=== PATIENT | male | born 1970 | race Caucasian/White ===

== ENCOUNTER 2018-10-03 12:10 | Emergency (ER) | payer OTHER, SELFPAY ==
[2018-10-03 12:11] VITALS: BP 145/73; PULSE 97; RESP 16; TEMP 36.8; O2SAT 96; BMI 22.0
--- NOTE | 2018-10-03 12:33 | ED.DCSUM_ITS ---
- ER Visit Summary Date of Service: 10/03/18 Chief Complaint: Right foot wound History of Present Illness: The patient is a 48 M presents with wound to his right foot that has been getting progressively worse over the past 3 weeks. Patient states he had a callus on his right foot that he picked at and became an open wound. Patient describes the pain is dull. Patient states his pain is worse with weightbearing and ambulation. Patient does admit to some mild tingling in the right foot. Patient admits to some drainage from the wound. Patient denies any fevers or chills. Patient denies any specific trauma or injury. Patient states he has not been taking his insulin because he cannot afford it. Physical Examination: Vital signs are stable. Patient is afebrile. Patient is in no acute distress. Oral mucosa is pink and moist. Neck is supple. Heart was regular rate and rhythm. Lungs are clear and equal bilaterally. Abdomen is soft and nontender. Skin is warm and dry. There is a grade 3 ulceration on the lateral aspect of the right foot near the base of the fifth metatarsal. There is some localized tenderness. There is no discharge or drainage noted from the wound. There is some surrounding erythema. There is some edema noted. Sensation was intact to light touch in all digits. Capillary refill is less than 2 seconds in all digits. Pedal pulses are equal bilateral. There is no calf tenderness noted. Test Results: CBC showed a mild leukocytosis of 14.5. Creatinine was slightly elevated at 2.01. Glucose was 309. X-rays of the right foot were obtained. There is no evidence of osteomyelitis. Emergency Department Course and Treatment: Wound culture was obtained and is pending. Patient was given IV fluids. Patient was given his first dose of Bactrim here. Patient was instructed to keep the wound clean. Patient was instructed to use Neosporin ointment to the area. Patient was instructed to follow-up with his primary care physician or the [facility] in 3-5 days. Patient understood and was agreeable with the plan. All questions were answered. Disposition: Discharge home Impression: Infected wound right foot This note was generated with [employer] software. It may contain incorrect words, spelling, and punctuation that were not noted in review of the chart prior to signing ED Disposition - Plan for ED Patient: Disposition: Home or Assisted Living Diagnosis: Unspecified open wound, right foot, initial encounter, Cellulitis of right foot Instructions: Wound Care, Cellulitis Prescriptions: Smz/Tmp Ds [Bactrim Ds] 1 tab PO BID #20 tab Prescription Printed Referrals: NOT,DEFINED [NON-STAFF] -
[2018-10-03 13:11] LABS: Basophil# 0.09 X10^3/uL; Basophil% 0.6 % (0-1); Eosinophil# 0.06 X10^3/uL; Eosinophils% 0.4 % (0-5); Hematocrit 37.6 % (40-54); Hemoglobin 12.6 g/dl (13.0-16.5); Lymphocyte % 13.8 % (19-41); Mean Corp Hgb Conc 33.5 g/gl (32-36); Mean Corpuscular Hgb 28.8 pg (27.0-32.0); Mean Corpuscular Volume 85.8 fL (80-94); Mean Platelet Vol. 9.7 fl (6.2-12.0); Neutrophil # 11.02 X10^3/uL (2.7-7.7); Neutrophil % 75.9 % (47-70); Platelet Count 406 K/mm3 (150-450); RBC Distribution Width CV 12.4 % (11.6-14.6); RBC Distribution Width SD 39.1 fl (35.1-43.9); Red Blood Count 4.38 M/mm3 (4.6-6.2); White Blood Count 14.5 K/mm3 (4.4-11.0)
--- NOTE | 2018-10-03 13:15 | CM.ED ---
SOCIAL WORK INFORMANT: NURSEAMAN AND DR. CHRISTIAN REASON FOR REFERRAL: RX ASSISTANCE/NO PCP MET WITH PATIENT IN ROOM. INTRODUCED ROLE AND REASON FOR REFERRAL. 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 PATIENT STATES HAS BEEN ASSISTING SON WITH PAYING FOR COLLEGE AND HAS NOT BEEN ABLE TO AFFORD HIS MEDICATIONS. PATIENT GIVEN RX DISCOUNT CARDS AND INFORMATION ON DIFFERENT PRESCRIPTION ASSISTANCE PROGRAMS. PATIENT INFORMED ON LOCAL PRIMARY CARE PROVIDERS. PATIENT [facility] CONTACT NUMBERS GIVEN AND PATIENT TO FOLLOW UP. PATIENT VOICES NO OTHER QUESTIONS OR CONCERNS AT THIS TIME. DR. CHRISTIAN AND NURSE UPDATED ON THE ABOVE. PLAN: HOME JUSTIN MEJIA, AUDITING MANAGER, DIRECTOR OF RESIDENTIAL SERVICES
[2018-10-03 13:18] LABS: POSITIVE COUNT NO; POSITIVE DIFFERENTIAL NO; POSITIVE MORPHOLOGY NO
[2018-10-03 13:20] LABS: Anion Gap 5 (5-15); BUN 30 mg/dL (7-18); BUN/Creat Ratio 14.9 RATIO (10-20); Calcium,Total 9.3 mg/dL (8.5-10.1); Chloride 100 mmol/L (98-107); Creatinine, Serum 2.01 mg/dL (0.70-1.30); EST Glomerular Filtration Rate 38 mL/min (>60); Est Glom Filt Rate - Afr Amer 46 mL/min (>60); Estimated Creatinine Clearance 47.87 ml/min; Glucose 309 mg/dL (74-106); Potassium 4.4 mmol/L (3.5-5.1); Sodium Level 133 mmol/L (136-145)
--- NOTE | 2018-10-03 13:25 | RAD_ITS ---
STUDY: X-RAY - RIGHT FOOT CLINICAL: Male, 48 years old. TECHNIQUE: view(s) of the foot. COMPARISON: None. FINDINGS: Normal talus, calcaneus, and tarsal bones. Normal visualized subtalar, talonavicular, calcaneocuboid, tarsal and tarsometatarsal articulations. Normal metatarsi. Normal metatarsophalangeal joint of the great toe. Normal tibial and fibular sesamoid bones. Normal interphalangeal joint of the great toe. Normal phalanges of the great toe. Normal second through fifth metatarsophalangeal joints. Normal interphalangeal joints and phalanges of the lesser toes. The soft tissue structures are unremarkable. RAD/Foot min 3 Views IMPRESSION: Normal x-ray examination of the foot. Electronically Signed: Maria Elenamichael Elaina, at 14:01 EDT Tel , Service support ,
[2018-10-03] MEDS: 0.9% Normal Saline 1,000 ML 1000 ML IV ×2 (14:36)
[2018-10-03] MEDS: Smz/Tmp Ds Tablet 1 TABLET PO (16:21)
[2018-10-03 16:22] VITALS: BP 173/94; PULSE 88; RESP 16; TEMP 36.3; O2SAT 96
== END 2018-10-03 16:26 | disposition home or self-care (01) ==
PROVIDERS: Emergency Provider Emergency Medicine
DX: S91.301A Unspecified open wound, right foot, initial encounter (principal); L03.115 Cellulitis of right lower limb; X58.XXXA Exposure to other specified factors, initial encounter; Y93.9 Activity, unspecified; Y92.9 Unspecified place or not applicable; Y99.9 Unspecified external cause status; E11.9 Type 2 diabetes mellitus without complications; R20.2 Paresthesia of skin; F17.220 Nicotine dependence, chewing tobacco, uncomplicated; Z79.82 Long term (current) use of aspirin; Z79.4 Long term (current) use of insulin; Z79.899 Other long term (current) drug therapy
CPT/HCPCS: 73630; 80048; 85025; 87070; 87077; 87186; 87205; 96360; 96361; 99284; J7030; A4216

== ENCOUNTER 2018-10-07 19:00 | Inpatient (IN) | payer OTHER, SELFPAY ==
[2018-10-07 19:01] VITALS: BP 153/86; PULSE 86; RESP 15; TEMP 36.8; O2SAT 98; BMI 23.7
[2018-10-07 20:49] LABS: Absolute Lymphocyte Count 2.38 X10^3/ul (0.83-4.51); Absolute Neutrophil Count 13.1 X10^3/uL (2.0-7.7); Basophil% 0.6 % (0-1); Eosinophil# 0.28 X10^3/uL; Eosinophils% 1.6 % (0-5); Hematocrit 37.1 % (40-54); Hemoglobin 12.7 g/dl (13.0-16.5); Lymphocyte # 2.38 X10^3/ul (4.0); Lymphocyte % 13.8 % (19-41); Mean Corp Hgb Conc 34.2 g/gl (32-36); Mean Corpuscular Hgb 29.2 pg (27.0-32.0); Mean Corpuscular Volume 85.3 fL (80-94); Mean Platelet Vol. 9.3 fl (6.2-12.0); Monocyte# 1.41 X10^3/uL; Monocyte% 8.2 % (0-10); Neutrophil # 13.08 X10^3/uL (2.7-7.7); Neutrophil % 75.6 % (47-70); Platelet Count 473 K/mm3 (150-450); RBC Distribution Width CV 12.6 % (11.6-14.6); Red Blood Count 4.35 M/mm3 (4.6-6.2); White Blood Count 17.3 K/mm3 (4.4-11.0)
[2018-10-07 20:52] LABS: POSITIVE COUNT NO; POSITIVE DIFFERENTIAL NO; POSITIVE MORPHOLOGY NO
[2018-10-07 21:01] LABS: Anion Gap 7 (5-15); BUN 42 mg/dL (7-18); BUN/Creat Ratio 15.2 RATIO (10-20); Calcium,Total 9.6 mg/dL (8.5-10.1); Chloride 104 mmol/L (98-107); Creatinine, Serum 2.77 mg/dL (0.70-1.30); EST Glomerular Filtration Rate 26 mL/min (>60); Est Glom Filt Rate - Afr Amer 32 mL/min (>60); Estimated Creatinine Clearance 36.57 ml/min; Glucose 195 mg/dL (74-106); Potassium 4.3 mmol/L (3.5-5.1); Sodium Level 136 mmol/L (136-145)
--- NOTE | 2018-10-07 21:19 | ED.VISSUMM ---
- ER Visit Summary Date of Service: 10/07/18 Chief Complaint: [Foot infection] History of Present Illness: The patient is a 48 M [the emergency department with foot infection that he said for about a month and a half. Patient was seen in the emergency department for 5 days ago and was started on Bactrim. Patient also had labs and an x-ray of his foot at that time there is no evidence of osteomyelitis. Patient states that despite the antibiotic he continues to have discomfort and drainage as well as foul odor from the foot. He denies any fevers. Patient is a diabetic. Patient states that initially he developed a wound by picking at a callus on his foot.] Physical Examination: [HEENT-PERRLA, EOMI. Cranial nerves II through XII grossly intact. TMs clear. Mucous membranes moist. No adenopathy. Cardiovascular-regular rate and rhythm without murmur or ectopy Lungs-clear to auscultation, chest wall stable without crepitus or subcu emphysema Abdomen-normoactive bowel sounds, soft, nontender, no rebound or rigidity, no peritoneal signs. Extremities-intact ?4, normal range of motion, normal pulses, atraumatic. Right foot-patient has a open wound to the plantar aspect of the right foot over the area of the first metatarsal. There is surrounding edema and soft tissue swelling. Upon compression of the wound there is a yellowish to serous drainage noted that has some foul odor to it. Patient has swelling and discoloration into the midfoot.] Test Results: [CBC with differential obtained showed an elevated white blood cell count of 17,000, hemoglobin 12.7, hematocrit 37, plates 473. Chemistries were unremarkable. BUN was 42 and creatinine 2.77.] Emergency Department Course and Treatment: [Patient is pen allergic therefore he was started on clindamycin and vancomycin. Patient case was discussed with hospitalist will evaluate for admission.] Treatment Plan: [Admit for IV antibiotics and specialty consultation.] Disposition: [Admit] Impression: [Diabetic foot infection-failed outpatient therapy Acute kidney injury] This note was generated with [employer] dictation software. It may contain incorrect words, spelling, and punctuation that were not noted in review of the chart prior to signing ED Disposition - Plan for ED Patient: Referrals: Care Physician,No Primary [Primary Care Provider] -
[2018-10-07 21:41] VITALS: BP 134/117; PULSE 89; RESP 17; TEMP 36.6; O2SAT 96
[2018-10-07 21:43] VITALS: BP 134/117; PULSE 89; RESP 17; TEMP 36.6; O2SAT 96
--- NOTE | 2018-10-07 21:57 | PCM.HP.STD ---
Problem List (1) Diabetic foot infection Status: Acute History of Present Illness Date of Admission: 10/07/18 Chief Complaint: right foot wound The patient is a 48 year old M 2 for significant history of hypertension and diabetes who presented to the emergency department with painful right foot. Patient has a wound in his right foot for which she was started on Bactrim 5 days ago. He reports malodorous drainage from the wound of his right foot. Because he has not been improving he will returned back to emergency departments. His symptoms started after he picked at a callus on his right foot about 6 weeks ago Past Medical History Medical History: Medical History (Last Reviewed 10/08/18 @ 02:00 by Mehrdad Alexis MD) Diabetes E11.9 Hypertension I10 Allergies Penicillins Allergy (Verified 10/03/18 12:13) Unknown Home Medications: Ambulatory Orders Medication Instructions Recorded Aspirin [Aspirin, Baby] 81 mg PO DAILY@0800 03/08/15 Smz/Tmp Ds [Bactrim Ds] 1 tab PO BID #20 tab 10/03/18 Surgical History: - - hip surgery for an infection Psychiatric History: No pertinent psych hx Lives: Spouse/ Significant Other Smoking Status: Unknown if ever smoked Alcohol: Occasional - *Family History Maternal History Items: COPD, Diabetes, - Paternal History Items: Heart Disease, Renal Disease, - Sibling History Items: - - He has a sister who has rheumatoid arthritis. Review of Systems Constitutional: Denies: Chills, Fever, Weight Change HEENT: Denies: Head Aches, Sinus Congestion, Sinus Drainage Cardiovascular: Denies: Chest Pain, Palpitations Respiratory: Denies: Cough, Shortness of breath at rest, Sputum production Gastrointestinal: Denies: Abdominal Pain, Nausea, Vomiting Genitourinary: Denies: Dysuria Musculoskeletal: Reports: Foot Pain. Denies: Joint Pain, Joint Tenderness Skin: Reports: Wounds - Right foot. Denies: Rash Neurological: Denies: Numbness, Tingling, Focal weakness Psychiatric: Denies: Anxiety, Depression, Homicidal Ideations, Suicidal Ideations Hematologic/ Lymphatic: Denies: Easy Bruising, Easy Bleeding VTE Information - Inpt Only VTE Present on Admission: No VTE Mechan Device Prophylaxis: None VTE Pharm Prophylaxis ordered?: Yes Patient Problems: Active and Suspected Problems (Last Updated 10/07/18 @ 22:41 by Mehrdad Alexis MD) Diabetic foot infection (Acute) - Physical Exam General: Alert, Oriented x3, Cooperative HEENT: Atraumatic, PERRLA, EOMI, Normocephalic Neck: Supple, No JVD, Negative Carotid Bruits Lungs: Clear to auscultation, Normal air movement Cardiovascular: Regular rate, No murmurs Abdomen: Bowel Sounds Present, Soft, Non Tender Extremities: Capillary Refill Less than 3 Seconds, Tenderness - Right foot. Skin: No rashes, Ulcer/ Wound - Ulcer at lateral side of right foot., - Musculoskeletal: No Tenderness to Palpation of Joints or Extremities Neurological: Cranial nerves II-XII grossly intact Psych/Mental Status: Normal Affect, Appropriate Vital Signs Temp Pulse Resp BP Pulse Ox 97.8 F 89 17 134/117 H 96 10/07/18 21:43 10/07/18 21:43 10/07/18 21:43 10/07/18 21:43 10/07/18 21:43 Oxygen Delivery Method Room Air Weight: 79.379 kg Body Mass Index (BMI) 23.7 Finger Stick Blood Glucose 179 Laboratory Tests Past 24 Hrs 10/07/18 10/07/18 20:34 20:34 WBC 17.3 H RBC 4.35 L Hgb 12.7 L Hct 37.1 L MCV 85.3 MCH 29.2 MCHC 34.2 RDW 12.6 RDW Differential 39.0 Plt Count 473 H MPV 9.3 Immature Gran % (Auto) 0.200 Neut % (Auto) 75.6 H Lymph % (Auto) 13.8 L [place] % (Auto) 8.2 Eos % (Auto) 1.6 Baso % (Auto) 0.6 Absolute Neuts (auto) 13.1 H Absolute Lymphs (auto) 2.38 Total Counted Not Reportable Sodium 136 Potassium 4.3 Chloride 104 Carbon Dioxide 25.0 Anion Gap 7 BUN 42 H Creatinine 2.77 H Estim Creat Clear Calc 36.57 Est GFR (MDRD) Af Amer 32 L Est GFR (MDRD) Non-Af 26 L BUN/Creatinine Ratio 15.2 Glucose 195 H Calcium 9.6 Assessment/Plan All Active Problems (Last Updated 10/07/18 @ 22:41 by Mehrdad Alexis MD) Anemia (Acute) Hyponatremia (Acute) Tachycardia (Acute) Thrombocytosis (Acute) Weight loss (Acute) Sepsis (Acute) Septic arthritis of hip (Acute) Dehydration (Acute) Bursitis (Acute) Diabetic foot infection (Acute) The patient is a 48 year old M 2 for significant history of hypertension and diabetes who presented to the emergency department with right foot wound with associated pain consistent with a diabetic foot infection. Diabetic Foot Infection X-ray of his right foot's on 10/03/2017 was unremarkable. Differential diagnosis include osteomyelitis We will order ESR and CRP. Of note patient has KAVEH with a GFR of 32. Consider nephrology consult if consideration is to order an MRI with contrast. Patient is at risk of NSF with IV contrast. Of notes patient had swelling with penicillin when he was a child. Vancomycin and Clindamycin was ordered emergency department. Vancomycin and Clindamycin continued. Consult ID and podiatry. Wet-to-dry dressing to wound. Wound care consult. Of note he has strong PT pulse bilateral feet. No arterial studies at this time Hold Home ASA Tylenol schedule and prn oxycodone for pain. KAVEH Her creatinine was 2.77. Five days ago CR was 2.1 Previous CR was around 1.0 BUN/CR 15.2. Can not rule out intrinsic renal Trend BMP Treat as pre-renal with gentle hydration with normal saline IV Trend BMP. Avoid nephrotoxics Diabetes mellitus On presentation his blood glucose was not within goal. Patient reported that previously he was taking long acting insulin 30 units in the morning but because he could not afford he stopped taking it. Also, he reports that previously he was on Metformin. Check A1C. Diabetic education. We will put the patient on low-dose basal insulin and correction scale insulin. Accu-Chek q. before meals at bedtime Hypertension On presentation his blood pressure was not within goal. Reportedly he has not followed up outpatient. For now will put on hydralazine as needed. Trend BMP DVT prophylaxis Subcutaneous heparin. Code Visit Inpatient E&M: 16296 Init Hosp L3
[2018-10-07 22:27] VITALS: BMI 21.7
[2018-10-07 22:30] VITALS: BP 142/81; PULSE 92; RESP 16; TEMP 36.4; O2SAT 98
[2018-10-07 22:37] VITALS: BMI 21.7
[2018-10-07] MEDS: Insulin Lispro 100 UNIT/ML INSULN.PEN SC (23:04)
[2018-10-07] MEDS: 0.9% Normal Saline 1,000 ML 100 ML IV (23:04)
[2018-10-07] MEDS: Heparin Injection (Vial) 5,000 UNIT/ML VIAL 5000 UNIT SC (23:04)
--- NOTE | 2018-10-07 23:07 | PCM.RX.CS ---
Consult Pharmacy has been consulted to manage selected antiobiotic: Vancomycin Type of Consult: New start Suspected Infection: Skin/Soft tissue Prior Doses of Antibiotics Received/Current Regimen: Medications Vancomycin HCl (Vancomycin) 1,000 mg in 200 mls @ 200 mls/hr IV Q24H ANGELINA Discontinued Medications Vancomycin HCl 1,250 mg/ (Dextrose) 275 mls @ 250 mls/hr IV X1 ONE Stop: 10/07/18 21:27 Last Admin: 10/07/18 22:25 Dose: 250 mls/hr Labs: Sodium 136 mmol/L (136-145) 10/07/18 20:34 Potassium 4.3 mmol/L (3.5-5.1) 10/07/18 20:34 Chloride 104 mmol/L (98-107) 10/07/18 20:34 Carbon Dioxide 25.0 mmol/L (21.0-32.0) 10/07/18 20:34 7 (5-15) 10/07/18 20:34 BUN 42 mg/dL (7-18) H 10/07/18 20:34 2.77 mg/dL (0.70-1.30) H 10/07/18 20:34 Est GFR (MDRD) Af Amer 32 mL/min (>60) L 10/07/18 20:34 Est GFR (MDRD) Non-Af 26 mL/min (>60) L 10/07/18 20:34 15.2 RATIO (10-20) 10/07/18 20:34 Glucose 195 mg/dL (74-106) H 10/07/18 20:34 Weight used for dosin.5 kg Estimated Creatinine Clearance: 36.6 Goal Trough: 15-20 mcg/mL Pharmacy Plan for Drug Dosing: Pharmacy Service will continue to monitor and adjust dosing as required. Follow-Up Labs: Trough Vancomycin Labs to be done on [date and time ordered]: 10/09/18 @2200
[2018-10-07 23:12] LABS: Erythrocyte Sedimentation Rate 96 mm/hr (0-15)
[2018-10-08] VITALS (9 sets, daily range): BP systolic 127–154; BP diastolic 73–83; PULSE 74–102; RESP 14–20; TEMP 36.5–37.1; O2SAT 96–99; BMI 21.6
--- NOTE | 2018-10-08 | BON_PTH ---
PATIENT: SHAREE JUNIOR Jr. LOC: MS3 U#:[id number] AGE/SX: 48/M ROOM: HI313 RE10/07/[address]: Dr. Yobani Kearns MD : 1970 BED: 1 DIS: 10/11/2018 SPEC #: [id number] RECD: 10/09/18 08:21 STATUS: TOBI REQ #: [id number] RIKA: 10/08/18 00:[address]: Tha Perrin DEPT: SURGICAL PATHOLOGY RECD BY: Herman Braxton ENTERED: 10/09/18 14:02 SP TYPE: Bone OTHR DR: MD Dr. Mehrdad Hanks MD Dr. Jeffrey Wunning, DPM Dr. Jabier Hunter MD No Primary Care Phys Tissues: A - Bone of foot, NOS B - Foot, NOS Procedures: Decalcification bone/plaque Surgery Specimen Level IV Comments: @ Ordering doctor for DEC edited from to @ shelbi FUNES at 10/09/18 1521 @ Ordering doctor for SUIII edited from to @ by SHANTEL at 10/09/18 1521 @ Submitting doctor edited from to @ by SHANTEL at 10/09/18 1521 HEADER OPERATION: Incision and drainage with debridement of nonviable PRE-OP DIAGNOSIS: Abscess and osteomyelitis of right foot TISSUE SUBMITTED: A - Fifth metatarsal right foot, B - Cuboid right foot MICROSCOPIC DIAGNOSIS A. Fifth metatarsal, right foot, biopsy: Fragments of benign bone tissue. No evidence of osteomyelitis. B. Cuboid bone, right foot, biopsy: Fragments of benign bone tissue. No evidence of osteomyelitis. AM:elyssa 10/16/18 MICROSCOPIC DESCRIPTION Slides are reviewed. GROSS DESCRIPTION A - Received in fixative is one container labeled with the patient's name and designated fifth metatarsal right foot. The specimen consists of a core biopsy of bone measuring 0.5 cm in length and 0.3 cm in diameter. The entire specimen is submitted in one cassette after decalcification. B - Received in fixative is one container labeled with the patient's name and designated cuboid right foot. The specimen consists of a core biopsy of bone measuring 0.4 cm in length and 0.3 cm in diameter. The entire specimen is submitted in one cassette after decalcification. / SJ:elyssa 10/09/18 TC:5 CPT: 07695 x2, 26252 x2
[2018-10-08 06:27] LABS: Absolute Neutrophil Count 9.4 X10^3/uL (2.0-7.7); Basophil# 0.07 X10^3/uL; Basophil% 0.5 % (0-1); Eosinophil# 0.32 X10^3/uL; Eosinophils% 2.4 % (0-5); Hematocrit 36.2 % (40-54); Hemoglobin 12.1 g/dl (13.0-16.5); Lymphocyte % 18.6 % (19-41); Mean Corp Hgb Conc 33.4 g/gl (32-36); Mean Corpuscular Hgb 28.4 pg (27.0-32.0); Mean Platelet Vol. 9.6 fl (6.2-12.0); Monocyte# 1.14 X10^3/uL; Monocyte% 8.5 % (0-10); Neutrophil # 9.36 X10^3/uL (2.7-7.7); Neutrophil % 69.6 % (47-70); Platelet Count 451 K/mm3 (150-450); RBC Distribution Width CV 12.4 % (11.6-14.6); RBC Distribution Width SD 37.9 fl (35.1-43.9); Red Blood Count 4.26 M/mm3 (4.6-6.2); White Blood Count 13.4 K/mm3 (4.4-11.0)
[2018-10-08 06:30] LABS: POSITIVE COUNT NO; POSITIVE DIFFERENTIAL NO; POSITIVE MORPHOLOGY NO
[2018-10-08] MEDS: Insulin Lispro 100 UNIT/ML INSULN.PEN SC ×3 (06:37→23:35)
[2018-10-08] MEDS: Heparin Injection (Vial) 5,000 UNIT/ML VIAL 5000 UNIT SC ×2 (06:38→23:35)
[2018-10-08 06:49] LABS: Anion Gap 8 (5-15); BUN 32 mg/dL (7-18); BUN/Creat Ratio 14.6 RATIO (10-20); Chloride 105 mmol/L (98-107); Creatinine, Serum 2.19 mg/dL (0.70-1.30); EST Glomerular Filtration Rate 35 mL/min (>60); Est Glom Filt Rate - Afr Amer 42 mL/min (>60); Estimated Creatinine Clearance 43.22 ml/min; Glucose 268 mg/dL (74-106); Potassium 4.3 mmol/L (3.5-5.1); Sodium Level 139 mmol/L (136-145)
--- NOTE | 2018-10-08 07:29 | PCM.PN.HOSP ---
Patient Problems: Active and Suspected Problems (Last Reviewed 10/08/18 @ 02:00 by Mehrdad Alexis MD) Diabetic foot infection (Acute) Subjective: Patient is a 48-year-old gentleman with past medical history significant hypertension, diabetes mellitus type 2 who presented with a diabetic foot infection Objective: GENERAL: cooperative HEENT: Atraumatic; moist oral mucosa EYES; Anicteric, Normal Conjunctiva NECK; supple, normal thyroid, no distended JVD. RESPIRATORY: Diminished to auscultation bilaterally, CARDIOVASCULAR: Regular S1 S2, no audible murmurs GI: soft, non-tender, normoactive bowel sounds, : No Renal angle tenderness; EXTREMITIES: Diabetic foot ulceration involving the plantar surface of the right foot MUSCULOSKELETAL: No Joint Tenderness; no muscle waisting NEURO: Awake; no lateralizing signs. SKIN: No Rash PSYCH; Normal affect Vitals/I&O's: Vital Signs Temp Pulse Resp BP Pulse Ox 98.7 F 84 14 129/83 H 99 10/08/18 04:30 10/08/18 04:30 10/08/18 04:30 10/08/18 04:30 10/08/18 04:30 Oxygen Delivery Method Room Air Weight: 72.5 kg Body Mass Index (BMI) 21.7 Finger Stick Blood Glucose 179 Intake and Output for Last 24 Hours 10/06/18 10/07/18 10/08/18 23:59 23:59 23:59 Intake Total 1836 / 1836 Balance 1836 / 1836 Laboratory Results 10/07/18 20:34: WBC 17.3 H, RBC 4.35 L, Hgb 12.7 L, Hct 37.1 L, MCV 85.3, MCH 29.2, MCHC 34.2, RDW 12.6, RDW Differential 39.0, Plt Count 473 H, MPV 9.3, Immature Gran % (Auto) 0.200, Neut % (Auto) 75.6 H, Lymph % (Auto) 13.8 L, [place] % (Auto) 8.2, Eos % (Auto) 1.6, Baso % (Auto) 0.6, Absolute Neuts (auto) 13.1 H, Absolute Lymphs (auto) 2.38, Total Counted Not Reportable 10/07/18 20:34: Sodium 136, Potassium 4.3, Chloride 104, Carbon Dioxide 25.0, Anion Gap 7, BUN 42 H, Creatinine 2.77 H, Estim Creat Clear Calc 36.57, Est GFR (MDRD) Af Amer 32 L, Est GFR (MDRD) Non-Af 26 L, BUN/Creatinine Ratio 15.2, Glucose 195 H, Calcium 9.6 10/07/18 20:34: ESR 96 H 10/07/18 20:34: C-React Prot Ext Range 43.00 H 10/07/18 20:34: Hemoglobin A1c Pending 10/08/18 06:00: WBC 13.4 H, RBC 4.26 L, Hgb 12.1 L, Hct 36.2 L, MCV 85.0, MCH 28.4, MCHC 33.4, RDW 12.4, RDW Differential 37.9, Plt Count 451 H, MPV 9.6, Immature Gran % (Auto) 0.400, Neut % (Auto) 69.6, Lymph % (Auto) 18.6 L, [place] % (Auto) 8.5, Eos % (Auto) 2.4, Baso % (Auto) 0.5, Absolute Neuts (auto) 9.4 H, Absolute Lymphs (auto) 2.50, Total Counted Not Reportable 10/08/18 06:00: Sodium 139, Potassium 4.3, Chloride 105, Carbon Dioxide 26.0, Anion Gap 8, BUN 32 H, Creatinine 2.19 H, Estim Creat Clear Calc 43.22, Est GFR (MDRD) Af Amer 42 L, Est GFR (MDRD) Non-Af 35 L, BUN/Creatinine Ratio 14.6, Glucose 268 H, Calcium 9.0 Current Medications Acetaminophen (Tylenol) 650 mg PO Q6H PRN PRN PRN Reason: Mild Pain (1-3)/Temp > 100.7 F Dextrose (D50w Syringe) 0 gm IV X1 PRN; Protocol PRN Reason: Hypoglycemia Glucagon () 1 mg IM .X1 PRN PRN Reason: Hypoglycemia Heparin Sodium (Porcine) (Heparin Na) 5,000 unit SC Q8 ANGELINA Last Admin: 10/08/18 06:38 Dose: 5,000 unit Documented by: Hydralazine HCl (Apresoline Iv) 5 mg IV Q4H PRN PRN PRN Reason: SBP > 160 Sodium Chloride () 1,000 mls @ 100 mls/hr IV .Q10H [facility] Stop: 10/08/18 08:18 Last Admin: 10/07/18 23:04 Dose: 100 mls/hr Documented by: Clindamycin Phosphate 600 mg/ (Dextrose) 54 mls @ 100 mls/hr IV Q8 [facility] Last Admin: 10/08/18 06:36 Dose: 100 mls/hr Documented by: Vancomycin IV Pharmacy to Dose (1,250 ea/ Sodium Chloride) 500 mls @ 250 mls/hr IV PRN PRN; Protocol Vancomycin HCl (Vancomycin) 1,000 mg in 200 mls @ 200 mls/hr IV Q24H [facility] Sodium Chloride () 250 mls @ 15 mls/hr IV .[id number] PRN PRN Reason: SALINE FLUSH Insulin Glargine (Lantus (Bkc)) 10 units SC QHS [facility] Last Admin: 10/07/18 23:03 Dose: 10 u Documented by: Insulin Human Lispro (Humalog Kwikpen (Bkc)) 0 unit SC ACHS [facility]; Protocol Last Admin: 10/08/18 06:37 Dose: 2 u Documented by: Nutritional Formula (Lactose Free) (Glucerna Shake) 120 ml PO 4X/DAY [facility] Oxycodone HCl (Oxyir) 5 mg PO Q4H PRN PRN PRN Reason: Moderate Pain (4-6/10) Senna/Docusate Sodium (Senokot-S, Wendy-Colace) 2 tablet PO BID PRN PRN PRN Reason: Constipation Sodium Chloride () 10 - 40 ml IV UD PRN PRN Reason: SALINE FLUSH Medical Necessity - Tobacco Use Smoking Status: Former smoker Tobacco Use: Cigarettes, Chew Assessment/Plan All Active Problems (Last Reviewed 10/08/18 @ 02:00 by Mehrdad Alexis MD) Anemia (Acute) Hyponatremia (Acute) Tachycardia (Acute) Thrombocytosis (Acute) Weight loss (Acute) Sepsis (Acute) Septic arthritis of hip (Acute) Dehydration (Acute) Bursitis (Acute) Diabetic foot infection (Acute) Patient is a 48-year-old gentleman with past medical history significant hypertension, diabetes mellitus type 2 who presented with a diabetic foot infection 1. Diabetic foot infection, the right foot the patient was started on broad-spectrum antibiotic therapy with vancomycin as well as clindamycin subsequent evaluation with an MRI ordered consult was also placed infectious disease as well as podiatry 2. Acute kidney injury; on IV fluids with subsequent monitoring of electrolytes 3. Chronic kidney disease stage III secondary to diabetic nephropathy Baseline creatinine 2.1 4. Diabetes mellitus type 2 with complications including diabetic foot ulcers as well as diabetic nephropathy patient is on insulin discontinued home dose in addition to Accu-Cheks before meals and at bedtime with sliding scale coverage 5. Essential hypertension-blood pressure controlled, home medications continued with dose adjustment as needed 6. DVT prophylaxis; Subcutaneous heparin. Active Medications Acetaminophen (Tylenol) 650 mg PO Q6H PRN PRN PRN Reason: Mild Pain (1-3)/Temp > 100.7 F Dextrose (D50w Syringe) 0 gm IV X1 PRN; Protocol PRN Reason: Hypoglycemia Glucagon () 1 mg IM .X1 PRN PRN Reason: Hypoglycemia Heparin Sodium (Porcine) (Heparin Na) 5,000 unit SC Q8 [facility] Last Admin: 10/08/18 06:38 Dose: 5,000 unit Documented by: Hydralazine HCl (Apresoline Iv) 5 mg IV Q4H PRN PRN PRN Reason: SBP > 160 Sodium Chloride () 1,000 mls @ 100 mls/hr IV .Q10H [facility] Stop: 10/08/18 08:18 Last Admin: 10/07/18 23:04 Dose: 100 mls/hr Documented by: Clindamycin Phosphate 600 mg/ (Dextrose) 54 mls @ 100 mls/hr IV Q8 [facility] Last Admin: 10/08/18 06:36 Dose: 100 mls/hr Documented by: Vancomycin IV Pharmacy to Dose (1,250 ea/ Sodium Chloride) 500 mls @ 250 mls/hr IV PRN PRN; Protocol Vancomycin HCl (Vancomycin) 1,000 mg in 200 mls @ 200 mls/hr IV Q24H [facility] Sodium Chloride () 250 mls @ 15 mls/hr IV .[id number] PRN PRN Reason: SALINE FLUSH Insulin Glargine (Lantus (Bkc)) 10 units SC QHS [facility] Last Admin: 10/07/18 23:03 Dose: 10 u Documented by: Insulin Human Lispro (Humalog Kwikpen (Bkc)) 0 unit SC ACHS [facility]; Protocol Last Admin: 10/08/18 06:37 Dose: 2 u Documented by: Nutritional Formula (Lactose Free) (Glucerna Shake) 120 ml PO 4X/DAY [facility] Oxycodone HCl (Oxyir) 5 mg PO Q4H PRN PRN PRN Reason: Moderate Pain (4-610) Senna/Docusate Sodium (Senokot-S, Wendy-Colace) 2 tablet PO BID PRN PRN PRN Reason: Constipation Sodium Chloride () 10 - 40 ml IV UD PRN PRN Reason: SALINE FLUSH Code Visit Inpatient E&M: 87615 Subs Hosp L3
[2018-10-08 08:21] LABS: Hemoglobin A1c 10.9 % (4.2-6.3)
--- NOTE | 2018-10-08 09:05 | MRI_ITS ---
STUDY: MRI RIGHT MIDFOOT REASON FOR EXAM: Male, 48 years old. Abscesses. Wound. TECHNIQUE: Standardized fat and water weighted pulse sequences were obtained in all 3 orthogonal planes. COMPARISON: X-ray October 03, 2018 FINDINGS: There is soft tissue skin and soft tissue defect on the lateral side at the base of the fifth metatarsal. There is marrow edema and T2 signal hyperintensity of the base of the fifth metatarsal and the cuboid, series 9 images 09/02 through 01/03. Normal talonavicular articulation. Normal calcaneocuboid articulation. Normal navicular-cuneiform articulations. Normal intercuneiform articulations. Normal first tarsometatarsal articulation. Normal Lisfranc ligament. Normal second and third tarsometatarsal articulations. Normal cuboid fourth and cuboid fifth tarsometatarsal articulation. Normal first through fourth metatarsi. Normal tibialis anterior tendon. Normal extensor hallucis longus tendon. Normal extensor digitorum longus tendons. Normal peroneus longus tendon and distal insertion. Normal peroneus brevis tendon and distal insertion. Normal intrinsic muscles of the mid and forefoot region. Normal extensor digitorum brevis muscle. MRI/Lower Ext/No Jt/w/o IMPRESSION: Osteomyelitis of the cuboid and fifth metatarsal. Electronically Signed: Tres Waterman MD at 16:38 EDT , Service support ,
--- NOTE | 2018-10-08 09:07 | CON.PCM_ITS ---
Reason for Consult Date of Consultation: 10/08/18 Reason for Consultation: Right foot infection History of Present Illness: The patient is a 48 year old gentleman with uncontrolled diabetes and tobacco dependence was admitted for right foot infection and ulceration. Patient is on feet most of day at work, he developed sore on foot, went to ER on and was started on antibiotics. Infection worsened so he came back to hospital and was admitted. Patient has leukocytosis, and found to have draining ulceration to the plantar lateral right foot with cellulitis and pain present. Patient has been started on IV antibiotics, ID has also been consulted. ESR and CRP are elevated as well. Patient did not relate to any fever, chills, nausea or vomiting. Patient was sitting up in bed, resting comfortably with his at bedside. Past Medical History Medical History: Medical History (Last Reviewed 10/08/18 @ 02:00 by Mehrdad Alexis MD) Diabetes E11.9 Hypertension I10 Allergies Penicillins Allergy (Verified 10/03/18 12:13) Unknown Home Medications: Ambulatory Orders Medication Instructions Recorded Aspirin [Aspirin, Baby] 81 mg PO DAILY@0800 03/08/15 Smz/Tmp Ds [Bactrim Ds] 1 tab PO BID #20 tab 10/03/18 Surgical History: - - hip surgery for an infection Psychiatric History: No pertinent psych hx Lives: Spouse/ Significant Other Smoking Status: Former smoker Tobacco Use: Cigarettes, Chew Alcohol: Occasional - *Family History Maternal History Items: COPD, Diabetes, - Paternal History Items: Heart Disease, Renal Disease, - Sibling History Items: - - He has a sister who has rheumatoid arthritis. Review of Systems Constitutional: Denies: Chills, Fever Gastrointestinal: Denies: Nausea, Vomiting Skin: Reports: Wounds Patient Problems: Active and Suspected Problems (Last Reviewed 10/08/18 @ 02:00 by Mehrdad Alexis MD) Diabetic foot infection (Acute) - Physical Exam General: Alert, Oriented x3, Cooperative, No apparent distress Extremities: No cyanosis, Capillary Refill Less than 3 Seconds, No Calf Tenderness, Peripheral Pulses Normal, - - Right foot with open draining u lceration to the lateral foot at level of the 5th met base, there is purulence present, there is surrounding cellulitis extending to the plantar arch, there is nonviable tissue present to the wound bed, probes to deep fascia close to 5th met bone, there is POP to the ulcer site and plantar arch c/w tracking infection and abscess. Suspect deep forming abscess to the plantar arch of the right foot. There is no acute gangrene present or evidence of acute ischemia to the foot bilateral. CFT < 2 seconds to all toes bilateral. No open lesions or evidence of infection to the left foot. Sensation intact to light touch bilateral foot, motor function intact and muscle strength intact to foot and ankle bilateral. Psych/Mental Status: Normal Affect, Appropriate, Alert and oriented to time, place, person, mood and affect Vital Signs Temp Pulse Resp BP Pulse Ox 98.7 F 84 14 129/83 H 99 10/08/18 04:30 10/08/18 04:30 10/08/18 04:30 10/08/18 04:30 10/08/18 04:30 Oxygen Delivery Method Room Air Weight: 72.5 kg Body Mass Index (BMI) 21.7 Finger Stick Blood Glucose 179 Intake and Output for Last 24 Hours 10/06/18 10/07/18 10/08/18 23:59 23:59 23:59 Intake Total 1836 / 1836 Balance 1836 / 1836 Laboratory Tests Past 24 Hrs 10/07/18 10/07/18 10/07/18 20:34 20:34 20:34 WBC 17.3 H RBC 4.35 L Hgb 12.7 L Hct 37.1 L MCV 85.3 MCH 29.2 MCHC 34.2 RDW 12.6 RDW Differential 39.0 Plt Count 473 H MPV 9.3 Immature Gran % (Auto) 0.200 Neut % (Auto) 75.6 H Lymph % (Auto) 13.8 L [place] % (Auto) 8.2 Eos % (Auto) 1.6 Baso % (Auto) 0.6 Absolute Neuts (auto) 13.1 H Absolute Lymphs (auto) 2.38 Total Counted Not Reportable ESR 96 H Sodium 136 Potassium 4.3 Chloride 104 Carbon Dioxide 25.0 Anion Gap 7 BUN 42 H Creatinine 2.77 H Estim Creat Clear Calc 36.57 Est GFR (MDRD) Af Amer 32 L Est GFR (MDRD) Non-Af 26 L BUN/Creatinine Ratio 15.2 Glucose 195 H Hemoglobin A1c Calcium 9.6 C-React Prot Ext Range 10/07/18 10/07/18 10/08/18 20:34 20:34 06:00 WBC 13.4 H RBC 4.26 L Hgb 12.1 L Hct 36.2 L MCV 85.0 MCH 28.4 MCHC 33.4 RDW 12.4 RDW Differential 37.9 Plt Count 451 H MPV 9.6 Immature Gran % (Auto) 0.400 Neut % (Auto) 69.6 Lymph % (Auto) 18.6 L [place] % (Auto) 8.5 Eos % (Auto) 2.4 Baso % (Auto) 0.5 Absolute Neuts (auto) 9.4 H Absolute Lymphs (auto) 2.50 Total Counted Not Reportable ESR Sodium Potassium Chloride Carbon Dioxide Anion Gap BUN Creatinine Estim Creat Clear Calc Est GFR (MDRD) Af Amer Est GFR (MDRD) Non-Af BUN/Creatinine Ratio Glucose Hemoglobin A1c 10.9 H Calcium C-React Prot Ext Range 43.00 H 10/08/18 06:00 WBC RBC Hgb Hct MCV MCH MCHC RDW RDW Differential Plt Count MPV Immature Gran % (Auto) Neut % (Auto) Lymph % (Auto) [place] % (Auto) Eos % (Auto) Baso % (Auto) Absolute Neuts (auto) Absolute Lymphs (auto) Total Counted ESR Sodium 139 Potassium 4.3 Chloride 105 Carbon Dioxide 26.0 Anion Gap 8 BUN 32 H Creatinine 2.19 H Estim Creat Clear Calc 43.22 Est GFR (MDRD) Af Amer 42 L Est GFR (MDRD) Non-Af 35 L BUN/Creatinine Ratio 14.6 Glucose 268 H Hemoglobin A1c Calcium 9.0 C-React Prot Ext Range Assessment/Plan All Active Problems (Last Reviewed 10/08/18 @ 02:00 by Mehrdad Alexis MD) Anemia (Acute) Hyponatremia (Acute) Tachycardia (Acute) Thrombocytosis (Acute) Weight loss (Acute) Sepsis (Acute) Septic arthritis of hip (Acute) Dehydration (Acute) Bursitis (Acute) Diabetic foot infection (Acute) Ulceration down to deep fascia right foot Abscess right foot, possible osteomyelitis Uncontrolled Diabetes Tobacco Dependence Reviewed diagnostic data, reviewed right foot xrays, patient with leukocytosis which is trending down. ESR and CRP elevated. Patient afebrile. Today with patient's consent and because patient has overall good sensation 7mL of 1% Lidocaine plain was given as a local block around the right foot ulcer site after the overlying skin was cleansed with 70% isopropyl alcohol. The ulcer site was examined and noted to probe to the plantar arch with drainage c/w infection. It also probed close to bone. There is concern for abscess and osteomyelitis right foot, MRI was ordered for further evaluation, it was reviewed, c/w osteomyelitis to the 5th metatarsal and cuboid, given clinical findings suspect deep forming abscess to the plantar arch of the right foot. Given the findings we discussed more formal debridement of all nonviable and infected soft tissue and bone with incision and drainage and bone biopsies of the 5th metatarsal and cuboid bones, which he agreed with. Follow cultures which have been obtained, continue with antibiotic therapy, ID service has been consulted. LEAS studies have been ordered, as patient is diabetic and uses tobacco. No weightbearing right foot. Medical management per medicine team. Reviewed importance of tobacco cessation and proper diabetes control to optimize healing. Podiatry will continue to follow, thank you for consultation.
--- NOTE | 2018-10-08 09:07 | ART_ITS ---
Reason For Study: right foot ulcer Left Segmental Pressures Left posterior tibial artery = 149mmHg. Left digit = 75 mmHg. DPA is noncompressible. The left dorsalis pedis waveforms are triphasic. The left posterior tibial artery waveforms are triphasic. Right Segmental Pressures Right brachial= 136mmHg. Right posterior tibial artery = 168mmHg. Right dorsalis pedis artery = 181mmHg. Right digit = 81 mmHg. The right dorsalis pedis waveforms are triphasic. The right posterior tibial artery waveforms are triphasic. Indices The right ankle brachial index by the dorsalis pedis is 1.33. The right ankle brachial index by the posterior tibial artery is 1.24. The right digital-brachial index is .6. The left ankle brachial index by the posterior tibial artery is 1.1. The left digital-brachial index is .55.. DPA is noncompressible. Interpretation Summary Triphasic Doppler waveforms are noted at ankle level bilaterally. Pulse-volume recording waveform amplitudes are satisfactory at all levels bilaterally, including low-thigh, calf, ankle, and digital levels. Resting ankle-brachial indices are normal bilaterally. Digital-brachial indices are mildly diminished bilaterally. Arterial flow appears to be relatively normal to ankle level bilaterally. There is evidence of mild, distal, small-vessel arterial occlusive disease in the lower extremities bilaterally. Ordering Physician: Tha Perrin Performed By: BART FARRIS Champ
--- NOTE | 2018-10-08 10:05 | CASEMGMT ---
RN DARLYN Face to Face with patient for initial transition planning/care coordination assessment. RN CM introduced self and role at [facility]. Patient lying in bed, alert and oriented. Patient willing to participate in assessment and is able to answer all questions appropriately. Care providers, pharmacy, and demographics verified. Patient wishes to discharge home, will monitor for need for HHC based on wound care and need for IV ATBs at discharge. Patient states he has no further needs or concerns at this time. CM to follow for discharge planning needs that may arise. PCP: None, list provided to patient Specialists: none [facility]erred [facility]acy: [facility] Insurance: [employer] Prescription Benefit: yes Living Will/HPOA: none LNOK: Living Arrangements: Patient lives with in a 2 story home with bed and bath on first floor. Patient independent and able to navigate stairs. Transportation: DME/HHC: Patient has cane and walker. Will monitor for need for HHC for wound care and possible IV ATBs. Disposition Plan: Home with possible HHC, family support, and follow-up plans in place. Carmen CRAWFORD, RN, CM
--- NOTE | 2018-10-08 10:32 | CON.PCM_ITS ---
Problem List (1) Diabetic foot infection Status: Acute Reason for Consult: foot infection Consulted by: Dr. Kearns History of Present Illness: The patient is a 48 year old M with DM neuropathy, presented with 1.5 months of worsening R foot infection. Started with a callus. Had progressive pain, swelling, redness, and clear drainage. Pain was mild, only when he'd stop on it. Was started on bactrim a few days ago with some improvement in swelling. No fever or chills. Came to ED, started on vanc/clinda. Full ROS performed and neg except as noted above. Reports chronic tingling in toes. - Medical History Allergies/Adverse Reactions: Allergies Penicillins Allergy (Verified 10/08/18 09:27) Swelling Tolerates cephalosporins with no issue Home Medications: Ambulatory Orders Medication Instructions Recorded Aspirin [Aspirin, Baby] 81 mg PO DAILY@0800 03/08/15 Smz/Tmp Ds [Bactrim Ds] 1 tab PO BID #20 tab 10/03/18 - Social History SMOKING STATUS:: Former smoker Vital Signs Temp Pulse Resp BP Pulse Ox 98.1 F 90 18 148/82 H 97 10/08/18 10:09 10/08/18 10:09 10/08/18 10:09 10/08/18 10:09 10/08/18 10:09 Oxygen Delivery Method Room Air Weight: 72.5 kg Body Mass Index (BMI) 21.7 Finger Stick Blood Glucose 179 Laboratory Tests Past 24 Hrs 10/07/18 10/07/18 10/07/18 20:34 20:34 20:34 WBC 17.3 H RBC 4.35 L Hgb 12.7 L Hct 37.1 L MCV 85.3 MCH 29.2 MCHC 34.2 RDW 12.6 RDW Differential 39.0 Plt Count 473 H MPV 9.3 Immature Gran % (Auto) 0.200 Neut % (Auto) 75.6 H Lymph % (Auto) 13.8 L [place] % (Auto) 8.2 Eos % (Auto) 1.6 Baso % (Auto) 0.6 Absolute Neuts (auto) 13.1 H Absolute Lymphs (auto) 2.38 Total Counted Not Reportable ESR 96 H Sodium 136 Potassium 4.3 Chloride 104 Carbon Dioxide 25.0 Anion Gap 7 BUN 42 H Creatinine 2.77 H Estim Creat Clear Calc 36.57 Est GFR (MDRD) Af Amer 32 L Est GFR (MDRD) Non-Af 26 L BUN/Creatinine Ratio 15.2 Glucose 195 H Hemoglobin A1c Calcium 9.6 C-React Prot Ext Range 10/07/18 10/07/18 10/08/18 20:34 20:34 06:00 WBC 13.4 H RBC 4.26 L Hgb 12.1 L Hct 36.2 L MCV 85.0 MCH 28.4 MCHC 33.4 RDW 12.4 RDW Differential 37.9 Plt Count 451 H MPV 9.6 Immature Gran % (Auto) 0.400 Neut % (Auto) 69.6 Lymph % (Auto) 18.6 L [place] % (Auto) 8.5 Eos % (Auto) 2.4 Baso % (Auto) 0.5 Absolute Neuts (auto) 9.4 H Absolute Lymphs (auto) 2.50 Total Counted Not Reportable ESR Sodium Potassium Chloride Carbon Dioxide Anion Gap BUN Creatinine Estim Creat Clear Calc Est GFR (MDRD) Af Amer Est GFR (MDRD) Non-Af BUN/Creatinine Ratio Glucose Hemoglobin A1c 10.9 H Calcium C-React Prot Ext Range 43.00 H 10/08/18 06:00 WBC RBC Hgb Hct MCV MCH MCHC RDW RDW Differential Plt Count MPV Immature Gran % (Auto) Neut % (Auto) Lymph % (Auto) [place] % (Auto) Eos % (Auto) Baso % (Auto) Absolute Neuts (auto) Absolute Lymphs (auto) Total Counted ESR Sodium 139 Potassium 4.3 Chloride 105 Carbon Dioxide 26.0 Anion Gap 8 BUN 32 H Creatinine 2.19 H Estim Creat Clear Calc 43.22 Est GFR (MDRD) Af Amer 42 L Est GFR (MDRD) Non-Af 35 L BUN/Creatinine Ratio 14.6 Glucose 268 H Hemoglobin A1c Calcium 9.0 C-React Prot Ext Range - Other Studies Radiology: [] reviewed Other Studies: [] Route of nutrition/ use of supplements: [] Nutritional Intake: [] IV Site: [] Aldana Catheter: [] - Physical Exam General: Alert, Oriented x3, Cooperative, No apparent distress HEENT: Atraumatic, PERRLA, EOMI Neck: Supple, No Nodes Lungs: Clear to auscultation, Normal air movement Cardiovascular: Regular rate, Regular Rhythm, No murmurs Abdomen: Soft, Non Tender, Non-Distended Extremities: No edema Skin: Ulcer/ Wound - R foot wrapped IV Site: Peripheral, without redness Musculoskeletal: No Tenderness to Palpation of Joints or Extremities Neurological: Cranial nerves II-XII grossly intact - Assessment/Plan Antibiotics: [] Assessment/Plan: [] Active and Suspected Problems (Last Reviewed 10/08/18 @ 02:00 by Mehrdad Alexis MD) Diabetic foot infection (Acute) R foot DM infection - cx pending, I&D done by Dr. Perrin, MRI pending. Had reaction to PCN as a child, unknown what happened. Tolerated duricef here in 2013 with no issue, so will change abx to vanc/cefepime/flagyl for now. KAVEH on CKD improving, wbc improving. Will follow, thank you.
[2018-10-08] MEDS: Morphine 4 MG/ML Syringe IV (15:06)
[2018-10-08] MEDS: 0.9% NaCl Peripheral Flush Adult/Peds IV (15:07)
--- NOTE | 2018-10-08 19:29 | NURSING ---
report called to [facility] and spoke with brittany
--- NOTE | 2018-10-08 21:23 | RAD_ITS ---
STUDY: X-RAY - RIGHT FOOT CLINICAL: Male, 48 years old. ITD fifth metatarsal and cuboid biopsy. TECHNIQUE: 3 view(s) of the foot. COMPARISON: None. FINDINGS: 3 spot views were obtained intraoperatively for hardware localization. RAD/Foot 2 Views IMPRESSION: Images obtained for hardware localization area Electronically Signed: Dot Velázquez MD at 22:57 EDT Tel , Service support ,
--- NOTE | 2018-10-08 22:28 | PCM.OPRPT ---
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 Bone biopsy of right 5th metatarsal sent to pathology and microbiology. 2. Bone biopsy of the right cuboid bone sent to pathology and microbiology. 3. Deep culture of abscess right foot sent to microbiology Description of Procedure: Indications: This is a 48 year old gentleman with uncontrolled diabetes and tobacco use who developed a right foot infection. There is concern for abscess and osteomyelitis right foot, MRI was ordered for further evaluation, it was reviewed, c/w osteomyelitis to the 5th metatarsal and cuboid, given clinical findings suspect deep forming abscess to the plantar arch of the right foot. Given the findings we discussed more formal debridement of all nonviable and infected soft tissue and bone with incision and drainage and bone biopsies of the 5th metatarsal and cuboid bones, which he agreed with. The rationale of this was discussed with him in great detail. Reviewed the possible benefits vs risks, goals, expectations, alternative options and estimated healing time. Ultimately patient understands he is at risk for further infection, amputation, loss of limb, and loss of life, also persistent or even worsening infection and ultimate limb loss. Also advised patient risks also include but are not limited to need for further surgery, blood clots, weakness, transfer lesions, ischemia, bleeding, pain, chronic pain, deformity, numbness, swelling, inability to walk or wear shoes, charcot foot, complex regional pain syndrome, and again loss of limb, and loss of life. Patient expressed understanding and agreement. All of her questions were answered. The consent form was reviewed with patient, and the patient freely signed it. No guarantees were given nor implied. Patient understands he is at very high risk of limb loss due tobacco use and to his uncontrolled diabetes. I have reviewed and discussed with medicine team. Patient's also at bedside during discussion. Operative Procedure: The patient was brought back to the operating room and was placed on the operating room table in the supine position. The patient was carefully secured to the operating room table with a safety belt around her waist. The patient was already on IV antibiotics per Infectious Disease service. A time out was performed and the patient was properly identified and the surgical plan was confirmed. The patient received general anesthesia per the anesthesia team. A well padded pneumatic tourniquet was applied to the right ankle. The right foot was scrubbed, prepped and draped in the usual aseptic fashion. Further attention was directed to the right foot, where there was an ulceration at the level of the base of the 5th metatarsal at the plantar lateral aspect, , there was fibrotic tissue, there was significant undermining and tracking underneath the ulceration margins to the plantar arch of the foot with purulent drainage and cellulitis extending to the arch of the foot. The ulceration probed to deep fascia layer very close to the 5th metatarsal and cuboid bones. The right foot was elevated for 3 minutes and the right ankle pneumatic tourniquet was inflated to 250mmHg. Using a #15 scalpel blade a small skin incision was made overlying the dorsal 5th metatarsal, careful dissection was completed down to the 5th metatarsal bone, and a bone biopsy was taken using the [employer] bone biopsy kit - this was sent to pathology and microbiology for further evaluation. This was was hard and white with questionable yellow discoloration. The site was flushed out with copious amounts of normal saline solution and skin reapproximated using 4-0 Nylon. Using a #15 scalpel blade an incision was made overlying the dorsal cuboid bone, careful dissection was completed down to the bone. A bone biopsy was taken using the [employer] bone biopsy kit - this was sent to pathology and microbiology for further evaluation. This was was hard and white with questionable yellow discoloration. The site was flushed out with copious amounts of normal saline solution and skin reapproximated using 4-0 Nylon. At this time the ulceration was debrided in excisional fashion of all nonviable, infected tissue, including the base and the margins this was debrided down to subcutaneous tissue and bone, down to healthy viable base and margins, post debridement it measured 0.7cm x 0.7cm and 2cm in depth. This was done with a 15 blade. An abscess was noted to the site extending to the plantar arch. An incision was made to the plantar arch over the abscess site and the abscess was drained. All loculations of the abscess were broken up, and the abscess was excised using a hemostat and 15 blade. There was collection of purulent drainage which was drainage and flushed out with normal saline solution. A deep abscess culture was obtained and sent to microbiology. The tissue planes were no explored and were noted to be intact at this time. All remaining tissue appeared to be healthy and viable. The pneumatic tourniquet was deflated (total time was 16 minutes). There was immediate return of warmth and perfusion to the foot and all of the toes. The tissues were bleeding and were healthy and viable at this time. CFT was less than 2 seconds to all toes on the right foot. A dressing of adaptic, 4x4 gauze, abd pads, and leigh wrap were applied to the right foot. Fluoroscopic (was used to help identify the 5th metatarsal and cuboid bones for biopsy) images were obtained and saved. The patient tolerated the above procedure and anesthesia well with no complications. Patient was transported to the recovery room with vital signs stable and in good condition. Post operative orders were placed. No weightbearing right foot, keep right foot elevated. Postoperative xrays of the right foot were obtained and reviewed, no complications seen. Post-op instructions were reviewed. Patient to be followed as inpatient. Grafts/Implants Used: None - Complications None
--- NOTE | 2018-10-08 22:40 | RAD_ITS ---
STUDY: X-RAY - RIGHT FOOT CLINICAL: Male, 48 years old. Status post biopsy. TECHNIQUE: 3 view(s) of the foot. COMPARISON: October 03, 2018. FINDINGS: There is spurring of the anterior talus. Normal visualized subtalar, talonavicular, calcaneocuboid, tarsal and tarsometatarsal articulations. There is lucency at the base of the fifth metatarsal consistent with a recent biopsy. There is soft tissue defect. Normal metatarsophalangeal joint of the great toe. Normal tibial and fibular sesamoid bones. Normal interphalangeal joint of the great toe. Normal phalanges of the great toe. Normal second through fifth metatarsophalangeal joints. Normal interphalangeal joints and phalanges of the lesser toes. RAD/Foot min 3 Views IMPRESSION: Soft tissue and osseous defect consistent with recent biopsy. Electronically Signed: Tres Waterman MD at 23:31 EDT , Service support ,
[2018-10-08] MEDS: Vancomycin IV 1,000 MG/200 ML BAG 200 MG IV (22:44)
[2018-10-08] MEDS: Glucerna Shake 120 ML LIQUID PO (23:34)
[2018-10-08] MEDS: metroNIDAZOLE 500 MG Tablet PO (23:34)
[2018-10-09] VITALS (8 sets, daily range): BP systolic 119–131; BP diastolic 62–83; PULSE 80–97; RESP 16–18; TEMP 36.6–37.3; O2SAT 96–97
[2018-10-09] MEDS: Heparin Injection (Vial) 5,000 UNIT/ML VIAL 5000 UNIT SC ×3 (06:40→21:56)
[2018-10-09] MEDS: metroNIDAZOLE 500 MG Tablet PO ×3 (06:40→21:57)
[2018-10-09] MEDS: Insulin Lispro 100 UNIT/ML INSULN.PEN SC ×4 (06:41→21:57)
[2018-10-09] MEDS: oxyCODONE 5 MG Tablet PO ×3 (06:45→22:00)
[2018-10-09 06:54] LABS: Absolute Lymphocyte Count 2.52 X10^3/ul (0.83-4.51); Absolute Neutrophil Count 8.6 X10^3/uL (2.0-7.7); Basophil# 0.06 X10^3/uL; Basophil% 0.5 % (0-1); Eosinophil# 0.33 X10^3/uL; Eosinophils% 2.6 % (0-5); Hematocrit 36.7 % (40-54); Lymphocyte # 2.52 X10^3/ul (4.0); Lymphocyte % 20.1 % (19-41); Mean Corp Hgb Conc 32.7 g/gl (32-36); Mean Corpuscular Hgb 28.4 pg (27.0-32.0); Mean Platelet Vol. 9.7 fl (6.2-12.0); Neutrophil # 8.58 X10^3/uL (2.7-7.7); Neutrophil % 68.5 % (47-70); Platelet Count 444 K/mm3 (150-450); RBC Distribution Width CV 12.8 % (11.6-14.6); RBC Distribution Width SD 39.6 fl (35.1-43.9); Red Blood Count 4.22 M/mm3 (4.6-6.2); White Blood Count 12.5 K/mm3 (4.4-11.0)
[2018-10-09 06:55] LABS: POSITIVE COUNT NO; POSITIVE DIFFERENTIAL NO; POSITIVE MORPHOLOGY NO
[2018-10-09 07:15] LABS: Anion Gap 8 (5-15); BUN 24 mg/dL (7-18); BUN/Creat Ratio 13.9 RATIO (10-20); Chloride 107 mmol/L (98-107); Creatinine, Serum 1.73 mg/dL (0.70-1.30); EST Glomerular Filtration Rate 45 mL/min (>60); Est Glom Filt Rate - Afr Amer 55 mL/min (>60); Estimated Creatinine Clearance 54.71 ml/min; Glucose 194 mg/dL (74-106); Magnesium 2.1 mg/dL (1.6-2.6); Potassium 4.7 mmol/L (3.5-5.1); Sodium Level 142 mmol/L (136-145)
--- NOTE | 2018-10-09 07:48 | NURSING ---
Per MD order, straight cathed d/t inability to void. 1000 ml of dark urine drained, strong odor, procedure well tolerated.
[2018-10-09] MEDS: Glucerna Shake 120 ML LIQUID PO ×4 (08:45→21:58)
--- NOTE | 2018-10-09 09:25 | PN_ITS ---
Patient Problems: Active and Suspected Problems (Last Reviewed 10/08/18 @ 02:00 by Mehrdad Alexis MD) Diabetic foot infection (Acute) Subjective: MRI obtained on 10/08/2018 was consistent with Osteomyelitis of the cuboid and fifth metatarsal; patient underwent Incision and drainage with debridement of right foot, bone biopsies of right foot on 10/08/18 Patient seen with complaint of central lower abdominal pain bladder scan did reveal significant urinary retention and order was given for patient to be straight cath. Also started the patient on Flomax Objective: GENERAL: cooperative HEENT: Atraumatic; moist oral mucosa EYES; Anicteric, Normal Conjunctiva NECK; supple, normal thyroid, no distended JVD. RESPIRATORY: Diminished to auscultation bilaterally, CARDIOVASCULAR: Regular S1 S2, no audible murmurs GI: soft, non-tender, normoactive bowel sounds, : No Renal angle tenderness; EXTREMITIES: Right foot in surgical dressing MUSCULOSKELETAL: No Joint Tenderness; no muscle waisting NEURO: Awake; no lateralizing signs. SKIN: No Rash PSYCH; Normal affect Vitals/I&O's: Vital Signs Temp Pulse Resp BP Pulse Ox 99.0 F 80 18 131/65 H 97 10/09/18 07:57 10/09/18 08:39 10/09/18 07:57 10/09/18 07:57 10/09/18 07:57 Oxygen Delivery Method Room Air Weight: 72.5 kg Body Mass Index (BMI) 21.6 Finger Stick Blood Glucose 129 Intake and Output for Last 24 Hours 10/07/18 10/08/18 10/09/18 23:59 23:59 23:59 Intake Total 3890 / 4586 1056 / 1056 Output Total 600 / 600 1000 / 1000 Balance 3290 / 3986 56 / 56 Microbiology Past 72 Hours 10/07/18 20:25 Wound - Right Foot Gram Stain - Final Laboratory Results 10/09/18 06:06: WBC 12.5 H, RBC 4.22 L, Hgb 12.0 L, Hct 36.7 L, MCV 87.0, MCH 28.4, MCHC 32.7, RDW 12.8, RDW Differential 39.6, Plt Count 444, MPV 9.7, Immature Gran % (Auto) 0.300, Neut % (Auto) 68.5, Lymph % (Auto) 20.1, [place] % (Auto) 8.0, Eos % (Auto) 2.6, Baso % (Auto) 0.5, Absolute Neuts (auto) 8.6 H, Absolute Lymphs (auto) 2.52, Total Counted Not Reportable 10/09/18 06:06: Sodium 142, Potassium 4.7, Chloride 107, Carbon Dioxide 27.0, Anion Gap 8, BUN 24 H, Creatinine 1.73 H, Estim Creat Clear Calc 54.71, Est GFR (MDRD) Af Amer 55 L, Est GFR (MDRD) Non-Af 45 L, BUN/Creatinine Ratio 13.9, Glucose 194 H, Calcium 9.0, Magnesium 2.1 Current Medications Acetaminophen (Tylenol) 650 mg PO Q6H PRN PRN PRN Reason: Mild Pain (1-3)/Temp > 100.7 F Dextrose (D50w Syringe) 0 gm IV X1 PRN; Protocol PRN Reason: Hypoglycemia Glucagon () 1 mg IM .X1 PRN PRN Reason: Hypoglycemia Heparin Sodium (Porcine) (Heparin Na) 5,000 unit SC Q8 [facility] Last Admin: 10/09/18 06:40 Dose: 5,000 unit Documented by: Hydralazine HCl (Apresoline Iv) 5 mg IV Q4H PRN PRN PRN Reason: SBP > 160 Vancomycin IV Pharmacy to Dose (1,250 ea/ Sodium Chloride) 500 mls @ 250 mls/hr IV PRN PRN; Protocol Vancomycin HCl (Vancomycin) 1,000 mg in 200 mls @ 200 mls/hr IV Q24H [facility] Last Admin: 10/08/18 22:44 Dose: 200 mls/hr Documented by: Sodium Chloride () 250 mls @ 15 mls/hr IV .[id number] PRN PRN Reason: SALINE FLUSH Cefepime HCl 2 gm/ Sodium (Chloride) 100 mls @ 200 mls/hr IV Q12 [facility] Last Admin: 10/08/18 21:33 Dose: 200 mls/hr Documented by: Insulin Glargine (Lantus (Bk)) 10 units SC QHS [facility] Last Admin: 10/08/18 23:36 Dose: 10 u Documented by: Insulin Human Lispro (Humalog Kwikpen (Bk)) 0 unit SC ACHS [facility]; Protocol Last Admin: 10/09/18 06:41 Dose: 1 u Documented by: Metronidazole (Flagyl) 500 mg PO TID [facility] Last Admin: 10/09/18 06:40 Dose: 500 mg Documented by: Morphine Sulfate () 4 mg IV Q4H PRN PRN PRN Reason: SEVERE PAIN (6-10/10) Last Admin: 10/08/18 15:06 Dose: 4 mg Documented by: Nutritional Formula (Lactose Free) (Glucerna Shake) 120 ml PO 4X/DAY [facility] Last Admin: 10/09/18 08:45 Dose: 120 ml Documented by: Oxycodone HCl (Oxyir) 5 mg PO Q4H PRN PRN PRN Reason: Moderate Pain (4-6/10) Last Admin: 10/09/18 06:45 Dose: 5 mg Documented by: Senna/Docusate Sodium (Senokot-S, Wendy-Colace) 2 tablet PO BID PRN PRN PRN Reason: Constipation Sodium Chloride () 10 - 40 ml IV UD PRN PRN Reason: SALINE FLUSH Last Admin: 10/08/18 15:07 Dose: 10 ml Documented by: Medical Necessity - Tobacco Use Smoking Status: Former smoker Tobacco Use: Cigarettes, Chew Assessment/Plan All Active Problems (Last Reviewed 10/08/18 @ 02:00 by Mehrdad Alexis MD) Anemia (Acute) Hyponatremia (Acute) Tachycardia (Acute) Thrombocytosis (Acute) Weight loss (Acute) Sepsis (Acute) Septic arthritis of hip (Acute) Dehydration (Acute) Bursitis (Acute) Diabetic foot infection (Acute) Patient is a 48-year-old gentleman with past medical history significant hypertension, diabetes mellitus type 2 who presented with a diabetic foot infection 1. Diabetic foot infection, the right foot the patient was started on broad- spectrum antibiotic therapy with vancomycin as well as clindamycin subsequent evaluation with an MRI ordered consult was also placed infectious disease as well as podiatry ~04/28/2018; MRI obtained on 10/08/2018 was consistent with Osteomyelitis of the cuboid and fifth metatarsal; patient underwent Incision and drainage with debridement of right foot, bone biopsies of right foot on 10/08/18 2. Acute urinary retention. An order was given for patient to be straight cath and subsequently started on Flomax 3. Acute kidney injury; on IV fluids with subsequent monitoring of electrolyte s; slight improvement in kidney function with hydration 4. Chronic kidney disease stage III secondary to diabetic nephropathy Baseline creatinine 2.1 5. Diabetes mellitus type 2 with complications including diabetic foot ulcers as well as diabetic nephropathy patient is on insulin discontinued home dose in addition to Accu-Cheks before meals and at bedtime with sliding scale coverage 6. Essential hypertension-blood pressure controlled, home medications continued with dose adjustment as needed 7. DVT prophylaxis; Subcutaneous heparin. Code Visit Inpatient E&M: 63065 Subs Hosp L3
[2018-10-09] MEDS: Tamsulosin HCl 0.4 MG Capsule PO (10:01)
[2018-10-09 13:12] LABS: Bedside Glucose 295 mg/dL (70-110)
[2018-10-09 13:14] LABS: Bedside Glucose 244 mg/dL (70-110)
[2018-10-09 14:31] LABS: Bedside Glucose 259 mg/dL (70-110)
--- NOTE | 2018-10-09 14:33 | PN.ID_ITS ---
Patient Problems: Active and Suspected Problems (Last Reviewed 10/08/18 @ 02:00 by Mehrdad Alexis MD) Diabetic foot infection (Acute) Subjective: Feeling ok, pain controlled, no fever, no n/v/d. - Physical Exam General: Alert, Cooperative, No apparent distress Lungs: Clear to auscultation, Normal air movement Cardiovascular: Regular rate, Regular Rhythm Abdomen: Soft, Non Tender, Non-Distended Skin: Ulcer/ Wound - foot wrapped Vital Signs Temp Pulse Resp BP Pulse Ox 99.0 F 80 18 131/65 H 97 10/09/18 07:57 10/09/18 08:39 10/09/18 07:57 10/09/18 07:57 10/09/18 07:57 Oxygen Delivery Method Room Air Weight: 72.5 kg Body Mass Index (BMI) 21.6 Finger Stick Blood Glucose 129 Intake and Output for Last 24 Hours 10/07/18 10/08/18 10/09/18 23:59 23:59 23:59 Intake Total 3890 / 4586 2140 / 2140 Output Total 600 / 600 1000 / 1000 Balance 3290 / 3986 1140 / 1140 Microbiology Past 72 Hours 10/07/18 20:25 Gram Stain - Final Wound - Right Foot Wound Culture - Preliminary Alpha hemolytic organism Gram positive organism Laboratory Tests Past 24 Hrs 10/09/18 10/09/18 06:06 06:06 WBC 12.5 H RBC 4.22 L Hgb 12.0 L Hct 36.7 L MCV 87.0 MCH 28.4 MCHC 32.7 RDW 12.8 RDW Differential 39.6 Plt Count 444 MPV 9.7 Immature Gran % (Auto) 0.300 Neut % (Auto) 68.5 Lymph % (Auto) 20.1 [place] % (Auto) 8.0 Eos % (Auto) 2.6 Baso % (Auto) 0.5 Absolute Neuts (auto) 8.6 H Absolute Lymphs (auto) 2.52 Total Counted Not Reportable Sodium 142 Potassium 4.7 Chloride 107 Carbon Dioxide 27.0 Anion Gap 8 BUN 24 H Creatinine 1.73 H Estim Creat Clear Calc 54.71 Est GFR (MDRD) Af Amer 55 L Est GFR (MDRD) Non-Af 45 L BUN/Creatinine Ratio 13.9 Glucose 194 H Calcium 9.0 Magnesium 2.1 POC Glucose 10/08/18 10/08/18 10/07/18 12:12 06:36 22:49 POC Glucose 259 H 244 H 295 H Medical Necessity - Tobacco Use Smoking Status: Former smoker Tobacco Use: Cigarettes, Chew Route of nutrition/ use of supplements: [] Nutritional Intake: [] IV Site: [] Aldana Catheter: [] - Assessment/Plan Antibiotics: [] Assessment/Plan: [] Active and Suspected Problems (Last Reviewed 10/08/18 @ 02:00 by Mehrdad Alexis MD) Diabetic foot infection (Acute) R foot DM osteomyelitis - cx with Gram positives seen, I&D done by Dr. Perrin, MRI with osteo. Had reaction to PCN as a child, unknown what happened. Tolerated duricef here in 2013 with no issue, so will continue vanc/cefepime/flagyl for now. KAVEH on CKD improving, wbc improving. Will order picc, plan on 6 weeks of abx. Will follow, d/w watch case polisher
[2018-10-09 15:25] LABS: Bedside Glucose 106 mg/dL (70-110)
[2018-10-09 15:31] LABS: Bedside Glucose 104 mg/dL (70-110)
[2018-10-09 15:35] LABS: Bedside Glucose 129 mg/dL (70-110)
[2018-10-09 15:39] LABS: Bedside Glucose 159 mg/dL (70-110)
--- NOTE | 2018-10-09 18:04 | PCM.PROGNOTE ---
Patient Problems: Active and Suspected Problems (Last Reviewed 10/08/18 @ 02:00 by Mehrdad Alexis MD) Diabetic foot infection (Acute) Subjective: Patient was seen today for follow up on right foot, he relates foot is sore, otherwise doing well, resting comfortably in bed, getting PICC placed for 6 weeks of IV antibiotics. Patient does not relate to fever, chills, nausea or vomiting. - Physical Exam General: Alert, Oriented x3, Cooperative, No apparent distress Extremities: Capillary Refill Less than 3 Seconds, No Calf Tenderness, Peripheral Pulses Normal, - - Right foot: s/p I+D to ulceration/abscess site lateral plantar foot, less cellulitis, no purulence, no maloder, no necrosis, no fluctuance, no visible abscess, tissues healthy and viable at this time, no new ulcerations or areas of break down, no streaking, no evidence of acute ischemia. There is POP to the site c/w wound and I+D/resolving infection. Psych/Mental Status: Appropriate, Alert and oriented to time, place, person, mood and affect Vital Signs Temp Pulse Resp BP Pulse Ox 99.2 F H 80 16 129/83 H 96 10/09/18 15:24 10/09/18 15:25 10/09/18 15:24 10/09/18 15:24 10/09/18 15:24 Oxygen Delivery Method Room Air Weight: 72.5 kg Body Mass Index (BMI) 21.6 Finger Stick Blood Glucose 129 Intake and Output for Last 24 Hours 10/07/18 10/08/18 10/09/18 23:59 23:59 23:59 Intake Total 3890 / 4586 2140 / 2140 Output Total 600 / 600 1275 / 1275 Balance 3290 / 3986 865 / 865 Microbiology Past 72 Hours 10/08/18 22:05 Gram Stain - Final Wound Abcess - Right Foot Wound Culture - Preliminary Alpha hemolytic organism 10/08/18 22:05 Gram Stain - Final Bone - Other 10/08/18 22:05 Gram Stain - Final Bone - Other 10/07/18 20:25 Gram Stain - Final Wound - Right Foot Wound Culture - Preliminary Alpha hemolytic organism Gram positive organism Laboratory Tests Past 24 Hrs 10/09/18 10/09/18 06:06 06:06 WBC 12.5 H RBC 4.22 L Hgb 12.0 L Hct 36.7 L MCV 87.0 MCH 28.4 MCHC 32.7 RDW 12.8 RDW Differential 39.6 Plt Count 444 MPV 9.7 Immature Gran % (Auto) 0.300 Neut % (Auto) 68.5 Lymph % (Auto) 20.1 [place] % (Auto) 8.0 Eos % (Auto) 2.6 Baso % (Auto) 0.5 Absolute Neuts (auto) 8.6 H Absolute Lymphs (auto) 2.52 Total Counted Not Reportable Sodium 142 Potassium 4.7 Chloride 107 Carbon Dioxide 27.0 Anion Gap 8 BUN 24 H Creatinine 1.73 H Estim Creat Clear Calc 54.71 Est GFR (MDRD) Af Amer 55 L Est GFR (MDRD) Non-Af 45 L BUN/Creatinine Ratio 13.9 Glucose 194 H Calcium 9.0 Magnesium 2.1 POC Glucose 10/08/18 10/08/18 10/08/18 23:33 22:46 21:20 POC Glucose 159 H 129 H 104 10/08/18 10/08/18 10/08/18 16:24 12:12 06:36 POC Glucose 106 259 H 244 H 10/07/18 22:49 POC Glucose 295 H Medical Necessity - Tobacco Use Smoking Status: Former smoker Tobacco Use: Cigarettes, Chew Assessment/Plan All Active Problems (Last Reviewed 10/08/18 @ 02:00 by Mehrdad Alexis MD) Anemia (Acute) Hyponatremia (Acute) Tachycardia (Acute) Thrombocytosis (Acute) Weight loss (Acute) Sepsis (Acute) Septic arthritis of hip (Acute) Dehydration (Acute) Bursitis (Acute) Diabetic foot infection (Acute) Ulceration down to deep fascia right foot Abscess right foot, osteomyelitis 5th metatarsal and cuboid right foot s/p I+D, debridement and bone biopsies on 10/08/18 Uncontrolled Diabetes Tobacco Dependence Reviewed diagnostic data, clinically foot improved compared to yesterday, leukocytosis continues to trend down. No purulence and no visible remaining abscess at this time. Follow cultures which have been obtained, continue with antibiotic therapy, ID service following and PICC has been ordered. No weightbearing right foot. Keep foot elevated. LEAS studies have been ordered and obtained - mild small vessel disease, will help coordinate patient follow up with vascular specialist. Reviewed importance of tobacco cessation and proper diabetes control to optimize healing. Medical management per medicine team. Podiatry will continue to follow.
[2018-10-09] MEDS: 0.9% NaCl Peripheral Flush Adult/Peds IV (21:57)
[2018-10-09] MEDS: 0.9% NaCl IVPB Med Flush (250 mL) 15 ML IV (22:00)
[2018-10-09 22:28] LABS: Vancomycin, Trough Level 7.3 ug/mL (5.0-15.0)
[2018-10-09] MEDS: Vancomycin IV 1,000 MG/200 ML BAG 200 MG IV (22:44)
--- NOTE | 2018-10-10 01:08 | PCM.RX.CS ---
Consult Pharmacy has been consulted to manage selected antiobiotic: Vancomycin Type of Consult: Follow-up Suspected Infection: Skin/Soft tissue Prior Doses of Antibiotics Received/Current Regimen: Medications Dose to be increased due to improvement in renal function Vancomycin HCl 1000 mg in 200mls @200mls/hr IV Q12H [facility] to begin 10/10/2018 1100 Discontinued Medications Vancomycin HCl (Vancomycin) 1,000 mg in 200 mls @ 200 mls/hr IV Q24H [facility] Last Admin: 10/09/18 22:44 Dose: 200 mls/hr Documented by: Labs: Sodium 142 mmol/L (136-145) 10/09/18 06:06 Potassium 4.7 mmol/L (3.5-5.1) 10/09/18 06:06 Chloride 107 mmol/L (98-107) 10/09/18 06:06 Carbon Dioxide 27.0 mmol/L (21.0-32.0) 10/09/18 06:06 8 (5-15) 10/09/18 06:06 BUN 24 mg/dL (7-18) H 10/09/18 06:06 1.73 mg/dL (0.70-1.30) H 10/09/18 06:06 Est GFR (MDRD) Af Amer 55 mL/min (>60) L 10/09/18 06:06 Est GFR (MDRD) Non-Af 45 mL/min (>60) L 10/09/18 06:06 13.9 RATIO (10-20) 10/09/18 06:06 Glucose 194 mg/dL (74-106) H 10/09/18 06:06 Vancomycin Trough 7.3 ug/mL (5.0-15.0) 10/09/18 21:47 Microbiology: Microbiology 10/08/18 22:05 Wound Abcess - Right Foot Gram Stain - Final 10/08/18 22:05 Wound Abcess - Right Foot Wound Culture - Preliminary Alpha hemolytic organism 10/08/18 22:05 Bone - Other Gram Stain - Final 10/08/18 22:05 Bone - Other Gram Stain - Final 10/07/18 20:25 Wound - Right Foot Gram Stain - Final 10/07/18 20:25 Wound - Right Foot Wound Culture - Preliminary Alpha hemolytic organism Gram positive organism Weight used for dosin.5 kg Estimated Creatinine Clearance: 54.7 Goal Trough: 15-20 mcg/mL Pharmacy Plan for Drug Dosing: Vancomycin trough level returned at 7.3 (less than target of 15-20) Renal function has improved and the vancomycin dose will be increased to 1000mg IV q12h to begin 10/10/18 1100. Pharmacy Service will continue to monitor and adjust dosing as required. Follow-Up Labs: Trough Vancomycin - draw before 4th dose of new regimen Labs to be done on [date and time ordered]: vancomycin trough 10/11/18 8790
[2018-10-10] MEDS: 0.9% NaCl Peripheral Flush Adult/Peds IV ×3 (05:22→21:52)
[2018-10-10] MEDS: metroNIDAZOLE 500 MG Tablet PO ×3 (05:22→21:53)
[2018-10-10] MEDS: Heparin Injection (Vial) 5,000 UNIT/ML VIAL 5000 UNIT SC ×3 (05:22→21:58)
[2018-10-10 05:25] VITALS: BP 125/69; PULSE 77; RESP 16; TEMP 36.7; O2SAT 96
[2018-10-10 06:06] LABS: Absolute Lymphocyte Count 2.78 X10^3/ul (0.83-4.51); Absolute Neutrophil Count 7.6 X10^3/uL (2.0-7.7); Basophil# 0.08 X10^3/uL; Basophil% 0.7 % (0-1); Eosinophil# 0.49 X10^3/uL; Hematocrit 34.1 % (40-54); Hemoglobin 11.2 g/dl (13.0-16.5); Lymphocyte # 2.78 X10^3/ul (4.0); Lymphocyte % 22.6 % (19-41); Mean Corp Hgb Conc 32.8 g/gl (32-36); Mean Corpuscular Hgb 28.7 pg (27.0-32.0); Mean Corpuscular Volume 87.4 fL (80-94); Mean Platelet Vol. 9.1 fl (6.2-12.0); Monocyte# 1.27 X10^3/uL; Monocyte% 10.3 % (0-10); Neutrophil # 7.63 X10^3/uL (2.7-7.7); Neutrophil % 62.2 % (47-70); Platelet Count 419 K/mm3 (150-450); RBC Distribution Width CV 12.5 % (11.6-14.6); RBC Distribution Width SD 40.4 fl (35.1-43.9); White Blood Count 12.3 K/mm3 (4.4-11.0)
[2018-10-10 06:26] LABS: Anion Gap 6 (5-15); BUN 22 mg/dL (7-18); BUN/Creat Ratio 15.8 RATIO (10-20); Calcium,Total 9.1 mg/dL (8.5-10.1); Chloride 106 mmol/L (98-107); Creatinine, Serum 1.39 mg/dL (0.70-1.30); EST Glomerular Filtration Rate 58 mL/min (>60); Est Glom Filt Rate - Afr Amer 71 mL/min (>60); Glucose 184 mg/dL (74-106); Potassium 4.7 mmol/L (3.5-5.1); Sodium Level 138 mmol/L (136-145)
[2018-10-10 06:29] LABS: POSITIVE COUNT NO; POSITIVE DIFFERENTIAL NO; POSITIVE MORPHOLOGY NO
[2018-10-10] MEDS: Insulin Lispro 100 UNIT/ML INSULN.PEN SC ×4 (06:37→21:58)
[2018-10-10 07:02] LABS: Bedside Glucose 246 mg/dL (70-110)
[2018-10-10 07:07] LABS: Bedside Glucose 197 mg/dL (70-110)
--- NOTE | 2018-10-10 08:30 | PCM.PN.HOSP ---
Patient Problems: Active and Suspected Problems (Last Reviewed 10/08/18 @ 02:00 by Mehrdad Alexis MD) Diabetic foot infection (Acute) Subjective: Patient seen pain is well controlled. Wound cultures so far positive for alphahemolytic organism and gram-positive organisms Objective: GENERAL: cooperative HEENT: Atraumatic; moist oral mucosa EYES; Anicteric, Normal Conjunctiva NECK; supple, normal thyroid, no distended JVD. RESPIRATORY: Diminished to auscultation bilaterally, CARDIOVASCULAR: Regular S1 S2, no audible murmurs GI: soft, non-tender, normoactive bowel sounds, : No Renal angle tenderness; EXTREMITIES: Right foot in surgical dressing MUSCULOSKELETAL: No Joint Tenderness; no muscle waisting NEURO: Awake; no lateralizing signs. SKIN: No Rash PSYCH; Normal affect Vitals/I&O's: Vital Signs Temp Pulse Resp BP Pulse Ox 98.0 F 77 16 125/69 H 96 10/10/18 05:25 10/10/18 05:25 10/10/18 05:25 10/10/18 05:25 10/10/18 05:25 Oxygen Delivery Method Room Air Weight: 72.5 kg Body Mass Index (BMI) 21.6 Finger Stick Blood Glucose 129 Intake and Output for Last 24 Hours 10/08/18 10/09/18 10/10/18 23:59 23:59 23:59 Intake Total 3890 / 4586 2890 / 2890 885 / 885 Output Total 600 / 600 2450 / 2450 900 / 900 Balance 3290 / 3986 440 / 440 -15 / -15 Microbiology Past 72 Hours 10/08/18 22:05 Wound Abcess - Right Foot Gram Stain - Final 10/08/18 22:05 Wound Abcess - Right Foot Wound Culture - Preliminary Alpha hemolytic organism 10/08/18 22:05 Bone - Other Gram Stain - Final 10/08/18 22:05 Bone - Other Gram Stain - Final 10/07/18 20:25 Wound - Right Foot Gram Stain - Final 10/07/18 20:25 Wound - Right Foot Wound Culture - Preliminary Alpha hemolytic organism Gram positive organism Laboratory Results 10/07/18 22:49: POC Glucose 295 H 10/08/18 06:36: POC Glucose 244 H 10/08/18 12:12: POC Glucose 259 H 10/08/18 16:24: POC Glucose 106 10/08/18 21:20: POC Glucose 104 10/08/18 22:46: POC Glucose 129 H 10/08/18 23:33: POC Glucose 159 H 10/09/18 21:47: Vancomycin Trough 7.3 10/09/18 21:55: POC Glucose 246 H 10/10/18 05:27: WBC 12.3 H, RBC 3.90 L, Hgb 11.2 L, Hct 34.1 L, MCV 87.4, MCH 28.7, MCHC 32.8, RDW 12.5, RDW Differential 40.4, Plt Count 419, MPV 9.1, Immature Gran % (Auto) 0.200, Neut % (Auto) 62.2, Lymph % (Auto) 22.6, [place] % (Auto) 10.3 H, Eos % (Auto) 4.0, Baso % (Auto) 0.7, Absolute Neuts (auto) 7.6, Absolute Lymphs (auto) 2.78, Total Counted Not Reportable 10/10/18 05:27: Sodium 138, Potassium 4.7, Chloride 106, Carbon Dioxide 26.0, Anion Gap 6, BUN 22 H, Creatinine 1.39 H, Estim Creat Clear Calc 68.10, Est GFR (MDRD) Af Amer 71, Est GFR (MDRD) Non-Af 58 L, BUN/Creatinine Ratio 15.8, Glucose 184 H, Calcium 9.1 10/10/18 06:36: POC Glucose 197 H Current Medications Acetaminophen (Tylenol) 650 mg PO Q6H PRN PRN PRN Reason: Mild Pain (1-3)/Temp > 100.7 F Dextrose (D50w Syringe) 0 gm IV X1 PRN; Protocol PRN Reason: Hypoglycemia Glucagon () 1 mg IM .X1 PRN PRN Reason: Hypoglycemia Heparin Sodium (Porcine) (Heparin Na) 5,000 unit SC Q8 [facility] Last Admin: 10/10/18 05:22 Dose: 5,000 unit Documented by: Hydralazine HCl (Apresoline Iv) 5 mg IV Q4H PRN PRN PRN Reason: SBP > 160 Vancomycin IV Pharmacy to Dose (1,250 ea/ Sodium Chloride) 500 mls @ 250 mls/hr IV PRN PRN; Protocol Sodium Chloride () 250 mls @ 15 mls/hr IV .[id number] PRN PRN Reason: SALINE FLUSH Last Admin: 10/09/18 22:00 Dose: 15 mls/hr Documented by: Cefepime HCl 2 gm/ Sodium (Chloride) 100 mls @ 200 mls/hr IV Q12 [facility] Last Admin: 10/09/18 21:57 Dose: 200 mls/hr Documented by: Vancomycin HCl (Vancomycin) 1,000 mg in 200 mls @ 200 mls/hr IV Q12H [facility] Insulin Glargine (Lantus (Bkc)) 10 units SC QHS [facility] Last Admin: 10/09/18 21:58 Dose: 10 u Documented by: Insulin Human Lispro (Humalog Kwikpen (Bkc)) 0 unit SC ACHS [facility]; Protocol Last Admin: 10/10/18 06:37 Dose: 1 u Documented by: Metronidazole (Flagyl) 500 mg PO TID [facility] Last Admin: 10/10/18 05:22 Dose: 500 mg Documented by: Morphine Sulfate () 4 mg IV Q4H PRN PRN PRN Reason: SEVERE PAIN (6-10/10) Last Admin: 10/08/18 15:06 Dose: 4 mg Documented by: Nutritional Formula (Lactose Free) (Glucerna Shake) 120 ml PO 4X/DAY [facility] Last Admin: 10/09/18 21:58 Dose: 120 ml Documented by: Oxycodone HCl (Oxyir) 5 mg PO Q4H PRN PRN PRN Reason: Moderate Pain (4-6/10) Last Admin: 10/09/18 22:00 Dose: 5 mg Documented by: Senna/Docusate Sodium (Senokot-S, Wendy-Colace) 2 tablet PO BID PRN PRN PRN Reason: Constipation Sodium Chloride () 10 - 40 ml IV UD PRN PRN Reason: SALINE FLUSH Last Admin: 10/10/18 05:22 Dose: 30 ml Documented by: Tamsulosin HCl (Flomax) 0.4 mg PO DAILY [facility] Last Admin: 10/09/18 10:01 Dose: 0.4 mg Documented by: Medical Necessity - Tobacco Use Smoking Status: Former smoker Tobacco Use: Cigarettes, Chew Assessment/Plan All Active Problems (Last Reviewed 10/08/18 @ 02:00 by Mehrdad Alexis MD) Anemia (Acute) Hyponatremia (Acute) Tachycardia (Acute) Thrombocytosis (Acute) Weight loss (Acute) Sepsis (Acute) Septic arthritis of hip (Acute) Dehydration (Acute) Bursitis (Acute) Diabetic foot infection (Acute) Patient is a 48-year-old gentleman with past medical history significant hypertension, diabetes mellitus type 2 who presented with a diabetic foot infection 1. Diabetic foot infection, the right foot the patient was started on broad-spectrum antibiotic therapy with vancomycin as well as clindamycin subsequent evaluation with an MRI ordered consult was also placed infectious disease as well as podiatry ~10/09/2018; MRI obtained on 10/08/2018 was consistent with Osteomyelitis of the cuboid and fifth metatarsal; patient underwent Incision and drainage with debridement of right foot, bone biopsies of right foot on 10/08/18 ~10/10/2018Patient seen pain is well controlled. Wound cultures so far positive for alphahemolytic organism and gram-positive organisms 2. Acute urinary retention. An order was given for patient to be straight cath and subsequently started on Flomax 3. Acute kidney injury; on IV fluids with subsequent monitoring of electrolytes; slight improvement in kidney function with hydration ~ 10/10/2018; patient kidney function continues to improve 4. Chronic kidney disease stage III secondary to diabetic nephropathy Baseline creatinine 2.1 5. 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 Essential hypertension-blood pressure controlled, home medications continued with dose adjustment as needed 7. DVT prophylaxis; Subcutaneous heparin. Code Visit Inpatient E&M: 85008 Subs Hosp L2
--- NOTE | 2018-10-10 09:20 | PCM.PROGNOTE ---
Patient Problems: Active and Suspected Problems (Last Reviewed 10/08/18 @ 02:00 by Mehrdad Alexis MD) Diabetic foot infection (Acute) Subjective: This 48-year-old male was seen bedside postoperative day #2 right foot incision and drainage with bone biopsies performed by Dr. Perrin. He denies fever, chill, nausea, vomiting, loss of appetite, shortness of breath, chest pain, calf pain. His foot pain is rated as a 3 out of 10 at worst and his odor has resolved. - Physical Exam General: Alert, Oriented x3, Cooperative Extremities: No cyanosis, Capillary Refill Less than 3 Seconds, No Calf Tenderness - Negative Shanita creatinine right, Edema - Mild edema plantar Skin: Ulcer/ Wound - Upon removal of wick gauze letter there is no purulence, erythema, streaking, odor,. His local signs of infection have resolved incision sites are well aligned and coapted without necrosis or gapping to the dorsal lateral bone biopsy entry site. The incision to the plantar aspect of the foot is also without necrosis or odor. The peripheral skin is hairless and atrophic in the foot. There is no maceration. Musculoskeletal: No Tenderness to Palpation of Joints or Extremities, Muscle Wasting, - - Tenderness noted to procedure site right foot. Compartments remain soft right lower extremity Neurological: - - Lack of epicritic sensation to normal light touch Psych/Mental Status: Normal Affect, Appropriate Vital Signs Temp Pulse Resp BP Pulse Ox 98.0 F 77 16 125/69 H 96 10/10/18 05:25 10/10/18 05:25 10/10/18 05:25 10/10/18 05:25 10/10/18 05:25 Oxygen Delivery Method Room Air Weight: 72.5 kg Body Mass Index (BMI) 21.6 Finger Stick Blood Glucose 129 Intake and Output for Last 24 Hours 10/08/18 10/09/18 10/10/18 23:59 23:59 23:59 Intake Total 3890 / 4586 2890 / 2890 885 / 885 Output Total 600 / 600 2450 / 2450 900 / 900 Balance 3290 / 3986 440 / 440 -15 / -15 Microbiology Past 72 Hours 10/08/18 22:05 Gram Stain - Final Wound Abcess - Right Foot Wound Culture - Preliminary No growth-Final to follow 10/08/18 22:05 Gram Stain - Final Bone - Other Wound Culture - Preliminary No growth-Final to follow 10/08/18 22:05 Gram Stain - Final Bone - Other Wound Culture - Preliminary No growth-Final to follow 10/07/18 20:25 Gram Stain - Final Wound - Right Foot Wound Culture - Preliminary Alpha hemolytic organism Gram positive organism Laboratory Tests Past 24 Hrs 10/09/18 10/10/18 10/10/18 21:47 05:27 05:27 WBC 12.3 H RBC 3.90 L Hgb 11.2 L Hct 34.1 L MCV 87.4 MCH 28.7 MCHC 32.8 RDW 12.5 RDW Differential 40.4 Plt Count 419 MPV 9.1 Immature Gran % (Auto) 0.200 Neut % (Auto) 62.2 Lymph % (Auto) 22.6 Story % (Auto) 10.3 H Eos % (Auto) 4.0 Baso % (Auto) 0.7 Absolute Neuts (auto) 7.6 Absolute Lymphs (auto) 2.78 Total Counted Not Reportable Sodium 138 Potassium 4.7 Chloride 106 Carbon Dioxide 26.0 Anion Gap 6 BUN 22 H Creatinine 1.39 H Estim Creat Clear Calc 68.10 Est GFR (MDRD) Af Amer 71 Est GFR (MDRD) Non-Af 58 L BUN/Creatinine Ratio 15.8 Glucose 184 H Calcium 9.1 Vancomycin Trough 7.3 POC Glucose 10/10/18 10/09/18 10/08/18 06:36 21:55 23:33 POC Glucose 197 H 246 H 159 H 10/08/18 10/08/18 10/08/18 22:46 21:20 16:24 POC Glucose 129 H 104 106 10/08/18 10/08/18 10/07/18 12:12 06:36 22:49 POC Glucose 259 H 244 H 295 H Medical Necessity - Tobacco Use Smoking Status: Former smoker Tobacco Use: Cigarettes, Chew Assessment/Plan All Active Problems (Last Reviewed 10/08/18 @ 02:00 by Mehrdad Alexis MD) Anemia (Acute) Hyponatremia (Acute) Tachycardia (Acute) Thrombocytosis (Acute) Weight loss (Acute) Sepsis (Acute) Septic arthritis of hip (Acute) Dehydration (Acute) Bursitis (Acute) Diabetic foot infection (Acute) Ulceration down to deep fascia right foot Abscess right foot, 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 His vital signs are stable and he remains afebrile. His white blood cell count remains in the 12 range. No purulence and no visible remaining abscess at this time. Follow cultures which have been obtained, continue with antibiotic therapy, ID service following and PICC has been ordered. The plan is for 6 weeks of vancomycin, cefepime, Flagyl. The bone biopsies did not demonstrate any bacterial growth so far and these final results are still pending. Soft tissue cultures did demonstrate growth. No weightbearing right foot. Keep foot elevated. Surgical shoe was ordered. I recommend crutches and knee roller use when he returns home. LEAS studies have been ordered and reviewed - mild small vessel disease, will help coordinate patient follow up with vascular specialist. Reviewed importance of tobacco cessation and proper diabetes control to optimize healing. Medical management per medicine team is appreciated. Podiatry will continue to follow while in house. Ok to d/c from a surgical standpoint. Please do not hesitate to call if questions. Angeline Ornelas DPM, [facility] [phone]
--- NOTE | 2018-10-10 09:26 | DCINST_ITS ---
Discharge Activity: Use Crutches - or use a knee roller to remain non weight bearing right foot Weight Bearing Status: No weight bearing Keep extremity elevated above heart level: Right Leg Call your doctor if your incision/area has: Continuous Slow Oozing, Sudden Increased Bleeding, Increased Pain/ Swelling, Increased Redness, Foul Smelling Discharge, Swelling at the incision site Call your doctor if you observe: Fever of 101 or Higher, Calf discomfort, Unc ontrolled pain Cleanse incision/area with: - - change dressing with wicked gauze to lateral foot site and cover other incision sites with dry gauze, kerlix. It is ok to gently wash the area with soap and water prior to dressing application; no soaking. Allergies/Adverse Reactions: Allergies Penicillins Allergy (Verified 10/08/18 09:27) Swelling Tolerates cephalosporins with no issue Medications to take at Discharge Aspirin [Aspirin, Baby] 81 mg PO DAILY@0800 03/08/15 Smz/Tmp Ds [Bactrim Ds] 1 tab PO BID #20 tab 10/03/18 Primary Care Physician: Care Physician,No Primary [Primary Care Provider] - Test Results: Test results from this visit will be discussed in further detail at your follow- up appointment, if applicable. Please Follow Up With: Tha Perrin DPM When: 1 week [facility]; [phone] Proposed Discharge Date: 10/11/18
[2018-10-10] MEDS: Tamsulosin HCl 0.4 MG Capsule PO (09:27)
[2018-10-10] MEDS: Glucerna Shake 120 ML LIQUID PO ×4 (09:27→21:53)
[2018-10-10 10:37] VITALS: O2SAT 96
[2018-10-10 11:00] VITALS: BP 122/63; PULSE 85; RESP 16; TEMP 36.8; O2SAT 95
[2018-10-10] MEDS: Vancomycin IV 1,000 MG/200 ML BAG 200 MG IV ×2 (11:00→22:40)
[2018-10-10 14:33] VITALS: BP 130/68; PULSE 85; RESP 16; TEMP 36.8; O2SAT 94
[2018-10-10 20:18] VITALS: BP 140/78; PULSE 88; RESP 16; TEMP 37.2; O2SAT 95
[2018-10-10] MEDS: oxyCODONE 5 MG Tablet PO (21:52)
[2018-10-11 03:22] VITALS: BP 124/69; PULSE 76; RESP 16; TEMP 36.6; O2SAT 96
[2018-10-11] MEDS: metroNIDAZOLE 500 MG Tablet PO (06:34)
[2018-10-11] MEDS: Insulin Lispro 100 UNIT/ML INSULN.PEN SC ×3 (06:34→16:52)
[2018-10-11] MEDS: Heparin Injection (Vial) 5,000 UNIT/ML VIAL 5000 UNIT SC ×2 (06:35→13:37)
[2018-10-11] MEDS: 0.9% NaCl Peripheral Flush Adult/Peds IV ×2 (06:35→16:55)
[2018-10-11 06:46] LABS: Absolute Neutrophil Count 6.6 X10^3/uL (2.0-7.7); Basophil# 0.07 X10^3/uL; Basophil% 0.6 % (0-1); Eosinophil# 0.58 X10^3/uL; Eosinophils% 5.4 % (0-5); Hematocrit 35.7 % (40-54); Hemoglobin 11.7 g/dl (13.0-16.5); Lymphocyte % 22.2 % (19-41); Mean Corp Hgb Conc 32.8 g/gl (32-36); Mean Corpuscular Hgb 28.4 pg (27.0-32.0); Mean Corpuscular Volume 86.7 fL (80-94); Monocyte# 1.17 X10^3/uL; Monocyte% 10.8 % (0-10); Neutrophil # 6.55 X10^3/uL (2.7-7.7); Neutrophil % 60.6 % (47-70); Platelet Count 441 K/mm3 (150-450); RBC Distribution Width CV 12.5 % (11.6-14.6); RBC Distribution Width SD 40.1 fl (35.1-43.9); Red Blood Count 4.12 M/mm3 (4.6-6.2); White Blood Count 10.8 K/mm3 (4.4-11.0)
[2018-10-11 06:48] LABS: POSITIVE COUNT NO; POSITIVE DIFFERENTIAL NO; POSITIVE MORPHOLOGY NO
[2018-10-11 07:03] LABS: Anion Gap 6 (5-15); BUN 26 mg/dL (7-18); BUN/Creat Ratio 19.5 RATIO (10-20); Calcium,Total 9.4 mg/dL (8.5-10.1); Chloride 106 mmol/L (98-107); Creatinine, Serum 1.33 mg/dL (0.70-1.30); EST Glomerular Filtration Rate 61 mL/min (>60); Est Glom Filt Rate - Afr Amer 74 mL/min (>60); Estimated Creatinine Clearance 71.17 ml/min; Glucose 192 mg/dL (74-106); Potassium 4.5 mmol/L (3.5-5.1); Sodium Level 139 mmol/L (136-145)
--- NOTE | 2018-10-11 07:11 | PN_ITS ---
Patient Problems: Active and Suspected Problems (Last Reviewed 10/08/18 @ 02:00 by Mehrdad Alexis MD) Diabetic foot infection (Acute) Subjective: Has not experienced any significant change in condition cultures still pending Microbiology 10/08/18 10:00 Blood Culture (Wb) - Right Wrist Blood Culture - Preliminary No growth in 48 hours. 10/08/18 09:55 Blood Culture (Wb) - Anticubital Right Blood Culture - Preliminary No growth in 48 hours. 10/07/18 20:25 Wound - Right Foot Gram Stain - Final 10/07/18 20:25 Wound - Right Foot Wound Culture - Preliminary Alpha Hemolytic Streptococcus 10/08/18 22:05 Wound Abcess - Right Foot Gram Stain - Final 10/08/18 22:05 Wound Abcess - Right Foot Wound Culture - Preliminary Alpha hemolytic organism 10/08/18 22:05 Bone - Other Gram Stain - Final 10/08/18 22:05 Bone - Other Wound Culture - Preliminary No growth-Final to follow 10/08/18 22:05 Bone - Other Gram Stain - Final 10/08/18 22:05 Bone - Other Wound Culture - Preliminary No growth-Final to follow Objective: GENERAL: cooperative HEENT: Atraumatic; moist oral mucosa EYES; Anicteric, Normal Conjunctiva NECK; supple, normal thyroid, no distended JVD. RESPIRATORY: Diminished to auscultation bilaterally, CARDIOVASCULAR: Regular S1 S2, no audible murmurs GI: soft, non-tender, normoactive bowel sounds, : No Renal angle tenderness; EXTREMITIES: Right foot in surgical dressing MUSCULOSKELETAL: No Joint Tenderness; no muscle waisting NEURO: Awake; no lateralizing signs. SKIN: No Rash PSYCH; Normal affect Vitals/I&O's: Vital Signs Temp Pulse Resp BP Pulse Ox 97.8 F 76 16 124/69 H 96 10/11/18 03:22 10/11/18 03:22 10/11/18 03:22 10/11/18 03:22 10/11/18 03:22 Oxygen Delivery Method Room Air Weight: 72.5 kg Body Mass Index (BMI) 21.6 Finger Stick Blood Glucose 129 Intake and Output for Last 24 Hours 10/09/18 10/10/18 10/11/18 23:59 23:59 23:59 Intake Total 2890 / 2890 4418 / 4418 600 / 600 Output Total 2450 / 2450 3320 / 3320 850 / 850 Balance 440 / 440 1098 / 1098 -250 / -250 Microbiology Past 72 Hours 10/08/18 10:00 Blood Culture (Wb) - Right Wrist Blood Culture - Preliminary No growth in 48 hours. 10/08/18 09:55 Blood Culture (Wb) - Anticubital Right Blood Culture - Preliminary No growth in 48 hours. 10/07/18 20:25 Wound - Right Foot Gram Stain - Final 10/07/18 20:25 Wound - Right Foot Wound Culture - Preliminary Alpha Hemolytic Streptococcus 10/08/18 22:05 Wound Abcess - Right Foot Gram Stain - Final 10/08/18 22:05 Wound Abcess - Right Foot Wound Culture - Preliminary Alpha hemolytic organism 10/08/18 22:05 Bone - Other Gram Stain - Final 10/08/18 22:05 Bone - Other Wound Culture - Preliminary No growth-Final to follow 10/08/18 22:05 Bone - Other Gram Stain - Final 10/08/18 22:05 Bone - Other Wound Culture - Preliminary No growth-Final to follow Laboratory Results 10/11/18 06:30: WBC 10.8, RBC 4.12 L, Hgb 11.7 L, Hct 35.7 L, MCV 86.7, MCH 28.4, MCHC 32.8, RDW 12.5, RDW Differential 40.1, Plt Count 441, MPV 9.0, Immature Gran % (Auto) 0.400, Neut % (Auto) 60.6, Lymph % (Auto) 22.2, [place] % (A uto) 10.8 H, Eos % (Auto) 5.4 H, Baso % (Auto) 0.6, Absolute Neuts (auto) 6.6, Absolute Lymphs (auto) 2.40, Total Counted Not Reportable 10/11/18 06:30: Sodium 139, Potassium 4.5, Chloride 106, Carbon Dioxide 27.0, Anion Gap 6, BUN 26 H, Creatinine 1.33 H, Estim Creat Clear Calc 71.17, Est GFR (MDRD) Af Amer 74, Est GFR (MDRD) Non-Af 61, BUN/Creatinine Ratio 19.5, Glucose 192 H, Calcium 9.4 Current Medications Acetaminophen (Tylenol) 650 mg PO Q6H PRN PRN PRN Reason: Mild Pain (1-3)/Temp > 100.7 F Dextrose (D50w Syringe) 0 gm IV X1 PRN; Protocol PRN Reason: Hypoglycemia Glucagon () 1 mg IM .X1 PRN PRN Reason: Hypoglycemia Heparin Sodium (Porcine) (Heparin Na) 5,000 unit SC Q8 [facility] Last Admin: 10/11/18 06:35 Dose: 5,000 unit Documented by: Hydralazine HCl (Apresoline Iv) 5 mg IV Q4H PRN PRN PRN Reason: SBP > 160 Vancomycin IV Pharmacy to Dose (1,250 ea/ Sodium Chloride) 500 mls @ 250 mls/hr IV PRN PRN; Protocol Sodium Chloride () 250 mls @ 15 mls/hr IV .[id number] PRN PRN Reason: SALINE FLUSH Last Admin: 10/09/18 22:00 Dose: 15 mls/hr Documented by: Cefepime HCl 2 gm/ Sodium (Chloride) 100 mls @ 200 mls/hr IV Q12 [facility] Last Admin: 10/10/18 21:53 Dose: 200 mls/hr Documented by: Vancomycin HCl (Vancomycin) 1,000 mg in 200 mls @ 200 mls/hr IV Q12H [facility] Last Admin: 10/10/18 22:40 Dose: 200 mls/hr Documented by: Insulin Glargine (Lantus (Bk)) 10 units SC QHS [facility] Last Admin: 10/10/18 21:58 Dose: 10 u Documented by: Insulin Human Lispro (Humalog Kwikpen (Bk)) 0 unit SC ACHS [facility]; Protocol Last Admin: 10/11/18 06:34 Dose: 1 u Documented by: Metronidazole (Flagyl) 500 mg PO TID [facility] Last Admin: 10/11/18 06:34 Dose: 500 mg Documented by: Morphine Sulfate () 4 mg IV Q4H PRN PRN PRN Reason: SEVERE PAIN (6-10/10) Last Admin: 10/08/18 15:06 Dose: 4 mg Documented by: Nutritional Formula (Lactose Free) (Glucerna Shake) 120 ml PO 4X/DAY [facility] Last Admin: 10/10/18 21:53 Dose: 120 ml Documented by: Oxycodone HCl (Oxyir) 5 mg PO Q4H PRN PRN PRN Reason: Moderate Pain (4-6/10) Last Admin: 10/10/18 21:52 Dose: 5 mg Documented by: Senna/Docusate Sodium (Senokot-S, Wendy-Colace) 2 tablet PO BID PRN PRN PRN Reason: Constipation Sodium Chloride () 10 - 40 ml IV UD PRN PRN Reason: SALINE FLUSH Last Admin: 10/11/18 06:35 Dose: 30 ml Documented by: Tamsulosin HCl (Flomax) 0.4 mg PO DAILY [facility] Last Admin: 10/10/18 09:27 Dose: 0.4 mg Documented by: Medical Necessity - Tobacco Use Smoking Status: Former smoker Tobacco Use: Cigarettes, Chew Assessment/Plan All Active Problems (Last Reviewed 10/08/18 @ 02:00 by Mehrdad Alexis MD) Anemia (Acute) Hyponatremia (Acute) Tachycardia (Acute) Thrombocytosis (Acute) Weight loss (Acute) Sepsis (Acute) Septic arthritis of hip (Acute) Dehydration (Acute) Bursitis (Acute) Diabetic foot infection (Acute) Patient is a 48-year-old gentleman with past medical history significant hyper tension, diabetes mellitus type 2 who presented with a diabetic foot infection 1. Diabetic foot infection, the right foot the patient was started on broad- spectrum antibiotic therapy with vancomycin as well as clindamycin subsequent evaluation with an MRI ordered consult was also placed infectious disease as well as podiatry ~10/09/2018; MRI obtained on 10/08/2018 was consistent with Osteomyelitis of the cuboid and fifth metatarsal; patient underwent Incision and drainage with debridement of right foot, bone biopsies of right foot on 10/08/18 ~10/10/2018Patient seen pain is well controlled. Wound cultures so far positive for alphahemolytic organism and gram-positive organisms ~10/11/2018: Case was discussed with podiatry today prior patient is okay to be discharged from their standpoint. Patient called final culture and sensitivity results still pending. 2. Acute urinary retention. An order was given for patient to be straight cath and subsequently started on Flomax 3. Acute kidney injury; on IV fluids with subsequent monitoring of electrolytes; slight improvement in kidney function with hydration ~ 10/10/2018; patient kidney function continues to improve 4. Chronic kidney disease stage III secondary to diabetic nephropathy Baseline creatinine 2.1 5. 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 Essential hypertension-blood pressure controlled, home medications continued with dose adjustment as needed 7. DVT prophylaxis; Subcutaneous heparin. Code Visit Inpatient E&M: 69211 Subs Hosp L2
--- NOTE | 2018-10-11 08:30 | NURSING ---
wound photo: right foot
--- NOTE | 2018-10-11 08:30 | NURSING ---
wound photo: right foot
[2018-10-11 08:34] VITALS: BP 135/83; PULSE 73; RESP 16; TEMP 36.6; O2SAT 97
--- NOTE | 2018-10-11 09:45 | CASEMGMT ---
AGUSTIN SANTIZO updated that patient will need IV ATBs at discharge. AGUSTIN SANTIZO sent referral to [facility] and [facility] regarding IV ATB and [facility] for teaching. AGUSTIN SANTIZO updated patient regarding discharge needs. Patient voiced understand and no concerns at this time.
[2018-10-11] MEDS: Tamsulosin HCl 0.4 MG Capsule PO (10:12)
[2018-10-11] MEDS: Glucerna Shake 120 ML LIQUID PO ×2 (10:16→13:42)
[2018-10-11] MEDS: Vancomycin IV 1,000 MG/200 ML BAG 200 MG IV (11:41)
[2018-10-11 11:55] LABS: Bedside Glucose 229 mg/dL (70-110)
[2018-10-11 11:55] LABS: Bedside Glucose 223 mg/dL (70-110)
[2018-10-11 11:55] LABS: Bedside Glucose 229 mg/dL (70-110)
[2018-10-11 12:00] LABS: Bedside Glucose 178 mg/dL (70-110)
--- NOTE | 2018-10-11 13:30 | CASEMGMT ---
AGUSTIN SANTIZO received script for IV Rocephin and sent to [facility]. AGUSTIN SANTIZO confirmed delivery for ATBs for 1300 on 10/12/18. [facility] confirmed start of care for 10/12/18 1300. AGUSTIN SANTIZO updated the patient.
[2018-10-11 13:41] LABS: Bedside Glucose 245 mg/dL (70-110)
[2018-10-11 13:45] VITALS: BP 130/71; PULSE 75; RESP 16; TEMP 36.5; O2SAT 97
--- NOTE | 2018-10-11 13:45 | PCM.DC ---
- Discharge Diagnoses Current Active Problems: Current Active and Chronic Problems (Last Reviewed 10/08/18 @ 02:00 by Mehrdad Alexis MD) Diabetic foot infection (Acute) You will use the following diet at home:: Calorie/Carbohydrate Controlled (specify 1200, 1400, etc) - 1800 Your food should be the consistency of: Regular Discharge Activity: Return to Normal Activity, Use Crutches - or use a knee roller to remain non weight bearing right foot Weight Bearing Status: No weight bearing Keep extremity elevated above heart level: Right Leg Call your doctor if your incision/area has: Continuous Slow Oozing, Sudden Increased Bleeding, Increased Pain/ Swelling, Increased Redness, Foul Smelling Discharge, Swelling at the incision site Call your doctor if you observe: Fever of 101 or Higher, Calf discomfort, Uncontrolled pain Cleanse incision/area with: - - change dressing with wicked gauze to lateral foot site and cover other incision sites with dry gauze, kerlix. It is ok to gently wash the area with soap and water prior to dressing application; no soaking. Allergies/Adverse Reactions: Allergies Penicillins Allergy (Verified 10/08/18 09:27) Swelling Tolerates cephalosporins with no issue Medications to take at Discharge Aspirin [Aspirin, Baby] 81 mg PO DAILY@0800 03/08/15 Acetaminophen [Tylenol Tablet] 650 mg PO Q6H PRN PRN tablet 10/11/18 Ceftriaxone 2 gm IV Q24 40 Days #40 vial 10/11/18 Insulin Glargine [Lantus SoloStar Pen] 10 units SUBCUT QHS #10 pen 10/11/18 Tamsulosin HCl [Flomax] 0.4 mg PO DAILY #30 cap 10/11/18 The following prescriptions were given: Ceftriaxone 2 gm IV Q24 40 Days #40 vial Prescription Printed Tamsulosin HCl [Flomax] 0.4 mg PO DAILY #30 cap Transmission Status: Pending to [id number] Insulin Glargine [Lantus SoloStar Pen] 10 units SUBCUT QHS #10 pen Transmission [facility]: [id number] Primary Care Physician: Care Physician,No Primary [Primary Care Provider] - Please follow up with your Primary Care Physician in: in 5-7 days Test Results: Test results from this visit will be discussed in further detail at your follow-up appointment, if applicable. Please Follow Up With: Tha Perrin DPM When: 1 week [facility]; [phone] Please Follow Up With: Jabier Hunter MD Proposed Discharge Date: 10/11/18
--- NOTE | 2018-10-11 13:51 | PCM.DC.SUM ---
Discharge Date and Diagnosis - Problem List Patient Problems: Active and Suspected Problems (Last Reviewed 10/08/18 @ 02:00 by Mehrdad Alexis MD) Diabetes mellitus type 2 with complications (Acute) Osteomyelitis (Acute) Diabetic foot infection (Acute) Date of Admission: 10/07/18 Date of Discharge: 10/11/18 - Primary Discharge Diagnosis Active and Suspected Problems (Last Reviewed 10/08/18 @ 02:00 by Mehrdad Alexis MD) Diabetes mellitus type 2 with complications (Acute) Osteomyelitis (Acute) Diabetic foot infection (Acute) Hospital Course and Treatment Imaging Results: Clinical Impression(s) from Imaging Studies Lower Extremity MRI 10/08/18 09:05 IMPRESSION: Osteomyelitis of the cuboid and fifth metatarsal. Electronically Signed: Tres Waterman MD at 16:38 EDT , Service support , Foot X-Ray 10/08/18 21:23 IMPRESSION: Images obtained for hardware localization area Electronically Signed: Dot Velázquez MD at 22:57 EDT Tel , Service support , Foot X-Ray 10/08/18 22:40 IMPRESSION: Soft tissue and osseous defect consistent with recent biopsy. Electronically Signed: Tres Waterman MD at 23:31 EDT , Service support , Microbiology 10/08/18 22:05 Wound Abcess - Right Foot Gram Stain - Final 10/08/18 22:05 Wound Abcess - Right Foot Wound Culture - Final Strep anginosus 10/08/18 22:05 Wound Abcess - Right Foot Anaerobic Culture - Preliminary Checking for anaerobes, further studies to follow. 10/08/18 22:05 Bone - Other Gram Stain - Final 10/08/18 22:05 Bone - Other Wound Culture - Preliminary No growth-Final to follow 10/08/18 22:05 Bone - Other Anaerobic Culture - Preliminary No growth in 48 hours. 10/08/18 22:05 Bone - Other Gram Stain - Final 10/08/18 22:05 Bone - Other Wound Culture - Preliminary No growth-Final to follow 10/08/18 22:05 Bone - Other Anaerobic Culture - Preliminary No growth in 48 hours. 10/07/18 20:25 Wound - Right Foot Gram Stain - Final 10/07/18 20:25 Wound - Right Foot Wound Culture - Final Strep anginosus 10/08/18 10:00 Blood Culture (Wb) - Right Wrist Blood Culture - Preliminary No growth in 48 hours. 10/08/18 09:55 Blood Culture (Wb) - Anticubital Right Blood Culture - Preliminary No growth in 48 hours. Consultations 10/07/18 22:24 Consult: Onc/Wound/director medical Routine Comment: Operations: - - Debridement L hip soft tissue x2 Summary of Care Provided: Patient is a 48-year-old gentleman with past medical history significant hypertension, diabetes mellitus type 2 who presented with a diabetic foot infection 1. Diabetic foot infection osteomyelitis involving the right foot with Strep anginosus the patient was started on broad-spectrum antibiotic therapy with vancomycin as well as clindamycin subsequent evaluation with an MRI ordered consult was also placed infectious disease as well as podiatry. MRI obtained on 10/08/2018 was consistent with Osteomyelitis of the cuboid and fifth metatarsal; patient underwent Incision and drainage with debridement of right foot, bone biopsies of right foot on 10/08/18. Cultures came back positive for Strep anginosus patient was discharged home on Rocephin 2 g daily for 40 additional doses 2. Acute urinary retention. An order was given for patient to be straight cath and subsequently started on Flomax prescription written on discharge 3. Acute kidney injury; on IV fluids with subsequent monitoring of electrolytes; resolved at the time of discharge 4. Chronic kidney disease stage III patient's creatinine at the time of discharge 1.33 5. 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 Essential hypertension-blood pressure controlled, home medications continued with dose adjustment as needed 7. DVT prophylaxis; Subcutaneous heparin. Patient Problems: Active and Suspected Problems (Last Reviewed 10/08/18 @ 02:00 by Mehrdad Alexis MD) Diabetes mellitus type 2 with complications (Acute) Osteomyelitis (Acute) Diabetic foot infection (Acute) Objective: GENERAL: cooperative HEENT: Atraumatic; moist oral mucosa EYES; Anicteric, Normal Conjunctiva NECK; supple, normal thyroid, no distended JVD. RESPIRATORY: Diminished to auscultation bilaterally, CARDIOVASCULAR: Regular S1 S2, no audible murmurs GI: soft, non-tender, normoactive bowel sounds, : No Renal angle tenderness; EXTREMITIES: Right foot in surgical dressing MUSCULOSKELETAL: No Joint Tenderness; no muscle waisting NEURO: Awake; no lateralizing signs. SKIN: No Rash PSYCH; Normal affect - Physical Exam Vital Signs Temp Pulse Resp BP Pulse Ox 97.7 F L 75 16 130/71 H 97 10/11/18 13:45 10/11/18 13:45 10/11/18 13:45 10/11/18 13:45 10/11/18 13:45 Oxygen Delivery Method Room Air Weight: 72.5 kg Body Mass Index (BMI) 21.6 Finger Stick Blood Glucose 129 Intake and Output for Last 24 Hours 10/09/18 10/10/18 10/11/18 23:59 23:59 23:59 Intake Total 2890 / 2890 4418 / 4418 1918 / 1918 Output Total 2450 / 2450 3320 / 3320 1450 / 1450 Balance 440 / 440 1098 / 1098 468 / 468 Microbiology Past 72 Hours 10/08/18 22:05 Gram Stain - Final Wound Abcess - Right Foot Wound Culture - Final Strep anginosus Anaerobic Culture - Preliminary Checking for anaerobes, further studies to follow. 10/08/18 22:05 Gram Stain - Final Bone - Other Wound Culture - Preliminary No growth-Final to follow Anaerobic Culture - Preliminary No growth in 48 hours. 10/08/18 22:05 Gram Stain - Final Bone - Other Wound Culture - Preliminary No growth-Final to follow Anaerobic Culture - Preliminary No growth in 48 hours. 10/07/18 20:25 Gram Stain - Final Wound - Right Foot Wound Culture - Final Strep anginosus 10/08/18 10:00 Blood Culture - Preliminary Blood Culture (Wb) - Right Wrist No growth in 48 hours. 10/08/18 09:55 Blood Culture - Preliminary Blood Culture (Wb) - Anticubital Right No growth in 48 hours. Laboratory Tests Past 24 Hrs 10/11/18 10/11/18 06:30 06:30 WBC 10.8 RBC 4.12 L Hgb 11.7 L Hct 35.7 L MCV 86.7 MCH 28.4 MCHC 32.8 RDW 12.5 RDW Differential 40.1 Plt Count 441 MPV 9.0 Immature Gran % (Auto) 0.400 Neut % (Auto) 60.6 Lymph % (Auto) 22.2 [place] % (Auto) 10.8 H Eos % (Auto) 5.4 H Baso % (Auto) 0.6 Absolute Neuts (auto) 6.6 Absolute Lymphs (auto) 2.40 Total Counted Not Reportable Sodium 139 Potassium 4.5 Chloride 106 Carbon Dioxide 27.0 Anion Gap 6 BUN 26 H Creatinine 1.33 H Estim Creat Clear Calc 71.17 Est GFR (MDRD) Af Amer 74 Est GFR (MDRD) Non-Af 61 BUN/Creatinine Ratio 19.5 Glucose 192 H Calcium 9.4 POC Glucose 10/11/18 10/11/18 10/10/18 13:31 06:33 21:44 POC Glucose 245 H 178 H 229 H 10/10/18 10/10/18 16:03 11:04 POC Glucose 229 H 223 H Discharge Diet: 1800 Calorie Control Diet Discharge Activity: Return to Normal Activity, Use Crutches - or use a knee roller to remain non weight bearing right foot Weight Bearing Status: No weight bearing Keep extremity elevated above heart level: Right Leg Call your doctor if your incision/area has: Continuous Slow Oozing, Sudden Increased Bleeding, Increased Pain/ Swelling, Increased Redness, Foul Smelling Discharge, Swelling at the incision site Call your doctor if you observe: Fever of 101 or Higher, Calf discomfort, Uncontrolled pain Cleanse incision/area with: - - change dressing with wicked gauze to lateral foot site and cover other incision sites with dry gauze, kerlix. It is ok to gently wash the area with soap and water prior to dressing application; no soaking. Home Medications: Medications to take at Discharge Aspirin [Aspirin, Baby] 81 mg PO DAILY@0800 03/08/15 Acetaminophen [Tylenol Tablet] 650 mg PO Q6H PRN PRN tablet 10/11/18 Ceftriaxone 2 gm IV Q24 40 Days #40 vial 10/11/18 Insulin Glargine [Lantus SoloStar Pen] 10 units SUBCUT QHS #10 pen 10/11/18 Tamsulosin HCl [Flomax] 0.4 mg PO DAILY #30 cap 10/11/18 Following Prescrptions Were Given to Patient: Ceftriaxone 2 gm IV Q24 40 Days #40 vial Prescription Printed Tamsulosin HCl [Flomax] 0.4 mg PO DAILY #30 cap Transmission Status: Pending to [id number] Insulin Glargine [Lantus SoloStar Pen] 10 units SUBCUT QHS #10 pen Transmission Status: Pending to [id number] Primary Care Physician: Care Physician,No Primary [Primary Care Provider] - Please follow up with your Primary Care Physician in: in 5-7 days Please Follow Up With: Tha Perrin DPM When: 1 week [facility]; [phone] Please Follow Up With: Jabier Hunter MD Disposition: Home Minutes spent on discharge:: 45 Patient Condition:: Stable Medical Necessity - Tobacco Use Smoking Status: Former smoker Tobacco Use: Cigarettes, Chew Meaningful Use Info Meaningful Use Diagnoses (Choose all that apply): None applicable Code Visit Inpatient E&M: 23308 Disch Hosp
--- NOTE | 2018-10-11 13:55 | PN.ID_ITS ---
Patient Problems: Active and Suspected Problems (Last Reviewed 10/08/18 @ 02:00 by Mehrdad Alexis MD) Diabetes mellitus type 2 with complications (Acute) Osteomyelitis (Acute) Diabetic foot infection (Acute) Subjective: Feeling well, no issues with picc, no fever, no n/v/d - Physical Exam General: Alert, Cooperative, No apparent distress Lungs: Clear to auscultation, Normal air movement Cardiovascular: Regular rate, Regular Rhythm Abdomen: Soft, Non Tender, Non-Distended Skin: Ulcer/ Wound - reviewed photo Vital Signs Temp Pulse Resp BP Pulse Ox 97.7 F L 75 16 130/71 H 97 10/11/18 13:45 10/11/18 13:45 10/11/18 13:45 10/11/18 13:45 10/11/18 13:45 Oxygen Delivery Method Room Air Weight: 72.5 kg Body Mass Index (BMI) 21.6 Finger Stick Blood Glucose 129 Intake and Output for Last 24 Hours 10/09/18 10/10/18 10/11/18 23:59 23:59 23:59 Intake Total 2890 / 2890 4418 / 4418 1918 / 1918 Output Total 2450 / 2450 3320 / 3320 1450 / 1450 Balance 440 / 440 1098 / 1098 468 / 468 Microbiology Past 72 Hours 10/08/18 22:05 Gram Stain - Final Wound Abcess - Right Foot Wound Culture - Final Strep anginosus Anaerobic Culture - Preliminary Checking for anaerobes, further studies to follow. 10/08/18 22:05 Gram Stain - Final Bone - Other Wound Culture - Preliminary No growth-Final to follow Anaerobic Culture - Preliminary No growth in 48 hours. 10/08/18 22:05 Gram Stain - Final Bone - Other Wound Culture - Preliminary No growth-Final to follow Anaerobic Culture - Preliminary No growth in 48 hours. 10/07/18 20:25 Gram Stain - Final Wound - Right Foot Wound Culture - Final Strep anginosus 10/08/18 10:00 Blood Culture - Preliminary Blood Culture (Wb) - Right Wrist No growth in 48 hours. 10/08/18 09:55 Blood Culture - Preliminary Blood Culture (Wb) - Anticubital Right No growth in 48 hours. Laboratory Tests Past 24 Hrs 10/11/18 10/11/18 06:30 06:30 WBC 10.8 RBC 4.12 L Hgb 11.7 L Hct 35.7 L MCV 86.7 MCH 28.4 MCHC 32.8 RDW 12.5 RDW Differential 40.1 Plt Count 441 MPV 9.0 Immature Gran % (Auto) 0.400 Neut % (Auto) 60.6 Lymph % (Auto) 22.2 [place] % (Auto) 10.8 H Eos % (Auto) 5.4 H Baso % (Auto) 0.6 Absolute Neuts (auto) 6.6 Absolute Lymphs (auto) 2.40 Total Counted Not Reportable Sodium 139 Potassium 4.5 Chloride 106 Carbon Dioxide 27.0 Anion Gap 6 BUN 26 H Creatinine 1.33 H Estim Creat Clear Calc 71.17 Est GFR (MDRD) Af Amer 74 Est GFR (MDRD) Non-Af 61 BUN/Creatinine Ratio 19.5 Glucose 192 H Calcium 9.4 POC Glucose 10/11/18 10/11/18 10/10/18 13:31 06:33 21:44 POC Glucose 245 H 178 H 229 H 10/10/18 10/10/18 16:03 11:04 POC Glucose 229 H 223 H Medical Necessity - Tobacco Use Smoking Status: Former smoker Tobacco Use: Cigarettes, Chew Route of nutrition/ use of supplements: [] Nutritional Intake: [] IV Site: [] Aldana Catheter: [] - Assessment/Plan Antibiotics: [] Assessment/Plan: [] Active and Suspected Problems (Last Reviewed 10/08/18 @ 02:00 by Mehrdad Alexis MD) Diabetic foot infection (Acute) R foot DM osteomyelitis - cx with strep, I&D done by Dr. Perrin, MRI with osteo. Had reaction to PCN as a child, unknown what happened. Ok for d/c home on ceftriaxone, stop date 11/19/18 for 6 week course, weekly bmp/cbc/esr. ID followup with me at wound center in 2 weeks. Will follow, d/w sample case porter and Dr. Kearns
[2018-10-11 18:30] VITALS: BP 128/68; PULSE 78; RESP 16; TEMP 36.7; O2SAT 97
[2018-10-11 18:35] LABS: Bedside Glucose 215 mg/dL (70-110)
--- NOTE | 2018-10-15 15:23 | CASEMGMT ---
Case Management DC Follow Up Call: DC Date: 10/11/18 DC Dx: Diabetes mellitus type 2 with complications (Acute), Osteomyelitis (Acute), Diabetic foot infection (Acute) DC Disposition: TOM/VITALY: 20/07 Called patient cell phone on listed demographics, Patient states he is doing good and [facility] came Sunday10/12/18 and taught him about self IV Abx infusion. States coming every Sunday now. Has an appointment with Dr Hunter on 10/17/18, states [facility]. Denies any questions, concerns, or issues with [facility], Meds, or F/u. S. ADORE Story
== END 2018-10-11 18:35 | disposition home or self-care (01) | DRG 623 ==
LOC: ED 20:55 → MS3 22:00
PROVIDERS: Podiatrist; Admitting Provider Hospitalist; Emergency Provider Emergency Medicine; Referring Provider Hospitalist; Visit Provider Internal Medicine
PROC: 0QBN0ZX Excision of Right Metatarsal, Open Approach, Diagnostic (ICD-10-PCS; principal; 2018-10-08 17:00)
DX: E11.69 Type 2 diabetes mellitus with other specified complication (principal); L03.115 Cellulitis of right lower limb; L02.611 Cutaneous abscess of right foot; M86.8X7 Other osteomyelitis, ankle and foot; E11.621 Type 2 diabetes mellitus with foot ulcer; N17.9 Acute kidney failure, unspecified; E11.65 Type 2 diabetes mellitus with hyperglycemia; E11.628 Type 2 diabetes mellitus with other skin complications; E11.22 Type 2 diabetes mellitus with diabetic chronic kidney disease; N18.3 Chronic kidney disease, stage 3 (moderate); I12.9 Hypertensive chronic kidney disease with stage 1 through stage 4 chronic kidney disease, or unspecified chronic kidney disease; R33.9 Retention of urine, unspecified; L97.519 Non-pressure chronic ulcer of other part of right foot with unspecified severity; B95.1 Streptococcus, group B, as the cause of diseases classified elsewhere; Z79.4 Long term (current) use of insulin
CPT/HCPCS: 36415; 36569; 73620; 73630; 73718; 76000; 80048; 80202; 82962; 83036; 83735; 85025; 85652; 86140; 87015; 87040; 87070; 87075; 87077; 87102; 87116; 87176; 87186; 87205; 87206; 88304; 88305; 88311; 93923; 97802; 99284; 99406; J7030; J7050; A4216; J0696

== ENCOUNTER 2018-11-04 11:54 | Outpatient (RCR) | payer OTHER, SELFPAY ==
[2018-10-08 16:30] VITALS: BMI 21.6
[2018-10-14 15:01] LABS: Erythrocyte Sedimentation Rate 95 mm/hr (0-15)
[2018-10-14 15:03] LABS: Hematocrit 38.1 % (40-54); Hemoglobin 12.7 g/dl (13.0-16.5); Mean Corp Hgb Conc 33.3 g/gl (32-36); Mean Corpuscular Hgb 28.7 pg (27.0-32.0); Mean Corpuscular Volume 86.2 fL (80-94); Mean Platelet Vol. 9.6 fl (6.2-12.0); Platelet Count 517 K/mm3 (150-450); RBC Distribution Width CV 12.5 % (11.6-14.6); RBC Distribution Width SD 39.7 fl (35.1-43.9); Red Blood Count 4.42 M/mm3 (4.6-6.2); White Blood Count 13.9 K/mm3 (4.4-11.0)
[2018-10-14 15:04] LABS: Scan Indicated on CBC? Y/N NO
[2018-10-14 15:06] LABS: Anion Gap 5 (5-15); BUN 46 mg/dL (7-18); BUN/Creat Ratio 18.8 RATIO (10-20); Chloride 105 mmol/L (98-107); Creatinine, Serum 2.45 mg/dL (0.70-1.30); EST Glomerular Filtration Rate 30 mL/min (>60); Est Glom Filt Rate - Afr Amer 37 mL/min (>60); Glucose 243 mg/dL (74-106); Potassium 4.7 mmol/L (3.5-5.1); Sodium Level 137 mmol/L (136-145)
[2018-10-21 16:54] LABS: Anion Gap 5 (5-15); BUN 37 mg/dL (7-18); BUN/Creat Ratio 18.5 RATIO (10-20); Calcium,Total 9.5 mg/dL (8.5-10.1); Chloride 105 mmol/L (98-107); EST Glomerular Filtration Rate 38 mL/min (>60); Est Glom Filt Rate - Afr Amer 46 mL/min (>60); Glucose 235 mg/dL (74-106); Hematocrit 39.4 % (40-54); Hemoglobin 13.1 g/dl (13.0-16.5); Mean Corp Hgb Conc 33.2 g/gl (32-36); Mean Corpuscular Hgb 28.9 pg (27.0-32.0); Mean Corpuscular Volume 86.8 fL (80-94); Mean Platelet Vol. 9.7 fl (6.2-12.0); Platelet Count 501 K/mm3 (150-450); Potassium 4.6 mmol/L (3.5-5.1); RBC Distribution Width CV 12.9 % (11.6-14.6); RBC Distribution Width SD 41.3 fl (35.1-43.9); Red Blood Count 4.54 M/mm3 (4.6-6.2); Scan Indicated on CBC? Y/N NO; Sodium Level 138 mmol/L (136-145); White Blood Count 11.9 K/mm3 (4.4-11.0)
[2018-10-21 17:14] LABS: Erythrocyte Sedimentation Rate 94 mm/hr (0-15)
[2018-10-28 15:59] LABS: Hematocrit 40.3 % (40-54); Hemoglobin 13.4 g/dL (13.0-16.5); Mean Corp Hgb Conc 33.3 g/dL (32-36); Mean Corpuscular Hgb 28.6 pg (27.0-32.0); Mean Corpuscular Volume 85.9 fL (80-94); Mean Platelet Vol. 10.3 fl (6.2-12.0); Platelet Count 391 K/mm3 (150-450); RBC Distribution Width CV 12.8 % (11.6-14.6); RBC Distribution Width SD 39.8 fl (35.1-43.9); Red Blood Count 4.69 M/mm3 (4.6-6.2); White Blood Count 12.8 K/mm3 (4.4-11.0)
[2018-10-28 16:04] LABS: Anion Gap 2 (5-15); BUN 34 mg/dL (7-18); BUN/Creat Ratio 19.8 RATIO (10-20); Calcium,Total 9.1 mg/dL (8.5-10.1); Chloride 105 mmol/L (98-107); Creatinine, Serum 1.72 mg/dL (0.70-1.30); EST Glomerular Filtration Rate 46 mL/min (>60); Est Glom Filt Rate - Afr Amer 55 mL/min (>60); Glucose 349 mg/dL (74-106); Potassium 4.4 mmol/L (3.5-5.1); Sodium Level 136 mmol/L (136-145)
[2018-10-28 16:08] LABS: Erythrocyte Sedimentation Rate 62 mm/hr (0-15); Scan Indicated on CBC? Y/N NO
[2018-11-04 13:25] LABS: Anion Gap 7 (5-15); BUN 32 mg/dL (7-18); BUN/Creat Ratio 18.6 RATIO (10-20); Calcium,Total 9.3 mg/dL (8.5-10.1); Chloride 105 mmol/L (98-107); Creatinine, Serum 1.72 mg/dL (0.70-1.30); EST Glomerular Filtration Rate 46 mL/min (>60); Est Glom Filt Rate - Afr Amer 55 mL/min (>60); Glucose 231 mg/dL (74-106); Potassium 4.4 mmol/L (3.5-5.1); Sodium Level 141 mmol/L (136-145)
[2018-11-04 13:53] LABS: Erythrocyte Sedimentation Rate 44 mm/hr (0-15)
[2018-11-04 13:54] LABS: Hematocrit 41.6 % (40-54); Hemoglobin 13.8 g/dL (13.0-16.5); Mean Corp Hgb Conc 33.2 g/dL (32-36); Mean Corpuscular Hgb 29.1 pg (27.0-32.0); Mean Corpuscular Volume 87.6 fL (80-94); Mean Platelet Vol. 10.2 fl (6.2-12.0); Platelet Count 346 K/mm3 (150-450); RBC Distribution Width CV 12.7 % (11.6-14.6); RBC Distribution Width SD 41.1 fl (35.1-43.9); Red Blood Count 4.75 M/mm3 (4.6-6.2); White Blood Count 10.1 K/mm3 (4.4-11.0)
== END 2018-11-06 23:59 ==
LOC: HHLAB 11:54
PROVIDERS: Referring Provider Internal Medicine Infectious Disease; Visit Provider Internal Medicine Infectious Disease
DX: M86.8X7 Other osteomyelitis, ankle and foot (principal); E11.621 Type 2 diabetes mellitus with foot ulcer; L97.519 Non-pressure chronic ulcer of other part of right foot with unspecified severity
CPT/HCPCS: 80048; 85027; 85652

== ENCOUNTER 2018-11-12 09:41 | Emergency (ER) | payer OTHER, SELFPAY ==
[2018-10-08 16:30] VITALS: BMI 21.6
[2018-11-12 09:42] VITALS: BP 142/89; PULSE 99; RESP 16; TEMP 36.4; O2SAT 99; BMI 22.5
--- NOTE | 2018-11-12 09:55 | VDUE_ITS ---
Reason For Study: swelling Right Proximal Right jugular vein is spontaneous, widely patent, phasic, with no intraluminal echogenicity noted. Subclavian V and Axillary V are dilated and noncompressible with no flow. Right Lower Arm Right radial vein is compressible. Right ulnar vein is compressible. Right Arm Right brachial vein is compressible. Right cephalic vein is compressible. Right basilic vein is compressible. Interpretation Summary Acute deep vein thrombosis is noted in the right subclavian vein. Acute deep vein thrombosis is noted in the right axillary vein. The remainder of the right upper extremity deep venous system is patent. The superficial veins of the right upper extremity, the basilic and cephalic veins, are patent and compressible. There is no evidence of right upper extremity superficial thrombophlebitis involving the veins imaged. A PICC catheter is noted in the right brachial vein, axillary vein, and subclavian vein. Ordering Physician: Jan Hughes Performed By: Spencer Lawson RVT ?
[2018-11-12 11:08] LABS: International Normalized Ratio 0.9; Prothrombin Time (Protime)PT. 11.6 SECONDS (11.7-14.9)
--- NOTE | 2018-11-12 11:15 | ED.VISSUMM ---
- ER Visit Summary Date of Service: 11/12/18 Chief Complaint: Right arm swelling History of Present Illness: The patient is a 48 M with right arm swelling that he noticed today. He has a PICC line in his right upper extremity. This was placed on October 09. He is receiving antibiotics for a right foot osteomyelitis infection. He follows with Dr. Perrin. PCP is through the [place]. No history of clots. No chest pain or shortness of breath. No fevers. Physical Examination: Right arm is diffusely swelling. PICC line in place and otherwise unremarkable. No significant tenderness. Compartments soft. Neurovascular intact distally. Good range of motion. Heart and lungs unremarkable. Test Results: Coags unremarkable. I reviewed his CBC and metabolic panel from yesterday. Ultrasound showed a DVT in his right subclavian vein and axillary vein. Emergency Department Course and Treatment: I believe the patient is appropriate for oral anticoagulation. We will leave the PICC line in place. He is completing therapy on November 19. 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 He had surgery, debridement, for osteomyelitis. I believe he is appropriate for anticoagulation. Risks were discussed. Has bled score was 1, as he is on aspirin. Patient should return right away for any new or worsening issues. Treatment Plan: As above Disposition: Discharged Impression: 1. Right arm DVT This note was generated with Or[employer] dictation software. It may contain incorrect words, spelling, and punctuation that were not noted in review of the chart prior to signing ED Disposition - Plan for ED Patient: [facility] [Primary Care Provider] -
--- NOTE | 2018-11-12 11:20 | ED.DEP ---
ED Disposition - Plan for ED Patient: Instructions: Deep Vein Thrombosis Prescriptions: Apixaban [Eliquis] 5 mg PO BID 30 Days #74 tab Prescription Printed [facility]errals: [facility] [Primary Care Provider] -
== END 2018-11-12 11:42 | disposition home or self-care (01) ==
LOC: ED 10:02
PROVIDERS: Emergency Provider Emergency Medicine
DX: I82.621 Acute embolism and thrombosis of deep veins of right upper extremity (principal); M86.8X7 Other osteomyelitis, ankle and foot; E11.9 Type 2 diabetes mellitus without complications; I10 Essential (primary) hypertension; Z79.01 Long term (current) use of anticoagulants; Z79.82 Long term (current) use of aspirin; Z79.4 Long term (current) use of insulin; Z79.899 Other long term (current) drug therapy
CPT/HCPCS: 36415; 85610; 85730; 93971; 99282

== ENCOUNTER 2018-11-18 14:44 | Outpatient (RCR) | payer OTHER, SELFPAY ==
[2018-10-08 16:30] VITALS: BMI 21.6
[2018-11-11 14:34] LABS: Erythrocyte Sedimentation Rate 48 mm/hr (0-15)
[2018-11-11 14:36] LABS: Anion Gap 6 (5-15); BUN 26 mg/dL (7-18); BUN/Creat Ratio 19.8 RATIO (10-20); Calcium,Total 9.1 mg/dL (8.5-10.1); Chloride 106 mmol/L (98-107); Creatinine, Serum 1.31 mg/dL (0.70-1.30); EST Glomerular Filtration Rate 63 mL/min (>60); Est Glom Filt Rate - Afr Amer 76 mL/min (>60); Glucose 244 mg/dL (74-106); Potassium 4.2 mmol/L (3.5-5.1); Sodium Level 139 mmol/L (136-145)
[2018-11-11 14:37] LABS: Hematocrit 39.8 % (40-54); Hemoglobin 13.5 g/dL (13.0-16.5); Mean Corp Hgb Conc 33.9 g/dL (32-36); Mean Corpuscular Volume 85.4 fL (80-94); Platelet Count 302 K/mm3 (150-450); RBC Distribution Width CV 13.1 % (11.6-14.6); RBC Distribution Width SD 40.9 fl (35.1-43.9); Red Blood Count 4.66 M/mm3 (4.6-6.2)
[2018-11-18 15:00] LABS: Erythrocyte Sedimentation Rate 55 mm/hr (0-15); Hematocrit 38.4 % (40-54); Hemoglobin 12.6 g/dL (13.0-16.5); Mean Corp Hgb Conc 32.8 g/dL (32-36); Mean Corpuscular Hgb 28.6 pg (27.0-32.0); Mean Corpuscular Volume 87.3 fL (80-94); Mean Platelet Vol. 9.9 fl (6.2-12.0); Platelet Count 365 K/mm3 (150-450); RBC Distribution Width CV 13.2 % (11.6-14.6); RBC Distribution Width SD 41.8 fl (35.1-43.9); White Blood Count 11.8 K/mm3 (4.4-11.0)
[2018-11-18 15:05] LABS: Anion Gap 5 (5-15); BUN 40 mg/dL (7-18); BUN/Creat Ratio 24.4 RATIO (10-20); Calcium,Total 9.3 mg/dL (8.5-10.1); Chloride 108 mmol/L (98-107); Creatinine, Serum 1.64 mg/dL (0.70-1.30); EST Glomerular Filtration Rate 48 mL/min (>60); Est Glom Filt Rate - Afr Amer 58 mL/min (>60); Glucose 196 mg/dL (74-106); Potassium 4.7 mmol/L (3.5-5.1); Sodium Level 139 mmol/L (136-145)
== END 2018-12-07 23:59 ==
LOC: HHLAB 14:44
PROVIDERS: Referring Provider Internal Medicine Infectious Disease; Visit Provider Internal Medicine Infectious Disease
DX: M86.8X7 Other osteomyelitis, ankle and foot (principal); E11.621 Type 2 diabetes mellitus with foot ulcer; L97.519 Non-pressure chronic ulcer of other part of right foot with unspecified severity
CPT/HCPCS: 80048; 85027; 85652

== ENCOUNTER → 2018-12-26 17:36 | Outpatient (CLI) | payer OTHER, SELFPAY | PROVIDERS: Referring Provider Podiatrist; Visit Provider Podiatrist | DX: L97.519 Non-pressure chronic ulcer of other part of right foot with unspecified severity (principal) | CPT/HCPCS: 87070; 87075; 87077; 87186; 87205 ==

== ENCOUNTER 2019-02-05 13:33 | Outpatient (RCR) | payer OTHER, SELFPAY ==
[2019-02-05 14:06] VITALS: BP 138/69; PULSE 70; RESP 16; TEMP 36.7; BMI 23.8
[2019-02-05 16:59] LABS: M R Staph aureus DNA By PCR Negative (Negative); Probe Check PASS; Staph aureus DNA By PCR POSITIVE (Negative)
--- NOTE | 2019-02-05 17:03 | PCM.WC.HP ---
(1) Ulcer of right foot with fat layer exposed Status: Chronic Code(s): L97.512 - Non-pressure chronic ulcer of other part of right foot with fat layer exposed (2) Ulcer of right foot with necrosis of muscle Status: Chronic Code(s): L97.513 - Non-pressure chronic ulcer of other part of right foot with necrosis of muscle (3) Delayed wound healing Status: Chronic Code(s): T14.8XXD - Other injury of unspecified body region, subsequent encounter (4) Malnutrition Status: Chronic Code(s): E46 - Unspecified protein-calorie malnutrition (5) Other specified peripheral vascular diseases Status: Suspected Code(s): I73.89 - Other specified peripheral vascular diseases (6) Type 2 diabetes mellitus with diabetic polyneuropathy Status: Chronic Code(s): E11.42 - Type 2 diabetes mellitus with diabetic polyneuropathy (7) Osteomyelitis Status: Suspected Qualifiers: Osteomyelitis type: other chronic Osteomyelitis location: foot Laterality: right Qualified Code(s): M86.671 - Other chronic osteomyelitis, right ankle and foot Code(s): M86.9 - Osteomyelitis, unspecified History of Present Illness Date of Service: 02/05/19 Chief Complaint: Right foot ulcer History of Wound: This 48-year-old male with uncontrolled diabetes with neuropathy was referred to the wound healing center for a deep right foot ulcer. He is referred by Dr. Perrin at the foot and ankle center. This most recent ulcer onset was made November 2018 after he returned to work after previous other ulcer was freshly healed. His ulcers demonstrated delayed healing and he now has an odor and deep tissue exposed. It is noted he did have previous surgical intervention including debridement and bone biopsy during the hospital admission in October 08, 2018. This initial ulcer healed which was in near approximation to the current ulcer. His bone biopsy was negative for confirmed osteomyelitis however he was still treated with 6 weeks of antibiotics under the management of infectious disease due to continued concern for this condition also adjacent infected soft tissue. He did also have noninvasive vascular studies performed. He denies current fever, chill, nausea, vomiting. He does not wear offloading device as previously advised. He change the dressing daily with Dakin wet-to-dry gauze. Past Medical History Past Medical History: Chronic Problems (Last Reviewed 10/08/18 @ 02:00 by Mehrdad Alexis MD) Ulcer of right foot with fat layer exposed (Chronic) Ulcer of right foot with necrosis of muscle (Chronic) Delayed wound healing (Chronic) Malnutrition (Chronic) Type 2 diabetes mellitus with diabetic polyneuropathy (Chronic) Surgical History: - - hip surgery for an infection, right foot ulcer surgical debridement with bone biopsy history Allergies/Adverse Reactions: Allergies Penicillins Allergy (Verified 02/05/19 14:38) Swelling Tolerates cephalosporins with no issue Home Medications: Ambulatory Orders Medication Instructions Recorded Aspirin [Aspirin, Baby] 81 mg PO DAILY@0800 03/08/15 Acetaminophen [Tylenol Tablet] 650 mg PO Q6H PRN PRN tab 10/11/18 Insulin Glargine [Lantus (BKC)] 15 units SUBCUT QHS 02/05/19 metFORMIN HCl [Glucophage] 500 mg PO BIDCM 02/05/19 - Family History Maternal COPD, Diabetes, - Paternal Heart Disease, Renal Disease, - Sibling - - He has a sister who has rheumatoid arthritis. Lives: With Family Smoking Status: Never smoker Tobacco Use: Non-smoker Drugs: None Review of Systems Constitutional: Denies: Chills, Fever, Fatigue Cardiovascular: Denies: Claudication Respiratory: Denies: Shortness of Breath Gastrointestinal: Denies: Nausea, Vomiting Musculoskeletal: Denies: Foot Pain, Joint Tenderness, Leg Pain Skin: Reports: Skin Changes, Wounds Neurological: Reports: Incoordination, Numbness Hematologic/ Lymphatic: Reports: Easy Bleeding, Hx of blood clot - Upper extremity - Physical Exam Vital Signs Temp Pulse Resp BP 98.0 F 70 16 138/69 H 02/05/19 14:06 02/05/19 14:06 02/05/19 14:06 02/05/19 14:06 General: Alert, Oriented x3, Cooperative, No apparent distress HEENT: Atraumatic Extremities: No cyanosis, Capillary Refill Less than 3 Seconds - All digits bilateral, No Calf Tenderness - Negative Shanita and Leavitt sign bilateral, Diminished Peripheral Pulses - Palpable DP pulses bilaterally, Edema - Mild edema right Skin: Ulcer/ Wound - There is no purulence on expression, no erythema, streaking. The ulcer bed does have exposed bone and tendon that is devitalized and necrotic. The remainder of the ulcer bed is granular with fibrous tissue. There is an odor., - - His peripheral skin is hairless and atrophic Wound Measurements and Assessment - Nurse 1 - General Ulcer Measurement Start: 02/05/19 13:52 Freq: Status: Active Protocol: Activity Type Activity Date Activity User E-Sign Co-Sign Detail Recorded Client Recorded Date Recorded By Document 02/05/19 14:06 DV [id number] 02/05/19 14:30 DV 02/05/19 14:06 Wound Center Nurse 1 [Ulcer Assessment] #1 Right Lateral Foot -Combined with other wound No -Current Size (cm) - Length 7.2 -Current Size (cm) - Width 2.3 -Current Size (cm) - Depth 0.4 -Total Square Cm 16.56 -Date of Last Picture (Recall this 02/05/19 field) -Photo Taken Yes -Epithelialization None Present -Tunneling No -Undermining/Tunneling No -Circular Undermining No -Classification - Thickness Full Thickness with Exposed Support Structure -Classification - Farrell Grading ( Grade 3 Diabetic Ulcer) -Exudate Amt Medium -Exudate Type Yellow/Green -Wound Margin Indistinct, Non -Visible -Granulation Amt None Present (0 %) -Granulation Quality N/A -Slough/Fibrin Yes -Necrosis Amt Large (67-100%) -Necrotic Tissue Type Adherent Slough -Structure Exposed Tendon -Texture (Wendy-wound Skin Appearance) Assessed, Localized Edema ,Scarring -Moisture (Wendy-wound Skin Appearance Assessed, ) Weeping -Color (Wendy-wound Skin Appearance) Assessed, Erythema -Tenderness on Palpation (Wendy-wound No Skin Appearance) -Foul Odor after Cleansing Yes -Anesthetic Used 4% Lidocaine Solution WC - Nurse 2 - General Ulcer CM Notes Start: 02/05/19 13:52 Freq: Status: Active Protocol: Activity Type Activity Date Activity User E-Sign Co-Sign Detail Recorded Client Recorded Date Recorded By Document 02/05/19 15:02 AN [id number] 02/05/19 15:16 AN 02/05/19 15:02 Wound Center Nurse 2 [Procedure/Treatment] #2 RIGHT DORSAL FOOT -Time 15:03 -Correct Patient Yes -Correct Side, Site, Position Yes -Correct Procedure Yes -Procedure Performed Yes -Type of Procedure Debridement -Clinical Debridement Subcutaneous -Post Debridement Size (cm) - Length 1.8 -Post Debridement Size (cm) - Width 1.2 -Post Debridement Size (cm) - Depth 0.1 -Total Square Cm 2.16 #1 Right Lateral Foot -Time 15:02 -Correct Patient Yes -Correct Side, Site, Position Yes -Correct Procedure Yes -Procedure Performed Yes -Type of Procedure Debridement -Clinical Debridement Subcutaneous -Post Debridement Size (cm) - Length 7.4 -Post Debridement Size (cm) - Width 2.4 -Post Debridement Size (cm) - Depth 0.4 -Total Square Cm 17.76 -Wound/Ulcer Outcome Not Healed -Ulcer Cleansing Rinsed/ Irrigated with Saline -Foul Odor after Cleansing No -Bioengineered Tissue No -Bleeding Controlled with Pressure -Offloading Yes -Type of Offloading Knee Walker -Treatment Response Procedure Tolerated Well [See Physician Procedure note for Specifics] Musculoskeletal: No Tenderness to Palpation of Joints or Extremities, Muscle Wasting, - Neurological: - - Lack of normal epicritic sensation light touch consistent with neuropathy Psych/Mental Status: Normal Affect, Appropriate Debridement Note Post-Debridement Measurements/Treatment WC - Nurse 2 - General Ulcer CM Notes Start: 02/05/19 13:52 Freq: Status: Active Protocol: Activity Type Activity Date Activity User E-Sign Co-Sign Detail Recorded Client Recorded Date Recorded By Document 02/05/19 15:02 AN [id number] 02/05/19 15:16 AN 02/05/19 15:02 Wound Center Nurse 2 #2 RIGHT DORSAL FOOT -Time 15:03 -Correct Patient Yes -Correct Side, Site, Position Yes -Correct Procedure Yes -Procedure Performed Yes -Type of Procedure Debridement -Clinical Debridement Subcutaneous -Post Debridement Size (cm) - Length 1.8 -Post Debridement Size (cm) - Width 1.2 -Post Debridement Size (cm) - Depth 0.1 -Total Square Cm 2.16 #1 Right Lateral Foot -Time 15:02 -Correct Patient Yes -Correct Side, Site, Position Yes -Correct Procedure Yes -Procedure Performed Yes -Type of Procedure Debridement -Clinical Debridement Subcutaneous -Post Debridement Size (cm) - Length 7.4 -Post Debridement Size (cm) - Width 2.4 -Post Debridement Size (cm) - Depth 0.4 -Total Square Cm 17.76 -Wound/Ulcer Outcome Not Healed -Ulcer Cleansing Rinsed/ Irrigated with Saline -Foul Odor after Cleansing No -Bioengineered Tissue No -Bleeding Controlled with Pressure -Offloading Yes -Type of Offloading Knee Walker -Treatment Response Procedure Tolerated Well Wound debrided: dorsal foot Laterality: Right Wound Grade/Stage: grade 1 Type of Debridement: Excisional debridement Anesthesia Used: 5% Lidocaine Gel Depth: in the subcutaneous layer, to muscle Percentage of wound debrided: 100 Instrument Used: #15 blade, Forceps Tissue Removed: fibrous, devitalized subcutaneous and tendon/muscle, biofilm, slough Severity: Necrosis of Muscle - bone is also exposed (firm and without noted discoloration at proximal wound bed) Amount of bleeding with debridement: Mild Bleeding Controlled with: Pressure Patient tolerated procedure well - Additional Wound Wound debrided: lateral foot Laterality: Right Wound Grade/Stage: grade 3 Type of Debridement: Excisional debridement Anesthesia Used: 5% Lidocaine Gel Depth: in the subcutaneous layer, to muscle Percentage of wound debrided: 100 Instrument Used: #15 blade Tissue Removed: fibrous, devitalized subcutaneous, biofilm, slough Severity: Necrosis of Muscle Amount of bleeding with debridement: Mild Bleeding Controlled with: Pressure Patient tolerated procedure: Patient tolerated procedure well Assessment/Plan Assessment: Right foot ulcer with necrotic tendon/muscle exposed -infection work-up in process. Osteomyelitis is suspected and work-up is in process. Uncontrolled diabetes with neuropathy. Delayed healing. Malnutrition suspected. Other comorbidities including anemia, thrombocytopenia, history of septic hip, history of recurrent multiple infections, weight loss. Currently on anticoagulation medication, Eliquis, for DVT treatment Plan: I reviewed and discussed his case including etiology, comprehensive wound healing plan, and anticipated healing time and management. His right foot ulcer was debrided in the subcutaneous and muscle excisional manner as noted in the clinical panel. I recommend he continues to change his dressing daily with Dakin's soaked wet-to-dry gauze. He is already doing this. To avoid soaking. A culture was obtained and sent for aerobic, anaerobic, acid-fast, fungal, and MRSA PCR. I recommend updated foot x-ray and lab work including CBC, CMP, ESR, C-reactive protein, and hemoglobin A1c. He continues to take his previously prescribed Bactrim. It is noted his last foot x-ray on file was from 12/26 at the foot and ankle center as the following:There are no fractures and no dislocations. There is no osteolysis and no periosteal reaction. Small spur at base of 5th metatarsal. Os peroneum present. Anterior ankle impingement. Retrocalcaneal spur noted. There is calcification of the anterior tibial/DP artery and posterior tibial artery. Additional antibiotics will be considered pending his response to topical Dakin's and the a forementioned work-up. I also recommend performing an operating room surgical debridement with updated bone biopsy and application of advanced wound healing products such as amnio fill in epic cord. Prior authorization will be initiated. The preoperative indication, planned procedure, possible benefits, risks, complications, anticipated healing time management were discussed in detail the patient. He understands and is amenable to proceed forward. No guarantees were made. He understands risks and complications may occur. I answered his questions. He will be contacted by surgical nurse coordinator, Omari. This is a plan same-day surgery under MAC and local anesthesia. His status of Farrell grade 3 would also make him a candidate for hyperbaric oxygen therapy. The benefits and risks with this advanced modality were discussed and I recommend initiating this process. He confirms he is able to travel to the wound healing center 5 days a week for the potential treatment. Clearance and safety screening process will be initiated. He was referred for hyperbaric clearance visit with a wound care center provider. He understands update EKG will also be required. To offload the ulcer site with a cam walker boot. He was advised to bring his previous offloading devices to clinic next week so I can add additional offloading pockets and assess if these are still appropriate. To optimize glycemic control and proper nutritional intake to promote timely healing. Nutrition supplement prescription was offered for Pool. He did have prior noninvasive vascular studies performed in October 2018 with right RAFITA of 1.33 and 1.24 and left RAFITA of 1.1 and the DP on the side with noncompressible. His toe brachial indices were 0.6 on the right and 0.55 on the left. Due to his lack of healing and noted noncompressible vessels, I do recommend a vascular surgery referral at this time. Smoking cessation was also reviewed and he understands this will delay healing and vascular perfusion. To return to the wound healing center 1 week or call sooner if he has any questions or concerns. To monitor for local development of infection or systemic illness.
--- NOTE | 2019-02-24 16:05 | PCM.HBO.PN ---
History of Present Illness Date of Service: 02/24/19 Presenting Chief Complaint: Farrell Grade 3 diabetic right foot ulceration with osteomyelitis SHAREE JUNIOR Jr. is a 48 year old currently undergoing hyperbaric oxygen therapy for treatment of a Farrell Grade III diabetic foot ulcer of his right lateral foot with osteomyelitis. Progress: This patient presents today for hyperbaric oxygen. He has 40 planned sessions and today is the 6th such treatment. Tolerance of hyperbaric oxygen therapy: Hyperbaric oxygen therapy was administered today as per our facility's protocol. HBO therapy was administered for 90 minutes at 2 ATMs. The patient tolerated HBO therapy well, without complaints or complications. Upon emergence from the hyperbaric oxygen chamber, the patient's vital signs remained stable. The patient was discharged in good condition. His blood glucose pre-treatment was 184. His blood glucose post-treatment was 143. Past Medical History Past Medical History Pertinent to Hyperbaric Oxygen Therapy: Diabetes Chronic Problems (Last Reviewed 10/08/18 @ 02:00 by Mehrdad Alexis MD) Ulcer of right foot with fat layer exposed (Chronic) Ulcer of right foot with necrosis of muscle (Chronic) Delayed wound healing (Chronic) Malnutrition (Chronic) Other specified peripheral vascular diseases (Chronic) Type 2 diabetes mellitus with diabetic polyneuropathy (Chronic) Osteomyelitis (Chronic) Diabetes mellitus type 2 with complications (Chronic) Allergies/Adverse Reactions: Allergies Penicillins Allergy (Verified 02/28/19 08:05) Swelling Tolerates cephalosporins with no issue Home Medications: Ambulatory Orders Medication Instructions Recorded Aspirin [Aspirin, Baby] 81 mg PO DAILY@0800 03/08/15 Acetaminophen [Tylenol Tablet] 650 mg PO Q6H PRN PRN tab 10/11/18 Insulin Glargine [Lantus (BKC)] 15 units SUBCUT BREAKFAST 02/05/19 metFORMIN HCl [Glucophage] 500 mg PO BIDCM 02/05/19 Ciprofloxacin [Cipro] 500 mg PO BID 02/21/19 Clindamycin HCl 300 mg PO TID 02/21/19 Amlodipine [Norvasc] 5 mg PO DAILY 02/26/19 Lisinopril [Zestril] 10 mg PO DAILY 02/26/19 Maternal Family History: COPD, Diabetes, - Paternal Family History: Heart Disease, Renal Disease, - Sibling Family History: - - He has a sister who has rheumatoid arthritis. Lives: With Family Smoking Status: Former smoker Tobacco Use: Non-smoker Drugs: None Physical Exam Vital Signs Temp Pulse Resp BP 98.0 F 70 16 138/69 H 02/05/19 14:06 02/05/19 14:06 02/05/19 14:06 02/05/19 14:06
== END 2019-02-06 23:59 ==
LOC: WC 13:33
PROVIDERS: Visit Provider Podiatrist
DX: E11.621 Type 2 diabetes mellitus with foot ulcer (principal); L97.513 Non-pressure chronic ulcer of other part of right foot with necrosis of muscle; E11.42 Type 2 diabetes mellitus with diabetic polyneuropathy; E11.51 Type 2 diabetes mellitus with diabetic peripheral angiopathy without gangrene; M86.671 Other chronic osteomyelitis, right ankle and foot; E11.69 Type 2 diabetes mellitus with other specified complication; E11.65 Type 2 diabetes mellitus with hyperglycemia
CPT/HCPCS: 11042; 11043; 87070; 87075; 87077; 87186; 87205; 87640; 99212; G0463

== ENCOUNTER 2019-02-21 12:53 | Emergency (ER) | payer SELFPAY ==
[2019-02-19 13:05] VITALS: BMI 23.8
[2019-02-21 12:56] VITALS: BP 143/106; PULSE 96; RESP 16; TEMP 36; O2SAT 100; BMI 23.7
[2019-02-21 13:07] VITALS: BP 168/102; PULSE 90; RESP 15; O2SAT 99
--- NOTE | 2019-02-21 14:19 | ED.DCSUM_ITS ---
History of Present Illness Chief Complaint: Hypertension Informant: Patient Onset: Days Context: Gradual Onset Narrative: Patient is a 48-year-old male with history of hypertension, diabetes and a chronic foot wound presenting from wound care for her hypertension. Patient has had elevated blood pressures with systolics around 170 but is otherwise asymptomatic. Patient's lisinopril was increased from 5 mg to 10 mg daily yesterday. [facility]. Patient denies any vision changes, headache, chest pain, shortness of breath, GI symptoms or symptoms. He states he is on and back for his legs and his leg seems to be healing well. He denies any worsening pain. He denies any other complaints at this time. Patient states he only came in because the nurse at the wound care center told him he needed to. Past Medical History - Allergies and Home Meds Allergies/Adverse Reactions: Allergies Penicillins Allergy (Verified 02/21/19 12:56) Swelling Tolerates cephalosporins with no issue Primary Care Physician: [facility] [Primary Care Provider] - Past Medical History: - - Hypertension, diabetes mellitus, right foot wound Surgical History: - - hip surgery for an infection, right foot ulcer surgical debridement with bone biopsy history Smoking Status: Former smoker - Family History Maternal Family History: Reports: COPD, Diabetes, - Paternal Family History: Reports: Heart Disease, Renal Disease, - Sibling Family History: Reports: - - He has a sister who has rheumatoid arthritis. Review of Systems General: Denies: Chills, Fever, Sweats Eyes: Denies: Visual changes - bilaterally, Diplopia ENT: Denies: Rhinorrhea, Sore throat Cardiovascular: Denies: Chest pain, Palpitations Respiratory: Denies: Dyspnea, Cough, Dyspnea on exertion Gastrointestinal: Denies: Abdominal pain, Nausea, Vomiting, Diarrhea, Melena, Hematochezia Genitourinary: Denies: Dysuria, Hematuria, Frequency Musculoskeletal: Denies: Back pain, Extremity Pain Skin: Reports: Wounds - Chronic wound of right foot. Denies: Rash Neurological: Denies: Headache, Weakness, Numbness Physical Exam Vital Signs/Narrative: Vital Signs Temp Pulse Resp BP Pulse Ox 02/21/19 13:07 90 15 168/102 H 99 02/21/19 12:56 96.8 F L 96 16 143/106 H 100 Inital Vital Signs reviewed: Yes General: Well nourished, Well developed, No Acute Distress Head: Normocephalic, Atraumatic Eyes: Perrl, EOMI ENT: Moist mucous membranes, No rhinorrhea Neck: Supple, Nontender Cardiovascular: Regular rate, Regular rhythm, No murmurs Respiratory: No distress, CTA bilaterally, Chest nontender Abdomen: Soft, Nontender, Nondistended, Normal bowel sounds Back: Nontender, Normal Inspection Extremities: Nontender, No edema Skin: Normal color, No rash Neurological: Alert, Oriented x3, Cranial nerves II-XII grossly intact, Normal Strength, Normal Sensation Psychological: Normal affect, Normal Mood Diagnostic/Tx/Re-eval - Medical Decision Making Patient is evaluated for asymptomatic hypertension. He is only on lisinopril 10 mg and this was just increased yesterday. All patient's blood pressure is elevated it is not malignant. He does not have symptoms concerning for hypertensive emergency. Patient is instructed to continue his increased lisinopril dosage for the next 2 days. If his blood pressure still elevated he will be started on Norvasc 5 mg. Chart review shows the patient does have a mildly elevated creatinine so he is not given hydrochlorothiazide or any other renally metabolized blood pressure medications. Patient is encouraged to call the [facility] today to set up a follow-up appointment with his primary care doctor for further management of his hypertension. He is counseled on signs of hypertensive emergency as well as hypotension. Patient is counseled on signs and symptoms requiring return to the emergency room. Patient verbalizes agreement and understand this plan. Patient discharged home in stable and improved condition. ED Disposition - Plan for ED Patient: Disposition: Home or Assisted Living Diagnosis: Hypertension Instructions: HYPERTENSION, Established, Out of Control Prescriptions: Amlodipine [Norvasc] 5 mg PO DAILY #14 tab Prescription Printed [facility]errals: [facility] [Primary Care Provider] - Additional Instructions: Continue taking the increased dose of lisinopril and continue checking her blood pressure daily. If it still elevated above 140 systolic start tking the new me dication prescribed today (Norvasc/amlodipine). Return to emergency room if you develop any chest pain, difficulty breathing, vision changes, stroke symptoms or difficulty urinating.
[2019-02-21 14:33] VITALS: BP 169/97; PULSE 71; RESP 16; O2SAT 98
== END 2019-02-21 14:34 | disposition home or self-care (01) ==
PROVIDERS: Emergency Provider Emergency Medicine
DX: I10 Essential (primary) hypertension (principal); E11.9 Type 2 diabetes mellitus without complications; S91.309A Unspecified open wound, unspecified foot, initial encounter; X58.XXXA Exposure to other specified factors, initial encounter; Y93.9 Activity, unspecified; Y92.9 Unspecified place or not applicable; Y99.9 Unspecified external cause status; Z79.82 Long term (current) use of aspirin; Z79.4 Long term (current) use of insulin; Z79.899 Other long term (current) drug therapy; Z88.0 Allergy status to penicillin; Z87.891 Personal history of nicotine dependence
CPT/HCPCS: 99283

== ENCOUNTER → 2019-02-25 15:25 | Outpatient (CLI) | payer SELFPAY ==
[2019-02-21 12:56] VITALS: BMI 23.7
[2019-02-25 17:35] LABS: Absolute Lymphocyte Count 2.62 X10^3/uL (0.83-4.51); Absolute Neutrophil Count 8.9 X10^3/uL (2.0-7.7); Basophil# 0.13 X10^3/uL; Eosinophil# 0.85 X10^3/uL; Eosinophils% 6.3 % (0-5); Hematocrit 36.7 % (40-54); Hemoglobin 11.7 g/dL (13.0-16.5); Lymphocyte # 2.62 X10^3/ul (4.0); Lymphocyte % 19.4 % (19-41); Mean Corp Hgb Conc 31.9 g/dL (32-36); Mean Corpuscular Hgb 28.3 pg (27.0-32.0); Mean Corpuscular Volume 88.6 fL (80-94); Mean Platelet Vol. 9.7 fl (6.2-12.0); Monocyte# 1.01 X10^3/uL; Monocyte% 7.5 % (0-10); NRBC Flagged by Analyzer 0 % (0-5); Neutrophil # 8.85 X10^3/uL (2.7-7.7); Neutrophil % 65.5 % (47-70); Platelet Count 428 K/mm3 (150-450); RBC Distribution Width CV 12.6 % (11.6-14.6); Red Blood Count 4.14 M/mm3 (4.6-6.2); White Blood Count 13.5 K/mm3 (4.4-11.0)
[2019-02-25 17:51] LABS: Erythrocyte Sedimentation Rate 68 mm/hr (0-15)
[2019-02-25 18:10] LABS: ALB/GLOB Ratio 0.5 RATIO (0.9-2.4); AST(SGOT) 15 U/L (15-37); Alanine Aminotransfer ALT/SGPT 28 U/L (16-61); Albumin, Serum 2.6 g/dL (3.2-5.0); Alkaline Phosphatase 91 U/L (45-117); Anion Gap 5 (5-15); BUN 35 mg/dL (7-18); BUN/Creat Ratio 15.8 RATIO (10-20); CRP, High Sensitivity Cardiac 5.17 mg/L; Chloride 107 mmol/L (98-107); Creatinine, Serum 2.22 mg/dL (0.70-1.30); EST Glomerular Filtration Rate 34 mL/min (>60); Est Glom Filt Rate - Afr Amer 41 mL/min (>60); Globulin 4.8 g/dL (2.2-4.2); Glucose 169 mg/dL (74-106); Potassium 4.3 mmol/L (3.5-5.1); Protein, Total 7.4 g/dL (6.4-8.2); Sodium Level 139 mmol/L (136-145)
== END ==
PROVIDERS: Visit Provider Family Medicine
DX: Z01.818 Encounter for other preprocedural examination (principal); E11.8 Type 2 diabetes mellitus with unspecified complications; I10 Essential (primary) hypertension
CPT/HCPCS: 36415; 80053; 85025; 85652; 86141

== ENCOUNTER 2019-02-28 07:37 | Day surgery (SDC) | payer SELFPAY ==
[2019-02-26 13:05] VITALS: BMI 23.7
--- NOTE | 2019-02-26 17:11 | PN.PCM_ITS ---
(1) Ulcer of right foot with necrosis of muscle Status: Chronic Code(s): L97.513 - Non-pressure chronic ulcer of other part of right foot with necrosis of muscle (2) Delayed wound healing Status: Chronic Code(s): T14.8XXD - Other injury of unspecified body region, subsequent encounter (3) Malnutrition Status: Chronic Qualifiers: Code(s): E46 - Unspecified protein-calorie malnutrition (4) Osteomyelitis Status: Suspected Qualifiers: Code(s): M86.9 - Osteomyelitis, unspecified (5) Type 2 diabetes mellitus with diabetic polyneuropathy Status: Chronic Qualifiers: Code(s): E11.42 - Type 2 diabetes mellitus with diabetic polyneuropathy Type of Wound Date of Service: 02/26/19 Chief Complaint: Farrell Grade 3 diabetic right foot ulceration with osteomyelitis History of Wound: This 48-year-old male with uncontrolled diabetes with neuropathy was referred to the wound healing center for a deep right foot ulcer. He is referred by Dr. Perrin at the foot and ankle center. This most recent ulcer onset was made November 2018 after he returned to work after previous other ulcer was freshly healed. His ulcers demonstrated delayed healing and he now has an odor and deep tissue exposed. It is noted he did have previous surgical intervention including debridement and bone biopsy during the hospital admission in October 08, 2018. This initial ulcer healed which was in near approximation to the current ulcer. His bone biopsy was negative for confirmed osteomyelitis however he was still treated with 6 weeks of antibiotics under the management of infectious disease due to continued concern for this condition also adjacent infected soft tissue. He did also have noninvasive vascular studies performed. He denies current fever, chill, nausea, vomiting. He does not wear offloading device as previously advised. He change the dressing daily with Dakin wet-to-dry gauze. He has been taking antibiotics as advised and relates that the odor have resolved. He does intermittently return however. He saw infectious disease physician last week. He is amenable to proceed with hyperbaric oxygen therapy and has 4 times already. He is tolerating this well for the most part and is scheduled to see an eyewear manufacturing supervisor. He wears offloading boot as advised. Assessment/Plan Active Problems (Last Reviewed 10/08/18 @ 02:00 by Mehrdad Alexis MD) Ulcer of right foot with fat layer exposed (Chronic) Ulcer of right foot with necrosis of muscle (Chronic) Delayed wound healing (Chronic) Malnutrition (Chronic) Other specified peripheral vascular diseases (Chronic) Type 2 diabetes mellitus with diabetic polyneuropathy (Chronic) Osteomyelitis (Chronic) Diabetes mellitus type 2 with complications (Chronic) Assessment: Right foot ulcer with necrotic tendon/muscle exposed -infection work up is ongoing (farrell grade 3). Osteomyelitis is suspected and work-up is in process. Uncontrolled diabetes with neuropathy. Delayed healing. Malnutrition suspected. Other comorbidities including anemia, thrombocytopenia, history of septic hip, history of recurrent multiple infections, weight loss. Currently on anticoagulation medication, Eliquis, for DVT treatment Plan: I reviewed and discussed his case including etiology, comprehensive wound healing plan, and anticipated healing time and management. His right foot ulcer was debrided in the subcutaneous and muscle excisional manner as noted in the clinical panel. I recommend he continues to change his dressing daily with Dakin's soaked wet-to-dry gauze to the lateral right foot and Aquacel Ag to the dorsal right foot. To avoid soaking. A culture was obtained and sent for aerobic, anaerobic, acid-fast, fungal, and MRSA PCR. I recommend updated foot x-ray and lab work including CBC, CMP, ESR, C-reactive protein, and hemoglobin A1c. He continues to take his previously prescribed Bactrim. It is noted his last foot x-ray on file was from 12/26 at the foot and ankle center as the following:There are no fractures and no dislocations. There is no osteolysis and no periosteal reaction. Small spur at base of 5th metatarsal. Os peroneum present. Anterior ankle impingement. Retrocalcaneal spur noted. There is calcification of the anterior tibial/DP artery and posterior tibial artery. A dditional antibiotics will be considered pending his response to topical Dakin's and the a forementioned work-up. I also recommend performing an operating room surgical debridement with updated bone biopsy and application of advanced wound healing products such as amnio fill and epicord. Prior authorization will be initiated. The preoperative indication, planned procedure, possible benefits, risks, complications, anticipated healing time management were discussed in detail the patient. He understands and is amenable to proceed forward. No guarantees were made. He understands risks and complications may occur. I answered his questions. This is a plan same-day surgery under MAC and local anesthesia. His surgical consents were obtained last week and his surgery is tentatively scheduled moved to the following Sunday. His preoperative screening H & P will need to be reviewed upon completion. I answered all of his questions. His status of Farrell grade 3 would also make him a candidate for hyperbaric oxygen therapy. He was advised to continue this as prescribed and is doing well so far. To offload the ulcer site with a cam walker boot. He was advised to bring his previous offloading devices to clinic next week so I can add additional offloading pockets and assess if these are still appropriate. To optimize glycemic control and proper nutritional intake to promote timely healing. Nutrition supplement prescription was offered for Pool. He did have prior noninvasive vascular studies performed in October 2018 with right RAFITA of 1.33 and 1.24 and left RAFITA of 1.1 and the DP on the side with noncompressible. His toe brachial indices were 0.6 on the right and 0.55 on the left. Due to his lack of healing and noted noncompressible vessels, I do recommend a vascular surgery referral at this time with Dr. Edmonds. Smoking cessation was also reviewed and he understands this will delay healing and vascular perfusion. To return to the wound healing center 1 week or call sooner if he has any questions or concerns. To monitor for local development of infection or systemic illness.
[2019-02-28 08:06] VITALS: BP 120/82; PULSE 84; RESP 16; TEMP 28.8; O2SAT 98; BMI 24.0
[2019-02-28 08:15] LABS: Bedside Glucose 147 mg/dL (70-110)
[2019-02-28] MEDS: Lactated Ringers 1,000 ML 100 ML IV ×2 (08:26→11:12)
--- NOTE | 2019-02-28 09:30 | BON_PTH ---
PATIENT: SHAREE JUNIOR Jr. LOC: [facility] – [place] U#:[id number] AGE/SX: 48/M ROOM: RE02/28/[address]: Dr. Angeline Ornelas DPM : 1970 BED: DIS: 02/28/2019 SPEC #: [id number] RECD: 02/28/19 11:52 STATUS: TOBI ARIAS #: [id number] RIKA: 02/28/19 09:[address]: Angeline Ornelas DEPT: SURGICAL PATHOLOGY RECD BY: Ramon Alegria ENTERED: 02/28/19 13:22 SP TYPE: Bone OTHR DR: [facility] Tissues: Bone of foot, NOS Procedures: Decalcification bone/plaque Surgery Specimen Level III HEADER OPERATION: Right foot debridement PRE-OP DIAGNOSIS: Debridement right foot ulcer TISSUE SUBMITTED: Right foot bone MICROSCOPIC DIAGNOSIS Right foot bone, debridement: Pieces of bone with attached dense fibroconnective tissue with reactive changes, negative for acute osteomyelitis. SJ:elyssa 03/05/19 MICROSCOPIC DESCRIPTION Slides are reviewed. GROSS DESCRIPTION Received in fixative is one container labeled with the patient's name and designated right foot bone. The specimen consists of multiple pieces of bone that in aggregate measure 0.7 x 0.5 x 0.2 cm. The entire specimen is submitted in one cassette after decalcification. / RICCI:elyssa 02/28/19 TC:5 CPT: 04830, 25279
--- NOTE | 2019-02-28 09:30 | RAD_ITS ---
STUDY: X-RAY - RIGHT FOOT CLINICAL: Male, 48 years old. Debridement of foot ulceration. TECHNIQUE: 2 intraoperative view(s) of the foot. COMPARISON: Comparison is made with prior examination dated February 13, 2019. FINDINGS: 2 intraoperative views were obtained for debridement of the foot ulcer. RAD/Foot min 3 Views IMPRESSION: Intraoperative fluoroscopic services were provided. Electronically Signed: Joel Garduno, at 13:33 EST , Service support ,
[2019-02-28] MEDS: Bupivacaine Mpf 0.5% 30 ML VIAL (10:02)
--- NOTE | 2019-02-28 10:46 | PCM.OPRPT ---
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 osteomyelitis fifth metatarsal suspected Post-Operative Diagnosis: nonhealing ulcer right foot with devitalized tend. osteomyelitis fifth metatarsal suspected Surgery/Procedure Performed:: Debridement of right foot ulcer including devitalized tendon, lateral. Debridement of right foot ulcer including subcutaneous tissue, dorsal. Bone biopsy of the right fifth metatarsal Description of Surgical Findings:: Hemostasis: Controlled with anatomic dissection and direct pressure without tourniquet used to right lower extremity Materials: 4-0 Prolene, 500 mg of amnio fill, one 3 x 5 cm epi cord, Adaptic Complications: None Specimen sent The patient tolerated the procedure anesthesia well. He was transferred to the PACU with vital signs stable and vascular status intact to the right foot. He is going to be discharged home upon continued stability. Microbiology and pathology specimens were sent from the fifth metatarsal bone of the right foot. These results are pending. Intraoperative fluoroscopy was used to confirm proper bone biopsy placement. Discharge orders were placed electronically. electric power superintendent: none - surgeon: Angeline Ornelas DPM. Chinese Medicine Practitioner: Shayan Rand PGY1 Type of Anesthesia:: Local MAC - Preoperative injection: One-to-one mixture of 1% lidocaine plain and 0.5% Marcaine plain administered typical fifth ray block fashion with additional local infiltration to the proximal aspect of the wound as well as the dorsal ulcer site on the right foot Specimen's removed: 1. Fifth metatarsal bone sent to pathology. 2. Fifth metatarsal bone sent to microbiology for aerobic, anaerobic, acid-fast, fungal Estimated Blood Loss (mL): 150 mL Description of Procedure: Indications: This 48-year-old male with significant past medical history of diabetes with neuropathy, h/o anemia, h/o thrombocytopenia (not present), h/o sepsis has been treated recently for nonhealing chronic ulcer to the lateral aspect of the right foot with recurrent infections and prior surgeries. He has been recently treated with a comprehensive wound healing plan at the wound healing center with offloading, subcutaneous and tendon debridement, hyperbaric oxygen therapy, offloading, and nutrition supplementation. He is also well-known to infectious disease. His overall perfusion appears to be intact based off of his noninvasive vascular studies. He does have evidence of calcification he will follow-up with vascular surgery. The preoperative indication, planned procedure, possible benefits, risks, complications, and anticipated healing time and management were discussed in detail with patient. He understands and elects to proceed with surgery at this time. No guarantees were made. Risks and complications include but not limited to the following: Pain, swelling, scarring, recurrent infection, continued delayed or nonhealing of the right foot, blood clot, allergic reaction, transfer lesion or ulcer, chronic pain, need for further surgery, loss of limb, function, life. The informed consent and surgical limb were signed. His preoperative clearance and history and physical exam was reviewed from Dr. Hui. His preoperative diagnostic data including lab work and EKG were also reviewed. This is a curative procedure and the goal is to prevent proximal amputation, decreased pain, increased functionality. Procedure in detail: The patient was transported to the operating room via cart and placed on the operating table in supine position. Final verification of patient, surgery, limb designation was performed via the timeout procedure. A bump was applied to allow good exposure to the main ulcer which is on the lateral aspect of the right foot. Preoperative local anesthetic was administered by the podiatry team. MAC anesthesia was initiated by the anesthesia team. A well-padded pneumatic right ankle tourniquet was placed however this was not deemed necessary utilized in the surgery. He is already on antibiotics and he continued with this throughout the perioperative timeframe. The right lower extremity was prepped and draped in the usual aseptic manner. Attention was first directed to the lateral aspect of the right foot in which the pre-debridement measurement was 6.8 cm x 2.5 cm x 0.8 cm. There is exposed devitalized subcutaneous and tendon tissue with the bone of the fifth metatarsal and close approximation. There was a mild odor however no purulence on expression after the debridement was noted. There was no oder was longer present. There is no adjacent fluctuance or bogginess. The dorsal right foot ulcer measured 1.8 x 0.7 x 0.1 cm and post debridement was 2.3 x 1.0 x 0.1 cm with a granular healthy base after the debridement to remove fibrous tissue. The sites were debrided with a versa jet on setting 8 and this was copiously irrigated with normal saline. Next attention was directed to the dorsal aspect of the fifth metatarsal bone in which a half of a centimeter linear incision was made in the skin around the diaphysis area as well as the proximal base. Blunt dissection was performed down to the bone level and a Pritesh needle biopsy trocar was entered to obtain a sample. Intraoperative fluoroscopy was used to obtain the proper positioning and confirm bone biopsy was taken. After this was carefully obtained, it was sent to microbiology as well as to pathology for his osteomyelitis work-up. This was irrigated with normal saline, and the incision sites were reapproximated with 4-0 Prolene utilizing simple suture technique. Next, attention was directed to applying the advance skin product application. Amnio fill was applied to the base of both sites and epi cord was further applied superficially to the lateral wound and secured in place with Prolene suture. Overlying Adaptic was next applied and secured with 4-0 Prolene to the lateral and dorsal sites. Hemostasis was considered controlled at this time and no pulsatile bleeding was noted. There is no purulence or necrosis noted. Saline wet-to-dry gauze was applied over the dressings and this was further covered with dry gauze, abdominal pads, Kerlix, and Hebert wrap. After procedure: He tolerated the procedure and anesthesia well. He was transported to the PACU with vital signs stable and vascular status intact the right lower extremity. He is advised to ice and elevate for pain inflammation management. He was advised to keep his dressing clean, dry, and intact until he follows up at the wound healing center next Sunday. He was advised to remain nonweightbearing to the right foot and to avoid excessive motion or walking. No antibiotics are recommended at this time. His pathology microbiology specimen results are pending. He was provided with postoperative pain medicine prescription only if it is needed and he was advised on safe and proper use. Postoperative orders were entered electronically. He will be discharged home later today. Angeline Ornelas, VINH, [facility] Grafts/Implants Used: mimedx amniofill and epicord - Complications none - Admit VTE Documentation VTE Present on Admission: No VTE Mechan Device Prophylaxis: SCD's VTE Pharm Prophylaxis ordered?: Yes
[2019-02-28 10:50] VITALS: BP 120/82; BP 97/63; PULSE 72; RESP 16; TEMP 36.9; O2SAT 94
[2019-02-28 11:00] VITALS: BP 120/82; BP 95/65; PULSE 78; RESP 16; O2SAT 95
--- NOTE | 2019-02-28 11:00 | DCINST_ITS ---
Discharge Diet: Carb Control Diet Discharge Activity: May not drive while taking narcotic pain medications. Ice area for (Minutes): 15 - apply behind knee Weight Bearing Status: No weight bearing Keep extremity elevated above heart level: Right Leg Call your doctor if your incision/area has: Continuous Slow Oozing, Sudden Increased Bleeding, Increased Pain/ Swelling, Increased Redness, Foul Smelling Discharge, Swelling at the incision site Call your doctor if you observe: Fever of 101 or Higher, Calf discomfort, Uncontrolled pain Cleanse incision/area with: Keep Dressing Clean & Dry Allergies/Adverse Reactions: Allergies Penicillins Allergy (Verified 02/28/19 08:05) Swelling Tolerates cephalosporins with no issue Medications to take at Discharge Aspirin [Aspirin, Baby] 81 mg PO DAILY@0800 03/08/15 Acetaminophen [Tylenol Tablet] 650 mg PO Q6H PRN PRN tab 10/11/18 Insulin Glargine [Lantus (BKC)] 15 units SUBCUT BREAKFAST 02/05/19 metFORMIN HCl [Glucophage] 500 mg PO BIDCM 02/05/19 Ciprofloxacin [Cipro] 500 mg PO BID 02/21/19 Clindamycin HCl 300 mg PO TID 02/21/19 Amlodipine [Norvasc] 5 mg PO DAILY 02/26/19 Lisinopril [Zestril] 10 mg PO DAILY 02/26/19 Hydrocodone/Acetaminophen [Hydrocodon-Acetaminophen 5-325] 1 - 2 tab PO Q6H PRN PRN 3 Days #10 tab 02/28/19 The following prescriptions were given: Hydrocodone/Acetaminophen [Hydrocodon-Acetaminophen 5-325] 1 - 2 tab PO Q6H PRN PRN 3 Days #10 tab PRN Reason: Pain Prescription Printed [facility] Care Physician: [facility] [Primary Care Provider] - Test Results: Test results from this visit will be discussed in further detail at your follow- up appointment, if applicable. Please Follow Up With: Clinic,Wound When: Dr Ornelas next Sun. Call sooner if concern at [phone] Proposed Discharge Date: 02/28/19
[2019-02-28 11:05] VITALS: BP 120/82; BP 90/69; PULSE 78; RESP 16; O2SAT 95
[2019-02-28 11:09] VITALS: BP 120/82; BP 95/71; PULSE 77; RESP 16; TEMP 36.4; O2SAT 94
[2019-02-28 11:35] VITALS: BP 120/82
== END 2019-02-28 11:52 | disposition home or self-care (01) ==
LOC: SDC 07:37 → AC 07:38
PROVIDERS: Referring Provider Podiatrist; Visit Provider Podiatrist
PROC: (CPT 11043; principal; 2019-02-28 09:15)
DX: E11.621 Type 2 diabetes mellitus with foot ulcer (principal); L97.513 Non-pressure chronic ulcer of other part of right foot with necrosis of muscle; E11.42 Type 2 diabetes mellitus with diabetic polyneuropathy; E46 Unspecified protein-calorie malnutrition; Z68.24 Body mass index [BMI] 24.0-24.9, adult; Z88.0 Allergy status to penicillin; F17.220 Nicotine dependence, chewing tobacco, uncomplicated; Z79.82 Long term (current) use of aspirin; Z79.4 Long term (current) use of insulin; Z79.899 Other long term (current) drug therapy; Z86.718 Personal history of other venous thrombosis and embolism
CPT/HCPCS: 11043; 15275; 20240; 97597; 73630; 76000; 82962; 87015; 87070; 87075; 87102; 87116; 87176; 87205; 87206; 88304; 88311; J7120; J2405

== ENCOUNTER 2019-03-03 10:00 | Outpatient (RCR) | payer SELFPAY ==
[2019-02-07 01:36] VITALS: BP 138/69; PULSE 70; RESP 16; TEMP 36.7
[2019-02-12 12:08] VITALS: BP 165/99; PULSE 105; RESP 20; TEMP 36.4; BMI 23.8
--- NOTE | 2019-02-12 15:01 | PN.PCM_ITS ---
(1) Ulcer of right foot with fat layer exposed Status: Chronic Current Visit: Yes Code(s): L97.512 - Non-pressure chronic ulcer of other part of right foot with fat layer exposed (2) Ulcer of right foot with necrosis of muscle Status: Chronic Current Visit: Yes Code(s): L97.513 - Non-pressure chronic ulcer of other part of right foot with necrosis of muscle (3) Delayed wound healing Status: Chronic Current Visit: Yes Code(s): T14.8XXD - Other injury of unspecified body region, subsequent encounter (4) Malnutrition Status: Chronic Current Visit: Yes Code(s): E46 - Unspecified protein- calorie malnutrition (5) Osteomyelitis Status: Suspected Current Visit: Yes Qualifiers: Code(s): M86.9 - Osteomyelitis, unspecified (6) Other specified peripheral vascular diseases Status: Suspected Current Visit: Yes Code(s): I73.89 - Other specified peripheral vascular diseases (7) Type 2 diabetes mellitus with diabetic polyneuropathy Status: Chronic Current Visit: Yes Code(s): E11.42 - Type 2 diabetes mellitus with diabetic polyneuropathy Type of Wound Date of Service: 02/12/19 Chief Complaint: Right foot ulcer History of Wound: This 48-year-old male with uncontrolled diabetes with neuropathy was referred to the wound healing center for a deep right foot ulcer. He is referred by Dr. Perrin at the foot and ankle center. This most recent ulcer onset was made November 2018 after he returned to work after previous other ulcer was freshly healed. His ulcers demonstrated delayed healing and he now has an odor and deep tissue exposed. It is noted he did have previous surgical intervention including debridement and bone biopsy during the hospital admission in October 08, 2018. This initial ulcer healed which was in near approximation to the current ulcer. His bone biopsy was negative for confirmed osteomyelitis however he was still treated with 6 weeks of antibiotics under the management of infectious disease due to continued concern for this condition also adjacent infected soft tissue. He did also have noninvasive vascular studies performed. He denies current fever, chill, nausea, vomiting. He does not wear offloading device as previously advised. He change the dressing daily with Dakin wet-to-dry gauze. He has been taking antibiotics as advised and relates that the odor have resolved. He saw infectious disease physician this afternoon. He is amenable to proceed with hyperbaric oxygen therapy. He denies current cardiac issue, history of recent collapsed lung or ear problems or claustrophobia. Progress of Wound: Stable - Physical Exam Vital Signs Temp Pulse Resp BP 97.6 F L 105 H 20 H 165/99 H 02/12/19 12:08 02/12/19 12:08 02/12/19 12:08 02/12/19 12:08 General: Alert, Oriented x3, Cooperative Extremities: Capillary Refill Less than 3 Seconds, No Calf Tenderness - Negative Shanita and Leavitt sign. Compartments are soft right leg. There is mild tenderness with palpation of the exposed tendon and bone on this ulcer site. There is no fluctuance or bogginess., Diminished Peripheral Pulses, Edema - Mild right Skin: Ulcer/ Wound - Devitalized tendon and muscle tissue consistent with a grade 3 ulcer. There is exposed fifth metatarsal base and lateral bone noted without visible fragmentation. Osteomyelitis is of the concern. Significant reduction odor noted, - - The adjacent skin is hairless and atrophic Wound Measurements and Assessment WC - Nurse 1 - General Ulcer Measurement Start: 02/12/19 12:07 Freq: Status: Active Protocol: Activity Type Activity Date Activity User E-Sign Co-Sign Detail Recorded Client Recorded Date Recorded By Document 02/12/19 12:08 DL [id number] 02/12/19 12:16 DL 02/12/19 12:08 Wound Center Nurse 1 [Ulcer Assessment] #2 RIGHT DORSAL FOOT -Current Size (cm) - Length 1.8 -Current Size (cm) - Width 0.8 -Current Size (cm) - Depth 0.1 -Total Square Cm 1.44 -Photo Taken No -Exudate Amt None Present -Wound Margin Distinct, Outline Attached -Granulation Amt None Present (0 %) -Necrosis Amt Large (67-100%) -Necrotic Tissue Type Adherent Slough -Structure Exposed N/A -Texture (Wendy-wound Skin Appearance) Scarring -Moisture (Wendy-wound Skin Appearance No Abnormality ) -Color (Wendy-wound Skin Appearance) Erythema,Rubor -Temperature (Wendy-wound Skin No Abnormality Appearance) (Pt Warm) -Ulcer Cleansing Wound Cleanser -Foul Odor after Cleansing No -Anesthetic Used 5% Lidocaine Gel #1 Right Lateral Foot -Current Size (cm) - Length 7.8 -Current Size (cm) - Width 1.8 -Current Size (cm) - Depth 0.5 -Total Square Cm 14.04 -Photo Taken No -Exudate Amt Small -Exudate Type Serosanguineous -Wound Margin Thickened & Rolled Under -Granulation Amt Small (1-33%) -Granulation Quality Snover -Necrosis Amt Large (67-100%) -Necrotic Tissue Type Adherent Slough -Structure Exposed N/A -Texture (Wendy-wound Skin Appearance) Scarring -Color (Wendy-wound Skin Appearance) Erythema,Rubor -Temperature (Wendy-wound Skin No Abnormality Appearance) (Pt Warm) -Tenderness on Palpation (Wendy-wound Yes Skin Appearance) -Ulcer Cleansing Wound Cleanser -Foul Odor after Cleansing Yes -Anesthetic Used 5% Lidocaine Gel WC - Nurse 2 - General Ulcer CM Notes Start: 02/12/19 12:07 Freq: Status: Active Protocol: Activity Type Activity Date Activity User E-Sign Co-Sign Detail Recorded Client Recorded Date Recorded By Document 02/12/19 13:12 GARCIA [id number] 02/12/19 13:14 GARCIA 02/12/19 13:12 Wound Center Nurse 2 [Procedure/Treatment] #2 RIGHT DORSAL FOOT -Time 13:12 -Correct Patient Yes -Correct Side, Site, Position Yes -Correct Procedure Yes -Procedure Performed Yes -Type of Procedure Debridement -Clinical Debridement Subcutaneous -Post Debridement Size (cm) - Length 1.8 -Post Debridement Size (cm) - Width 0.9 -Post Debridement Size (cm) - Depth 0.1 -Total Square Cm 1.62 -Wound/Ulcer Outcome Not Healed -Ulcer Cleansing Rinsed/ Irrigated with Saline -Foul Odor after Cleansing No -Bioengineered Tissue No -Bleeding Controlled with Pressure -Offloading Yes -Type of Offloading Surgical Shoe -Treatment Response Procedure Tolerated Well #1 Right Lateral Foot -Time 13:12 -Correct Patient Yes -Correct Side, Site, Position Yes -Correct Procedure Yes -Procedure Performed Yes -Type of Procedure Debridement -Clinical Debridement Muscle -Post Debridement Size (cm) - Length 7.8 -Post Debridement Size (cm) - Width 1.9 -Post Debridement Size (cm) - Depth 0.5 -Total Square Cm 14.82 -Wound/Ulcer Outcome Not Healed -Ulcer Cleansing Rinsed/ Irrigated with Saline -Foul Odor after Cleansing No -Bioengineered Tissue No -Bleeding Controlled with Pressure -Offloading Yes -Type of Offloading Surgical Shoe -Treatment Response Procedure Tolerated Well [See Physician Procedure note for Specifics] Pain Scale: 0-10 Numeric [Pain] -Is Patient Pain Free? Yes Musculoskeletal: No Tenderness to Palpation of Joints or Extremities, Muscle Wasting Neurological: - - Lack of normal sensation light touch consistent with neuropathy Psych/Mental Status: Normal Affect, Appropriate Debridement Note Post-Debridement Measurements/Treatment WC - Nurse 2 - General Ulcer CM Notes Start: 02/12/19 12:07 Freq: Status: Active Protocol: Activity Type Activity Date Activity User E-Sign Co-Sign Detail Recorded Client Recorded Date Recorded By Document 02/12/19 13:12 GARCIA [id number] 02/12/19 13:14 GARCIA 02/12/19 13:12 Wound Center Nurse 2 #2 RIGHT DORSAL FOOT -Time 13:12 -Correct Patient Yes -Correct Side, Site, Position Yes -Correct Procedure Yes -Procedure Performed Yes -Type of Procedure Debridement -Clinical Debridement Subcutaneous -Post Debridement Size (cm) - Length 1.8 -Post Debridement Size (cm) - Width 0.9 -Post Debridement Size (cm) - Depth 0.1 -Total Square Cm 1.62 -Wound/Ulcer Outcome Not Healed -Ulcer Cleansing Rinsed/ Irrigated with Saline -Foul Odor after Cleansing No -Bioengineered Tissue No -Bleeding Controlled with Pressure -Offloading Yes -Type of Offloading Surgical Shoe -Treatment Response Procedure Tolerated Well #1 Right Lateral Foot -Time 13:12 -Correct Patient Yes -Correct Side, Site, Position Yes -Correct Procedure Yes -Procedure Performed Yes -Type of Procedure Debridement -Clinical Debridement Muscle -Post Debridement Size (cm) - Length 7.8 -Post Debridement Size (cm) - Width 1.9 -Post Debridement Size (cm) - Depth 0.5 -Total Square Cm 14.82 -Wound/Ulcer Outcome Not Healed -Ulcer Cleansing Rinsed/ Irrigated with Saline -Foul Odor after Cleansing No -Bioengineered Tissue No -Bleeding Controlled with Pressure -Offloading Yes -Type of Offloading Surgical Shoe -Treatment Response Procedure Tolerated Well Pain Scale: 0-10 Numeric Is Patient Pain Free? Yes Wound debrided: dorsal foot Laterality: Right Wound Grade/Stage: grade 1 Type of Debridement: Excisional debridement Anesthesia Used: 5% Lidocaine Gel Depth: in the subcutaneous layer Percentage of wound debrided: 100 Instrument Used: #15 blade Tissue Removed: fibrous, devitalized subcutaneous, biofilm, slough Severity: Fat Layer Exposed Amount of bleeding with debridement: Mild Bleeding Controlled with: Pressure Patient tolerated procedure well - Additional Wound Wound debrided: lateral foot Laterality: Right - g Wound Grade/Stage: grade 3 Type of Debridement: Excisional debridement Anesthesia Used: 5% Lidocaine Gel Depth: in the subcutaneous layer, to muscle Percentage of wound debrided: 100 Instrument Used: #15 blade Tissue Removed: fibrous, devitalized subcutaneous and tendon, biofilm, slough Severity: Necrosis of Muscle Amount of bleeding with debridement: Mild Bleeding Controlled with: Pressure Patient tolerated procedure: Patient tolerated procedure well Assessment/Plan Active Problems (Last Reviewed 10/08/18 @ 02:00 by Mehrdad Alexis MD) Ulcer of right foot with fat layer exposed (Chronic) Ulcer of right foot with necrosis of muscle (Chronic) Delayed wound healing (Chronic) Malnutrition (Chronic) Type 2 diabetes mellitus with diabetic polyneuropathy (Chronic) Assessment: Right foot ulcer with necrotic tendon/muscle exposed -infection work-up in process. Osteomyelitis is suspected and work-up is in process. Uncontrolled diabetes with neuropathy. Delayed healing. Malnutrition suspected. Other comorbidities including anemia, thrombocytopenia, history of septic hip, history of recurrent multiple infections, weight loss. Currently on anticoagulation medication, Eliquis, for DVT treatment Plan: I reviewed and discussed his case including etiology, comprehensive wound healing plan, and anticipated healing time and management. His right foot ulcer was debrided in the subcutaneous and muscle excisional manner as noted in the clinical panel. I recommend he continues to change his dressing daily with Dakin's soaked wet-to-dry gauze to the lateral right foot and Aquacel Ag to the dorsal right foot. To avoid soaking. A culture was obtained and sent for aerobic, anaerobic, acid-fast, fungal, and MRSA PCR. I recommend updated foot x-ray and lab work including CBC, CMP, ESR, C-reactive protein, and hemoglobin A1c. He continues to take his previously prescribed Bactrim. It is noted his last foot x-ray on file was from 12/26 at the foot and ankle center as the following:There are no fractures and no dislocations. There is no osteolysis and no periosteal reaction. Small spur at base of 5th metatarsal. Os peroneum present. Anterior ankle impingement. Retrocalcaneal spur noted. There is calcification of the anterior tibial/DP artery and posterior tibial artery. Additional antibiotics will be considered pending his response to topical Dakin's and the a forementioned work-up. I also recommend performing an operating room surgical debridement with updated bone biopsy and application of advanced wound healing products such as amnio fill in epic cord. Prior authorization will be initiated. The preoperative indication, planned procedure, possible benefits, risks, complications, anticipated healing time man agement were discussed in detail the patient. He understands and is amenable to proceed forward. No guarantees were made. He understands risks and complications may occur. I answered his questions. This is a plan same-day surgery under MAC and local anesthesia. His surgical consents were obtained today and his surgery is tentatively scheduled for February 21. I answered all his questions. His status of Farrell grade 3 would also make him a candidate for hyperbaric oxygen therapy. The benefits and risks with this advanced modality were discussed and I recommend initiating this process. He confirms he is able to travel to the wound healing center 5 days a week for the potential treatment. Clearance and safety screening process will be initiated. He was referred for hyperbaric clearance visit with a wound care center provider. He understands update EKG will also be required. In order for an EKG, updated labs, chest x- ray and update of right foot x-ray were provided today. Prior authorization with his insurance will be confirmed and this was obtained later this afternoon. To offload the ulcer site with a cam walker boot. He was advised to bring his previous offloading devices to clinic next week so I can add additional offloading pockets and assess if these are still appropriate. To optimize glycemic control and proper nutritional intake to promote timely healing. Nutrition supplement prescription was offered for Pool. He did have prior noninvasive vascular studies performed in October 2018 with right RAFITA of 1.33 and 1.24 and left RAFITA of 1.1 and the DP on the side with noncompressible. His toe brachial indices were 0.6 on the right and 0.55 on the left. Due to his lack of healing and noted noncompressible vessels, I do recommend a vascular surgery referral at this time with Dr. Edmonds. Smoking cessation was also reviewed and he understands this will delay healing and vascular perfusion. To return to the wound healing center 1 week or call sooner if he has any questions or concerns. To monitor for local development of infection or systemic illness.
--- NOTE | 2019-02-12 15:37 | PCM.PN.ID ---
Patient Problems: Active and Suspected Problems (Last Reviewed 10/08/18 @ 02:00 by Mehrdad Alexis MD) Osteomyelitis (Suspected) Other specified peripheral vascular diseases (Suspected) Subjective: Feeling ok. Started on clinda and cipro on 02/09. R foot ulcer is dry, odor improved. No fever, no n/v/d on abx. - Physical Exam Vitals/I&O's: Vital Signs Temp Pulse Resp BP 97.6 F L 105 H 20 H 165/99 H 02/12/19 12:08 02/12/19 12:08 02/12/19 12:08 02/12/19 12:08 Weight: 79.832 kg Body Mass Index (BMI) 23.8 Finger Stick Blood Glucose 129 General: Alert, Cooperative, No apparent distress Lungs: Clear to auscultation, Normal air movement Cardiovascular: Regular rate, Regular Rhythm Abdomen: Soft, Non Tender, Non-Distended Skin: Ulcer/ Wound - R lateral foot with large ulcer Medical Necessity - Tobacco Use Smoking Status: Never smoker Route of nutrition/ use of supplements: [] Nutritional Intake: [] IV Site: [] Aldana Catheter: [] - Assessment/Plan Antibiotics: [] Assessment/Plan: [] Active and Suspected Problems (Last Reviewed 10/08/18 @ 02:00 by Mehrdad Alexis MD) Osteomyelitis (Suspected) Other specified peripheral vascular diseases (Suspected) R foot osteo - recent cx with MSSA, PsA, citrobacter, and anaerobes. Bone exposed per Dr. Ornelas. OR debridement planned. Tolerating cipro/clinda well so far. Will continue, but he may have trouble tolerating these [facility] for full 6-8 week course. Depending on results of surgery, could do po levaquin and flagyl vs iv therapy. Will follow up in 1-2 weeks. D/w Dr. Ornelas.
--- NOTE | 2019-02-13 09:37 | RAD_ITS ---
STUDY: X-RAY CHEST REASON FOR EXAM: Male, 48 years old. Foot wound TECHNIQUE: PA and lateral views of the chest. COMPARISON: None. FINDINGS: Cardiac silhouette unremarkable. Pulmonary vascularity unremarkable. Aorta unremarkable. Bibasilar noncalcified nodules . No focal airspace opacities. No pleural effusions. Upper abdomen unremarkable. Osseous structures intact. No pneumothorax. RAD/Chest PA and Lateral IMPRESSION: Bibasilar nodules may represent nipple shadow. Consider repeat chest radiograph with nipple markers. Otherwise unremarkable chest radiograph. Electronically Signed: Dheeraj Ferraro, at 21:43 EST Tel , Service support ,
--- NOTE | 2019-02-13 09:40 | RAD_ITS ---
HISTORY: HYPERBARIC OXYGEN THERAPY TREATMENTS FOR RIGHT FOOT WOUND. PATIENT HAS HAD A WOUND ON LATERAL SIDE OF RIGHT FOOT FOR ABOUT 6 MONTHS WITH A COUPLE OF SURGERYS. PATIENT IS A DIABETIC. ADDITIONAL HISTORY: None provided. COMPARISON: None TECHNIQUE: Right foot 3 views Number of images including paperwork: 3 FINDINGS: BONES: No acute fracture. Periosteal reaction along the 5th metatarsal bone. JOINTS: No subluxation. SOFT TISSUES: Soft tissue defect is noted along the lateral aspect of the foot adjacent to the fifth metatarsal bone. No distinct foreign body. Vascular calcifications. RAD/Foot min 3 Views IMPRESSION: Periosteal reaction has developed along the fifth metatarsal subadjacent to the soft tissue wound which may represent chronic osteomyelitis. MRI should be considered for further evaluation. at 2235 Reported and signed by: Alee Murrell MD Electronically Signed: Alee Murrell MD at 22:35 EST Tel , Service support ,
--- NOTE | 2019-02-13 09:59 | EKG12_ITS ---
Test Reason : PRE OP Blood Pressure : / mmHG Vent. Rate : 094 BPM Atrial Rate : 094 BPM P-R Int : 118 ms QRS Dur : 084 ms QT Int : 334 ms P-R-T Axes : 079 032 061 degrees QTc Int : 417 ms Normal sinus rhythm Normal ECG Confirmed by ANGIE JACOBO, MASON ([id number]), newspaper editor managing RAFFAELE BELTRAN ([id number]) on 02/18/2019 2:49:52 PM Referred By: Angeline Ornelas Confirmed By:MASON ADAMS MD
[2019-02-13 11:38] LABS: Absolute Lymphocyte Count 2.14 X10^3/uL (0.83-4.51); Absolute Neutrophil Count 8.5 X10^3/uL (2.0-7.7); Basophil# 0.13 X10^3/uL; Basophil% 1.1 % (0-1); Eosinophil# 0.44 X10^3/uL; Eosinophils% 3.6 % (0-5); Hematocrit 38.1 % (40-54); Hemoglobin 11.7 g/dL (13.0-16.5); Lymphocyte # 2.14 X10^3/ul (4.0); Lymphocyte % 17.5 % (19-41); Mean Corp Hgb Conc 30.7 g/dL (32-36); Mean Corpuscular Hgb 28.5 pg (27.0-32.0); Mean Corpuscular Volume 92.7 fL (80-94); Mean Platelet Vol. 9.3 fl (6.2-12.0); Monocyte# 0.96 X10^3/uL; Monocyte% 7.8 % (0-10); NRBC Flagged by Analyzer 0 % (0-5); Neutrophil # 8.49 X10^3/uL (2.7-7.7); Neutrophil % 69.3 % (47-70); Platelet Count 615 K/mm3 (150-450); RBC Distribution Width CV 12.6 % (11.6-14.6); RBC Distribution Width SD 42.5 fl (35.1-43.9); Red Blood Count 4.11 M/mm3 (4.6-6.2); White Blood Count 12.3 K/mm3 (4.4-11.0)
[2019-02-13 11:57] LABS: Erythrocyte Sedimentation Rate 66 mm/hr (0-15)
[2019-02-13 11:58] LABS: ALB/GLOB Ratio 0.4 RATIO (0.9-2.4); AST(SGOT) 9 U/L (15-37); Alanine Aminotransfer ALT/SGPT 18 U/L (16-61); Albumin, Serum 2.5 g/dL (3.2-5.0); Alkaline Phosphatase 105 U/L (45-117); Anion Gap 10 (5-15); BUN 43 mg/dL (7-18); BUN/Creat Ratio 20.2 RATIO (10-20); Calcium,Total 9.6 mg/dL (8.5-10.1); Chloride 106 mmol/L (98-107); Creatinine, Serum 2.13 mg/dL (0.70-1.30); EST Glomerular Filtration Rate 36 mL/min (>60); Est Glom Filt Rate - Afr Amer 43 mL/min (>60); Estimated Creatinine Clearance 47.56 ml/min; Globulin 5.6 g/dL (2.2-4.2); Glucose 204 mg/dL (74-106); Potassium 5.1 mmol/L (3.5-5.1); Protein, Total 8.1 g/dL (6.4-8.2); Sodium Level 142 mmol/L (136-145)
--- NOTE | 2019-02-14 17:42 | HBO.CON.PC_ITS ---
(1) Ulcer of right foot with necrosis of muscle Status: Chronic Current Visit: Yes Code(s): L97.513 - Non-pressure chronic ulcer of other part of right foot with necrosis of muscle (2) Delayed wound healing Status: Chronic Current Visit: Yes Code(s): T14.8XXD - Other injury of unspecified body region, subsequent encounter (3) Malnutrition Status: Chronic Current Visit: Yes Qualifiers: Malnutrition type: protein-calorie malnutrition Protein-calorie malnutrition severity: moderate Qualified Code(s): E44.0 - Moderate protein- calorie malnutrition Code(s): E46 - Unspecified protein-calorie malnutrition (4) Osteomyelitis Status: Suspected Current Visit: Yes Qualifiers: Osteomyelitis type: other chronic Osteomyelitis location: foot Laterality: right Qualified Code(s): M86.671 - Other chronic osteomyelitis, right ankle and foot Code(s): M86.9 - Osteomyelitis, unspecified (5) Other specified peripheral vascular diseases Status: Chronic Current Visit: Yes Code(s): I73.89 - Other specified peripheral vascular diseases (6) Type 2 diabetes mellitus with diabetic polyneuropathy Status: Chronic Current Visit: Yes Qualifiers: Diabetes mellitus keno terminal operator insulin use: with keno terminal operator use Qualified Code(s): E11.42 - Type 2 diabetes mellitus with diabetic polyneuropathy; Z79.4 - moth exterminator (current) use of insulin Code(s): E11.42 - Type 2 diabetes mellitus with diabetic polyneuropathy (7) Osteomyelitis Status: Chronic Current Visit: Yes Qualifiers: Osteomyelitis type: other chronic Osteomyelitis location: foot Laterality: right Qualified Code(s): M86.671 - Other chronic osteomyelitis, right ankle and foot Code(s): M86.9 - Osteomyelitis, unspecified (8) Diabetes mellitus type 2 with complications Status: Chronic Current Visit: Yes Code(s): E11.8 - Type 2 diabetes mellitus with unspecified complications History of Present Illness Date of Service: 02/14/19 Presenting Chief Complaint: Right foot ulcer The patient is a 48 year old M who [facility] evaluate the possibility of initiating hyperbaric oxygen therapy for treatment of a Farrell Grade III diabetic foot ulcer of his right lateral foot. Zeke has a 10 year history of insulin dependent type II diabetes mellitus complicated by peripheral neuropathy and peripheral microvascular disease that developed a diabetic foot ulcer of his right foot in October of 2018 with subsequen t surgical debridement and bone biopsy that was negative for confirmed osteomyelitis. He underwent 6 weeks of antibiotic treatment and did go on to heal that ulcer but developed a new ulcer in close approximation to the previous ulcer in November 2018. He has been using Dakin wet-to-dry gauze dressings with changes daily. His current ulcer measures 7.8 cm x 1.8 cm x 0.5 cm with exposed bones of the 5th metatarsal base and lateral bone noted without visible fragmentation but concerning for osteomyelitis and is a Farrell Grade III. There has been no measurable signs of healing in the last 30 days with standard wound care treatment and off-loading through his senior nurse manager Dr. Perrin and he has been referred to the wound healing center for additional treatment and management of this chronic ulcer and is being treated by Dr. Ornelas on a weekly basis for debridements with last visit on 02/12/19 with a plan for surgical debridement and bone biopsy under anesthesia on 02/28/19 and application of advanced tissue product such as Amniofill or Epicord. He has undergone noninvasive vascular testing in October 2018 which showed right RAFITA of 1.33 and 1.24 and left RAFITA of 1.1 and the DP on the left side was noncompressible. His toe brachial indices were 0.6 on the right and 0.55 on the left. He has been referred to Dr. Edmonds, vascular surgery, for consideration of vascular intervention to optimize healing and is scheduled to see him in the next few weeks. He is using oral protein supplementation at least twice daily to optimize his nutritional status, his albumin on 02/13/19 was 2.5. His most recent A1C in January was 6.8% but he reports that previously it was approx. 10% in October 2018. He is offloading with a surgical shoe and a knee walker. He underwent culture of his ulcer on 02/05/19 with positive results for Staph. aureus, Pseudomonas, Citrobacter and anaerobic Prevotella and is currently on oral antibiotic treatment with ciprofloxacin 500 mg orally twice daily and clindamycin 300 mg orally TID with decreased odor of his ulcer and is being followed by Infectious Disease, Dr. Hunter. Xray from 02/13/19 shows periosteal changes of the exposed bone which were not present on a previous xray from 12/26/18. WBC 12.3, ESR 66 and CRP 29.5 from 02/13/19. Past Medical History Past Medical History Pertinent to Hyperbaric Oxygen Therapy: Diabetes Chronic Problems (Last Reviewed 10/08/18 @ 02:00 by Mehrdad Alexis MD) Ulcer of right foot with fat layer exposed (Chronic) Ulcer of right foot with necrosis of muscle (Chronic) Delayed wound healing (Chronic) Malnutrition (Chronic) Other specified peripheral vascular diseases (Chronic) Type 2 diabetes mellitus with diabetic polyneuropathy (Chronic) Osteomyelitis (Chronic) Diabetes mellitus type 2 with complications (Chronic) Allergies/Adverse Reactions: Allergies Penicillins Allergy (Verified 02/05/19 14:38) Swelling Tolerates cephalosporins with no issue Home Medications: Ambulatory Orders Medication Instructions Recorded Aspirin [Aspirin, Baby] 81 mg PO DAILY@0800 03/08/15 Acetaminophen [Tylenol Tablet] 650 mg PO Q6H PRN PRN tab 10/11/18 Insulin Glargine [Lantus (BKC)] 15 units SUBCUT QHS 02/05/19 metFORMIN HCl [Glucophage] 500 mg PO BIDCM 02/05/19 Maternal Family History: COPD, Diabetes, - Paternal Family History: Heart Disease, Renal Disease, - Sibling Family History: - - He has a sister who has rheumatoid arthritis. Lives: Alone Smoking Status: Light Smoker (<10/day) Tobacco Use: Cigarettes, Chew Alcohol: Occasional Drugs: None Review of Systems Constitutional: Denies: Chills, Fever, Weight Change Eyes: Denies: Pain, Vision Change HEENT: Denies: Difficulty Hearing, Difficulty Swallowing, Sinus Congestion Cardiovascular: Denies: Chest Pain, Palpitations Respiratory: Denies: Cough, Shortness of Breath Gastrointestinal: Denies: Diarrhea, Nausea, Vomiting Genitourinary: Denies: Dysuria, Hematuria Musculoskeletal: Denies: Back Pain Skin: Reports: Wounds Neurological: Reports: Numbness, Tingling. Denies: Balance problems, Seizures Psychiatric: Denies: Anxiety, Depression Endocrine: Denies: Heat/ Cold Intolerance, Polydipsia, Polyuria Hematologic/ Lymphatic: Reports: Hx of blood clot. Denies: Easy Bruising, Easy Bleeding - Physical Exam Vital Signs Temp Pulse Resp BP 97.6 F L 105 H 20 H 165/99 H 02/12/19 12:08 02/12/19 12:08 02/12/19 12:08 02/12/19 12:08 General: Alert, Oriented x3, Cooperative, No apparent distress HEENT: Atraumatic, Normocephalic Oral: Moist Mucosa, No Gingival or Mucosal Lesions/ Ulcerations Neck: Supple, No JVD, Negative Carotid Bruits, No Nodes, Trachea Midline, Thyroid Normal Size and Texture Lungs: Clear to auscultation, Normal air movement, No rhonchi, No wheeze, No ral es Cardiovascular: Regular rate, Regular Rhythm, Normal S1, Normal S2, No murmurs Abdomen: Bowel Sounds Present, Soft, Non Tender, Non-Distended, No Hepato- splenomegaly Extremities: Diminished Peripheral Pulses, Edema Skin: Ulcer/ Wound Wound Measurements and Assessment WC - Nurse 1 - General Ulcer Measurement Start: 02/12/19 12:07 Freq: Status: Active Protocol: Activity Type Activity Date Activity User E-Sign Co-Sign Detail Recorded Client Recorded Date Recorded By Document 02/12/19 12:08 DL [id number] 02/12/19 12:16 DL 02/12/19 12:08 Wound Center Nurse 1 [Ulcer Assessment] #2 RIGHT DORSAL FOOT -Current Size (cm) - Length 1.8 -Current Size (cm) - Width 0.8 -Current Size (cm) - Depth 0.1 -Total Square Cm 1.44 -Photo Taken No -Exudate Amt None Present -Wound Margin Distinct, Outline Attached -Granulation Amt None Present (0 %) -Necrosis Amt Large (67-100%) -Necrotic Tissue Type Adherent Slough -Structure Exposed N/A -Texture (Wendy-wound Skin Appearance) Scarring -Moisture (Wendy-wound Skin Appearance No Abnormality ) -Color (Wendy-wound Skin Appearance) Erythema,Rubor -Temperature (Wendy-wound Skin No Abnormality Appearance) (Pt Warm) -Ulcer Cleansing Wound Cleanser -Foul Odor after Cleansing No -Anesthetic Used 5% Lidocaine Gel #1 Right Lateral Foot -Current Size (cm) - Length 7.8 -Current Size (cm) - Width 1.8 -Current Size (cm) - Depth 0.5 -Total Square Cm 14.04 -Photo Taken No -Exudate Amt Small -Exudate Type Serosanguineous -Wound Margin Thickened & Rolled Under -Granulation Amt Small (1-33%) -Granulation Quality [place] -Necrosis Amt Large (67-100%) -Necrotic Tissue Type Adherent Slough -Structure Exposed N/A -Texture (Wendy-wound Skin Appearance) Scarring -Color (Wendy-wound Skin Appearance) Erythema,Rubor -Temperature (Wendy-wound Skin No Abnormality Appearance) (Pt Warm) -Tenderness on Palpation (Wendy-wound Yes Skin Appearance) -Ulcer Cleansing Wound Cleanser -Foul Odor after Cleansing Yes -Anesthetic Used 5% Lidocaine Gel WC - Nurse 2 - General Ulcer CM Notes Start: 02/12/19 12:07 Freq: Status: Active Protocol: Activity Type Activity Date Activity User E-Sign Co-Sign Detail Recorded Client Recorded Date Recorded By Document 02/12/19 13:12 GARCIA [id number] 02/12/19 13:14 GARCIA 02/12/19 13:12 Wound Center Nurse 2 [Procedure/Treatment] #2 RIGHT DORSAL FOOT -Time 13:12 -Correct Patient Yes -Correct Side, Site, Position Yes -Correct Procedure Yes -Procedure Performed Yes -Type of Procedure Debridement -Clinical Debridement Subcutaneous -Post Debridement Size (cm) - Length 1.8 -Post Debridement Size (cm) - Width 0.9 -Post Debridement Size (cm) - Depth 0.1 -Total Square Cm 1.62 -Wound/Ulcer Outcome Not Healed -Ulcer Cleansing Rinsed/ Irrigated with Saline -Foul Odor after Cleansing No -Bioengineered Tissue No -Bleeding Controlled with Pressure -Offloading Yes -Type of Offloading Surgical Shoe -Treatment Response Procedure Tolerated Well #1 Right Lateral Foot -Time 13:12 -Correct Patient Yes -Correct Side, Site, Position Yes -Correct Procedure Yes -Procedure Performed Yes -Type of Procedure Debridement -Clinical Debridement Muscle -Post Debridement Size (cm) - Length 7.8 -Post Debridement Size (cm) - Width 1.9 -Post Debridement Size (cm) - Depth 0.5 -Total Square Cm 14.82 -Wound/Ulcer Outcome Not Healed -Ulcer Cleansing Rinsed/ Irrigated with Saline -Foul Odor after Cleansing No -Bioengineered Tissue No -Bleeding Controlled with Pressure -Offloading Yes -Type of Offloading Surgical Shoe -Treatment Response Procedure Tolerated Well [See Physician Procedure note for Specifics] Pain Scale: 0-10 Numeric [Pain] -Is Patient Pain Free? Yes Musculoskeletal: No Tenderness to Palpation of Joints or Extremities, No Muscle Wasting Lymphatic: No Cervical, Supraclavicular, or Inguinal Adenopathy Neurological: Cranial nerves II-XII grossly intact Psych/Mental Status: Normal Affect, Appropriate, Alert and oriented to time, place, person, mood and affect Assessment/Plan Active Problems (Last Reviewed 10/08/18 @ 02:00 by Mehrdad Alexis MD) Ulcer of right foot with fat layer exposed (Chronic) Ulcer of right foot with necrosis of muscle (Chronic) Delayed wound healing (Chronic) Malnutrition (Chronic) Other specified peripheral vascular diseases (Chronic) Type 2 diabetes mellitus with diabetic polyneuropathy (Chronic) Osteomyelitis (Chronic) Diabetes mellitus type 2 with complications (Chronic) ZEKE JUNIOR Jr. is an appropriate candidate for hyperbaric oxygen therapy. Hyperbaric Oxygen Therapy would be an essential adjunct in the resolution and treatment of this patient's presenting problem. This patient has sufficient physiologic and psychological stamina to undergo the rigors of hyperbaric oxygen therapy. The goal of hyperbaric oxygen therapy for this patient is limb salvage and hopefully healing of his ulcer with combined surgical, advanced skin product treatments, appropriate dressings and adequate offloading, as continued failure of treatment and progression of infection of the bone would necessitate amputation of his foot. As such, I recommend the following: Hyperbaric Oxygen Treatments at 2.0 GILDA in 100% Oxygen for 90 minutes per treatment, for 40 treatments, 1 treatment daily, 5 days each week (Sunday through Sunday), with additional 20 treatments if indicated based on his surgical biopsy results. I have discussed the possible benefits of hyperbaric oxygen therapy with this patient. I have also presented and described the risks, including: air gas embolism, pneumothorax, central nervous system and pulmonary oxygen toxicity, flash pulmonary edema, hypoglycemia, reversible visual refractive changes, ear and sinus olayinka-trauma, and confinement anxiety. The patient has verbalized understanding of these risks, and is still wanting to undergo hyperbaric oxygen therapy. The patient understands the significant time and transportation commitment involved in daily treatments of up to two hours duration and has stated that they are willing to commit to this therapy. - HBOT Diagnosis Farrell III Diabetic Foot/Toe Ulcer (707.15/250.8) Non Healing Wound (707) Clinical Impression(s) from Imaging Studies Chest X-Ray 02/13/19 09:37 IMPRESSION: Bibasilar nodules may represent nipple shadow. Consider repeat chest radiograph with nipple markers. Otherwise unremarkable chest radiograph. Electronically Signed: Dheeraj Ferraro, at 21:43 EST Tel , Service support , Foot X-Ray 02/13/19 09:40 IMPRESSION: Periosteal reaction has developed along the fifth metatarsal subadjacent to the soft tissue wound which may represent chronic osteomyelitis. MRI should be considered for further evaluation. at 2235 Reported and signed by: Alee Murrell MD Electronically Signed: Alee Murrell MD at 22:35 EST Tel , Service support ,
[2019-02-17 09:31] LABS: Bedside Glucose 239 mg/dL (70-110)
[2019-02-17 10:47] VITALS: BP 142/90; BP 152/98; PULSE 100; PULSE 86; RESP 16; RESP 18; TEMP 36; TEMP 36.1
--- NOTE | 2019-02-17 11:00 | PCM.HBO.PN ---
History of Present Illness Date of Service: 02/17/19 Presenting Chief Complaint: Right foot ulcer SHAREE JUNIOR Jr. is a 48 year old currently undergoing hyperbaric oxygen therapy for treatment of a Farrell Grade III diabetic foot ulcer of his right lateral foot. Progress: This patient presents today for hyperbaric oxygen therapy as the first treatment in a session of 40 planned treatments. Tolerance of hyperbaric oxygen therapy: Hyperbaric oxygen therapy was administered today as per our facility's protocol. HBO therapy was administered for 90 minutes at 2 ATMs. The patient tolerated HBO therapy well, without complaints or complications. Upon emergence from the hyperbaric oxygen chamber, the patient's vital signs remained stable. He was then discharged in good condition. See documented blood glucose levels. Past Medical History Past Medical History Pertinent to Hyperbaric Oxygen Therapy: Diabetes Chronic Problems (Last Reviewed 10/08/18 @ 02:00 by Mehrdad Alexis MD) Ulcer of right foot with fat layer exposed (Chronic) Ulcer of right foot with necrosis of muscle (Chronic) Delayed wound healing (Chronic) Malnutrition (Chronic) Other specified peripheral vascular diseases (Chronic) Type 2 diabetes mellitus with diabetic polyneuropathy (Chronic) Osteomyelitis (Chronic) Diabetes mellitus type 2 with complications (Chronic) Allergies/Adverse Reactions: Allergies Penicillins Allergy (Verified 02/05/19 14:38) Swelling Tolerates cephalosporins with no issue Home Medications: Ambulatory Orders Medication Instructions Recorded Aspirin [Aspirin, Baby] 81 mg PO DAILY@0800 03/08/15 Acetaminophen [Tylenol Tablet] 650 mg PO Q6H PRN PRN tab 10/11/18 Insulin Glargine [Lantus (BKC)] 15 units SUBCUT QHS 02/05/19 metFORMIN HCl [Glucophage] 500 mg PO BIDCM 02/05/19 Maternal Family History: COPD, Diabetes, - Paternal Family History: Heart Disease, Renal Disease, - Sibling Family History: - - He has a sister who has rheumatoid arthritis. Lives: Alone Smoking Status: Light Smoker (<10/day) Tobacco Use: Cigarettes, Chew Alcohol: Occasional Drugs: None Physical Exam Vital Signs Temp Pulse Resp BP 96.9 F L 100 18 142/90 H 02/17/19 10:47 02/17/19 10:47 02/17/19 10:47 02/17/19 10:47 General: Alert, Oriented x3, Cooperative, No apparent distress HEENT: Atraumatic, TM's Clear Lungs: Clear to auscultation, Normal air movement Cardiovascular: Regular rate, Regular Rhythm Psych/Mental Status: Normal Affect, Appropriate, Alert and oriented to time, place, person, mood and affect Assessment/Plan Active Problems (Last Reviewed 10/08/18 @ 02:00 by Mehrdad Alexis MD) Ulcer of right foot with fat layer exposed (Chronic) Ulcer of right foot with necrosis of muscle (Chronic) Delayed wound healing (Chronic) Malnutrition (Chronic) Other specified peripheral vascular diseases (Chronic) Type 2 diabetes mellitus with diabetic polyneuropathy (Chronic) Osteomyelitis (Chronic) Diabetes mellitus type 2 with complications (Chronic) This patient appears to be tolerating hyperbaric oxygen therapy well, which will be continued as per the patient's medical plan.
[2019-02-17 12:01] LABS: Bedside Glucose 167 mg/dL (70-110)
[2019-02-18 10:06] LABS: Bedside Glucose 184 mg/dL (70-110)
[2019-02-18 12:30] VITALS: BP 122/85; BP 150/99; PULSE 105; PULSE 88; RESP 16; RESP 18; TEMP 36.4; TEMP 36.7
[2019-02-18 12:50] LABS: Bedside Glucose 135 mg/dL (70-110)
--- NOTE | 2019-02-18 14:21 | PCM.HBO.PN ---
History of Present Illness Date of Service: 02/18/19 Presenting Chief Complaint: Farrell Grade 3 diabetic right foot ulceration with osteomyelitis SHAREE JUNIOR Jr. is a 48 year old currently undergoing hyperbaric oxygen therapy for treatment of a Farrell Grade III diabetic foot ulcer of his right lateral foot with osteomyelitis. Progress: This patient presents today for hyperbaric oxygen therapy as the second treatment in a session of 40 planned treatments. Tolerance of hyperbaric oxygen therapy: Hyperbaric oxygen therapy was administered today as per our facility's protocol. HBO therapy was administered for 90 minutes at 2 ATMs. The patient tolerated HBO therapy well, without complaints or complications. Upon emergence from the hyperbaric oxygen chamber, the patient's vital signs remained stable. He was then discharged in good condition. See documented blood glucose levels. Past Medical History Past Medical History Pertinent to Hyperbaric Oxygen Therapy: Diabetes Chronic Problems (Last Reviewed 10/08/18 @ 02:00 by Mehrdad Alexis MD) Ulcer of right foot with fat layer exposed (Chronic) Ulcer of right foot with necrosis of muscle (Chronic) Delayed wound healing (Chronic) Malnutrition (Chronic) Other specified peripheral vascular diseases (Chronic) Type 2 diabetes mellitus with diabetic polyneuropathy (Chronic) Osteomyelitis (Chronic) Diabetes mellitus type 2 with complications (Chronic) Allergies/Adverse Reactions: Allergies Penicillins Allergy (Verified 02/05/19 14:38) Swelling Tolerates cephalosporins with no issue Home Medications: Ambulatory Orders Medication Instructions Recorded Aspirin [Aspirin, Baby] 81 mg PO DAILY@0800 03/08/15 Acetaminophen [Tylenol Tablet] 650 mg PO Q6H PRN PRN tab 10/11/18 Insulin Glargine [Lantus (BKC)] 15 units SUBCUT QHS 02/05/19 metFORMIN HCl [Glucophage] 500 mg PO BIDCM 02/05/19 Maternal Family History: COPD, Diabetes, - Paternal Family History: Heart Disease, Renal Disease, - Sibling Family History: - - He has a sister who has rheumatoid arthritis. Lives: Alone Smoking Status: Light Smoker (<10/day) Tobacco Use: Cigarettes, Chew Alcohol: Occasional Drugs: None Physical Exam Vital Signs Temp Pulse Resp BP 96.9 F L 100 18 142/90 H 02/17/19 10:47 02/17/19 10:47 02/17/19 10:47 02/17/19 10:47 General: Alert, Oriented x3, Cooperative, No apparent distress, Well developed, Well nourished HEENT: Atraumatic, PERRLA, EOMI, Normocephalic, TM's Clear Lungs: Clear to auscultation, Normal air movement, No rhonchi, No wheeze, No rales Cardiovascular: Regular rate, Regular Rhythm, Normal S1, Normal S2, No murmurs Psych/Mental Status: Normal Affect, Appropriate, Alert and oriented to time, place, person, mood and affect Assessment/Plan Active Problems (Last Reviewed 10/08/18 @ 02:00 by Mehrdad Alexis MD) Ulcer of right foot with fat layer exposed (Chronic) Ulcer of right foot with necrosis of muscle (Chronic) Delayed wound healing (Chronic) Malnutrition (Chronic) Other specified peripheral vascular diseases (Chronic) Type 2 diabetes mellitus with diabetic polyneuropathy (Chronic) Osteomyelitis (Chronic) Diabetes mellitus type 2 with complications (Chronic) The patient appears to be tolerating HBO therapy well, which will be continued as per the patient's medical plan.
[2019-02-19 10:11] LABS: Bedside Glucose 152 mg/dL (70-110)
[2019-02-19 12:15] LABS: Bedside Glucose 115 mg/dL (70-110)
--- NOTE | 2019-02-19 12:53 | PCM.HBO.PN ---
History of Present Illness Date of Service: 02/19/19 Presenting Chief Complaint: Farrell Grade 3 diabetic right foot ulceration with osteomyelitis SHAREE JUNIOR Jr. is a 48 year old currently undergoing hyperbaric oxygen therapy for treatment of a Farrell Grade III diabetic foot ulcer of his right lateral foot with osteomyelitis. Progress: This patient presents today for hyperbaric oxygen therapy as the third treatment in a session of 40 planned treatments. Tolerance of hyperbaric oxygen therapy: Hyperbaric oxygen therapy was administered today as per our facility's protocol. HBO therapy was administered for 90 minutes at 2 ATMs. The patient tolerated HBO therapy well, without complaints or complications. Upon emergence from the hyperbaric oxygen chamber, the patient's vital signs remained stable. He was then discharged in good condition. See documented blood glucose levels. Past Medical History Past Medical History Pertinent to Hyperbaric Oxygen Therapy: Diabetes Chronic Problems (Last Reviewed 10/08/18 @ 02:00 by Mehrdad Alexis MD) Ulcer of right foot with fat layer exposed (Chronic) Ulcer of right foot with necrosis of muscle (Chronic) Delayed wound healing (Chronic) Malnutrition (Chronic) Other specified peripheral vascular diseases (Chronic) Type 2 diabetes mellitus with diabetic polyneuropathy (Chronic) Osteomyelitis (Chronic) Diabetes mellitus type 2 with complications (Chronic) Allergies/Adverse Reactions: Allergies Penicillins Allergy (Verified 02/05/19 14:38) Swelling Tolerates cephalosporins with no issue Home Medications: Ambulatory Orders Medication Instructions Recorded Aspirin [Aspirin, Baby] 81 mg PO DAILY@0800 03/08/15 Acetaminophen [Tylenol Tablet] 650 mg PO Q6H PRN PRN tab 10/11/18 Insulin Glargine [Lantus (BKC)] 15 units SUBCUT QHS 02/05/19 metFORMIN HCl [Glucophage] 500 mg PO BIDCM 02/05/19 Maternal Family History: COPD, Diabetes, - Paternal Family History: Heart Disease, Renal Disease, - Sibling Family History: - - He has a sister who has rheumatoid arthritis. Lives: Alone Smoking Status: Light Smoker (<10/day) Tobacco Use: Cigarettes, Chew Alcohol: Occasional Drugs: None Physical Exam Vital Signs Temp Pulse Resp BP 96.9 F L 100 18 142/90 H 02/17/19 10:47 02/17/19 10:47 02/17/19 10:47 02/17/19 10:47 Assessment/Plan Active Problems (Last Reviewed 10/08/18 @ 02:00 by Mehrdad Alexis MD) Ulcer of right foot with fat layer exposed (Chronic) Ulcer of right foot with necrosis of muscle (Chronic) Delayed wound healing (Chronic) Malnutrition (Chronic) Other specified peripheral vascular diseases (Chronic) Type 2 diabetes mellitus with diabetic polyneuropathy (Chronic) Osteomyelitis (Chronic) Diabetes mellitus type 2 with complications (Chronic) The patient appears to be tolerating HBO therapy well, which will be continued as per the patient's medical plan.
[2019-02-19 13:05] VITALS: BP 150/96; PULSE 89; RESP 16; TEMP 36.2; BMI 23.8
--- NOTE | 2019-02-19 14:09 | PCM.WC.PN ---
(1) Ulcer of right foot with fat layer exposed Status: Chronic Current Visit: Yes Code(s): L97.512 - Non-pressure chronic ulcer of other part of right foot with fat layer exposed (2) Ulcer of right foot with necrosis of muscle Status: Chronic Current Visit: Yes Code(s): L97.513 - Non-pressure chronic ulcer of other part of right foot with necrosis of muscle (3) Delayed wound healing Status: Chronic Current Visit: Yes Code(s): T14.8XXD - Other injury of unspecified body region, subsequent encounter (4) Malnutrition Status: Chronic Current Visit: Yes Qualifiers: Malnutrition type: protein-calorie malnutrition Protein-calorie malnutrition severity: moderate Qualified Code(s): E44.0 - Moderate protein-calorie malnutrition Code(s): E46 - Unspecified protein-calorie malnutrition (5) Osteomyelitis Status: Suspected Current Visit: Yes Qualifiers: Osteomyelitis type: other chronic Osteomyelitis location: foot Laterality: right Qualified Code(s): M86.671 - Other chronic osteomyelitis, right ankle and foot Code(s): M86.9 - Osteomyelitis, unspecified (6) Other specified peripheral vascular diseases Status: Chronic Current Visit: Yes Code(s): I73.89 - Other specified peripheral vascular diseases (7) Type 2 diabetes mellitus with diabetic polyneuropathy Status: Chronic Current Visit: Yes 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 ulcer top of foot History of Wound: This 48-year-old male with uncontrolled diabetes with neuropathy was referred to the wound healing center for a deep right foot ulcer. He is referred by Dr. Perrin at the foot and ankle center. This most recent ulcer onset was made November 2018 after he returned to work after previous other ulcer was freshly healed. His ulcers demonstrated delayed healing and he now has an odor and deep tissue exposed. It is noted he did have previous surgical intervention including debridement and bone biopsy during the hospital admission in October 08, 2018. This initial ulcer healed which was in near approximation to the current ulcer. His bone biopsy was negative for confirmed osteomyelitis however he was still treated with 6 weeks of antibiotics under the management of infectious disease due to continued concern for this condition also adjacent infected soft tissue. He did also have noninvasive vascular studies performed. He denies current fever, chill, nausea, vomiting. He does not wear offloading device as previously advised. He change the dressing daily with Dakin wet-to-dry gauze. He has been taking antibiotics as advised and relates that the odor have resolved. He does intermittently return however. He saw infectious disease physician last week. He is amenable to proceed with hyperbaric oxygen therapy and has 4 times already. He is tolerating this well for the most part and is scheduled to see an research physiologist. He wears offloading boot as advised. Progress of Wound: improving quality - Physical Exam Vital Signs Temp Pulse Resp BP 97.1 F L 89 16 150/96 H 02/19/19 13:05 02/19/19 13:05 02/19/19 13:05 02/19/19 13:05 General: Alert, Oriented x3, Cooperative, No apparent distress Extremities: No cyanosis, Capillary Refill Less than 3 Seconds, No Calf Tenderness, Diminished Peripheral Pulses, Edema, - - No pain with ulcer manipulation Skin: Ulcer/ Wound - No erythema, streaking, purulence on expression. Peripheral skin is hairless and atrophic. There is exposed tendon and bone noted to the lateral right foot with devitalized muscle that was excised today and there is a minor odor to the debrided devitalized tissue., - - Overall his ulcer site quality continues to improve in the infection has significantly stabilized to the lateral foot. The dorsal foot ulcer site is stable and superficial with pale granular base and peripheral epithelialization noted. Wound Measurements and Assessment WC - Nurse 1 - General Ulcer Measurement Start: 02/12/19 12:07 Freq: Status: Active Protocol: Activity Type Activity Date Activity User E-Sign Co-Sign Detail Recorded Client Recorded Date Recorded By Document 02/19/19 13:05 RB [id number] 02/19/19 13:17 RB 02/19/19 13:05 Wound Center Nurse 1 [Ulcer Assessment] #2 RIGHT DORSAL FOOT -Combined with other wound No -Current Size (cm) - Length 2.4 -Current Size (cm) - Width 0.8 -Current Size (cm) - Depth 0.1 -Total Square Cm 1.92 -Tunneling No -Undermining/Tunneling No -Circular Undermining No -Exudate Amt Small -Exudate Type Serosanguineous -Wound Margin Flat & Intact -Granulation Amt Medium (34-66%) -Granulation Quality [place] -Slough/Fibrin Yes -Necrosis Amt Small (1-33%) -Necrotic Tissue Type Adherent Slough -Structure Exposed N/A -Texture (Wendy-wound Skin Appearance) Assessed -Moisture (Wendy-wound Skin Appearance Assessed ) -Color (Wendy-wound Skin Appearance) Erythema -Temperature (Wendy-wound Skin No Abnormality Appearance) (Pt Warm) -Tenderness on Palpation (Wendy-wound No Skin Appearance) -Ulcer Cleansing Wound Cleanser -Foul Odor after Cleansing No -Anesthetic Used 5% Lidocaine Gel #1 Right Lateral Foot -Combined with other wound No -Current Size (cm) - Length 7.5 -Current Size (cm) - Width 2 -Current Size (cm) - Depth 0.2 -Total Square Cm 15.0 -Tunneling No -Undermining/Tunneling Yes -Undermining/Tunneling Starts (O' 9 clock) -Undermining/Tunneling Ends (O'clock) 10 -Maximum Distance (cm) 0.5 -Circular Undermining No -Exudate Amt Medium -Exudate Type Serosanguineous -Wound Margin Thickened & Rolled Under -Granulation Amt Medium (34-66%) -Granulation Quality [place],Red -Slough/Fibrin Yes -Necrosis Amt Small (1-33%) -Necrotic Tissue Type Adherent Slough -Structure Exposed N/A -Texture (Wendy-wound Skin Appearance) Assessed -Moisture (Wendy-wound Skin Appearance Assessed ) -Color (Wendy-wound Skin Appearance) Erythema -Temperature (Wendy-wound Skin No Abnormality Appearance) (Pt Warm) -Tenderness on Palpation (Wendy-wound No Skin Appearance) -Ulcer Cleansing Wound Cleanser -Foul Odor after Cleansing No -Anesthetic Used 5% Lidocaine Gel WC - Nurse 2 - General Ulcer CM Notes Start: 02/12/19 12:07 Freq: Status: Active Protocol: Activity Type Activity Date Activity User E-Sign Co-Sign Detail Recorded Client Recorded Date Recorded By Document 02/19/19 13:28 JF [id number] 02/19/19 13:29 GARCIA 02/19/19 13:28 Wound Center Nurse 2 [Procedure/Treatment] #2 RIGHT DORSAL FOOT -Time 13:28 -Correct Patient Yes -Correct Side, Site, Position Yes -Correct Procedure Yes -Procedure Performed Yes -Type of Procedure Debridement -Clinical Debridement Subcutaneous -Post Debridement Size (cm) - Length 2.5 -Post Debridement Size (cm) - Width 0.8 -Post Debridement Size (cm) - Depth 0.1 -Total Square Cm 2.00 -Wound/Ulcer Outcome Not Healed -Ulcer Cleansing Rinsed/ Irrigated with Saline -Foul Odor after Cleansing No -Bioengineered Tissue No -Bleeding Controlled with Pressure -Offloading Yes -Type of Offloading Knee Walker -Treatment Response Procedure Tolerated Well #1 Right Lateral Foot -Time 13:28 -Correct Patient Yes -Correct Side, Site, Position Yes -Correct Procedure Yes -Procedure Performed Yes -Type of Procedure Debridement -Clinical Debridement Subcutaneous -Post Debridement Size (cm) - Length 7.5 -Post Debridement Size (cm) - Width 2.1 -Post Debridement Size (cm) - Depth 0.2 -Total Square Cm 15.75 -Wound/Ulcer Outcome Not Healed -Ulcer Cleansing Rinsed/ Irrigated with Saline -Foul Odor after Cleansing No -Bioengineered Tissue No -Bleeding Controlled with Pressure -Offloading Yes -Type of Offloading Knee Walker -Treatment Response Procedure Tolerated Well [See Physician Procedure note for Specifics] Pain Scale: 0-10 Numeric [Pain] -Is Patient Pain Free? Yes Musculoskeletal: No Tenderness to Palpation of Joints or Extremities, Muscle Wasting Neurological: - - Lack of normal epicritic sensation light touch is consistent with neuropathy status Psych/Mental Status: Normal Affect, Appropriate Debridement Note Post-Debridement Measurements/Treatment WC - Nurse 2 - General Ulcer CM Notes Start: 02/12/19 12:07 Freq: Status: Active Protocol: Activity Type Activity Date Activity User E-Sign Co-Sign Detail Recorded Client Recorded Date Recorded By Document 02/12/19 13:12 GARCIA [id number] 02/12/19 13:14 Document 02/19/19 13:28 JF [id number] 02/19/19 13:29 02/12/19 02/19/19 13:12 13:28 Wound Center Nurse 2 #2 RIGHT DORSAL FOOT -Time 13:12 13:28 -Correct Patient Yes Yes -Correct Side, Site, Position Yes Yes -Correct Procedure Yes Yes -Procedure Performed Yes Yes -Type of Procedure Debridement Debridement -Clinical Debridement Subcutaneous Subcutaneous -Post Debridement Size (cm) - Length 1.8 2.5 -Post Debridement Size (cm) - Width 0.9 0.8 -Post Debridement Size (cm) - Depth 0.1 0.1 -Total Square Cm 1.62 2.00 -Wound/Ulcer Outcome Not Healed Not Healed -Ulcer Cleansing Rinsed/ Rinsed/ Irrigated with Irrigated with Saline Saline -Foul Odor after Cleansing No No -Bioengineered Tissue No No -Bleeding Controlled with Pressure Pressure -Offloading Yes Yes -Type of Offloading Surgical Shoe Knee Walker -Treatment Response Procedure Procedure Tolerated Well Tolerated Well #1 Right Lateral Foot -Time 13:12 13:28 -Correct Patient Yes Yes -Correct Side, Site, Position Yes Yes -Correct Procedure Yes Yes -Procedure Performed Yes Yes -Type of Procedure Debridement Debridement -Clinical Debridement Muscle Subcutaneous -Post Debridement Size (cm) - Length 7.8 7.5 -Post Debridement Size (cm) - Width 1.9 2.1 -Post Debridement Size (cm) - Depth 0.5 0.2 -Total Square Cm 14.82 15.75 -Wound/Ulcer Outcome Not Healed Not Healed -Ulcer Cleansing Rinsed/ Rinsed/ Irrigated with Irrigated with Saline Saline -Foul Odor after Cleansing No No -Bioengineered Tissue No No -Bleeding Controlled with Pressure Pressure -Offloading Yes Yes -Type of Offloading Surgical Shoe Knee Walker -Treatment Response Procedure Procedure Tolerated Well Tolerated Well Pain Scale: 0-10 Numeric Is Patient Pain Free? Yes Yes Wound debrided: lateral foot Laterality: Right Wound Grade/Stage: grade 3 Type of Debridement: Excisional debridement Anesthesia Used: 5% Lidocaine Gel Depth: to muscle Percentage of wound debrided: 100 Instrument Used: #15 blade, Forceps Tissue Removed: fibrous, devitalized subcutaneous, biofilm, slough Severity: Necrosis of Muscle Amount of bleeding with debridement: Mild Bleeding Controlled with: Pressure Patient tolerated procedure well - Additional Wound Wound debrided: dorsal foot Laterality: Right Wound Grade/Stage: grade 1 Type of Debridement: Excisional debridement Anesthesia Used: 5% Lidocaine Gel Depth: in the subcutaneous layer Percentage of wound debrided: 100 Instrument Used: #15 blade Tissue Removed: fibrous, devitalized subcutaneous, biofilm,slough Severity: Fat Layer Exposed Amount of bleeding with debridement: Mild Bleeding Controlled with: Pressure Patient tolerated procedure: Patient tolerated procedure well Assessment/Plan Clinical Impression(s) from Imaging Studies Chest X-Ray 02/13/19 09:37 IMPRESSION: Bibasilar nodules may represent nipple shadow. Consider repeat chest radiograph with nipple markers. Otherwise unremarkable chest radiograph. Electronically Signed: Dheeraj Ronan, at 21:43 EST Tel , Service support , Foot X-Ray 02/13/19 09:40 IMPRESSION: Periosteal reaction has developed along the fifth metatarsal subadjacent to the soft tissue wound which may represent chronic osteomyelitis. MRI should be considered for further evaluation. at [id number] Reported and signed by: Alee Murrell MD Electronically Signed: Alee Murrell MD at 22:35 EST Tel , Service support , Active Problems (Last Reviewed 10/08/18 @ 02:00 by Mehrdad Alexis MD) Ulcer of right foot with fat layer exposed (Chronic) Ulcer of right foot with necrosis of muscle (Chronic) Delayed wound healing (Chronic) Malnutrition (Chronic) Other specified peripheral vascular diseases (Chronic) Type 2 diabetes mellitus with diabetic polyneuropathy (Chronic) Osteomyelitis (Chronic) Diabetes mellitus type 2 with complications (Chronic) Assessment: Right foot ulcer with necrotic tendon/muscle exposed -infection work up is ongoing (farrell grade 3). Osteomyelitis is suspected and work-up is in process. Uncontrolled diabetes with neuropathy. Delayed healing. Malnutrition suspected. Other comorbidities including anemia, thrombocytopenia, history of septic hip, history of recurrent multiple infections, weight loss. Currently on anticoagulation medication, Eliquis, for DVT treatment Plan: I reviewed and discussed his case including etiology, comprehensive wound healing plan, and anticipated healing time and management. His right foot ulcer was debrided in the subcutaneous and muscle excisional manner as noted in the clinical panel. I recommend he continues to change his dressing daily with Dakin's soaked wet-to-dry gauze to the lateral right foot and Aquacel Ag to the dorsal right foot. To avoid soaking. A culture was obtained and sent for aerobic, anaerobic, acid-fast, fungal, and MRSA PCR. I recommend updated foot x-ray and lab work including CBC, CMP, ESR, C-reactive protein, and hemoglobin A1c. He continues to take his previously prescribed Bactrim. It is noted his last foot x-ray on file was from 12/26 at the foot and ankle center as the following:There are no fractures and no dislocations. There is no osteolysis and no periosteal reaction. Small spur at base of 5th metatarsal. Os peroneum present. Anterior ankle impingement. Retrocalcaneal spur noted. There is calcification of the anterior tibial/DP artery and posterior tibial artery. Additional antibiotics will be considered pending his response to topical Dakin's and the a forementioned work-up. I also recommend performing an operating room surgical debridement with updated bone biopsy and application of advanced wound healing products such as amnio fill and epicord. Prior authorization will be initiated. The preoperative indication, planned procedure, possible benefits, risks, complications, anticipated healing time management were discussed in detail the patient. He understands and is amenable to proceed forward. No guarantees were made. He understands risks and complications may occur. I answered his questions. This is a plan same-day surgery under MAC and local anesthesia. His surgical consents were obtained last week and his surgery is tentatively scheduled moved to the following Sunday. His preoperative screening H & P will need to be reviewed upon completion. I answered all of his questions. His status of Farrell grade 3 would also make him a candidate for hyperbaric oxygen therapy. He was advised to continue this as prescribed and is doing well so far. To offload the ulcer site with a cam walker boot. He was advised to bring his previous offloading devices to clinic next week so I can add additional offloading pockets and assess if these are still appropriate. To optimize glycemic control and proper nutritional intake to promote timely healing. Nutrition supplement prescription was offered for Pool. He did have prior noninvasive vascular studies performed in October 2018 with right RAFITA of 1.33 and 1.24 and left RAFITA of 1.1 and the DP on the side with noncompressible. His toe brachial indices were 0.6 on the right and 0.55 on the left. Due to his lack of healing and noted noncompressible vessels, I do recommend a vascular surgery referral at this time with Dr. Edmonds. Smoking cessation was also reviewed and he understands this will delay healing and vascular perfusion. To return to the wound healing center 1 week or call sooner if he has any questions or concerns. To monitor for local development of infection or systemic illness.
[2019-02-19 14:12] VITALS: BP 118/76; BP 150/96; PULSE 88; PULSE 89; RESP 16; RESP 18; TEMP 36.2; TEMP 36.3
[2019-02-20 10:06] VITALS: BP 142/96; BP 159/100; PULSE 87; PULSE 94; RESP 16; RESP 18; TEMP 36.3; TEMP 36.4
[2019-02-20 10:06] LABS: Bedside Glucose 178 mg/dL (70-110)
--- NOTE | 2019-02-20 11:41 | PCM.HBO.PN ---
History of Present Illness Date of Service: 02/20/19 Presenting Chief Complaint: Farrell Grade 3 diabetic right foot ulceration with osteomyelitis SHAREE JUNIOR Jr. is a 48 year old currently undergoing hyperbaric oxygen therapy for treatment of a Farrell Grade III diabetic foot ulcer of his right lateral foot with osteomyelitis. Progress: This patient presents today for hyperbaric oxygen. He has 40 planned sessions and today is the 4th. Ear tubes placed today by ENT. He denies any concerns. Tolerance of hyperbaric oxygen therapy: Hyperbaric oxygen therapy was administered today as per our facility's protocol. HBO therapy was administered for 90 minutes at 2 ATMs. The patient tolerated HBO therapy well, without complaints or complications. Upon emergence from the hyperbaric oxygen chamber, the patient's vital signs remained stable. He was then discharged in good condition. See documented blood glucose levels. Past Medical History Past Medical History Pertinent to Hyperbaric Oxygen Therapy: Diabetes Chronic Problems (Last Reviewed 10/08/18 @ 02:00 by Mehrdad Alexis MD) Ulcer of right foot with fat layer exposed (Chronic) Ulcer of right foot with necrosis of muscle (Chronic) Delayed wound healing (Chronic) Malnutrition (Chronic) Other specified peripheral vascular diseases (Chronic) Type 2 diabetes mellitus with diabetic polyneuropathy (Chronic) Osteomyelitis (Chronic) Diabetes mellitus type 2 with complications (Chronic) Allergies/Adverse Reactions: Allergies Penicillins Allergy (Verified 02/05/19 14:38) Swelling Tolerates cephalosporins with no issue Home Medications: Ambulatory Orders Medication Instructions Recorded Aspirin [Aspirin, Baby] 81 mg PO DAILY@0800 03/08/15 Acetaminophen [Tylenol Tablet] 650 mg PO Q6H PRN PRN tab 10/11/18 Insulin Glargine [Lantus (BKC)] 15 units SUBCUT QHS 02/05/19 metFORMIN HCl [Glucophage] 500 mg PO BIDCM 02/05/19 Maternal Family History: COPD, Diabetes, - Paternal Family History: Heart Disease, Renal Disease, - Sibling Family History: - - He has a sister who has rheumatoid arthritis. Lives: Alone Smoking Status: Light Smoker (<10/day) Tobacco Use: Cigarettes, Chew Alcohol: Occasional Drugs: None Physical Exam Vital Signs Temp Pulse Resp BP 97.3 F L 94 18 142/96 H 02/20/19 10:06 02/20/19 10:06 02/20/19 10:06 02/20/19 10:06 General: Alert, Oriented x3, Cooperative, No apparent distress HEENT: Atraumatic, Normocephalic, TM's Clear - Eaar tubes in place Lungs: Normal air movement Psych/Mental Status: Normal Affect Assessment/Plan Active Problems (Last Reviewed 10/08/18 @ 02:00 by Mehrdad Alexis MD) Ulcer of right foot with fat layer exposed (Chronic) Ulcer of right foot with necrosis of muscle (Chronic) Delayed wound healing (Chronic) Malnutrition (Chronic) Other specified peripheral vascular diseases (Chronic) Type 2 diabetes mellitus with diabetic polyneuropathy (Chronic) Osteomyelitis (Chronic) Diabetes mellitus type 2 with complications (Chronic) The patient appears to be tolerating HBO therapy well, which will be continued as per the patient's medical plan.
[2019-02-20 11:56] LABS: Bedside Glucose 144 mg/dL (70-110)
[2019-02-21 09:56] LABS: Bedside Glucose 207 mg/dL (70-110)
[2019-02-21 10:35] VITALS: BP 144/93; BP 159/102; PULSE 82; PULSE 94; RESP 18; TEMP 36.3
--- NOTE | 2019-02-21 11:30 | PCM.HBO.PN ---
History of Present Illness Date of Service: 02/21/19 Presenting Chief Complaint: Farrell Grade 3 diabetic right foot ulceration with osteomyelitis SHAREE JUNIOR Jr. is a 48 year old currently undergoing hyperbaric oxygen therapy for treatment of a Farrell Grade III diabetic foot ulcer of his right lateral foot with osteomyelitis. Progress: This patient presents today for hyperbaric oxygen. He has 40 planned sessions and today is the 5th. Tolerance of hyperbaric oxygen therapy: Hyperbaric oxygen therapy was administered today as per our facility's protocol. HBO therapy was administered for 90 minutes at 2 ATMs. The patient tolerated HBO therapy well, without complaints or complications. Upon emergence from the hyperbaric oxygen chamber, the patient's Blood pressure was noted to be elevated at 159/108 mmHg. He has been encouraged to be evaluated in the emergency department. Past Medical History Past Medical History Pertinent to Hyperbaric Oxygen Therapy: Diabetes Chronic Problems (Last Reviewed 10/08/18 @ 02:00 by Mehrdad Alexis MD) Ulcer of right foot with fat layer exposed (Chronic) Ulcer of right foot with necrosis of muscle (Chronic) Delayed wound healing (Chronic) Malnutrition (Chronic) Other specified peripheral vascular diseases (Chronic) Type 2 diabetes mellitus with diabetic polyneuropathy (Chronic) Osteomyelitis (Chronic) Diabetes mellitus type 2 with complications (Chronic) Allergies/Adverse Reactions: Allergies Penicillins Allergy (Verified 02/05/19 14:38) Swelling Tolerates cephalosporins with no issue Home Medications: Ambulatory Orders Medication Instructions Recorded Aspirin [Aspirin, Baby] 81 mg PO DAILY@0800 03/08/15 Acetaminophen [Tylenol Tablet] 650 mg PO Q6H PRN PRN tab 10/11/18 Insulin Glargine [Lantus (BKC)] 15 units SUBCUT QHS 02/05/19 metFORMIN HCl [Glucophage] 500 mg PO BIDCM 02/05/19 Maternal Family History: COPD, Diabetes, - Paternal Family History: Heart Disease, Renal Disease, - Sibling Family History: - - He has a sister who has rheumatoid arthritis. Lives: Alone Smoking Status: Light Smoker (<10/day) Tobacco Use: Cigarettes, Chew Alcohol: Occasional Drugs: None Physical Exam Vital Signs Temp Pulse Resp BP 97.3 F L 94 18 144/93 H 02/21/19 10:35 02/21/19 10:35 02/21/19 10:35 02/21/19 10:35 General: Alert, Oriented x3, Cooperative, No apparent distress HEENT: Atraumatic, TM's Clear - bilateral tubes intact Lungs: Clear to auscultation, Normal air movement Cardiovascular: Regular rate, Regular Rhythm Psych/Mental Status: Normal Affect, Appropriate, Alert and oriented to time, place, person, mood and affect Assessment/Plan Active Problems (Last Reviewed 10/08/18 @ 02:00 by Mehrdad Alexis MD) Ulcer of right foot with fat layer exposed (Chronic) Ulcer of right foot with necrosis of muscle (Chronic) Delayed wound healing (Chronic) Malnutrition (Chronic) Other specified peripheral vascular diseases (Chronic) Type 2 diabetes mellitus with diabetic polyneuropathy (Chronic) Osteomyelitis (Chronic) Diabetes mellitus type 2 with complications (Chronic) The patient has been advised to be evaluated in the emergency department for his hypertension. After evaluation, pending approval, and appropriate, the patient will then continue his hyperbaric oxygen therapy as per his medical plan.
[2019-02-21 15:26] LABS: Bedside Glucose 166 mg/dL (70-110)
[2019-02-24 10:16] LABS: Bedside Glucose 184 mg/dL (70-110)
[2019-02-24 12:36] LABS: Bedside Glucose 143 mg/dL (70-110)
[2019-02-25 10:05] LABS: Bedside Glucose 116 mg/dL (70-110)
[2019-02-25 12:15] LABS: Bedside Glucose 95 mg/dL (70-110)
--- NOTE | 2019-02-25 14:04 | PCM.HBO.PN ---
History of Present Illness Date of Service: 02/25/19 Presenting Chief Complaint: Farrell Grade 3 diabetic right foot ulceration with osteomyelitis SHAREE JUNIOR Jr. is a 48 year old currently undergoing hyperbaric oxygen therapy for treatment of a Farrell Grade III diabetic foot ulcer of his right lateral foot with osteomyelitis. Progress: This patient presents today for hyperbaric oxygen. He has 40 planned sessions and today is the 7th such treatment. Tolerance of hyperbaric oxygen therapy: Hyperbaric oxygen therapy was administered today as per our facility's protocol. HBO therapy was administered for 90 minutes at 2 ATMs. The patient tolerated HBO therapy well, without complaints or complications. Upon emergence from the hyperbaric oxygen chamber, the patient's vital signs remained stable. The patient was discharged in good condition. Past Medical History Past Medical History Pertinent to Hyperbaric Oxygen Therapy: Diabetes Chronic Problems (Last Reviewed 10/08/18 @ 02:00 by Mehrdad Alexis MD) Ulcer of right foot with fat layer exposed (Chronic) Ulcer of right foot with necrosis of muscle (Chronic) Delayed wound healing (Chronic) Malnutrition (Chronic) Other specified peripheral vascular diseases (Chronic) Type 2 diabetes mellitus with diabetic polyneuropathy (Chronic) Osteomyelitis (Chronic) Diabetes mellitus type 2 with complications (Chronic) Allergies/Adverse Reactions: Allergies Penicillins Allergy (Verified 02/21/19 12:56) Swelling Tolerates cephalosporins with no issue Home Medications: Ambulatory Orders Medication Instructions Recorded Aspirin [Aspirin, Baby] 81 mg PO DAILY@0800 03/08/15 Acetaminophen [Tylenol Tablet] 650 mg PO Q6H PRN PRN tab 10/11/18 Insulin Glargine [Lantus (BKC)] 15 units SUBCUT BREAKFAST 02/05/19 metFORMIN HCl [Glucophage] 500 mg PO BIDCM 02/05/19 Amlodipine [Norvasc] 5 mg PO DAILY #14 tab 02/21/19 Ciprofloxacin [Cipro] 500 mg PO BID 02/21/19 Clindamycin HCl 300 mg PO TID 02/21/19 Lisinopril [Zestril] 10 mg PO DAILY #30 tab 02/24/19 Maternal Family History: COPD, Diabetes, - Paternal Family History: Heart Disease, Renal Disease, - Sibling Family History: - - He has a sister who has rheumatoid arthritis. Lives: Alone Smoking Status: Former smoker Tobacco Use: Cigarettes, Chew Alcohol: Occasional Drugs: None Physical Exam Vital Signs Temp Pulse Resp BP 97.3 F L 94 18 144/93 H 02/21/19 10:35 02/21/19 10:35 02/21/19 10:35 02/21/19 10:35 General: Alert, Oriented x3, Cooperative, No apparent distress, Well developed, Well nourished HEENT: Atraumatic, PERRLA, EOMI, Normocephalic Lungs: Clear to auscultation, Normal air movement, No rhonchi, No wheeze, No rales Cardiovascular: Regular rate, Regular Rhythm, Normal S1, Normal S2 Psych/Mental Status: Normal Affect, Appropriate, Alert and oriented to time, place, person, mood and affect Assessment/Plan Active Problems (Last Reviewed 10/08/18 @ 02:00 by Mehrdad Alexis MD) Ulcer of right foot with fat layer exposed (Chronic) Ulcer of right foot with necrosis of muscle (Chronic) Delayed wound healing (Chronic) Malnutrition (Chronic) Other specified peripheral vascular diseases (Chronic) Type 2 diabetes mellitus with diabetic polyneuropathy (Chronic) Osteomyelitis (Chronic) Diabetes mellitus type 2 with complications (Chronic) The patient appears to be tolerating hyperbaric oxygen therapy well, which will be continued as per the patient's medical plan.
[2019-02-25 16:18] VITALS: BP 139/96; BP 152/95; PULSE 89; PULSE 98; RESP 18; TEMP 36.6; TEMP 36.7
[2019-02-26 10:25] LABS: Bedside Glucose 239 mg/dL (70-110)
--- NOTE | 2019-02-26 11:18 | PCM.HBO.PN ---
History of Present Illness Date of Service: 02/26/19 Presenting Chief Complaint: Farrell Grade 3 diabetic right foot ulceration with osteomyelitis SHAREE JUNIOR Jr. is a 48 year old currently undergoing hyperbaric oxygen therapy for treatment of a Farrell Grade III diabetic foot ulcer of his right lateral foot with osteomyelitis. Progress: This patient presents today for hyperbaric oxygen. He has 40 planned sessions and today is the 8th such treatment. Tolerance of hyperbaric oxygen therapy: Hyperbaric oxygen therapy was administered today as per our facility's protocol. HBO therapy was administered for 90 minutes at 2 ATMs. The patient tolerated HBO therapy well, without complaints or complications. Upon emergence from the hyperbaric oxygen chamber, the patient's vital signs remained stable. The patient was discharged in good condition. See documented blood glucose levels. Past Medical History Past Medical History Pertinent to Hyperbaric Oxygen Therapy: Diabetes Chronic Problems (Last Reviewed 10/08/18 @ 02:00 by Mehrdad Alexis MD) Ulcer of right foot with fat layer exposed (Chronic) Ulcer of right foot with necrosis of muscle (Chronic) Delayed wound healing (Chronic) Malnutrition (Chronic) Other specified peripheral vascular diseases (Chronic) Type 2 diabetes mellitus with diabetic polyneuropathy (Chronic) Osteomyelitis (Chronic) Diabetes mellitus type 2 with complications (Chronic) Allergies/Adverse Reactions: Allergies Penicillins Allergy (Verified 02/21/19 12:56) Swelling Tolerates cephalosporins with no issue Home Medications: Ambulatory Orders Medication Instructions Recorded Aspirin [Aspirin, Baby] 81 mg PO DAILY@0800 03/08/15 Acetaminophen [Tylenol Tablet] 650 mg PO Q6H PRN PRN tab 10/11/18 Insulin Glargine [Lantus (BKC)] 15 units SUBCUT BREAKFAST 02/05/19 metFORMIN HCl [Glucophage] 500 mg PO BIDCM 02/05/19 Amlodipine [Norvasc] 5 mg PO DAILY #14 tab 02/21/19 Ciprofloxacin [Cipro] 500 mg PO BID 02/21/19 Clindamycin HCl 300 mg PO TID 02/21/19 Lisinopril [Zestril] 10 mg PO DAILY #30 tab 02/24/19 Maternal Family History: COPD, Diabetes, - Paternal Family History: Heart Disease, Renal Disease, - Sibling Family History: - - He has a sister who has rheumatoid arthritis. Lives: Alone Smoking Status: Former smoker Tobacco Use: Cigarettes, Chew Alcohol: Occasional Drugs: None Physical Exam Vital Signs Temp Pulse Resp BP 98.0 F 98 18 139/96 H 02/25/19 16:18 02/25/19 16:18 02/25/19 16:18 02/25/19 16:18 General: Alert, Oriented x3, Cooperative, No apparent distress HEENT: Atraumatic, TM's Clear Lungs: Clear to auscultation, Normal air movement Cardiovascular: Regular rate, Regular Rhythm Psych/Mental Status: Normal Affect, Appropriate, Alert and oriented to time, place, person, mood and affect Assessment/Plan Active Problems (Last Reviewed 10/08/18 @ 02:00 by Mehrdad Alexis MD) Ulcer of right foot with fat layer exposed (Chronic) Ulcer of right foot with necrosis of muscle (Chronic) Delayed wound healing (Chronic) Malnutrition (Chronic) Other specified peripheral vascular diseases (Chronic) Type 2 diabetes mellitus with diabetic polyneuropathy (Chronic) Osteomyelitis (Chronic) Diabetes mellitus type 2 with complications (Chronic) The patient appears to be tolerating hyperbaric oxygen therapy well, which will be continued as per the patient's medical plan.
[2019-02-26 12:20] LABS: Bedside Glucose 175 mg/dL (70-110)
[2019-02-26 13:00] VITALS: BP 133/91; PULSE 94; RESP 18; TEMP 36.4
[2019-02-26 13:05] VITALS: BP 129/78; PULSE 91; RESP 14; TEMP 36.6; BMI 23.7
--- NOTE | 2019-02-26 14:07 | PN.ID_ITS ---
Patient Problems: Active and Suspected Problems (Last Reviewed 10/08/18 @ 02:00 by Mehrdad Alexis MD) Osteomyelitis (Suspected) Subjective: Feeling ok, no fever, no n/v/d with abx. Surgery planned for 02/28. Foot less sore. - Physical Exam Vitals/I&O's: Vital Signs Temp Pulse Resp BP 97.8 F 91 14 129/78 H 02/26/19 13:05 02/26/19 13:05 02/26/19 13:05 02/26/19 13:05 Weight: 79.832 kg Body Mass Index (BMI) 23.7 Finger Stick Blood Glucose 129 General: Alert, Cooperative, No apparent distress Lungs: Clear to auscultation, Normal air movement Cardiovascular: Regular rate, Regular Rhythm Abdomen: Soft, Non Tender, Non-Distended Skin: Ulcer/ Wound - R foot ulcer Laboratory Results 02/26/19 10:22: POC Glucose 239 H 02/26/19 12:17: POC Glucose 175 H Medical Necessity - Tobacco Use Smoking Status: Former smoker Tobacco Use: Cigarettes, Chew Route of nutrition/ use of supplements: [] Nutritional Intake: [] IV Site: [] Aldana Catheter: [] - Assessment/Plan Antibiotics: [] Assessment/Plan: [] Active and Suspected Problems (Last Reviewed 10/08/18 @ 02:00 by Mehrdad Alexis MD) Osteomyelitis (Suspected) Other specified peripheral vascular diseases (Suspected) R foot osteo - recent cx with MSSA, PsA, citrobacter, and anaerobes. Bone exposed per Dr. Ornelas. OR debridement planned for 02/28. Tolerating cipro/clinda well so far. Will continue, but he may have trouble tolerating these custodial for full 6-8 week course. Depending on results of surgery, could do po levaquin and flagyl vs iv therapy. Will follow up next week. D/w Dr. Ornelas.
[2019-02-27 07:10] LABS: Bedside Glucose 250 mg/dL (70-110)
[2019-02-27 10:05] LABS: Bedside Glucose 136 mg/dL (70-110)
[2019-02-27 10:06] VITALS: BP 144/86; BP 147/86; PULSE 105; PULSE 88; RESP 16; RESP 18; TEMP 36.2; TEMP 36.6
[2019-02-27 12:00] LABS: Bedside Glucose 109 mg/dL (70-110)
--- NOTE | 2019-02-27 12:34 | PCM.HBO.PN ---
History of Present Illness Date of Service: 02/27/19 Presenting Chief Complaint: Farrell Grade 3 diabetic right foot ulceration with osteomyelitis SHAREE JUNIOR Jr. is a 48 year old currently undergoing hyperbaric oxygen therapy for treatment of a Farrell Grade III diabetic foot ulcer of his right lateral foot with osteomyelitis. Progress: This patient presents today for hyperbaric oxygen. He has 40 planned sessions and today is the 9th such treatment. Tolerance of hyperbaric oxygen therapy: Hyperbaric oxygen therapy was administered today as per our facility's protocol. HBO therapy was administered for 90 minutes at 2 ATMs. The patient tolerated HBO therapy well, without complaints or complications. Upon emergence from the hyperbaric oxygen chamber, the patient's vital signs remained stable. The patient was discharged in good condition. See documented blood glucose levels. Past Medical History Past Medical History Pertinent to Hyperbaric Oxygen Therapy: Diabetes Chronic Problems (Last Reviewed 10/08/18 @ 02:00 by Mehrdad Alexis MD) Ulcer of right foot with fat layer exposed (Chronic) Ulcer of right foot with necrosis of muscle (Chronic) Delayed wound healing (Chronic) Malnutrition (Chronic) Other specified peripheral vascular diseases (Chronic) Type 2 diabetes mellitus with diabetic polyneuropathy (Chronic) Osteomyelitis (Chronic) Diabetes mellitus type 2 with complications (Chronic) Allergies/Adverse Reactions: Allergies Penicillins Allergy (Verified 02/26/19 15:59) Swelling Tolerates cephalosporins with no issue Home Medications: Ambulatory Orders Medication Instructions Recorded Aspirin [Aspirin, Baby] 81 mg PO DAILY@0800 03/08/15 Acetaminophen [Tylenol Tablet] 650 mg PO Q6H PRN PRN tab 10/11/18 Insulin Glargine [Lantus (BKC)] 15 units SUBCUT BREAKFAST 02/05/19 metFORMIN HCl [Glucophage] 500 mg PO BIDCM 02/05/19 Ciprofloxacin [Cipro] 500 mg PO BID 02/21/19 Clindamycin HCl 300 mg PO TID 02/21/19 Amlodipine [Norvasc] 5 mg PO DAILY 02/26/19 Lisinopril [Zestril] 10 mg PO DAILY 02/26/19 Maternal Family History: COPD, Diabetes, - Paternal Family History: Heart Disease, Renal Disease, - Sibling Family History: - - He has a sister who has rheumatoid arthritis. Lives: Alone Smoking Status: Former smoker Tobacco Use: Cigarettes, Chew Alcohol: Occasional Drugs: None Physical Exam Vital Signs Temp Pulse Resp BP 97.8 F 105 H 18 144/86 H 02/27/19 10:06 02/27/19 10:06 02/27/19 10:06 02/27/19 10:06 General: Alert, Oriented x3, Cooperative, No apparent distress HEENT: Atraumatic, Normocephalic Lungs: Normal air movement Psych/Mental Status: Normal Affect Assessment/Plan Active Problems (Last Reviewed 10/08/18 @ 02:00 by Mehrdad Alexis MD) Ulcer of right foot with fat layer exposed (Chronic) Ulcer of right foot with necrosis of muscle (Chronic) Delayed wound healing (Chronic) Malnutrition (Chronic) Other specified peripheral vascular diseases (Chronic) Type 2 diabetes mellitus with diabetic polyneuropathy (Chronic) Osteomyelitis (Chronic) Diabetes mellitus type 2 with complications (Chronic) The patient appears to be tolerating hyperbaric oxygen therapy well, which will be continued as per the patient's medical plan. Code Visit HBO Supervision. Sindi Livingston.
--- NOTE | 2019-02-27 16:34 | PN.PCM_ITS ---
(1) Ulcer of right foot with fat layer exposed Status: Chronic Current Visit: Yes Code(s): L97.512 - Non-pressure chronic ulcer of other part of right foot with fat layer exposed (2) Ulcer of right foot with necrosis of muscle Status: Chronic Current Visit: Yes Code(s): L97.513 - Non-pressure chronic ulcer of other part of right foot with necrosis of muscle (3) Delayed wound healing Status: Chronic Current Visit: Yes Code(s): T14.8XXD - Other injury of unspecified body region, subsequent encounter (4) Malnutrition Status: Chronic Current Visit: Yes Qualifiers: Code(s): E46 - Unspecified protein-calorie malnutrition (5) Osteomyelitis Status: Suspected Current Visit: Yes Qualifiers: Osteomyelitis type: subacute Osteomyelitis location: foot Laterality: right Qualified Code(s): M86.271 - Subacute osteomyelitis, right ankle and foot Code(s): M86.9 - Osteomyelitis, unspecified (6) Other specified peripheral vascular diseases Status: Chronic Current Visit: Yes Code(s): I73.89 - Other specified peripheral vascular diseases (7) Type 2 diabetes mellitus with diabetic polyneuropathy Status: Chronic Current Visit: Yes Qualifiers: Code(s): E11.42 - Type 2 diabetes mellitus with diabetic polyneuropathy Type of Wound Date of Service: 02/26/19 Chief Complaint: Farrell Grade 3 diabetic right foot ulceration with osteomyelitis History of Wound: This 48-year-old male with uncontrolled diabetes with neuropathy was referred to the wound healing center for a deep right foot ulcer. He is referred by Dr. Perrin at the foot and ankle center. This most recent ulcer onset was made November 2018 after he returned to work after previous other ulcer was freshly healed. His ulcers demonstrated delayed healing and he now has an odor and deep tissue exposed. It is noted he did have previous surgical intervention including debridement and bone biopsy during the hospital admission in October 08, 2018. This initial ulcer healed which was in near approximation to the current ulcer. His bone biopsy was negative for confirmed osteomyelitis however he was still treated with 6 weeks of antibiotics under the management of infectious disease due to continued concern for this condition also adjacent infected soft tissue. He did also have noninvasive vascular studies performed. He denies current fever, chill, nausea, vomiting. Odor has decreased and is still intermittently present. He wears an offloading surgical shoe. He change the dressing daily with Dakin wet-to-dry gauze. He has been taking antibiotics as advised and relates that the odor have resolved. He is amenable to proceed with hyperbaric oxygen therapy. He is scheduled for surgery this Sunday. He saw infectious disease again today. Progress of Wound: improving quality - Physical Exam Vital Signs Temp Pulse Resp BP 97.8 F 105 H 18 144/86 H 02/27/19 10:06 02/27/19 10:06 02/27/19 10:06 02/27/19 10:06 General: Alert, Oriented x3, Cooperative, No apparent distress Extremities: No cyanosis, Capillary Refill Less than 3 Seconds, No Calf Tenderness, Diminished Peripheral Pulses, Edema Skin: Ulcer/ Wound - No purulence, erythema, streaking. Mild odor noted with debridement. Significant reduction in devitalized exposed tendon. There is bone that is probable. His adjacent skin is hairless and atrophic. The ulcer to the dorsal foot has a fibrous and partially granular base and is dry. Wound Measurements and Assessment WC - Nurse 1 - General Ulcer Measurement Start: 02/12/19 12:07 Freq: Status: Active Protocol: Activity Type Activity Date Activity User E-Sign Co-Sign Detail Recorded Client Recorded Date Recorded By Document 02/26/19 13:05 [id number] 02/26/19 13:13 02/26/19 13:05 Wound Center Nurse 1 [Ulcer Assessment] #2 RIGHT DORSAL FOOT -Combined with other wound No -Current Size (cm) - Length 4.5 -Current Size (cm) - Width 0.9 -Current Size (cm) - Depth 0.1 -Total Square Cm 4.05 -Photo Taken No -Epithelialization None Present -Tunneling No -Undermining/Tunneling No -Circular Undermining No -Granulation Quality Hyper- granulation -Necrosis Amt Small (1-33%) -Necrotic Tissue Type Adherent Slough -Structure Exposed N/A -Texture (Wendy-wound Skin Appearance) Scarring -Color (Wendy-wound Skin Appearance) Erythema -Temperature (Wendy-wound Skin No Abnormality Appearance) (Pt Warm) -Tenderness on Palpation (Wendy-wound No Skin Appearance) -Ulcer Cleansing Rinsed/ Irrigated with Saline -Foul Odor after Cleansing No -Anesthetic Used 4% Lidocaine Solution #1 Right Lateral Foot -Combined with other wound No -Current Size (cm) - Length 7.5 -Current Size (cm) - Width 2.2 -Current Size (cm) - Depth 0.3 -Total Square Cm 16.50 -Photo Taken No -Epithelialization None Present -Tunneling No -Undermining/Tunneling Yes -Undermining/Tunneling Starts (O' 9 clock) -Undermining/Tunneling Ends (O'clock) 12 -Maximum Distance (cm) 0.4 -Undermining/Tunneling Starts #2 (O' 3 clock) -Undermining/Tunneling Ends #2 (O' 6 clock) -Maximum Distance #2 (cm) 0.2 -Circular Undermining No -Exudate Amt Medium -Exudate Type Serosanguineous -Wound Margin Distinct, Outline Attached -Granulation Amt Medium (34-66%) -Granulation Quality Pale,[place] -Slough/Fibrin Yes -Necrosis Amt Small (1-33%) -Necrotic Tissue Type Adherent Slough -Texture (Wendy-wound Skin Appearance) No Abnormality, Assessed -Moisture (Wendy-wound Skin Appearance No Abnormality, ) Assessed -Color (Wendy-wound Skin Appearance) No Abnormality, Assessed -Temperature (Wendy-wound Skin No Abnormality Appearance) (Pt Warm) -Tenderness on Palpation (Wendy-wound No Skin Appearance) -Ulcer Cleansing Rinsed/ Irrigated with Saline -Foul Odor after Cleansing No -Anesthetic Used 4% Lidocaine Solution [Edema Assessment] -Lower Limb Edema Present NA WC - Nurse 2 - General Ulcer CM Notes Start: 02/12/19 12:07 Freq: Status: Active Protocol: Activity Type Activity Date Activity User E-Sign Co-Sign Detail Recorded Client Recorded Date Recorded By Document 02/26/19 13:31 [email or web address] [id number] 02/26/19 13:33 [email or web address] 02/26/19 13:31 Wound Center Nurse 2 [Procedure/Treatment] #2 RIGHT DORSAL FOOT -Time 13:32 -Correct Patient Yes -Correct Side, Site, Position Yes -Correct Procedure Yes -Procedure Performed Yes -Type of Procedure Debridement -Clinical Debridement Subcutaneous -Post Debridement Size (cm) - Length 4.5 -Post Debridement Size (cm) - Width 1 -Post Debridement Size (cm) - Depth 0.2 -Total Square Cm 4.5 -Wound/Ulcer Outcome Not Healed -Ulcer Cleansing Rinsed/ Irrigated with Saline -Foul Odor after Cleansing No -Bioengineered Tissue No -Bleeding Controlled with Pressure -Offloading Yes -Type of Offloading Knee Walker -Treatment Response Procedure Tolerated Well #1 Right Lateral Foot -Time 13:32 -Correct Patient Yes -Correct Side, Site, Position Yes -Correct Procedure Yes -Procedure Performed Yes -Type of Procedure Debridement -Clinical Debridement Subcutaneous -Post Debridement Size (cm) - Length 7.5 -Post Debridement Size (cm) - Width 2.3 -Post Debridement Size (cm) - Depth 0.3 -Total Square Cm 17.25 -Wound/Ulcer Outcome Not Healed -Ulcer Cleansing Rinsed/ Irrigated with Saline -Foul Odor after Cleansing No -Bioengineered Tissue No -Bleeding Controlled with Pressure -Offloading Yes -Type of Offloading Knee Walker -Treatment Response Procedure Tolerated Well [See Physician Procedure note for Specifics] Pain Scale: 0-10 Numeric [Pain] -Is Patient Pain Free? Yes Musculoskeletal: No Tenderness to Palpation of Joints or Extremities, Muscle Wasting Neurological: - - Lack of normal epicritic sensation light touch is consistent with neuropathy. Psych/Mental Status: Normal Affect, Appropriate Debridement Note Post-Debridement Measurements/Treatment WC - Nurse 2 - General Ulcer CM Notes Start: 02/12/19 12:07 Freq: Status: Active Protocol: Activity Type Activity Date Activity User E-Sign Co-Sign Detail Recorded Client Recorded Date Recorded By Document 02/12/19 13:12 [id number] 02/12/19 13:14 Document 02/19/19 13:28 [id number] 02/19/19 13:29 Document 02/26/19 13:31 [id number] 02/26/19 13:33 02/12/19 02/19/19 02/26/19 13:12 13:28 13:31 Wound Center Nurse 2 #2 RIGHT DORSAL FOOT -Time 13:12 13:28 13:32 -Correct Patient Yes Yes Yes -Correct Side, Site, Position Yes Yes Yes -Correct Procedure Yes Yes Yes -Procedure Performed Yes Yes Yes -Type of Procedure Debridement Debridement Debridement -Clinical Debridement Subcutaneous Subcutaneous Subcutaneous -Post Debridement Size (cm) - Length 1.8 2.5 4.5 -Post Debridement Size (cm) - Width 0.9 0.8 1 -Post Debridement Size (cm) - Depth 0.1 0.1 0.2 -Total Square Cm 1.62 2.00 4.5 -Wound/Ulcer Outcome Not Healed Not Healed Not Healed -Ulcer Cleansing Rinsed/ Rinsed/ Rinsed/ Irrigated with Irrigated with Irrigated with Saline Saline Saline -Foul Odor after Cleansing No No No -Bioengineered Tissue No No No -Bleeding Controlled with Pressure Pressure Pressure -Offloading Yes Yes Yes -Type of Offloading Surgical Shoe Knee Walker Knee Walker -Treatment Response Procedure Procedure Procedure Tolerated Well Tolerated Well Tolerated Well #1 Right Lateral Foot -Time 13:12 13:28 13:32 -Correct Patient Yes Yes Yes -Correct Side, Site, Position Yes Yes Yes -Correct Procedure Yes Yes Yes -Procedure Performed Yes Yes Yes -Type of Procedure Debridement Debridement Debridement -Clinical Debridement Muscle Subcutaneous Subcutaneous -Post Debridement Size (cm) - Length 7.8 7.5 7.5 -Post Debridement Size (cm) - Width 1.9 2.1 2.3 -Post Debridement Size (cm) - Depth 0.5 0.2 0.3 -Total Square Cm 14.82 15.75 17.25 -Wound/Ulcer Outcome Not Healed Not Healed Not Healed -Ulcer Cleansing Rinsed/ Rinsed/ Rinsed/ Irrigated with Irrigated with Irrigated with Saline Saline Saline -Foul Odor after Cleansing No No No -Bioengineered Tissue No No No -Bleeding Controlled with Pressure Pressure Pressure -Offloading Yes Yes Yes -Type of Offloading Surgical Shoe Knee Walker Knee Walker -Treatment Response Procedure Procedure Procedure Tolerated Well Tolerated Well Tolerated Well Pain Scale: 0-10 Numeric Is Patient Pain Free? Yes Yes Yes Wound debrided: dorsal foot Laterality: Right Wound Grade/Stage: grade 1 Type of Debridement: Excisional debridement Anesthesia Used: 5% Lidocaine Gel Depth: in the subcutaneous layer Percentage of wound debrided: 100 Instrument Used: #15 blade Tissue Removed: fibrous, devitalized subcutaneous, biofilm, slough Severity: Fat Layer Exposed Amount of bleeding with debridement: Mild Bleeding Controlled with: Pressure Patient tolerated procedure well - Additional Wound Wound debrided: lateral foot Laterality: Right Wound Grade/Stage: grade 3 Type of Debridement: Excisional debridement Anesthesia Used: 5% Lidocaine Gel Depth: in the subcutaneous layer, to muscle Percentage of wound debrided: 100 Instrument Used: #15 blade, Forceps Tissue Removed: fibrous, devitalized subcutaneous and tendon, biofilm, slough Severity: Necrosis of Muscle Amount of bleeding with debridement: Moderate Bleeding Controlled with: Pressure Patient tolerated procedure: Patient tolerated procedure well Assessment/Plan Clinical Impression(s) from Imaging Studies Chest X-Ray 02/13/19 09:37 IMPRESSION: Bibasilar nodules may represent nipple shadow. Consider repeat chest radiograph with nipple markers. Otherwise unremarkable chest radiograph. Electronically Signed: Dheeraj Ferraro, at 21:43 EST Tel , Service support , Foot X-Ray 02/13/19 09:40 IMPRESSION: Periosteal reaction has developed along the fifth metatarsal subadjacent to the soft tissue wound which may represent chronic osteomyelitis. MRI should be considered for further evaluation. at 223 Reported and signed by: Alee Murrell MD Electronically Signed: Alee Murrell MD at 22:35 EST Tel , Service support , Active Problems (Last Reviewed 10/08/18 @ 02:00 by Mehrdad Alexis MD) Ulcer of right foot with fat layer exposed (Chronic) Ulcer of right foot with necrosis of muscle (Chronic) Delayed wound healing (Chronic) Malnutrition (Chronic) Other specified peripheral vascular diseases (Chronic) Type 2 diabetes mellitus with diabetic polyneuropathy (Chronic) Osteomyelitis (Chronic) Diabetes mellitus type 2 with complications (Chronic) Assessment: Right foot ulcer with necrotic tendon/muscle exposed -infection work up is ongoing (farrell grade 3). Osteomyelitis is suspected and work-up is in process. Uncontrolled diabetes with neuropathy. Delayed healing. Malnutrition suspected. Other comorbidities including anemia, thrombocytopenia, history of septic hip, history of recurrent multiple infections, weight loss. Currently on anticoagulation medication, Eliquis, for DVT treatment Plan: I reviewed and discussed his case including etiology, comprehensive wound healing plan, and anticipated healing time and management. His right foot ulcer was debrided in the subcutaneous and muscle excisional manner as noted in the clinical panel. I recommend he continues to change his dressing daily with Dakin's soaked wet-to-dry gauze to the lateral right foot and hydrogel to the dorsal right foot. To avoid soaking. A culture was obtained and sent for aerobic, anaerobic, acid-fast, fungal, and MRSA PCR. I recommend updated foot x-ray and lab work including CBC, CMP, ESR, C-reactive protein, and hemoglobin A1c. He continues to take his previously prescribed Bactrim. It is noted his last foot x-ray on file was from 12/26 at the foot and ankle center as the following:There are no fractures and no dislocations. There is no osteolysis and no periosteal reaction. Small spur at base of 5th metatarsal. Os peroneum present. Anterior ankle impingement. Retrocalcaneal spur noted. There is calcification of the anterior tibial/DP artery and posterior tibial artery. Additional antibiotics will be considered pending his response to topical Dakin's and the a forementioned work-up. I also recommend performing an operating room surgical debridement with updated bone biopsy and application of advanced wound healing products such as amnio fill and epicord. Prior authori zation will be initiated. The preoperative indication, planned procedure, possible benefits, risks, complications, anticipated healing time management were discussed in detail the patient. He understands and is amenable to proceed forward. No guarantees were made. He understands risks and complications may occur. I answered his questions. This is a plan same-day surgery under MAC and local anesthesia. His surgical consents were obtained previously and his surgery is scheduled for this Sunday. His preoperative screening H & P will need to be reviewed upon completion. I answered all of his questions. His status of Farrell grade 3 would also make him a candidate for hyperbaric oxygen therapy. He was advised to continue this as prescribed and is doing well so far. To offload the ulcer site with a cam walker boot. He was advised to bring his previous offloading devices to clinic and he presents with a surgical shoe. To continue at this time. To avoid strap placement directly over the ullcer sites. I recommend transition to a CAM walker after surgery. To optimize glycemic control and proper nutritional intake to promote timely healing. Nutrition supplement prescription was offered for Pool. He did have prior noninvasive vascular studies performed in October 2018 with right RAFITA of 1.33 and 1.24 and left RAFITA of 1.1 and the DP on the side with noncompressible. His toe brachial indices were 0.6 on the right and 0.55 on the left. Due to his lack of healing and noted noncompressible vessels, I do recommend a vascular surgery referral at this time with Dr. Edmonds. Smoking cessation was also reviewed and he understands this will delay healing and vascular perfusion. To return to the wound healing center 1 week or call sooner if he has any questions or concerns. To monitor for local development of infection or systemic illness.
[2019-03-03 10:15] LABS: Bedside Glucose 146 mg/dL (70-110)
--- NOTE | 2019-03-03 10:51 | PCM.HBO.PN ---
History of Present Illness Date of Service: 03/03/19 Presenting Chief Complaint: Farrell Grade 3 diabetic right foot ulceration with osteomyelitis SHAREE JUNIOR Jr. is a 48 year old currently undergoing hyperbaric oxygen therapy for treatment of a Farrell Grade III diabetic foot ulcer of his right lateral foot with osteomyelitis. Progress: This patient presents today for hyperbaric oxygen. He has 40 planned sessions and today is the 10th such treatment. Tolerance of hyperbaric oxygen therapy: Hyperbaric oxygen therapy was administered today as per our facility's protocol. HBO therapy was administered for 90 minutes at 2 ATMs. The patient tolerated HBO therapy well, without complaints or complications. Upon emergence from the hyperbaric oxygen chamber, blood pressure was elevated. He has been under medications changes for this. The patient was discharged in good condition. See documented blood glucose levels. Past Medical History Past Medical History Pertinent to Hyperbaric Oxygen Therapy: Diabetes Chronic Problems (Last Reviewed 10/08/18 @ 02:00 by Mehrdad Alexis MD) Ulcer of right foot with fat layer exposed (Chronic) Ulcer of right foot with necrosis of muscle (Chronic) Delayed wound healing (Chronic) Malnutrition (Chronic) Other specified peripheral vascular diseases (Chronic) Type 2 diabetes mellitus with diabetic polyneuropathy (Chronic) Osteomyelitis (Chronic) Diabetes mellitus type 2 with complications (Chronic) Allergies/Adverse Reactions: Allergies Penicillins Allergy (Verified 02/28/19 08:05) Swelling Tolerates cephalosporins with no issue Home Medications: Ambulatory Orders Medication Instructions Recorded Aspirin [Aspirin, Baby] 81 mg PO DAILY@0800 03/08/15 Acetaminophen [Tylenol Tablet] 650 mg PO Q6H PRN PRN tab 10/11/18 Insulin Glargine [Lantus (BKC)] 15 units SUBCUT BREAKFAST 02/05/19 metFORMIN HCl [Glucophage] 500 mg PO BIDCM 02/05/19 Ciprofloxacin [Cipro] 500 mg PO BID 02/21/19 Clindamycin HCl 300 mg PO TID 02/21/19 Amlodipine [Norvasc] 5 mg PO DAILY 02/26/19 Lisinopril [Zestril] 10 mg PO DAILY 02/26/19 Hydrocodone/Acetaminophen 1 - 2 tab PO Q6H PRN PRN 3 Days 02/28/19 [Hydrocodon-Acetaminophen 5-325] #10 tab Maternal Family History: COPD, Diabetes, - Paternal Family History: Heart Disease, Renal Disease, - Sibling Family History: - - He has a sister who has rheumatoid arthritis. Lives: Alone Smoking Status: Former smoker Tobacco Use: Cigarettes, Chew Alcohol: Occasional Drugs: None Physical Exam Vital Signs Temp Pulse Resp BP 97.8 F 105 H 18 144/86 H 02/27/19 10:06 02/27/19 10:06 02/27/19 10:06 02/27/19 10:06 General: Alert, Oriented x3, Cooperative, No apparent distress HEENT: Atraumatic, TM's Clear Lungs: Clear to auscultation, Normal air movement Cardiovascular: Regular rate, Regular Rhythm Psych/Mental Status: Normal Affect, Appropriate, Alert and oriented to time, place, person, mood and affect Assessment/Plan Active Problems (Last Reviewed 10/08/18 @ 02:00 by Mehrdad Alexis MD) Ulcer of right foot with fat layer exposed (Chronic) Ulcer of right foot with necrosis of muscle (Chronic) Delayed wound healing (Chronic) Malnutrition (Chronic) Other specified peripheral vascular diseases (Chronic) Type 2 diabetes mellitus with diabetic polyneuropathy (Chronic) Osteomyelitis (Chronic) Diabetes mellitus type 2 with complications (Chronic) The patient appears to be tolerating hyperbaric oxygen therapy well, which will be continued as per the patient's medical plan.
[2019-03-03 11:42] VITALS: BP 138/90; BP 147/100; PULSE 93; PULSE 98; RESP 16; RESP 18; TEMP 36.6; TEMP 37
[2019-03-03 12:20] LABS: Bedside Glucose 122 mg/dL (70-110)
== END 2019-03-08 23:59 ==
LOC: WC 10:00
PROVIDERS: Referring Provider Podiatrist; Visit Provider Podiatrist
DX: E11.621 Type 2 diabetes mellitus with foot ulcer (principal); L97.513 Non-pressure chronic ulcer of other part of right foot with necrosis of muscle; E11.42 Type 2 diabetes mellitus with diabetic polyneuropathy; E11.51 Type 2 diabetes mellitus with diabetic peripheral angiopathy without gangrene; E11.65 Type 2 diabetes mellitus with hyperglycemia; Z79.899 Other long term (current) drug therapy; Z79.4 Long term (current) use of insulin; Z79.82 Long term (current) use of aspirin; F17.210 Nicotine dependence, cigarettes, uncomplicated; F17.220 Nicotine dependence, chewing tobacco, uncomplicated; L97.512 Non-pressure chronic ulcer of other part of right foot with fat layer exposed
CPT/HCPCS: 11042; 11043; 11045; 36415; 71046; 73630; 80053; 82962; 85025; 85652; 86140; 93005; 99183; 99212; G0277; G0463

== ENCOUNTER 2019-03-26 09:00 | Outpatient (RCR) | payer SELFPAY ==
[2019-03-09 01:09] VITALS: BP 147/100; PULSE 93; RESP 16; TEMP 36.6
[2019-03-10 12:26] LABS: Bedside Glucose 165 mg/dL (70-110)
--- NOTE | 2019-03-10 13:01 | HBO.PN.PCM_ITS ---
History of Present Illness Date of Service: 03/10/19 Presenting Chief Complaint: Farrell Grade 3 diabetic right foot ulceration with osteomyelitis SHAREE JUNIOR Jr. is a 48 year old currently undergoing hyperbaric oxygen therapy for Treatment of a [place] grade 2 diabetic foot ulcer of his right lateral foot with osteomyelitis. Progress: This patient presents today for hyperbaric oxygen therapy. He has 40 planned sessions and today is the 11th such treatment. Tolerance of hyperbaric oxygen therapy: Hyperbaric oxygen therapy was administered today as per our facility's protocol. Hyperbaric oxygen therapy was administered for 90 minutes at 2 ATMs. The patient tolerated hyperbaric oxygen therapy well, without complaint or complication. Upon emergence from the hyperbaric oxygen chamber, patient's blood pressure and other vital signs remained stable. He was discharged in good condition. See documented blood glucose levels. Past Medical History Past Medical History Pertinent to Hyperbaric Oxygen Therapy: Diabetes Chronic Problems (Last Reviewed 10/08/18 @ 02:00 by Mehrdad Alexis MD) Ulcer of right foot with fat layer exposed (Chronic) Ulcer of right foot with necrosis of muscle (Chronic) Delayed wound healing (Chronic) Malnutrition (Chronic) Other specified peripheral vascular diseases (Chronic) Type 2 diabetes mellitus with diabetic polyneuropathy (Chronic) Osteomyelitis (Chronic) Diabetes mellitus type 2 with complications (Chronic) Allergies/Adverse Reactions: Allergies Penicillins Allergy (Verified 02/28/19 08:05) Swelling Tolerates cephalosporins with no issue Home Medications: Ambulatory Orders Medication Instructions Recorded Aspirin [Aspirin, Baby] 81 mg PO DAILY@0800 03/08/15 Acetaminophen [Tylenol Tablet] 650 mg PO Q6H PRN PRN tab 10/11/18 Insulin Glargine [Lantus (BKC)] 15 units SUBCUT BREAKFAST 02/05/19 metFORMIN HCl [Glucophage] 500 mg PO BIDCM 02/05/19 Ciprofloxacin [Cipro] 500 mg PO BID 02/21/19 Clindamycin HCl 300 mg PO TID 02/21/19 Amlodipine [Norvasc] 5 mg PO DAILY 02/26/19 Lisinopril [Zestril] 10 mg PO DAILY 02/26/19 Maternal Family History: COPD, Diabetes, - Paternal Family History: Heart Disease, Renal Disease, - Sibling Family History: - - He has a sister who has rheumatoid arthritis. Smoking Status: Former smoker Tobacco Use: Cigarettes, Chew Physical Exam Vital Signs Temp Pulse Resp BP 97.8 F 93 16 147/100 H 03/09/19 01:09 03/09/19 01:09 03/09/19 01:09 03/09/19 01:09 General: Alert, Oriented x3, Cooperative, No apparent distress HEENT: Atraumatic, TM's Clear Lungs: Clear to auscultation, Normal air movement Cardiovascular: Regular rate, Regular Rhythm Psych/Mental Status: Normal Affect, Appropriate, Alert and oriented to time, place, person, mood and affect Assessment/Plan The patient appears to be tolerating hyperbaric oxygen therapy well, which will be continued as per the patient's medical plan.
[2019-03-10 14:06] LABS: Bedside Glucose 236 mg/dL (70-110)
[2019-03-11 09:55] LABS: Bedside Glucose 358 mg/dL (70-110)
[2019-03-11 10:31] LABS: Bedside Glucose 318 mg/dL (70-110)
--- NOTE | 2019-03-11 10:36 | NURSING ---
Patient did not have his HBOTx d/t elevated blood sugar. Patient reported last night he ate pasta and bread sticks. This morning at 8:20am he ate a pear. Patient's first blood sugar registered at: 358 at 0953. Had the patient sit and wait to retest. Patient's blood sugar registered at: 318 at 1022. Reported this to Dr. Manny Waters. D/t [facility] policy, patient would not be able to have his treatment today. Patient voiced understanding.
[2019-03-12 09:21] VITALS: BP 136/79; PULSE 87; RESP 18; TEMP 36.4; BMI 24.0
--- NOTE | 2019-03-12 10:08 | PCM.WC.PN ---
(1) Ulcer of right foot with fat layer exposed Status: Chronic Code(s): L97.512 - Non-pressure chronic ulcer of other part of right foot with fat layer exposed (2) Ulcer of right foot with necrosis of muscle Status: Chronic Code(s): L97.513 - Non-pressure chronic ulcer of other part of right foot with necrosis of muscle (3) Delayed wound healing Status: Chronic Code(s): T14.8XXD - Other injury of unspecified body region, subsequent encounter (4) Malnutrition Status: Chronic Qualifiers: Code(s): E46 - Unspecified protein-calorie malnutrition (5) Other specified peripheral vascular diseases Status: Chronic Code(s): I73.89 - Other specified peripheral vascular diseases (6) Type 2 diabetes mellitus with diabetic polyneuropathy Status: Chronic Qualifiers: Code(s): E11.42 - Type 2 diabetes mellitus with diabetic polyneuropathy Type of Wound Date of Service: 03/12/19 Chief Complaint: Farrell Grade 3 diabetic right foot ulceration with osteomyelitis History of Wound: This 48-year-old male with uncontrolled diabetes with neuropathy was referred to the wound healing center for a deep right foot ulcer. This has been recurrent since November. He recently had surgical debridement with the versa jet and application of amnio fill and epi cord performed at 02/28/2019 at [facility]. He denies fever, chill, nausea, vomiting or pain. He denies odor or redness. He has kept his dressing clean and intact as advised. He like to review his bone biopsy results. Progress of Wound: improving - Physical Exam Vital Signs Temp Pulse Resp BP 97.6 F L 87 18 136/79 H 03/12/19 09:21 03/12/19 09:21 03/12/19 09:21 03/12/19 09:21 General: Alert, Oriented x3, Cooperative, No apparent distress Extremities: No cyanosis, Capillary Refill Less than 3 Seconds, No Calf Tenderness, Diminished Peripheral Pulses, Edema Skin: Ulcer/ Wound - No purulence, erythema, string, odor, infection. The overlying wound veil of Adaptic that was sutured in place was removed and it appears the advanced wound healing product is incorporating and well to both sites. There is no visualized bone or tendon. The peripheral skin is hairless and atrophic. Wound Measurements and Assessment WC - Nurse 2 - General Ulcer CM Notes Start: 03/11/19 10:36 Freq: Status: Active Protocol: Activity Type Activity Date Activity User E-Sign Co-Sign Detail Recorded Client Recorded Date Recorded By Document 03/12/19 09:31 [id number] 03/12/19 09:35 03/12/19 09:31 Wound Center Nurse 2 [Procedure/Treatment] #2 RIGHT DORSAL FOOT -Correct Patient No -Correct Side, Site, Position No -Correct Procedure No -Procedure Performed No -Wound/Ulcer Outcome Not Healed #1 Right Lateral Foot -Correct Patient No -Correct Side, Site, Position No -Correct Procedure No -Procedure Performed No -Wound/Ulcer Outcome Not Healed [See Physician Procedure note for Specifics] Pain Scale: 0-10 Numeric [Pain] -Is Patient Pain Free? Yes Musculoskeletal: No Tenderness to Palpation of Joints or Extremities, Muscle Wasting Neurological: - - Lack of normal epicritic sensation light touch is consistent with neuropathy Psych/Mental Status: Normal Affect, Appropriate Debridement Note Post-Debridement Measurements/Treatment WC - Nurse 2 - General Ulcer CM Notes Start: 03/11/19 10:36 Freq: Status: Active Protocol: Activity Type Activity Date Activity User E-Sign Co-Sign Detail Recorded Client Recorded Date Recorded By Document 03/12/19 09:31 [id number] [id number] 03/12/19 09:35 03/12/19 09:31 Wound Center Nurse 2 #2 RIGHT DORSAL FOOT -Correct Patient No -Correct Side, Site, Position No -Correct Procedure No -Procedure Performed No -Wound/Ulcer Outcome Not Healed #1 Right Lateral Foot -Correct Patient No -Correct Side, Site, Position No -Correct Procedure No -Procedure Performed No -Wound/Ulcer Outcome Not Healed Pain Scale: 0-10 Numeric Is Patient Pain Free? Yes Wound debrided: dorsal foot Laterality: Right Wound Grade/Stage: grade 3 No debridement was completed today - Additional Wound Wound debrided: lateral foot Laterality: Right Wound Grade/Stage: grade 1 Patient tolerated procedure: Patient did not tolerate procedure well Assessment/Plan Assessment: Right foot ulcer with necrotic tendon/muscle exposed -infection work up is ongoing (farrell grade 3) - status post Versajet debridement with application of amnio fill and epi cord performed on 02/28/2018. Micropathology bone biopsies were negative for osteomyelitis. Uncontrolled diabetes with neuropathy. Delayed healing. Malnutrition suspected. Other comorbidities including anemia, thrombocytopenia, history of septic hip, history of recurrent multiple infections, weight loss. Currently on anticoagulation medication, Eliquis, for DVT treatment Plan: I reviewed and discussed his case including etiology, comprehensive wound healing plan, and anticipated healing time and management. The Adaptic was removed including the sutures and it appears advanced wound healing product amnio fill and epi cord are incorporating well. This was not debrided today. These were covered again with Adaptic touch and secured with Steri-Strips. Debridement will be considered next week. He was reassured no local signs of infection are noted. His fifth metatarsal bone biopsy was also reviewed as the following: Microbiology specimens were negative for bacterial growth and the pathology specimen was negative for acute osteomyelitis. His status of Farrell grade 3 would also make him a candidate for hyperbaric oxygen therapy. He was advised to continue this as prescribed and is doing well so far. To offload the ulcer site with a cam walker boot. He was advised to bring his previous offloading devices to clinic and he presents with a surgical shoe. To continue at this time. To avoid strap placement directly over the ulcer sites. I recommend transition to a CAM walker at this time. To optimize glycemic control and proper nutritional intake to promote timely healing. Nutrition supplement prescription was offered for Pool. He did have prior noninvasive vascular studies performed in October 2018 with right RAFITA of 1.33 and 1.24 and left RAFITA of 1.1 and the DP on the side with noncompressible. His toe brachial indices were 0.6 on the right and 0.55 on the left. Due to his lack of healing and noted noncompressible vessels, I do recommend a vascular surgery referral at this time with Dr. Edmonds. Smoking cessation was also reviewed and he understands this will delay healing and vascular perfusion. To return to the wound healing center 1 week or call sooner if he has any questions or concerns. To monitor for local development of infection or systemic illness.
[2019-03-12 10:15] LABS: Bedside Glucose 136 mg/dL (70-110)
--- NOTE | 2019-03-12 11:24 | HBO.PN.PCM_ITS ---
History of Present Illness Date of Service: 03/12/19 Presenting Chief Complaint: Farrell Grade 3 diabetic right foot ulceration with osteomyelitis SHAREE JUNIOR Jr. is a 48 year old currently undergoing hyperbaric oxygen therapy for Treatment of a [place] grade 2 diabetic foot ulcer of his right lateral foot with osteomyelitis. Progress: This patient presents today for hyperbaric oxygen therapy. He has 40 planned sessions and today is the 11th such treatment. Tolerance of hyperbaric oxygen therapy: Hyperbaric oxygen therapy was administered today as per our facility's protocol. Hyperbaric oxygen therapy was administered for 90 minutes at 2 ATMs. The patient tolerated hyperbaric oxygen therapy well, without complaint or complication. Upon emergence from the hyperbaric oxygen chamber, patient's blood pressure and other vital signs remained stable. He was discharged in good condition. See documented blood glucose levels. Past Medical History Past Medical History Pertinent to Hyperbaric Oxygen Therapy: Diabetes Chronic Problems (Last Reviewed 10/08/18 @ 02:00 by Mehrdad Alexis MD) Ulcer of right foot with fat layer exposed (Chronic) Ulcer of right foot with necrosis of muscle (Chronic) Delayed wound healing (Chronic) Malnutrition (Chronic) Other specified peripheral vascular diseases (Chronic) Type 2 diabetes mellitus with diabetic polyneuropathy (Chronic) Osteomyelitis (Chronic) Diabetes mellitus type 2 with complications (Chronic) Allergies/Adverse Reactions: Allergies Penicillins Allergy (Verified 02/28/19 08:05) Swelling Tolerates cephalosporins with no issue Home Medications: Ambulatory Orders Medication Instructions Recorded Aspirin [Aspirin, Baby] 81 mg PO DAILY@0800 03/08/15 Acetaminophen [Tylenol Tablet] 650 mg PO Q6H PRN PRN tab 10/11/18 Insulin Glargine [Lantus (BKC)] 15 units SUBCUT BREAKFAST 02/05/19 metFORMIN HCl [Glucophage] 500 mg PO BIDCM 02/05/19 Ciprofloxacin [Cipro] 500 mg PO BID 02/21/19 Clindamycin HCl 300 mg PO TID 02/21/19 Amlodipine [Norvasc] 5 mg PO DAILY 02/26/19 Lisinopril [Zestril] 10 mg PO DAILY 02/26/19 Maternal Family History: COPD, Diabetes, - Paternal Family History: Heart Disease, Renal Disease, - Sibling Family History: - - He has a sister who has rheumatoid arthritis. Smoking Status: Former smoker Tobacco Use: Cigarettes, Chew Physical Exam Vital Signs Temp Pulse Resp BP 97.6 F L 87 18 136/79 H 03/12/19 09:21 03/12/19 09:21 03/12/19 09:21 03/12/19 09:21 Assessment/Plan Active Problems (Last Reviewed 10/08/18 @ 02:00 by Mehrdad Alexis MD) Ulcer of right foot with fat layer exposed (Chronic) Ulcer of right foot with necrosis of muscle (Chronic) Delayed wound healing (Chronic) Malnutrition (Chronic) Other specified peripheral vascular diseases (Chronic) Type 2 diabetes mellitus with diabetic polyneuropathy (Chronic) The patient appears to be tolerating hyperbaric oxygen therapy well, which will be continued as per the patient's medical plan.
[2019-03-12 12:00] VITALS: BP 136/79; BP 151/94; PULSE 83; PULSE 87; RESP 16; RESP 18; TEMP 36.1; TEMP 36.6
[2019-03-12 12:21] LABS: Bedside Glucose 124 mg/dL (70-110)
[2019-03-19 08:48] VITALS: BP 159/96; PULSE 102; RESP 18; TEMP 35.3; BMI 24.0
--- NOTE | 2019-03-19 10:11 | PN.PCM_ITS ---
(1) Ulcer of right foot with fat layer exposed Status: Chronic Current Visit: Yes Code(s): L97.512 - Non-pressure chronic ulcer of other part of right foot with fat layer exposed (2) Ulcer of right foot with necrosis of muscle Status: Chronic Current Visit: Yes Code(s): L97.513 - Non-pressure chronic ulcer of other part of right foot with necrosis of muscle (3) Delayed wound healing Status: Chronic Current Visit: Yes Code(s): T14.8XXD - Other injury of unspecified body region, subsequent encounter (4) Malnutrition Status: Chronic Current Visit: Yes Qualifiers: Code(s): E46 - Unspecified protein-calorie malnutrition (5) Other specified peripheral vascular diseases Status: Chronic Current Visit: Yes Code(s): I73.89 - Other specified peripheral vascular diseases (6) Type 2 diabetes mellitus with diabetic polyneuropathy Status: Chronic Current Visit: Yes Qualifiers: Code(s): E11.42 - Type 2 diabetes mellitus with diabetic polyneuropathy Type of Wound Date of Service: 03/19/19 Chief Complaint: [place] Grade 3 diabetic right foot ulceration with osteomyelitis History of Wound: This 48-year-old male with uncontrolled diabetes with neuropathy was referred to the wound healing center for a deep right foot ulcer. This has been recurrent since November. He recently had surgical debridement with the versa jet and application of amnio fill and epi cord performed at 02/28/2019 at [facility]. He denies fever, chill, nausea, vomiting or pain. He denies odor or redness. He has kept his dressing clean and intact as advised. He like to review his bone biopsy results. He has missed several hyperbaric oxygen therapy treatments because he is under the understanding that his insurance stopped in early February. He is very concerned about this at this time and would like to confirm insurance coverage prior to resuming. Progress of Wound: improving - Physical Exam Vital Signs Temp Pulse Resp BP 95.5 F L 102 H 18 159/96 H 03/19/19 08:48 03/19/19 08:48 03/19/19 08:48 03/19/19 08:48 General: Alert, Oriented x3, Cooperative, No apparent distress HEENT: Atraumatic Extremities: No cyanosis, Capillary Refill Less than 3 Seconds, No Calf Te nderness, Diminished Peripheral Pulses, Edema - That used to smell so bad Skin: Ulcer/ Wound - No purulence, erythema, streaking, odor, infection. There is no longer any exposed visualized tendon or bone to the lateral ulcer site. The peripheral skin is hairless and atrophic. The dorsal ulcer site now is bleeding and granular and healthy and has peripheral epithelialization. There is still some advanced wound healing product including the previously applied epi cord amnio fill that appears to be incorporating in. Around the peripheral areas granulation tissue is also reducing the depth of the ulcer site Wound Measurements and Assessment WC - Nurse 1 - General Ulcer Measurement Start: 03/11/19 10:36 Freq: Status: Active Protocol: Activity Type Activity Date Activity User E-Sign Co-Sign Detail Recorded Client Recorded Date Recorded By Document 03/19/19 08:48 BS [id number] 03/19/19 09:03 03/19/19 08:48 Wound Center Nurse 1 [Ulcer Assessment] #2 RIGHT DORSAL FOOT -Combined with other wound No -Current Size (cm) - Length 8.3 -Current Size (cm) - Width 2.0 -Current Size (cm) - Depth 0.4 -Total Square Cm 16.60 -Granulation Quality [place],Red -Moisture (Wendy-wound Skin Appearance Assessed,Dry/ ) Scaly -Temperature (Wendy-wound Skin No Abnormality Appearance) (Pt Warm) -Tenderness on Palpation (Wendy-wound No Skin Appearance) -Ulcer Cleansing Rinsed/ Irrigated with Saline -Foul Odor after Cleansing No -Anesthetic Used 4% Lidocaine Solution #1 Right Lateral Foot -Combined with other wound No -Current Size (cm) - Length 0.4 -Current Size (cm) - Width 1.0 -Current Size (cm) - Depth 0.1 -Total Square Cm 0.40 -Moisture (Wendy-wound Skin Appearance Assessed,Dry/ ) Scaly -Temperature (Wendy-wound Skin No Abnormality Appearance) (Pt Warm) -Tenderness on Palpation (Wendy-wound No Skin Appearance) -Ulcer Cleansing Rinsed/ Irrigated with Saline -Foul Odor after Cleansing No -Anesthetic Used 4% Lidocaine Solution MAGDALENE - Nurse 2 - General Ulcer CM Notes Start: 03/11/19 10:36 Freq: Status: Active Protocol: Activity Type Activity Date Activity User E-Sign Co-Sign Detail Recorded Client Recorded Date Recorded By Document 03/19/19 09:21 [id number] 03/19/19 09:25 03/19/19 09:21 Wound Center Nurse 2 [Procedure/Treatment] #2 RIGHT DORSAL FOOT -Time 09:22 -Correct Patient Yes -Correct Side, Site, Position Yes -Correct Procedure Yes -Procedure Performed Yes -Type of Procedure Debridement -Clinical Debridement Subcutaneous -Post Debridement Size (cm) - Length 8.3 -Post Debridement Size (cm) - Width 2.1 -Post Debridement Size (cm) - Depth 0.4 -Total Square Cm 17.43 -Wound/Ulcer Outcome Not Healed -Ulcer Cleansing Rinsed/ Irrigated with Saline -Foul Odor after Cleansing No -Bioengineered Tissue No -Bleeding Controlled with Pressure -Offloading Yes -Type of Offloading Camwalker -Treatment Response Procedure Tolerated Well #1 Right Lateral Foot -Time 09:22 -Correct Patient Yes -Correct Side, Site, Position Yes -Correct Procedure Yes -Procedure Performed Yes -Type of Procedure Debridement -Clinical Debridement Subcutaneous -Post Debridement Size (cm) - Length 0.5 -Post Debridement Size (cm) - Width 1 -Post Debridement Size (cm) - Depth 0.1 -Total Square Cm 0.5 -Wound/Ulcer Outcome Not Healed -Ulcer Cleansing Rinsed/ Irrigated with Saline -Foul Odor after Cleansing No -Bioengineered Tissue No -Bleeding Controlled with Pressure -Offloading Yes -Type of Offloading Camwalker -Treatment Response Procedure Tolerated Well [See Physician Procedure note for Specifics] Pain Scale: 0-10 Numeric [Pain] -Is Patient Pain Free? Yes Musculoskeletal: No Tenderness to Palpation of Joints or Extremities, Muscle Wasting Neurological: - - Lack of epicritic sensation to light touch consistent with neuropathy Psych/Mental Status: Normal Affect, Appropriate Debridement Note Post-Debridement Measurements/Treatment WC - Nurse 2 - General Ulcer CM Notes Start: 03/11/19 10:36 Freq: Status: Active Protocol: Activity Type Activity Date Activity User E-Sign Co-Sign Detail Recorded Client Recorded Date Recorded By Document 03/12/19 09:31 [id number] 03/12/19 09:35 Document 03/19/19 09:21 [id number] 03/19/19 09:25 03/12/19 03/19/19 09:31 09:21 Wound Center Nurse 2 #2 RIGHT DORSAL FOOT -Time 09:22 -Correct Patient No Yes -Correct Side, Site, Position No Yes -Correct Procedure No Yes -Procedure Performed No Yes -Type of Procedure Debridement -Clinical Debridement Subcutaneous -Post Debridement Size (cm) - Length 8.3 -Post Debridement Size (cm) - Width 2.1 -Post Debridement Size (cm) - Depth 0.4 -Total Square Cm 17.43 -Wound/Ulcer Outcome Not Healed Not Healed -Ulcer Cleansing Rinsed/ Irrigated with Saline -Foul Odor after Cleansing No -Bioengineered Tissue No -Bleeding Controlled with Pressure -Offloading Yes -Type of Offloading Camwalker -Treatment Response Procedure Tolerated Well #1 Right Lateral Foot -Time 09:22 -Correct Patient No Yes -Correct Side, Site, Position No Yes -Correct Procedure No Yes -Procedure Performed No Yes -Type of Procedure Debridement -Clinical Debridement Subcutaneous -Post Debridement Size (cm) - Length 0.5 -Post Debridement Size (cm) - Width 1 -Post Debridement Size (cm) - Depth 0.1 -Total Square Cm 0.5 -Wound/Ulcer Outcome Not Healed Not Healed -Ulcer Cleansing Rinsed/ Irrigated with Saline -Foul Odor after Cleansing No -Bioengineered Tissue No -Bleeding Controlled with Pressure -Offloading Yes -Type of Offloading Camwalker -Treatment Response Procedure Tolerated Well Pain Scale: 0-10 Numeric Is Patient Pain Free? Yes Yes Wound debrided: lateral foot Laterality: Right Wound Grade/Stage: grade 3 Type of Debridement: Excisional debridement Anesthesia Used: 5% Lidocaine Gel Depth: in the subcutaneous layer Percentage of wound debrided: 80 Instrument Used: #15 blade Tissue Removed: fibrous, devitalized subcutaneous, biofilm, slough Severity: Fat Layer Exposed Amount of bleeding with debridement: Mild Bleeding Controlled with: Pressure Patient tolerated procedure well - Additional Wound Wound debrided: dorsal foot Laterality: Right Wound Grade/Stage: grade 1 Type of Debridement: Excisional debridement Anesthesia Used: 5% Lidocaine Gel Depth: in the subcutaneous layer Percentage of wound debrided: 100 Instrument Used: #15 blade Tissue Removed: fibrous, devitalized subcutaneous, biofilm, slough Severity: Fat Layer Exposed Amount of bleeding with debridement: Mild Bleeding Controlled with: Pressure Patient tolerated procedure: Patient tolerated procedure well Assessment/Plan Active Problems (Last Reviewed 10/08/18 @ 02:00 by Mehrdad Alexis MD) Ulcer of right foot with fat layer exposed (Chronic) Ulcer of right foot with necrosis of muscle (Chronic) Delayed wound healing (Chronic) Malnutrition (Chronic) Other specified peripheral vascular diseases (Chronic) Type 2 diabetes mellitus with diabetic polyneuropathy (Chronic) Assessment: Right foot ulcer with necrotic tendon/muscle exposed -infection work up is ongoing (farrell grade 3) - status post Versajet debridement with application of amnio fill and epi cord performed on 02/28/2018. Micropathology bone biopsies were negative for osteomyelitis. Uncontrolled diabetes with neuropathy. Delayed healing. Malnutrition suspected. Other comorbidities including anemia, thrombocytopenia, history of septic hip, history of recurrent multiple infections, weight loss. Currently on anticoagulation medication, Eliquis, for DVT treatment Plan: I reviewed and discussed his case including etiology, comprehensive wound healing plan, and anticipated healing time and management. Subcutaneous excisional debridement was performed today as noted in the clinical panel. These were covered again with Adaptic and hydrogel and secured with Steri-Strips to the lateral foot. And hydrogel to the dorsal foot. To leave the lateral foot ulcer site in place for the next week. He change the dorsal foot ulcer site every 1 to 2 days. Debridement will be considered next week. He was reassured no local signs of infection are noted. His fifth metatarsal bone biopsy was also reviewed as the following: Microbiology specimens were negative for bacterial growth and the pathology specimen was negative for acute osteomyelitis. His status of [place] grade 3 would also make him a candidate for hyperbaric oxygen therapy. He was advised to continue this as prescribed and is doing well so far. He is concerned about lack of insurance coverage at this time. To resume soon his this is confirmed. We will help him look into this as well at the center here. To offload the ulcer site with a cam walker boot. He was advised to bring his previous offloading devices to clinic and he presents with a surgical shoe. To continue at this time. To avoid strap placement direc tly over the ulcer sites. I recommend transition to a CAM walker at this time. To optimize glycemic control and proper nutritional intake to promote timely healing. Nutrition supplement prescription was offered for Pool. He did have prior noninvasive vascular studies performed in October 2018 with right RAFITA of 1.33 and 1.24 and left RAFITA of 1.1 and the DP on the side with noncompressible. His toe brachial indices were 0.6 on the right and 0.55 on the left. Due to his lack of healing and noted noncompressible vessels, I do recommend a vascular surgery referral at this time with Dr. Edmonds. Smoking cessation was also reviewed and he understands this will delay healing and vascular perfusion. To return to the wound healing center 1 week or call sooner if he has any questions or concerns. To monitor for local development of infection or systemic illness.
[2019-03-26 08:50] VITALS: BP 163/94; PULSE 99; RESP 18; TEMP 36.3; BMI 24.0
--- NOTE | 2019-03-26 10:06 | PCM.WC.PN ---
(1) Ulcer of right foot with fat layer exposed Status: Chronic Current Visit: Yes Code(s): L97.512 - Non-pressure chronic ulcer of other part of right foot with fat layer exposed (2) Ulcer of right foot with necrosis of muscle Status: Chronic Current Visit: Yes Code(s): L97.513 - Non-pressure chronic ulcer of other part of right foot with necrosis of muscle (3) Delayed wound healing Status: Chronic Current Visit: Yes Code(s): T14.8XXD - Other injury of unspecified body region, subsequent encounter (4) Malnutrition Status: Chronic Current Visit: Yes Qualifiers: Code(s): E46 - Unspecified protein-calorie malnutrition (5) Other specified peripheral vascular diseases Status: Chronic Current Visit: Yes Code(s): I73.89 - Other specified peripheral vascular diseases (6) Type 2 diabetes mellitus with diabetic polyneuropathy Status: Chronic Current Visit: Yes Qualifiers: Code(s): E11.42 - Type 2 diabetes mellitus with diabetic polyneuropathy Type of Wound Date of Service: 03/26/19 Chief Complaint: Right foot ulcers History of Wound: This 48-year-old male with uncontrolled diabetes with neuropathy was referred to the wound healing center for a deep right foot ulcer and also more superficial right dorsal foot ulcer. This has been recurrent since November. He recently had surgical debridement with the versa jet and application of amnio fill and epi cord performed at 02/28/2019 at [facility]. He denies fever, chill, nausea, vomiting or pain. He denies odor or redness. He has kept his dressing clean and intact as advised. He like to review his bone biopsy results. He has missed several hyperbaric oxygen therapy treatments because he is under the understanding that his insurance stopped in early February. He is very concerned about this at this time and would like to confirm insurance coverage prior to resuming. He admits he has not been answering his phone because he is afraid they are scam callers and he is unaware that the wound center has been trying to contact him in regards to his current insurance coverage for hyperbaric oxygen therapy. Progress of Wound: improving - Physical Exam Vital Signs Temp Pulse Resp BP 97.4 F L 99 18 163/94 H 03/26/19 08:50 03/26/19 08:50 03/26/19 08:50 03/26/19 08:50 General: Alert, Oriented x3, Cooperative, No apparent distress HEENT: Atraumatic Extremities: No cyanosis, Capillary Refill Less than 3 Seconds, No Calf Tenderness, Diminished Peripheral Pulses Skin: Ulcer/ Wound - No purulence, odor, erythema, string, infection. There is no longer any visualized bone or tendon to the lateral right foot ulcer site there is improved granulation tissue and healthy bleeding tissue. The dorsal ulcer is also decreased in size and has a healthy granular moist base Wound Measurements and Assessment WC - Nurse 1 - General Ulcer Measurement Start: 03/11/19 10:36 Freq: Status: Active Protocol: Activity Type Activity Date Activity User E-Sign Co-Sign Detail Recorded Client Recorded Date Recorded By Document 03/26/19 08:50 DL [id number] 03/26/19 09:02 DL 03/26/19 08:50 Wound Center Nurse 1 [Ulcer Assessment] #2 RIGHT DORSAL FOOT -Current Size (cm) - Length 0.1 -Current Size (cm) - Width 0.1 -Current Size (cm) - Depth 0.1 -Total Square Cm 0.01 -Photo Taken No -Exudate Amt None Present -Wound Margin Flat & Intact -Granulation Amt Large (67-100%) -Granulation Quality [place] -Necrosis Amt None Present (0 %) -Structure Exposed N/A -Texture (Wendy-wound Skin Appearance) Scarring -Moisture (Wendy-wound Skin Appearance Dry/Scaly ) -Color (Wendy-wound Skin Appearance) No Abnormality -Temperature (Wendy-wound Skin No Abnormality Appearance) (Pt Warm) -Tenderness on Palpation (Wendy-wound No Skin Appearance) -Ulcer Cleansing Wound Cleanser -Foul Odor after Cleansing No -Anesthetic Used 5% Lidocaine Gel #1 Right Lateral Foot -Current Size (cm) - Length 7.8 -Current Size (cm) - Width 1.7 -Current Size (cm) - Depth 0.2 -Total Square Cm 13.26 -Photo Taken No -Exudate Amt Small -Exudate Type Serosanguineous -Wound Margin Thickened & Rolled Under -Granulation Amt Medium (34-66%) -Necrosis Amt Medium (34-66%) -Necrotic Tissue Type Adherent Slough -Structure Exposed N/A -Texture (Wendy-wound Skin Appearance) Scarring -Moisture (Wendy-wound Skin Appearance Dry/Scaly ) -Color (Wendy-wound Skin Appearance) No Abnormality -Temperature (Wendy-wound Skin No Abnormality Appearance) (Pt Warm) -Tenderness on Palpation (Wendy-wound No Skin Appearance) -Ulcer Cleansing Wound Cleanser -Foul Odor after Cleansing No -Anesthetic Used 5% Lidocaine Gel MAGDALENE - Nurse 2 - General Ulcer CM Notes Start: 03/11/19 10:36 Freq: Status: Active Protocol: Activity Type Activity Date Activity User E-Sign Co-Sign Detail Recorded Client Recorded Date Recorded By Document 03/26/19 09:16 [id number] 03/26/19 09:21 DL 03/26/19 09:16 Wound Center Nurse 2 [Procedure/Treatment] #2 RIGHT DORSAL FOOT -Time 09:16 -Correct Patient Yes -Correct Side, Site, Position Yes -Correct Procedure Yes -Procedure Performed Yes -Type of Procedure Debridement -Clinical Debridement Subcutaneous -Post Debridement Size (cm) - Length 1.3 -Post Debridement Size (cm) - Width 1.1 -Post Debridement Size (cm) - Depth 0.2 -Total Square Cm 1.43 -Wound/Ulcer Outcome Not Healed -Ulcer Cleansing Rinsed/ Irrigated with Saline -Foul Odor after Cleansing No -Bioengineered Tissue No -Bleeding Controlled with Pressure -Offloading Yes -Type of Offloading Knee Walker -Treatment Response Procedure Tolerated Well #1 Right Lateral Foot -Time 09:17 -Correct Patient Yes -Correct Side, Site, Position Yes -Correct Procedure Yes -Procedure Performed Yes -Type of Procedure Debridement -Clinical Debridement Subcutaneous -Post Debridement Size (cm) - Length 2.8 -Post Debridement Size (cm) - Width 7.8 -Post Debridement Size (cm) - Depth 0.3 -Total Square Cm 21.84 -Wound/Ulcer Outcome Not Healed -Ulcer Cleansing Rinsed/ Irrigated with Saline -Foul Odor after Cleansing No -Bioengineered Tissue No -Bleeding Controlled with Pressure -Offloading Yes -Type of Offloading Knee Walker -Treatment Response Procedure Tolerated Well [See Physician Procedure note for Specifics] Pain Scale: 0-10 Numeric [Pain] -Is Patient Pain Free? Yes Musculoskeletal: No Tenderness to Palpation of Joints or Extremities, Muscle Wasting, - - Compartment soft Neurological: - - Lack of epicritic sensation light touch is consistent with neuropathy status Psych/Mental Status: Normal Affect, Appropriate Debridement Note Post-Debridement Measurements/Treatment MAGDALENE - Nurse 2 - General Ulcer CM Notes Start: 03/11/19 10:36 Freq: Status: Active Protocol: Activity Type Activity Date Activity User E-Sign Co-Sign Detail Recorded Client Recorded Date Recorded By Document 03/12/19 09:31 JF [id number] 03/12/19 09:35 JF Document 03/19/19 09:21 JF [id number] 03/19/19 09:25 JF Document 03/26/19 09:16 DL [id number] 03/26/19 09:21 DL 03/12/19 03/19/19 03/26/19 09:31 09:21 09:16 Wound Center Nurse 2 #2 RIGHT DORSAL FOOT -Time 09:22 09:16 -Correct Patient No Yes Yes -Correct Side, Site, Position No Yes Yes -Correct Procedure No Yes Yes -Procedure Performed No Yes Yes -Type of Procedure Debridement Debridement -Clinical Debridement Subcutaneous Subcutaneous -Post Debridement Size (cm) - Length 8.3 1.3 -Post Debridement Size (cm) - Width 2.1 1.1 -Post Debridement Size (cm) - Depth 0.4 0.2 -Total Square Cm 17.43 1.43 -Wound/Ulcer Outcome Not Healed Not Healed Not Healed -Ulcer Cleansing Rinsed/ Rinsed/ Irrigated with Irrigated with Saline Saline -Foul Odor after Cleansing No No -Bioengineered Tissue No No -Bleeding Controlled with Pressure Pressure -Offloading Yes Yes -Type of Offloading Camwalker Knee Walker -Treatment Response Procedure Procedure Tolerated Well Tolerated Well #1 Right Lateral Foot -Time 09:22 09:17 -Correct Patient No Yes Yes -Correct Side, Site, Position No Yes Yes -Correct Procedure No Yes Yes -Procedure Performed No Yes Yes -Type of Procedure Debridement Debridement -Clinical Debridement Subcutaneous Subcutaneous -Post Debridement Size (cm) - Length 0.5 2.8 -Post Debridement Size (cm) - Width 1 7.8 -Post Debridement Size (cm) - Depth 0.1 0.3 -Total Square Cm 0.5 21.84 -Wound/Ulcer Outcome Not Healed Not Healed Not Healed -Ulcer Cleansing Rinsed/ Rinsed/ Irrigated with Irrigated with Saline Saline -Foul Odor after Cleansing No No -Bioengineered Tissue No No -Bleeding Controlled with Pressure Pressure -Offloading Yes Yes -Type of Offloading Camwalker Knee Walker -Treatment Response Procedure Procedure Tolerated Well Tolerated Well Pain Scale: 0-10 Numeric Is Patient Pain Free? Yes Yes Yes Wound debrided: dorsal foot Laterality: Right Wound Grade/Stage: grade 1 Type of Debridement: Excisional debridement Anesthesia Used: 5% Lidocaine Gel Depth: in the subcutaneous layer Percentage of wound debrided: 100 Instrument Used: #15 blade Tissue Removed: fibrous, devitalized subcutaneous, biofilm, slough Severity: Fat Layer Exposed Amount of bleeding with debridement: Mild Bleeding Controlled with: Pressure Patient tolerated procedure well - Additional Wound Wound debrided: lateral foot Laterality: Right Wound Grade/Stage: grade 3 Type of Debridement: Excisional debridement Anesthesia Used: 5% Lidocaine Gel Depth: in the subcutaneous layer Percentage of wound debrided: 100 Instrument Used: #15 blade Tissue Removed: fibrous, devitalized subcutaneous, biofilm, slough Severity: Fat Layer Exposed Amount of bleeding with debridement: Mild Bleeding Controlled with: Pressure Patient tolerated procedure: Patient tolerated procedure well Assessment/Plan Active Problems (Last Reviewed 10/08/18 @ 02:00 by Mehrdad Alexis MD) Ulcer of right foot with fat layer exposed (Chronic) Ulcer of right foot with necrosis of muscle (Chronic) Delayed wound healing (Chronic) Malnutrition (Chronic) Other specified peripheral vascular diseases (Chronic) Type 2 diabetes mellitus with diabetic polyneuropathy (Chronic) Assessment: Right foot ulcer with necrotic tendon/muscle exposed -infection work up is ongoing (farrell grade 3) - status post Versajet debridement with application of amnio fill and epi cord performed on 02/28/2018. Micropathology bone biopsies were negative for osteomyelitis. Uncontrolled diabetes with neuropathy. Delayed healing. Malnutrition suspected. Other comorbidities including anemia, thrombocytopenia, history of septic hip, history of recurrent multiple infections, weight loss. Currently on anticoagulation medication, Eliquis, for DVT treatment Plan: I reviewed and discussed his case including etiology, comprehensive wound healing plan, and anticipated healing time and management. Subcutaneous excisional debridement was performed today as noted in the clinical panel. These were covered again with Adaptic and hydrogel. He is advised changes daily at home. He was reassured no local signs of infection are noted. His fifth metatarsal bone biopsy was also reviewed as the following: Microbiology specimens were negative for bacterial growth and the pathology specimen was negative for acute osteomyelitis. His status of Farrell grade 3 would also make him a candidate for hyperbaric oxygen therapy. He was advised to continue this as prescribed and is doing well so far. He is concerned about lack of insurance coverage at this time. He has been informed that he does have current insurance and I advised him to resume therapy soon as possible. To offload the ulcer site with a cam walker boot. He was advised to bring his previous offloading devices to clinic and he presents with use of a knee roller only today. To optimize glycemic control and proper nutritional intake to promote timely healing. Nutrition supplement prescription was offered for Pool. He did have prior noninvasive vascular studies performed in October 2018 with right RAFITA of 1.33 and 1.24 and left RAFITA of 1.1 and the DP on the side with noncompressible. His toe brachial indices were 0.6 on the right and 0.55 on the left. Due to his lack of healing and noted noncompressible vessels, I do recommend a vascular surgery referral at this time with Dr. Edmonds. Smoking cessation was also reviewed and he understands this will delay healing and vascular perfusion. I recommend application of advanced wound healing product, epi-fix, in outpatient setting. Patient understands this is a placental derived advanced wound healing product that can be applied in clinic. Prior authorization will also be initiated. The indications benefits and anticipated healing time and management were discussed. He understands and elects to proceed forward. This is medically necessary for limb salvage he has failed many other conservative and advanced treatments so far. To return to the wound healing center 2 weeks or call sooner if he has any questions or concerns. To monitor for local development of infection or systemic illness.
== END 2019-04-08 23:59 ==
LOC: WC 09:00
PROVIDERS: Referring Provider Podiatrist; Visit Provider Podiatrist
DX: E11.621 Type 2 diabetes mellitus with foot ulcer (principal); L97.513 Non-pressure chronic ulcer of other part of right foot with necrosis of muscle; E11.42 Type 2 diabetes mellitus with diabetic polyneuropathy; E11.65 Type 2 diabetes mellitus with hyperglycemia; Z86.718 Personal history of other venous thrombosis and embolism; Z79.01 Long term (current) use of anticoagulants
CPT/HCPCS: 11042; 11045; 82962; 99183; 99212; 99213; G0277; G0463

== ENCOUNTER 2019-05-07 13:15 | Outpatient (RCR) | payer SELFPAY ==
[2019-04-09 00:48] VITALS: BP 163/94; PULSE 99; RESP 18; TEMP 36.3
[2019-04-11 13:32] VITALS: BP 184/101; PULSE 91; RESP 18; TEMP 36.8; BMI 24.0
--- NOTE | 2019-04-11 14:39 | PN.PCM_ITS ---
(1) Ulcer of right foot with fat layer exposed Status: Chronic Current Visit: Yes Code(s): L97.512 - Non-pressure chronic ulcer of other part of right foot with fat layer exposed (2) Delayed wound healing Status: Chronic Current Visit: Yes Code(s): T14.8XXD - Other injury of unspecified body region, subsequent encounter (3) Malnutrition Status: Chronic Current Visit: Yes Qualifiers: Code(s): E46 - Unspecified protein-calorie malnutrition (4) Type 2 diabetes mellitus with diabetic polyneuropathy Status: Chronic Current Visit: Yes Qualifiers: Code(s): E11.42 - Type 2 diabetes mellitus with diabetic polyneuropathy Type of Wound Date of Service: 04/11/19 Chief Complaint: Right foot ulcers History of Wound: This 48-year-old male with uncontrolled diabetes with neuropathy was referred to the wound healing center for a deep right foot ulcer and also more superficial right dorsal foot ulcer. This has been recurrent since November. He recently had surgical debridement with the versa jet and application of amnio fill and epi cord performed at 02/28/2019 at [facility]. He denies fever, chill, nausea, vomiting or pain. He denies odor or redness. He has kept his dressing clean and intact as advised. He has not been completing hyperbaric oxygen therapy. He informs us today that he has lost his job and his insurance still not able to proceed forward with any advanced treatments at this time. If he is unable to obtain additional insurance in the near future he relates he would like to transfer his care to the OR. Progress of Wound: improving - Physical Exam Vital Signs Temp Pulse Resp BP 98.2 F 91 18 184/101 H 04/11/19 13:32 04/11/19 13:32 04/11/19 13:32 04/11/19 13:32 General: Alert, Oriented x3, Cooperative, No apparent distress Extremities: No cyanosis, Capillary Refill Less than 3 Seconds, No Calf Tenderness, Diminished Peripheral Pulses, Edema Skin: Ulcer/ Wound - Erythema, string, odor, infection. There is maceration odor to the lateral ulcer site wound bed has improvement with relation tissue. There is no longer any exposed muscle or bone to the lateral foot. Foot wound continues to dry out and has fibrous tissue. There is no exposed deep tissue or granulation tissue present. The skin in general is hairless and atrophic Wound Measurements and Assessment WC - Nurse 1 - General Ulcer Measurement Start: 04/11/19 13:31 Freq: Status: Active Protocol: Activity Type Activity Date Activity User E-Sign Co-Sign Detail Recorded Client Recorded Date Recorded By Document 04/11/19 13:32 GARCIA [id number] 04/11/19 13:37 GARCIA 04/11/19 13:32 Wound Center Nurse 1 [Ulcer Assessment] #2 RIGHT DORSAL FOOT -Combined with other wound No -Current Size (cm) - Length 1.0 -Current Size (cm) - Width 1.4 -Current Size (cm) - Depth 0.1 -Total Square Cm 1.40 -Photo Taken No -Epithelialization Small 1-33% -Tunneling No -Undermining/Tunneling No -Circular Undermining No -Exudate Amt None Present -Wound Margin Flat & Intact -Granulation Amt None Present (0 %) -Slough/Fibrin Yes -Necrosis Amt Large (67-100%) -Necrotic Tissue Type Adherent Slough -Structure Exposed N/A -Texture (Wendy-wound Skin Appearance) Assessed -Moisture (Wendy-wound Skin Appearance Assessed,Dry/ ) Scaly -Color (Wendy-wound Skin Appearance) Assessed -Temperature (Wendy-wound Skin No Abnormality Appearance) (Pt Warm) -Tenderness on Palpation (Wendy-wound No Skin Appearance) -Ulcer Cleansing Rinsed/ Irrigated with Saline -Foul Odor after Cleansing No -Anesthetic Used 4% Lidocaine Solution #1 Right Lateral Foot -Combined with other wound No -Current Size (cm) - Length 8 -Current Size (cm) - Width 1.5 -Current Size (cm) - Depth 0.4 -Total Square Cm 12.0 -Photo Taken No -Epithelialization Small 1-33% -Tunneling No -Undermining/Tunneling No -Circular Undermining No -Exudate Amt Medium -Exudate Type Serosanguineous -Wound Margin Flat & Intact -Granulation Amt Medium (34-66%) -Granulation Quality Red -Slough/Fibrin Yes -Necrosis Amt Medium (34-66%) -Necrotic Tissue Type Adherent Slough -Structure Exposed N/A -Texture (Wendy-wound Skin Appearance) Assessed -Moisture (Wendy-wound Skin Appearance Assessed,Dry/ ) Scaly -Color (Wendy-wound Skin Appearance) Assessed -Temperature (Wendy-wound Skin No Abnormality Appearance) (Pt Warm) -Tenderness on Palpation (Wendy-wound No Skin Appearance) -Ulcer Cleansing Rinsed/ Irrigated with Saline -Foul Odor after Cleansing No -Anesthetic Used 4% Lidocaine Solution [Edema Assessment] -Lower Limb Edema Present No WC - Nurse 2 - General Ulcer CM Notes Start: 04/11/19 13:31 Freq: Status: Active Protocol: Activity Type Activity Date Activity User E-Sign Co-Sign Detail Recorded Client Recorded Date Recorded By Document 04/11/19 14:19 [id number] 04/11/19 14:20 04/11/19 14:19 Wound Center Nurse 2 [Procedure/Treatment] #2 RIGHT DORSAL FOOT -Time 14:19 -Correct Patient Yes -Correct Side, Site, Position Yes -Correct Procedure Yes -Procedure Performed Yes -Type of Procedure Debridement -Clinical Debridement Subcutaneous -Post Debridement Size (cm) - Length 1 -Post Debridement Size (cm) - Width 1.5 -Post Debridement Size (cm) - Depth 0.1 -Total Square Cm 1.5 -Wound/Ulcer Outcome Not Healed -Ulcer Cleansing Rinsed/ Irrigated with Saline -Foul Odor after Cleansing No -Bioengineered Tissue No -Bleeding Controlled with Pressure -Offloading Yes -Type of Offloading Surgical Shoe -Treatment Response Procedure Tolerated Well #1 Right Lateral Foot -Time 14:19 -Correct Patient Yes -Correct Side, Site, Position Yes -Correct Procedure Yes -Procedure Performed Yes -Type of Procedure Debridement -Clinical Debridement Subcutaneous -Post Debridement Size (cm) - Length 8 -Post Debridement Size (cm) - Width 1.6 -Post Debridement Size (cm) - Depth 0.4 -Total Square Cm 12.8 -Wound/Ulcer Outcome Not Healed -Ulcer Cleansing Rinsed/ Irrigated with Saline -Foul Odor after Cleansing No -Bioengineered Tissue No -Bleeding Controlled with Pressure -Offloading Yes -Type of Offloading Surgical Shoe -Treatment Response Procedure Tolerated Well [See Physician Procedure note for Specifics] Pain Scale: 0-10 Numeric [Pain] -Is Patient Pain Free? Yes Musculoskeletal: No Tenderness to Palpation of Joints or Extremities, Muscle Wasting Neurological: - Psych/Mental Status: Normal Affect, Appropriate Debridement Note Post-Debridement Measurements/Treatment WC - Nurse 2 - General Ulcer CM Notes Start: 04/11/19 13:31 Freq: Status: Active Protocol: Activity Type Activity Date Activity User E-Sign Co-Sign Detail Recorded Client Recorded Date Recorded By Document 04/11/19 14:19 GARCIA [id number] 04/11/19 14:20 GARCIA 04/11/19 14:19 Wound Center Nurse 2 #2 RIGHT DORSAL FOOT -Time 14:19 -Correct Patient Yes -Correct Side, Site, Position Yes -Correct Procedure Yes -Procedure Performed Yes -Type of Procedure Debridement -Clinical Debridement Subcutaneous -Post Debridement Size (cm) - Length 1 -Post Debridement Size (cm) - Width 1.5 -Post Debridement Size (cm) - Depth 0.1 -Total Square Cm 1.5 -Wound/Ulcer Outcome Not Healed -Ulcer Cleansing Rinsed/ Irrigated with Saline -Foul Odor after Cleansing No -Bioengineered Tissue No -Bleeding Controlled with Pressure -Offloading Yes -Type of Offloading Surgical Shoe -Treatment Response Procedure Tolerated Well #1 Right Lateral Foot -Time 14:19 -Correct Patient Yes -Correct Side, Site, Position Yes -Correct Procedure Yes -Procedure Performed Yes -Type of Procedure Debridement -Clinical Debridement Subcutaneous -Post Debridement Size (cm) - Length 8 -Post Debridement Size (cm) - Width 1.6 -Post Debridement Size (cm) - Depth 0.4 -Total Square Cm 12.8 -Wound/Ulcer Outcome Not Healed -Ulcer Cleansing Rinsed/ Irrigated with Saline -Foul Odor after Cleansing No -Bioengineered Tissue No -Bleeding Controlled with Pressure -Offloading Yes -Type of Offloading Surgical Shoe -Treatment Response Procedure Tolerated Well Pain Scale: 0-10 Numeric Is Patient Pain Free? Yes Wound debrided: lateral foot Laterality: Left Wound Grade/Stage: grade 3 Type of Debridement: Excisional debridement Anesthesia Used: 5% Lidocaine Gel Depth: in the subcutaneous layer Percentage of wound debrided: 100 Instrument Used: #15 blade Tissue Removed: fibrous, devitalized subcutaneous, biofilm, slough Severity: Fat Layer Exposed Amount of bleeding with debridement: Mild Bleeding Controlled with: Pressure Patient tolerated procedure well - Additional Wound Wound debrided: dorsal foot Laterality: Left Wound Grade/Stage: grade 1 Type of Debridement: Excisional debridement Anesthesia Used: 5% Lidocaine Gel Depth: in the subcutaneous layer Percentage of wound debrided: 100 Instrument Used: #15 blade Tissue Removed: fibrous, devitalized subcutaneous, biofilm, slough Severity: Fat Layer Exposed Amount of bleeding with debridement: Mild Bleeding Controlled with: Pressure Patient tolerated procedure: Patient tolerated procedure well Assessment/Plan Active Problems (Last Reviewed 10/08/18 @ 02:00 by Mehrdad Alexis MD) Ulcer of right foot with fat layer exposed (Chronic) Delayed wound healing (Chronic) Malnutrition (Chronic) Type 2 diabetes mellitus with diabetic polyneuropathy (Chronic) Assessment: Right foot ulcer with necrotic tendon/muscle exposed -infection work up is ongoing (farrell grade 3) - status post Versajet debridement with application of amnio fill and epi cord performed on 02/28/2018. Micropathology bone biopsies were negative for osteomyelitis. Uncontrolled diabetes with neuropathy. Delayed healing. Malnutrition suspected. Other comorbidities including anemia, thrombocytopenia, history of septic hip, history of recurrent multiple infections, weight loss. Currently on anticoagulation medication, Eliquis, for DVT treatment Plan: I reviewed and discussed his case including etiology, comprehensive wound healing plan, and anticipated healing time and management. Subcutaneous excisional debridement was performed today as noted in the clinical panel. These were covered again with Adaptic and hydrogel. He is advised changes daily at home. I also recommend changing the dorsal foot dressing to Santyl to enzymatically debride this ongoing fibrous tissue and to keep the wound bed moist. It is noted he no longer has insurance however he relates he can probably get this prescription filled at the OR. A written prescription was provided today and he was advised on proper use. He was reassured no local signs of infection are noted. His fifth metatarsal bone biopsy was also reviewed as the following: Microbiology specimens were negative for bacterial growth and the pathology specimen was negative for acute osteomyelitis. His status of Farrell grade 3 would also make him a candidate for hyperbaric oxygen therapy. He was advised to continue this as prescribed and is doing well so far. He is no longer able to proceed forward at this time due to lack of job and insurance. Once he obtains new insurance I recommend we resume this activity and also consider application of advanced wound healing products to optimize his healing and prevent limb loss. To offload the ulcer site with a cam walker boot. He was advised to bring his previous offloading devices to clinic and he presents with use of a knee roller only today. To optimize glycemic control and proper nutritional intake to promote timely healing. Nutrition supplement prescription was offered for Pool. He did have prior noninvasive vascular studies performed in October 2018 with right RAFITA of 1.33 and 1.24 and left RAFITA of 1.1 and the DP on the side with noncompressible. His toe brachial indices were 0.6 on the right and 0.55 on the left. Due to his lack of healing and noted noncompressible vessels, I do recommend a vascular surgery referral at this time with Dr. Edmonds. Smoking cessation was also reviewed and he understands this will delay healing and vascular perfusion. To return to the wound healing center 1 week or call sooner if he has any questions or concerns. To monitor for local development of infection or systemic illness.
[2019-04-16 13:22] VITALS: BP 159/79; PULSE 111; RESP 18; TEMP 35.1; BMI 24.0
--- NOTE | 2019-04-16 15:36 | PCM.WC.PN ---
(1) Ulcer of right foot with fat layer exposed Status: Chronic Current Visit: Yes Code(s): L97.512 - Non-pressure chronic ulcer of other part of right foot with fat layer exposed (2) Delayed wound healing Status: Chronic Current Visit: Yes Code(s): T14.8XXD - Other injury of unspecified body region, subsequent encounter (3) Malnutrition Status: Chronic Current Visit: Yes Qualifiers: Code(s): E46 - Unspecified protein-calorie malnutrition (4) Type 2 diabetes mellitus with diabetic polyneuropathy Status: Chronic Current Visit: Yes Qualifiers: Code(s): E11.42 - Type 2 diabetes mellitus with diabetic polyneuropathy Type of Wound Date of Service: 04/16/19 Chief Complaint: Right foot ulcers History of Wound: This 48-year-old male with uncontrolled diabetes with neuropathy was referred to the wound healing center for a deep right foot ulcer and also more superficial right dorsal foot ulcer. This has been recurrent since November. He recently had surgical debridement with the versa jet and application of amnio fill and epi cord performed at 02/28/2019 at [facility]. He denies fever, chill, nausea, vomiting or pain. He denies odor or redness. He has changed his dressing daily with silver cell to the lateral aspect and hydrogel and Adaptic to the dorsal aspect. 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 He has not been completing hyperbaric oxygen therapy. He informs us today that he has lost his job and his insurance still not able to proceed forward with any advanced treatments at this time. He relates he worked to his pillowcase folder yesterday to start the process of getting coverage from the [place] to continue care at [facility] because we offer different services than at the [facility]. he denies fever, chill, nausea, vomiting, diarrhea, redness, or streaking on the foot. Progress of Wound: improving - Physical Exam Vital Signs Temp Pulse Resp BP 95.1 F L 111 H 18 159/79 H 04/16/19 13:22 04/16/19 13:22 04/16/19 13:22 04/16/19 13:22 General: Alert, Oriented x3, Cooperative, No apparent distress Extremities: No cyanosis, Capillary Refill Less than 3 Seconds, No Calf Tenderness, Diminished Peripheral Pulses, Edema Skin: Ulcer/ Wound - No purulence, erythema, streaking, odor, infection. No longer any bone or tendon exposed. There is improvement in granulation tissue to the lateral aspect. The dorsal foot ulcer site remains dry and fibrous and this is not debrided today. His skin is atrophic and hairless Wound Measurements and Assessment WC - Nurse 1 - General Ulcer Measurement Start: 04/11/19 13:31 Freq: Status: Active Protocol: Activity Type Activity Date Activity User E-Sign Co-Sign Detail Recorded Client Recorded Date Recorded By Document 04/16/19 13:22 RB [id number] 04/16/19 13:26 RB 04/16/19 13:22 Wound Center Nurse 1 [Ulcer Assessment] #2 RIGHT DORSAL FOOT -Combined with other wound No -Current Size (cm) - Length 3.3 -Current Size (cm) - Width 1 -Current Size (cm) - Depth 0.1 -Total Square Cm 3.3 -Tunneling No -Undermining/Tunneling No -Circular Undermining No -Exudate Amt Small -Exudate Type Serosanguineous -Wound Margin Flat & Intact -Granulation Amt Small (1-33%) -Granulation Quality [place] -Slough/Fibrin Yes -Necrosis Amt Large (67-100%) -Necrotic Tissue Type Adherent Slough -Structure Exposed N/A -Texture (Wendy-wound Skin Appearance) Assessed, Scarring -Moisture (Wendy-wound Skin Appearance Assessed ) -Color (Wendy-wound Skin Appearance) Assessed -Temperature (Wendy-wound Skin No Abnormality Appearance) (Pt Warm) -Tenderness on Palpation (Wendy-wound No Skin Appearance) -Ulcer Cleansing Wound Cleanser -Foul Odor after Cleansing No -Anesthetic Used 4% Lidocaine Solution #1 Right Lateral Foot -Combined with other wound No -Current Size (cm) - Length 8 -Current Size (cm) - Width 1.3 -Current Size (cm) - Depth 0.6 -Total Square Cm 10.4 -Tunneling No -Undermining/Tunneling No -Circular Undermining No -Exudate Amt Small -Exudate Type Serosanguineous -Wound Margin Flat & Intact -Granulation Amt Large (67-100%) -Granulation Quality Red -Slough/Fibrin Yes -Necrosis Amt Small (1-33%) -Necrotic Tissue Type Adherent Slough -Structure Exposed N/A -Texture (Wendy-wound Skin Appearance) Callus,Scarring -Moisture (Wendy-wound Skin Appearance Maceration ) -Color (Wendy-wound Skin Appearance) Assessed -Temperature (Wendy-wound Skin No Abnormality Appearance) (Pt Warm) -Tenderness on Palpation (Wendy-wound No Skin Appearance) -Ulcer Cleansing Wound Cleanser -Foul Odor after Cleansing No -Anesthetic Used 4% Lidocaine Solution - Nurse 2 - General Ulcer CM Notes Start: 04/11/19 13:31 Freq: Status: Active Protocol: Activity Type Activity Date Activity User E-Sign Co-Sign Detail Recorded Client Recorded Date Recorded By Document 04/16/19 13:39 GARCIA [id number] 04/16/19 13:41 GARCIA 04/16/19 13:39 Wound Center Nurse 2 [Procedure/Treatment] #2 RIGHT DORSAL FOOT -Time 13:40 -Correct Patient Yes -Correct Side, Site, Position Yes -Correct Procedure Yes -Procedure Performed Yes -Type of Procedure Debridement -Clinical Debridement Subcutaneous -Post Debridement Size (cm) - Length 3.4 -Post Debridement Size (cm) - Width 1.0 -Post Debridement Size (cm) - Depth 0.1 -Total Square Cm 3.40 -Wound/Ulcer Outcome Not Healed -Ulcer Cleansing Rinsed/ Irrigated with Saline -Foul Odor after Cleansing No -Bioengineered Tissue No -Bleeding Controlled with Pressure -Offloading Yes -Type of Offloading Knee Walker -Treatment Response Procedure Tolerated Well #1 Right Lateral Foot -Time 13:40 -Correct Patient Yes -Correct Side, Site, Position Yes -Correct Procedure Yes -Procedure Performed Yes -Type of Procedure Debridement -Clinical Debridement Subcutaneous -Post Debridement Size (cm) - Length 8 -Post Debridement Size (cm) - Width 1.4 -Post Debridement Size (cm) - Depth 0.6 -Total Square Cm 11.2 -Wound/Ulcer Outcome Not Healed -Ulcer Cleansing Rinsed/ Irrigated with Saline -Foul Odor after Cleansing No -Bioengineered Tissue No -Bleeding Controlled with Pressure -Offloading Yes -Type of Offloading Knee Walker -Treatment Response Procedure Tolerated Well [See Physician Procedure note for Specifics] Pain Scale: 0-10 Numeric [Pain] -Is Patient Pain Free? Yes Musculoskeletal: No Tenderness to Palpation of Joints or Extremities, Muscle Wasting Neurological: - - Lack of normal epicritic sensation light touch is consistent with neuropathy status Psych/Mental Status: Normal Affect, Appropriate Debridement Note Post-Debridement Measurements/Treatment - Nurse 2 - General Ulcer CM Notes Start: 04/11/19 13:31 Freq: Status: Active Protocol: Activity Type Activity Date Activity User E-Sign Co-Sign Detail Recorded Client Recorded Date Recorded By Document 04/11/19 14:19 [id number] 04/11/19 14:20 Document 04/16/19 13:39 [id number] 04/16/19 13:41 04/11/19 04/16/19 14:19 13:39 Wound Center Nurse 2 #2 RIGHT DORSAL FOOT -Time 14:19 13:40 -Correct Patient Yes Yes -Correct Side, Site, Position Yes Yes -Correct Procedure Yes Yes -Procedure Performed Yes Yes -Type of Procedure Debridement Debridement -Clinical Debridement Subcutaneous Subcutaneous -Post Debridement Size (cm) - Length 1 3.4 -Post Debridement Size (cm) - Width 1.5 1.0 -Post Debridement Size (cm) - Depth 0.1 0.1 -Total Square Cm 1.5 3.40 -Wound/Ulcer Outcome Not Healed Not Healed -Ulcer Cleansing Rinsed/ Rinsed/ Irrigated with Irrigated with Saline Saline -Foul Odor after Cleansing No No -Bioengineered Tissue No No -Bleeding Controlled with Pressure Pressure -Offloading Yes Yes -Type of Offloading Surgical Shoe Knee Walker -Treatment Response Procedure Procedure Tolerated Well Tolerated Well #1 Right Lateral Foot -Time 14:19 13:40 -Correct Patient Yes Yes -Correct Side, Site, Position Yes Yes -Correct Procedure Yes Yes -Procedure Performed Yes Yes -Type of Procedure Debridement Debridement -Clinical Debridement Subcutaneous Subcutaneous -Post Debridement Size (cm) - Length 8 8 -Post Debridement Size (cm) - Width 1.6 1.4 -Post Debridement Size (cm) - Depth 0.4 0.6 -Total Square Cm 12.8 11.2 -Wound/Ulcer Outcome Not Healed Not Healed -Ulcer Cleansing Rinsed/ Rinsed/ Irrigated with Irrigated with Saline Saline -Foul Odor after Cleansing No No -Bioengineered Tissue No No -Bleeding Controlled with Pressure Pressure -Offloading Yes Yes -Type of Offloading Surgical Shoe Knee Walker -Treatment Response Procedure Procedure Tolerated Well Tolerated Well Pain Scale: 0-10 Numeric Is Patient Pain Free? Yes Yes Wound debrided: lateral foot Laterality: Right Wound Grade/Stage: grade 3 Type of Debridement: Excisional debridement Anesthesia Used: 5% Lidocaine Gel Depth: in the subcutaneous layer Percentage of wound debrided: 100 Instrument Used: #15 blade Tissue Removed: fibrous, devitalized subcutaneous, biofilm, slough Severity: Fat Layer Exposed Amount of bleeding with debridement: Mild Bleeding Controlled with: Pressure Patient tolerated procedure well - Additional Wound Wound debrided: dorsal foot Laterality: Right Patient tolerated procedure: - - no debridement performed today; santyl ordered Assessment/Plan Active Problems (Last Reviewed 10/08/18 @ 02:00 by Mehrdad Alexis MD) Ulcer of right foot with fat layer exposed (Chronic) Delayed wound healing (Chronic) Malnutrition (Chronic) Type 2 diabetes mellitus with diabetic polyneuropathy (Chronic) Assessment: Right foot ulcer with necrotic tendon/muscle exposed -infection work up is ongoing (farrell grade 3) - status post Versajet debridement with application of amnio fill and epi cord performed on 02/28/2018. Micropathology bone biopsies were negative for osteomyelitis. Uncontrolled diabetes with neuropathy. Delayed healing. Malnutrition suspected. Other comorbidities including anemia, thrombocytopenia, history of septic hip, history of recurrent multiple infections, weight loss. Currently on anticoagulation medication, Eliquis, for DVT treatment Plan: I reviewed and discussed his case including etiology, comprehensive wound healing plan, and anticipated healing time and management. Subcutaneous excisional debridement was performed today as noted in the clinical panel. These were covered again with Adaptic and hydrogel. He is advised changes daily at home. I also recommend changing the dorsal foot dressing to Santyl to enzymatically debride this ongoing fibrous tissue and to keep the wound bed moist. It is noted he no longer has insurance however he relates he can probably get this prescription filled at the [place]. A written prescription was provided today and he was advised on proper use. He was reassured no local signs of infection are noted. His fifth metatarsal bone biopsy was also reviewed as the following: Microbiology specimens were negative for bacterial growth and the pathology specimen was negative for acute osteomyelitis. His status of Farrell grade 3 would also make him a candidate for hyperbaric oxygen therapy. He was advised to continue this as prescribed and is doing well so far. He is no longer able to proceed forward at this time due to lack of job and insurance. Once he obtains new insurance I recommend we resume this activity and also consider application of advanced wound healing products to optimize his healing and prevent limb loss. To offload the ulcer site with a cam walker boot. He was advised to bring his previous offloading devices to clinic and he presents with use of a knee roller only today. To optimize glycemic control and proper nutritional intake to promote timely healing. Nutrition supplement prescription was offered for Pool. He did have prior noninvasive vascular studies performed in October 2018 with right RAFITA of 1.33 and 1.24 and left RAFITA of 1.1 and the DP on the side with noncompressible. His toe brachial indices were 0.6 on the right and 0.55 on the left. Due to his lack of healing and noted noncompressible vessels, I do recommend a vascular surgery referral at this time with Dr. Edmonds. Smoking cessation was also reviewed and he understands this will delay healing and vascular perfusion. To return to the wound healing center 1 week or call sooner if he has any questions or concerns. To monitor for local development of infection or systemic illness.
[2019-04-23 13:18] VITALS: BP 174/88; PULSE 106; RESP 16; TEMP 35.7; BMI 24.0
--- NOTE | 2019-04-23 13:41 | PCM.WC.PN ---
(1) Ulcer of right foot with fat layer exposed Status: Chronic Code(s): L97.512 - Non-pressure chronic ulcer of other part of right foot with fat layer exposed (2) Delayed wound healing Status: Chronic Code(s): T14.8XXD - Other injury of unspecified body region, subsequent encounter (3) Malnutrition Status: Chronic Qualifiers: Code(s): E46 - Unspecified protein-calorie malnutrition (4) Type 2 diabetes mellitus with diabetic polyneuropathy Status: Chronic Qualifiers: Code(s): E11.42 - Type 2 diabetes mellitus with diabetic polyneuropathy Type of Wound Date of Service: 04/23/19 Chief Complaint: Right foot ulcers History of Wound: This 48-year-old male with uncontrolled diabetes with neuropathy was referred to the wound healing center for a deep right foot ulcer and also more superficial right dorsal foot ulcer. This has been recurrent since November. He recently had surgical debridement with the versa jet and application of amnio fill and epi cord performed at 02/28/2019 at [facility]. He denies fever, chill, nausea, vomiting or pain. He denies odor or redness. He has changed his dressing daily with silver cell to the lateral aspect and hydrogel and Adaptic to the dorsal aspect. He recently obtained his Santyl and has not applied this yet that is for the ulcer site on the top of the foot. He has not been completing hyperbaric oxygen therapy. He informs us today that he has lost his job and his insurance still not able to proceed forward with any advanced treatments at this time. He relates he worked to his director case yesterday to start the process of getting coverage from the [place] to continue care at [facility] because we offer different services than at the [facility]. 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 He denies fever, chill, nausea, vomiting, diarrhea, redness, or streaking on the foot. Progress of Wound: improving - Physical Exam Vital Signs Temp Pulse Resp BP 96.3 F L 106 H 16 174/88 H 04/23/19 13:18 04/23/19 13:18 04/23/19 13:18 04/23/19 13:18 General: Alert, Oriented x3, Cooperative, No apparent distress HEENT: Atraumatic Extremities: No cyanosis, Capillary Refill Less than 3 Seconds, No Calf Tenderness, Diminished Peripheral Pulses, Edema Skin: Ulcer/ Wound - No purulence, erythema, string, odor, infection. His peripheral skin is hairless and atrophic. There is some central epithelialization noted to lateral foot with no longer any exposed tendon or bone. There is a dry eschar to the dorsal right foot that is well adhered. Wound Measurements and Assessment WC - Nurse 1 - General Ulcer Measurement Start: 04/11/19 13:31 Freq: Status: Active Protocol: Activity Type Activity Date Activity User E-Sign Co-Sign Detail Recorded Client Recorded Date Recorded By Document 04/23/19 13:18 [facility] [id number] 04/23/19 13:28 [facility] 04/23/19 13:18 Wound Center Nurse 1 [Ulcer Assessment] #2 RIGHT DORSAL FOOT -Combined with other wound No -Current Size (cm) - Length 1.5 -Current Size (cm) - Width 1.7 -Current Size (cm) - Depth 0.1 -Total Square Cm 2.55 -Photo Taken No -Epithelialization None Present -Tunneling No -Undermining/Tunneling No -Circular Undermining No -Exudate Amt Small -Exudate Type Serosanguineous -Wound Margin Distinct, Outline Attached -Granulation Amt None Present (0 %) -Slough/Fibrin Yes -Necrosis Amt Large (67-100%) -Necrotic Tissue Type Eschar -Texture (Wendy-wound Skin Appearance) Assessed, Scarring -Moisture (Wendy-wound Skin Appearance Assessed,Dry/ ) Scaly -Color (Wendy-wound Skin Appearance) Assessed -Temperature (Wendy-wound Skin No Abnormality Appearance) (Pt Warm) -Tenderness on Palpation (Wendy-wound No Skin Appearance) -Ulcer Cleansing Rinsed/ Irrigated with Saline -Foul Odor after Cleansing No -Anesthetic Used 5% Lidocaine Gel #1 Right Lateral Foot -Combined with other wound No -Current Size (cm) - Length 8.3 -Current Size (cm) - Width 1.6 -Current Size (cm) - Depth 0.6 -Total Square Cm 13.28 -Photo Taken No -Epithelialization None Present -Tunneling No -Undermining/Tunneling No -Circular Undermining No -Exudate Amt Small -Exudate Type Serosanguineous -Wound Margin Distinct, Outline Attached -Granulation Amt Medium (34-66%) -Granulation Quality Red -Slough/Fibrin Yes -Necrosis Amt Small (1-33%) -Necrotic Tissue Type Adherent Slough -Texture (Wendy-wound Skin Appearance) Assessed,Callus ,Scarring -Moisture (Wendy-wound Skin Appearance Assessed,Dry/ ) Scaly -Color (Wendy-wound Skin Appearance) Assessed -Temperature (Wendy-wound Skin No Abnormality Appearance) (Pt Warm) -Tenderness on Palpation (Wendy-wound No Skin Appearance) -Ulcer Cleansing Rinsed/ Irrigated with Saline -Foul Odor after Cleansing No -Anesthetic Used 5% Lidocaine Gel WC - Nurse 2 - General Ulcer CM Notes Start: 04/11/19 13:31 Freq: Status: Active Protocol: Activity Type Activity Date Activity User E-Sign Co-Sign Detail Recorded Client Recorded Date Recorded By Document 04/23/19 13:34 GARCIA [id number] 04/23/19 13:39 GARCIA 04/23/19 13:34 Wound Center Nurse 2 [Procedure/Treatment] #2 RIGHT DORSAL FOOT -Correct Patient No -Correct Side, Site, Position No -Correct Procedure No -Procedure Performed No -Wound/Ulcer Outcome Not Healed #1 Right Lateral Foot -Time 13:35 -Correct Patient Yes -Correct Side, Site, Position Yes -Correct Procedure Yes -Procedure Performed Yes -Type of Procedure Debridement -Clinical Debridement Subcutaneous -Post Debridement Size (cm) - Length 8.4 -Post Debridement Size (cm) - Width 1.6 -Post Debridement Size (cm) - Depth 0.6 -Total Square Cm 13.44 -Wound/Ulcer Outcome Not Healed -Ulcer Cleansing Rinsed/ Irrigated with Saline -Foul Odor after Cleansing No -Bioengineered Tissue No -Bleeding Controlled with Pressure -Offloading Yes -Type of Offloading Surgical Shoe -Treatment Response Procedure Tolerated Well [See Physician Procedure note for Specifics] Pain Scale: 0-10 Numeric [Pain] -Is Patient Pain Free? Yes Musculoskeletal: No Tenderness to Palpation of Joints or Extremities, Muscle Wasting, - - Intrinsic minus foot right Neurological: - - Lack of normal epicritic sensation light touch consistent with neuropathy status Psych/Mental Status: Normal Affect, Appropriate Debridement Note Post-Debridement Measurements/Treatment - Nurse 2 - General Ulcer CM Notes Start: 04/11/19 13:31 Freq: Status: Active Protocol: Activity Type Activity Date Activity User E-Sign Co-Sign Detail Recorded Client Recorded Date Recorded By Document 04/11/19 14:19 [id number] 04/11/19 14:20 Document 04/16/19 13:39 [id number] 04/16/19 13:41 Document 04/23/19 13:34 [id number] 04/23/19 13:39 04/11/19 04/16/19 04/23/19 14:19 13:39 13:34 Wound Center Nurse 2 #2 RIGHT DORSAL FOOT -Time 14:19 13:40 -Correct Patient Yes Yes No -Correct Side, Site, Position Yes Yes No -Correct Procedure Yes Yes No -Procedure Performed Yes Yes No -Type of Procedure Debridement Debridement -Clinical Debridement Subcutaneous Subcutaneous -Post Debridement Size (cm) - Length 1 3.4 -Post Debridement Size (cm) - Width 1.5 1.0 -Post Debridement Size (cm) - Depth 0.1 0.1 -Total Square Cm 1.5 3.40 -Wound/Ulcer Outcome Not Healed Not Healed Not Healed -Ulcer Cleansing Rinsed/ Rinsed/ Irrigated with Irrigated with Saline Saline -Foul Odor after Cleansing No No -Bioengineered Tissue No No -Bleeding Controlled with Pressure Pressure -Offloading Yes Yes -Type of Offloading Surgical Shoe Knee Walker -Treatment Response Procedure Procedure Tolerated Well Tolerated Well #1 Right Lateral Foot -Time 14:19 13:40 13:35 -Correct Patient Yes Yes Yes -Correct Side, Site, Position Yes Yes Yes -Correct Procedure Yes Yes Yes -Procedure Performed Yes Yes Yes -Type of Procedure Debridement Debridement Debridement -Clinical Debridement Subcutaneous Subcutaneous Subcutaneous -Post Debridement Size (cm) - Length 8 8 8.4 -Post Debridement Size (cm) - Width 1.6 1.4 1.6 -Post Debridement Size (cm) - Depth 0.4 0.6 0.6 -Total Square Cm 12.8 11.2 13.44 -Wound/Ulcer Outcome Not Healed Not Healed Not Healed -Ulcer Cleansing Rinsed/ Rinsed/ Rinsed/ Irrigated with Irrigated with Irrigated with Saline Saline Saline -Foul Odor after Cleansing No No No -Bioengineered Tissue No No No -Bleeding Controlled with Pressure Pressure Pressure -Offloading Yes Yes Yes -Type of Offloading Surgical Shoe Knee Walker Surgical Shoe -Treatment Response Procedure Procedure Procedure Tolerated Well Tolerated Well Tolerated Well Pain Scale: 0-10 Numeric Is Patient Pain Free? Yes Yes Yes Wound debrided: lateral foot Laterality: Right Wound Grade/Stage: grade 3 Type of Debridement: Excisional debridement Anesthesia Used: 5% Lidocaine Gel Depth: in the subcutaneous layer Percentage of wound debrided: 100 Instrument Used: #15 blade Tissue Removed: fibrous, devitalized subcutaneous, biofilm, slough Severity: Fat Layer Exposed Amount of bleeding with debridement: Mild Bleeding Controlled with: Pressure Patient tolerated procedure well Assessment/Plan Assessment: Right foot ulcer with necrotic tendon/muscle exposed -infection work up is ongoing (farrell grade 3) - status post Versajet debridement with application of amnio fill and epi cord performed on 02/28/2018. Dorsal right foot ulcer/eschar, no infection. Micropathology bone biopsies were negative for osteomyelitis. Uncontrolled diabetes with neuropathy. Delayed healing. Malnutrition suspected. Other comorbidities including anemia, thrombocytopenia, history of septic hip, history of recurrent multiple infections, weight loss. Currently on anticoagulation medication, Eliquis, for DVT treatment Plan: I reviewed and discussed his case including etiology, comprehensive wound healing plan, and anticipated healing time and management. Subcutaneous excisional debridement was performed today as noted in the clinical panel. The lateral foot ulcer is covered with silver product and the dorsal ulcer was covered with nickel thickness Santyl. He is advised on daily dressing changes. He is advised changes daily at home. He was reassured his local signs of infection have cleared. It is noted he does have a history of a grade 3 ulcer in this site and this is recurrent and he is subjected to limb loss risk. His fifth metatarsal bone biopsy was also reviewed as the following: Microbiology specimens were negative for bacterial growth and the pathology specimen was negative for acute osteomyelitis. His status of Farrell grade 3 would also make him a candidate for hyperbaric oxygen therapy. He was advised to continue this as prescribed and is doing well so far. He is no longer able to proceed forward at this time due to lack of job and insurance. Once he obtains new insurance I recommend we resume this activity and also consider application of advanced wound healing products to optimize his healing and prevent limb loss. To offload the ulcer site with a cam walker boot. He was advised to bring his previous offloading devices to clinic and he presents with use of a knee roller. To optimize glycemic control and proper nutritional intake to promote timely healing. Nutrition supplement prescription was offered for Pool. He did have prior noninvasive vascular studies performed in October 2018 with right RAFITA of 1.33 and 1.24 and left RAFITA of 1.1 and the DP on the side with noncompressible. His toe brachial indices were 0.6 on the right and 0.55 on the left. Due to his lack of healing and noted noncompressible vessels, I do recommend a vascular surgery referral at this time with Dr. Edmonds. Smoking cessation was also reviewed and he understands this will delay healing and vascular perfusion. To return to the wound healing center 1 week or call sooner if he has any questions or concerns. To monitor for local development of infection or systemic illness.
[2019-04-30 11:43] VITALS: BP 141/82; PULSE 101; RESP 18; TEMP 36.8; BMI 24.0
--- NOTE | 2019-04-30 12:28 | PN.PCM_ITS ---
(1) Ulcer of right foot with fat layer exposed Status: Chronic Code(s): L97.512 - Non-pressure chronic ulcer of other part of right foot with fat layer exposed (2) Delayed wound healing Status: Chronic Code(s): T14.8XXD - Other injury of unspecified body region, subsequent encounter (3) Malnutrition Status: Chronic Qualifiers: Code(s): E46 - Unspecified protein-calorie malnutrition (4) Type 2 diabetes mellitus with diabetic polyneuropathy Status: Chronic Qualifiers: Code(s): E11.42 - Type 2 diabetes mellitus with diabetic polyneuropathy Type of Wound Date of Service: 04/30/19 Chief Complaint: Right foot ulcers History of Wound: This 49-year-old male with uncontrolled diabetes with neuropathy was referred to the wound healing center for a deep right foot ulcer and also more superficial right dorsal foot ulcer. This has been recurrent since November. He recently had surgical debridement with the versa jet and application of amnio fill and epi cord performed at 02/28/2019 at [facility]. He denies fever, chill, nausea, vomiting or pain. He denies odor or redness. He has changed his dressing daily with silver cell to the lateral aspect and hydrogel and Adaptic to the dorsal aspect. He recently obtained his Santyl and has not applied this yet that is for the ulcer site on the top of the foot. He has not been completing hyperbaric oxygen therapy. He informs us that he has lost his job and his insurance still not able to proceed forward with any advanced treatments at this time. He relates he worked to his egg caser yesterday to start the process of getting coverage from the [place] to continue care at [facility] because we offer different services than at the [facility]. he has a follow-up this afternoon with his automatic nailing machine operator. He denies fever, chill, nausea, vomiting, diarrhea, redness, or streaking on the foot. Progress of Wound: improving - Physical Exam Vital Signs Temp Pulse Resp BP 98.2 F 101 H 18 141/82 H 04/30/19 11:43 04/30/19 11:43 04/30/19 11:43 04/30/19 11:43 General: Alert, Oriented x3, Cooperative, No apparent distress Extremities: No cyanosis, Capillary Refill Less than 3 Seconds, No Calf Tenderness, Diminished Peripheral Pulses, Edema Skin: Ulcer/ Wound - No purulence, erythema, streaking, odor, infection. The dorsal foot is more moist since he has been applying Santyl and has some fibrous tissue. There is no sukumar eschar. The adjacent skin is hairless and atrophic. The lateral foot ulcer site continues to epithelialize along the peripheral margin also has a central skin island noted. The depth has reduced to this site as well and is healthier Wound Measurements and Assessment WC - Nurse 1 - General Ulcer Measurement Start: 04/11/19 13:31 Freq: Status: Active Protocol: Activity Type Activity Date Activity User E-Sign Co-Sign Detail Recorded Client Recorded Date Recorded By Document 04/30/19 11:43 DV [id number] 04/30/19 11:57 DV 04/30/19 11:43 Wound Center Nurse 1 [Ulcer Assessment] #2 RIGHT DORSAL FOOT -Combined with other wound No -Current Size (cm) - Length 4.2 -Current Size (cm) - Width 3.2 -Current Size (cm) - Depth 0.1 -Total Square Cm 13.44 -Date of Last Picture (Recall this 04/30/19 field) -Photo Taken Yes #1 Right Lateral Foot -Current Size (cm) - Length 8.0 -Current Size (cm) - Width 2.0 -Current Size (cm) - Depth 0.2 -Total Square Cm 16.00 -Photo Taken Yes -Epithelialization None Present -Tunneling No -Undermining/Tunneling No -Circular Undermining No WC - Nurse 2 - General Ulcer CM Notes Start: 04/11/19 13:31 Freq: Status: Active Protocol: Activity Type Activity Date Activity User E-Sign Co-Sign Detail Recorded Client Recorded Date Recorded By Document 04/30/19 12:06 JF [id number] 04/30/19 12:07 JF 04/30/19 12:06 Wound Center Nurse 2 [Procedure/Treatment] #2 RIGHT DORSAL FOOT -Time 12:06 -Correct Patient Yes -Correct Side, Site, Position Yes -Correct Procedure Yes -Procedure Performed Yes -Type of Procedure Debridement -Clinical Debridement Subcutaneous -Post Debridement Size (cm) - Length 4.3 -Post Debridement Size (cm) - Width 3.2 -Post Debridement Size (cm) - Depth 0.1 -Total Square Cm 13.76 -Wound/Ulcer Outcome Not Healed -Ulcer Cleansing Rinsed/ Irrigated with Saline -Foul Odor after Cleansing No -Bioengineered Tissue No -Bleeding Controlled with Pressure -Offloading Yes -Type of Offloading Knee Walker -Treatment Response Procedure Tolerated Well #1 Right Lateral Foot -Time 12:07 -Correct Patient Yes -Correct Side, Site, Position Yes -Correct Procedure Yes -Procedure Performed Yes -Type of Procedure Debridement -Clinical Debridement Subcutaneous -Post Debridement Size (cm) - Length 8.1 -Post Debridement Size (cm) - Width 2.1 -Post Debridement Size (cm) - Depth 0.2 -Total Square Cm 17.01 -Wound/Ulcer Outcome Not Healed -Ulcer Cleansing Rinsed/ Irrigated with Saline -Foul Odor after Cleansing No -Bioengineered Tissue No -Bleeding Controlled with Pressure -Offloading Yes -Type of Offloading Knee Walker -Treatment Response Procedure Tolerated Well [See Physician Procedure note for Specifics] Pain Scale: 0-10 Numeric [Pain] -Is Patient Pain Free? Yes Musculoskeletal: No Tenderness to Palpation of Joints or Extremities, Muscle Wasting, - - Intrinsic minus foot Neurological: - - Lack of normal epicritic sensation light touch consistent with neuropathy status Psych/Mental Status: Normal Affect, Appropriate Debridement Note Post-Debridement Measurements/Treatment WC - Nurse 2 - General Ulcer CM Notes Start: 04/11/19 13:31 Freq: Status: Active Protocol: Activity Type Activity Date Activity User E-Sign Co-Sign Detail Recorded Client Recorded Date Recorded By Document 04/11/19 14:19 [id number] 04/11/19 14:20 Document 04/16/19 13:39 [id number] 04/16/19 13:41 Document 04/23/19 13:34 [id number] 04/23/19 13:39 Document 04/30/19 12:06 [id number] 04/30/19 12:07 04/11/19 04/16/19 04/23/19 14:19 13:39 13:34 Wound Center Nurse 2 #2 RIGHT DORSAL FOOT -Time 14:19 13:40 -Correct Patient Yes Yes No -Correct Side, Site, Position Yes Yes No -Correct Procedure Yes Yes No -Procedure Performed Yes Yes No -Type of Procedure Debridement Debridement -Clinical Debridement Subcutaneous Subcutaneous -Post Debridement Size (cm) - Length 1 3.4 -Post Debridement Size (cm) - Width 1.5 1.0 -Post Debridement Size (cm) - Depth 0.1 0.1 -Total Square Cm 1.5 3.40 -Wound/Ulcer Outcome Not Healed Not Healed Not Healed -Ulcer Cleansing Rinsed/ Rinsed/ Irrigated with Irrigated with Saline Saline -Foul Odor after Cleansing No No -Bioengineered Tissue No No -Bleeding Controlled with Pressure Pressure -Offloading Yes Yes -Type of Offloading Surgical Shoe Knee Walker -Treatment Response Procedure Procedure Tolerated Well Tolerated Well #1 Right Lateral Foot -Time 14:19 13:40 13:35 -Correct Patient Yes Yes Yes -Correct Side, Site, Position Yes Yes Yes -Correct Procedure Yes Yes Yes -Procedure Performed Yes Yes Yes -Type of Procedure Debridement Debridement Debridement -Clinical Debridement Subcutaneous Subcutaneous Subcutaneous -Post Debridement Size (cm) - Length 8 8 8.4 -Post Debridement Size (cm) - Width 1.6 1.4 1.6 -Post Debridement Size (cm) - Depth 0.4 0.6 0.6 -Total Square Cm 12.8 11.2 13.44 -Wound/Ulcer Outcome Not Healed Not Healed Not Healed -Ulcer Cleansing Rinsed/ Rinsed/ Rinsed/ Irrigated with Irrigated with Irrigated with Saline Saline Saline -Foul Odor after Cleansing No No No -Bioengineered Tissue No No No -Bleeding Controlled with Pressure Pressure Pressure -Offloading Yes Yes Yes -Type of Offloading Surgical Shoe Knee Walker Surgical Shoe -Treatment Response Procedure Procedure Procedure Tolerated Well Tolerated Well Tolerated Well Pain Scale: 0-10 Numeric Is Patient Pain Free? Yes Yes Yes 04/30/19 12:06 Wound Center Nurse 2 #2 RIGHT DORSAL FOOT -Time 12:06 -Correct Patient Yes -Correct Side, Site, Position Yes -Correct Procedure Yes -Procedure Performed Yes -Type of Procedure Debridement -Clinical Debridement Subcutaneous -Post Debridement Size (cm) - Length 4.3 -Post Debridement Size (cm) - Width 3.2 -Post Debridement Size (cm) - Depth 0.1 -Total Square Cm 13.76 -Wound/Ulcer Outcome Not Healed -Ulcer Cleansing Rinsed/ Irrigated with Saline -Foul Odor after Cleansing No -Bioengineered Tissue No -Bleeding Controlled with Pressure -Offloading Yes -Type of Offloading Knee Walker -Treatment Response Procedure Tolerated Well #1 Right Lateral Foot -Time 12:07 -Correct Patient Yes -Correct Side, Site, Position Yes -Correct Procedure Yes -Procedure Performed Yes -Type of Procedure Debridement -Clinical Debridement Subcutaneous -Post Debridement Size (cm) - Length 8.1 -Post Debridement Size (cm) - Width 2.1 -Post Debridement Size (cm) - Depth 0.2 -Total Square Cm 17.01 -Wound/Ulcer Outcome Not Healed -Ulcer Cleansing Rinsed/ Irrigated with Saline -Foul Odor after Cleansing No -Bioengineered Tissue No -Bleeding Controlled with Pressure -Offloading Yes -Type of Offloading Knee Walker -Treatment Response Procedure Tolerated Well Pain Scale: 0-10 Numeric Is Patient Pain Free? Yes Wound debrided: dorsal foot Laterality: Right Wound Grade/Stage: grade 1 Type of Debridement: Excisional debridement Anesthesia Used: 5% Lidocaine Gel Depth: in the subcutaneous layer Percentage of wound debrided: 100 Instrument Used: #15 blade Tissue Removed: fibrous, devitalized subcutaneous, biofilm, slough Severity: Fat Layer Exposed Amount of bleeding with debridement: Mild Bleeding Controlled with: Pressure Patient tolerated procedure well - Additional Wound Wound debrided: lateral foot Laterality: Right Wound Grade/Stage: grade 3 Type of Debridement: Excisional debridement Anesthesia Used: 5% Lidocaine Gel Depth: in the subcutaneous layer Percentage of wound debrided: 100 Instrument Used: #15 blade Tissue Removed: fibrous, devitalized subcutaneous, biofilm, slough Severity: Fat Layer Exposed Amount of bleeding with debridement: Mild Bleeding Controlled with: Pressure Patient tolerated procedure: Patient tolerated procedure well Assessment/Plan Assessment: Right foot ulcer with necrotic tendon/muscle exposed -infection work up is ongoing (farrell grade 3) - status post Versajet debridement with application of amnio fill and epi cord performed on 02/28/2018. Dorsal right foot ulcer, no infection. Micropathology bone biopsies were negative for osteomyelitis. Uncontrolled diabetes with neuropathy. Delayed healing. Malnutrition suspected. Other comorbidities including anemia, thrombocytopenia, history of septic hip, history of recurrent multiple infections, weight loss. Currently on anticoagulation medication, Eliquis, for DVT treatment Plan: I reviewed and discussed his case including etiology, comprehensive wound healing plan, and anticipated healing time and management. Subcutaneous excisional debridement was performed today as noted in the clinical panel. The lateral foot ulcer is covered with silver product and the dorsal ulcer was covered with nickel thickness Santyl. He is advised on daily dressing changes. He is advised changes daily at home. He was reassured his local signs of infection have cleared. It is noted he does have a history of a grade 3 ulcer in this site and this is recurrent and he is subjected to limb loss risk. His fifth metatarsal bone biopsy was also reviewed as the following: Microbiology specimens were negative for bacterial growth and the pathology specimen was negative for acute osteomyelitis. His status of Farrell grade 3 would also make him a candidate for hyperbaric oxygen therapy. He was advised to continue this as prescribed and is doing well so far. He is no longer able to proceed forward at this time due to lack of job and insurance. Once he obtains new insurance I recommend we resume this activity and also consider application of advanced wound healing products to optimize his healing and prevent limb loss. To follow-up with his automatic nailing machine operator at the [facility] this afternoon to facilitate this process. To offload the ulcer site with a cam walker boot. He was advised to bring his previous offloading devices to clinic and he presents with use of a knee roller. To optimize glycemic control and proper nutritional intake to promote timely healing. Nutrition supplement prescription was offered for Pool. He did have prior noninvasive vascular studies performed in October 2018 with right RAFITA of 1.33 and 1.24 and left RAFITA of 1.1 and the DP on the side with noncompressible. His toe brachial indices were 0.6 on the right and 0.55 on the left. Due to his lack of healing and noted noncompressible vessels, I do recommend a vascular surgery referral at this time with Dr. Edmonds. Smoking cessation was also reviewed and he understands this will delay healing and vascular perfusion. To return to the wound healing center 1 week or call sooner if he has any questions or concerns. To monitor for local development of infection or systemic illness.
[2019-05-07 13:19] VITALS: BP 172/98; PULSE 104; RESP 20; TEMP 36.2; BMI 24.0
--- NOTE | 2019-05-07 14:07 | PN.PCM_ITS ---
(1) Ulcer of right foot with fat layer exposed Status: Chronic Code(s): L97.512 - Non-pressure chronic ulcer of other part of right foot with fat layer exposed (2) Delayed wound healing Status: Chronic Code(s): T14.8XXD - Other injury of unspecified body region, subsequent encounter (3) Malnutrition Status: Chronic Qualifiers: Code(s): E46 - Unspecified protein-calorie malnutrition (4) Type 2 diabetes mellitus with diabetic polyneuropathy Status: Chronic Qualifiers: Code(s): E11.42 - Type 2 diabetes mellitus with diabetic polyneuropathy Type of Wound Date of Service: 05/07/19 Chief Complaint: Right foot ulcers History of Wound: This 49-year-old male with uncontrolled diabetes with neuropathy was referred to the wound healing center for a deep right foot ulcer and also more superficial right dorsal foot ulcer. This has been recurrent since November. He recently had surgical debridement with the versa jet and application of amnio fill and epi cord performed at 02/28/2019 at [facility]. He denies fever, chill, nausea, vomiting or pain. He denies odor or redness. He has changed his dressing daily with silver cell to the lateral aspect and hydrogel and Adaptic to the dorsal aspect. He recently obtained his Santyl and has not applied this yet that is for the ulcer site on the top of the foot. He has not been completing hyperbaric oxygen therapy. He informs us that he has lost his job and his insurance still not able to proceed forward with any advanced treatments at this time. He relates he worked to his case coordinator yesterday to start the process of getting coverage from the [place] to continue care at [facility] because we offer different services than at the [facility]. he relates his friend at this clarified and [facility] [place]. He denies fever, chill, nausea, vomiting, diarrhea, redness, or streaking on the foot. Progress of Wound: improving - Physical Exam Vital Signs Temp Pulse Resp BP 97.1 F L 104 H 20 H 172/98 H 05/07/19 13:19 05/07/19 13:19 05/07/19 13:19 05/07/19 13:19 General: Alert, Oriented x3, Cooperative, No apparent distress Extremities: No cyanosis, Capillary Refill Less than 3 Seconds, Diminished Peripheral Pulses Skin: Ulcer/ Wound - No purulence, erythema, streaking, odor, infection. There is significant peripheral epithelialization centrally and around the borders of the lateral foot aspect. The distalmost aspect however does have an odor with some new devitalized tissue which was aggressively debrided. The dorsal foot wound is fibrous and moist and no longer has any dry eschar noted. This is progressing well with Santyl. The adjacent skin is hairless and atrophic Wound Measurements and Assessment WC - Nurse 1 - General Ulcer Measurement Start: 04/11/19 13:31 Freq: Status: Active Protocol: Activity Type Activity Date Activity User E-Sign Co-Sign Detail Recorded Client Recorded Date Recorded By Document 05/07/19 13:19 DL [id number] 05/07/19 13:27 DL 05/07/19 13:19 Wound Center Nurse 1 [Ulcer Assessment] #2 RIGHT DORSAL FOOT -Combined with other wound No -Current Size (cm) - Length 3.9 -Current Size (cm) - Width 2.9 -Current Size (cm) - Depth 0.1 -Total Square Cm 11.31 -Photo Taken No -Epithelialization None Present -Tunneling No -Undermining/Tunneling No -Circular Undermining No -Exudate Amt Small -Exudate Type Serosanguineous -Wound Margin Distinct, Outline Attached -Granulation Amt None Present (0 %) -Slough/Fibrin Yes -Necrosis Amt Large (67-100%) -Necrotic Tissue Type Adherent Slough -Texture (Wendy-wound Skin Appearance) Assessed, Scarring -Moisture (Wendy-wound Skin Appearance Assessed ) -Color (Wendy-wound Skin Appearance) Assessed, Erythema -Temperature (Wendy-wound Skin No Abnormality Appearance) (Pt Warm) -Tenderness on Palpation (Wendy-wound No Skin Appearance) -Ulcer Cleansing Rinsed/ Irrigated with Saline -Foul Odor after Cleansing No -Anesthetic Used 4% Lidocaine Solution #1 Right Lateral Foot -Combined with other wound No -Current Size (cm) - Length 7.7 -Current Size (cm) - Width 0.7 -Current Size (cm) - Depth 0.2 -Total Square Cm 5.39 -Epithelialization None Present -Tunneling No -Undermining/Tunneling No -Circular Undermining No -Exudate Amt Small -Exudate Type Serosanguineous -Wound Margin Distinct, Outline Attached -Granulation Amt Small (1-33%) -Granulation Quality Red -Slough/Fibrin Yes -Necrosis Amt Large (67-100%) -Necrotic Tissue Type Adherent Slough -Texture (Wendy-wound Skin Appearance) Assessed, Scarring -Moisture (Wendy-wound Skin Appearance Assessed ) -Color (Wendy-wound Skin Appearance) Assessed, Erythema -Temperature (Wendy-wound Skin No Abnormality Appearance) (Pt Warm) -Tenderness on Palpation (Wendy-wound No Skin Appearance) -Ulcer Cleansing Rinsed/ Irrigated with Saline -Foul Odor after Cleansing No -Anesthetic Used 4% Lidocaine Solution WC - Nurse 2 - General Ulcer CM Notes Start: 04/11/19 13:31 Freq: Status: Active Protocol: Activity Type Activity Date Activity User E-Sign Co-Sign Detail Recorded Client Recorded Date Recorded By Document 05/07/19 13:38 [id number] [id number] 05/07/19 13:44 [email or web address] 05/07/19 13:38 Wound Center Nurse 2 [Procedure/Treatment] #2 RIGHT DORSAL FOOT -Time 13:38 -Correct Patient Yes -Correct Side, Site, Position Yes -Correct Procedure Yes -Procedure Performed Yes -Type of Procedure Debridement -Clinical Debridement Subcutaneous -Post Debridement Size (cm) - Length 4.0 -Post Debridement Size (cm) - Width 3 -Post Debridement Size (cm) - Depth 0.1 -Total Square Cm 12.0 -Wound/Ulcer Outcome Not Healed -Ulcer Cleansing Rinsed/ Irrigated with Saline -Foul Odor after Cleansing No -Bioengineered Tissue No -Bleeding Controlled with Pressure -Offloading Yes -Type of Offloading Knee Walker -Treatment Response Procedure Tolerated Well #1 Right Lateral Foot -Time 13:38 -Correct Patient Yes -Correct Side, Site, Position Yes -Correct Procedure Yes -Procedure Performed Yes -Type of Procedure Debridement -Clinical Debridement Subcutaneous -Post Debridement Size (cm) - Length 7.8 -Post Debridement Size (cm) - Width 0.7 -Post Debridement Size (cm) - Depth 0.2 -Total Square Cm 5.46 -Wound/Ulcer Outcome Not Healed -Ulcer Cleansing Rinsed/ Irrigated with Saline -Foul Odor after Cleansing No -Bioengineered Tissue No -Bleeding Controlled with Pressure -Offloading Yes -Type of Offloading Knee Walker -Treatment Response Procedure Tolerated Well [See Physician Procedure note for Specifics] Pain Scale: 0-10 Numeric [Pain] -Is Patient Pain Free? Yes Musculoskeletal: No Tenderness to Palpation of Joints or Extremities, Muscle Wasting Neurological: - - Lack of normal epicritic sensation light touch is consistent with neuropathy status Psych/Mental Status: Normal Affect, Appropriate Debridement Note Post-Debridement Measurements/Treatment WC - Nurse 2 - General Ulcer CM Notes Start: 04/11/19 13:31 Freq: Status: Active Protocol: Activity Type Activity Date Activity User E-Sign Co-Sign Detail Recorded Client Recorded Date Recorded By Document 04/11/19 14:19 [id number] 04/11/19 14:20 Document 04/16/19 13:39 [id number] 04/16/19 13:41 Document 04/23/19 13:34 [id number] 04/23/19 13:39 Document 04/30/19 12:06 [id number] 04/30/19 12:07 Document 05/07/19 13:38 [id number] 05/07/19 13:44 04/11/19 04/16/19 04/23/19 14:19 13:39 13:34 Wound Center Nurse 2 #2 RIGHT DORSAL FOOT -Time 14:19 13:40 -Correct Patient Yes Yes No -Correct Side, Site, Position Yes Yes No -Correct Procedure Yes Yes No -Procedure Performed Yes Yes No -Type of Procedure Debridement Debridement -Clinical Debridement Subcutaneous Subcutaneous -Post Debridement Size (cm) - Length 1 3.4 -Post Debridement Size (cm) - Width 1.5 1.0 -Post Debridement Size (cm) - Depth 0.1 0.1 -Total Square Cm 1.5 3.40 -Wound/Ulcer Outcome Not Healed Not Healed Not Healed -Ulcer Cleansing Rinsed/ Rinsed/ Irrigated with Irrigated with Saline Saline -Foul Odor after Cleansing No No -Bioengineered Tissue No No -Bleeding Controlled with Pressure Pressure -Offloading Yes Yes -Type of Offloading Surgical Shoe Knee Walker -Treatment Response Procedure Procedure Tolerated Well Tolerated Well #1 Right Lateral Foot -Time 14:19 13:40 13:35 -Correct Patient Yes Yes Yes -Correct Side, Site, Position Yes Yes Yes -Correct Procedure Yes Yes Yes -Procedure Performed Yes Yes Yes -Type of Procedure Debridement Debridement Debridement -Clinical Debridement Subcutaneous Subcutaneous Subcutaneous -Post Debridement Size (cm) - Length 8 8 8.4 -Post Debridement Size (cm) - Width 1.6 1.4 1.6 -Post Debridement Size (cm) - Depth 0.4 0.6 0.6 -Total Square Cm 12.8 11.2 13.44 -Wound/Ulcer Outcome Not Healed Not Healed Not Healed -Ulcer Cleansing Rinsed/ Rinsed/ Rinsed/ Irrigated with Irrigated with Irrigated with Saline Saline Saline -Foul Odor after Cleansing No No No -Bioengineered Tissue No No No -Bleeding Controlled with Pressure Pressure Pressure -Offloading Yes Yes Yes -Type of Offloading Surgical Shoe Knee Walker Surgical Shoe -Treatment Response Procedure Procedure Procedure Tolerated Well Tolerated Well Tolerated Well Pain Scale: 0-10 Numeric Is Patient Pain Free? Yes Yes Yes 04/30/19 05/07/19 12:06 13:38 Wound Center Nurse 2 #2 RIGHT DORSAL FOOT -Time 12:06 13:38 -Correct Patient Yes Yes -Correct Side, Site, Position Yes Yes -Correct Procedure Yes Yes -Procedure Performed Yes Yes -Type of Procedure Debridement Debridement -Clinical Debridement Subcutaneous Subcutaneous -Post Debridement Size (cm) - Length 4.3 4.0 -Post Debridement Size (cm) - Width 3.2 3 -Post Debridement Size (cm) - Depth 0.1 0.1 -Total Square Cm 13.76 12.0 -Wound/Ulcer Outcome Not Healed Not Healed -Ulcer Cleansing Rinsed/ Rinsed/ Irrigated with Irrigated with Saline Saline -Foul Odor after Cleansing No No -Bioengineered Tissue No No -Bleeding Controlled with Pressure Pressure -Offloading Yes Yes -Type of Offloading Knee Walker Knee Walker -Treatment Response Procedure Procedure Tolerated Well Tolerated Well #1 Right Lateral Foot -Time 12:07 13:38 -Correct Patient Yes Yes -Correct Side, Site, Position Yes Yes -Correct Procedure Yes Yes -Procedure Performed Yes Yes -Type of Procedure Debridement Debridement -Clinical Debridement Subcutaneous Subcutaneous -Post Debridement Size (cm) - Length 8.1 7.8 -Post Debridement Size (cm) - Width 2.1 0.7 -Post Debridement Size (cm) - Depth 0.2 0.2 -Total Square Cm 17.01 5.46 -Wound/Ulcer Outcome Not Healed Not Healed -Ulcer Cleansing Rinsed/ Rinsed/ Irrigated with Irrigated with Saline Saline -Foul Odor after Cleansing No No -Bioengineered Tissue No No -Bleeding Controlled with Pressure Pressure -Offloading Yes Yes -Type of Offloading Knee Walker Knee Walker -Treatment Response Procedure Procedure Tolerated Well Tolerated Well Pain Scale: 0-10 Numeric Is Patient Pain Free? Yes Yes Wound debrided: lateral foot Laterality: Right Wound Grade/Stage: grade 3 Type of Debridement: Excisional debridement Anesthesia Used: 5% Lidocaine Gel Depth: in the subcutaneous layer Percentage of wound debrided: 100 Instrument Used: #15 blade - fibrous, devitalized subcutaneous, biofilm, slough Tissue Removed: fibrous, devitalized subcutaneous, biofilm, slough Severity: Fat Layer Exposed Amount of bleeding with debridement: Mild Bleeding Controlled with: Pressure Patient tolerated procedure well - Additional Wound Wound debrided: dorsal foot Laterality: Right Wound Grade/Stage: grade 1 Type of Debridement: Excisional debridement Anesthesia Used: 5% Lidocaine Gel Depth: in the subcutaneous layer Percentage of wound debrided: 100 Instrument Used: #15 blade Tissue Removed: fibrous, devitalized subcutaneous, biofilm, slough Severity: Fat Layer Exposed Amount of bleeding with debridement: Mild Bleeding Controlled with: Pressure Patient tolerated procedure: Patient tolerated procedure well Assessment/Plan Assessment: Right foot ulcer with necrotic tendon/muscle exposed -infection work up is ongoing (farrell grade 3) - status post Versajet debridement with application of amnio fill and epi cord performed on 02/28/2018. Dorsal right foot ulcer, no infection. Micropathology bone biopsies were negative for osteomyelitis. Uncontrolled diabetes with neuropathy. Delayed healing. Malnutrition suspected. Other comorbidities including anemia, thrombocytopenia, history of septic hip, history of recurrent multiple infections, weight loss. Currently on anticoagulation medication, Eliquis, for DVT treatment Plan: I reviewed and discussed his case including etiology, comprehensive wound healing plan, and anticipated healing time and management. Subcutaneous excisional debridement was performed today as noted in the clinical panel. The lateral foot ulcer is covered with silver product and the dorsal ulcer was covered with nickel thickness Santyl. The devitalized distal aspect of the lateral foot is also noted he was advised to wash this site with antimicrobial medical grade soap and to monitor this site closely. He is advised on daily dressing changes. He is advised changes daily at home. He was reassured his local signs of infection have cleared. It is noted he does have a history of a grade 3 ulcer in this site and this is recurrent and he is subjected to limb loss risk. His fifth metatarsal bone biopsy was also reviewed as the following: Microbiology specimens were negative for bacterial growth and the pathology specimen was negative for acute osteomyelitis. His status of Farrell grade 3 would also make him a candidate for hyperbaric oxygen therapy. He was advised to continue this as prescribed and is doing well so far. He is no longer able to proceed forward at this time due to lack of job and insurance. Once he obtains new insurance I recommend we resume this activity and also consider application of advanced wound healing products to optimize his healing and prevent limb loss. To follow-up with his chair inspector and leveler at the [facility] this afternoon to facilitate this process. To offload the ulcer site with a cam walker boot. He was advised to bring his previous offloading devices to clinic and he presents with use of a knee roller. To optimize glycemic control and proper nutritional intake to promote timely healing. Nutrition supplement prescription was offered for Pool. He did have prior noninvasive vascular studies performed in October 2018 with right RAFITA of 1.33 and 1.24 and left RAFITA of 1.1 and the DP on the side with noncompressible. His toe brachial indices were 0.6 on the right and 0.55 on the left. Due to his lack of healing and noted noncompressible vessels, I do recommend a vascular surgery referral at this time with Dr. Edmonds. Smoking cessation was also reviewed and he understands this will delay healing and vascular perfusion. To return to the wound healing center 1 week or call sooner if he has any questions or concerns. To monitor for local development of infection or systemic illness. He understands due to lack of insurance no longer covered to be seen at the local wound healing center and therefore he will consider transferring to the [facility].
== END 2019-05-09 23:59 ==
LOC: WC 13:15
PROVIDERS: Referring Provider Podiatrist; Visit Provider Podiatrist
DX: E11.621 Type 2 diabetes mellitus with foot ulcer (principal); E11.42 Type 2 diabetes mellitus with diabetic polyneuropathy; L97.512 Non-pressure chronic ulcer of other part of right foot with fat layer exposed
CPT/HCPCS: 11042; 11045

== ENCOUNTER 2021-09-28 08:26 | Emergency (ER) | payer BC, SELFPAY ==
[2021-09-28 08:27] VITALS: PULSE 99; RESP 14; TEMP 36.4; O2SAT 97; BMI 24.7
[2021-09-28 08:37] VITALS: BP 191/94; PULSE 96
--- NOTE | 2021-09-28 08:48 | ED.VIS.LOWEX ---
HPI History of Present Illness HPI Narrative: Patient presents with discoloration of his left third toe that he noticed this morning. Patient dates he went swimming yesterday. Patient states he wears water shoes while he is swimming. Patient states he took them off yesterday evening. Patient states he went to bed and noted some discoloration of his third toe today. Patient denies any fevers or chills. Patient describes his pain as aching. Patient states it is worse with weightbearing. Patient denies any paresthesias or weakness. Patient denies any trauma or injury. Chief Complaint: Lower Extremity Injury Informant: patient Onset/Context/Timing Onset: Today Context: Gradual Onset Timing: Continuous Quality of Pain: Aching Location: Left third toe Worsened by: Weightbearing Relieved by: Nothing Associated Symptoms Associated Symptoms: Negative for Parasthesia, Weakness or Loss of Funtion PFSH PFS Medical History Diabetes Hypertension Home Medications doxycycline monohydrate 100 mg capsule 100 mg PO BID #20 CAPSULES 09/28/21 [Rx Last Taken Unknown] insulin aspart U-100 100 unit/mL (3 mL) subcutaneous pen (Novolog Flexpen U-100 Insulin aspart) 6 unit subcut TIDCM 09/28/21 [History Last Taken Unknown] insulin glargine 100 unit/mL (3 mL) subcutaneous pen (Lantus Solostar U-100 Insulin) 30 unit subcut DAILY 09/28/21 [History Last Taken Unknown] levofloxacin 500 mg tablet 500 mg PO DAILY #10 tabs 09/28/21 [Rx Last Taken Unknown] Allergy/AdvReac Type Severity Reaction Status Date / Time Penicillins Allergy Swelling Verified 09/28/21 08:29 Surgical History History of amputation Social History Smoking Status: Former smoker ROS ROS ED Constitutional Constitutional ED: Denies chills or fever(s) Eyes Eyes: Denies blurry vision or change in vision ENT ENT ED: Denies rhinorrhea or sore throat Cardiovascular Cardiovascular: Denies chest pain or palpitations Respiratory/Chest Respiratory/Chest: Denies cough or dyspnea Gastrointestinal Gastrointestinal: Denies nausea or vomiting Genitourinary Genitourinary ED: Denies dysuria or hematuria Musculoskeletal Musculoskeletal: Denies back pain or neck pain Integumentary Denies abscess or rash Neurologic Neurologic: Denies headache(s) or weakness Allergic/Immunologic Allergic/Immunologic ED: Denies mouth swelling or urticaria EXAM Physical Exam Const Vital Signs: 09/28/21 08:27 09/28/21 08:37 Temperature 97.5 F L Temperature Source Temporal Pulse Rate 99 96 Respiratory Rate 14 Blood Pressure 191/94 H Blood Pressure Mean 126 Pulse Ox 97 Oxygen Delivery Method Room Air Room Air Positive well nourished and well developed General Appearance ED: well developed and NAD HEENT Reports moist mucous membranes Neck full ROM Extremity Extremity Narrative: There is ecchymosis and discoloration of the left third toe. There is an open ulceration on the lateral aspect of the left third toe and medial aspect of the left fourth toe. There is some purulent drainage noted. Sensation was intact to light touch in all digits. Capillary refill was less than 2 seconds in all digits. Pedal pulses are equal bilaterally. There is some mild erythema extending down into the dorsum of the left foot over the third and fourth distal metatarsals. Neuro oriented x3, CN's II-XII intact bilaterally, moves all extremities and no sensory deficits noted Sensorium / Orientation: alert Motor Exam: strength 5/5 throughout Psych mental status grossly normal MDM MDM MDM Narrative Medical decision making narrative: Patient was given IV fluids here. Wound cultures and blood cultures were obtained. Patient was given dose of Levaquin and doxycycline. CBC shows a mild leukocytosis of 14.2. This is only slightly increased from previous results. Hemoglobin was 11.2 hematocrit 34.7. PT with INR and PTT were within normal limits. Comprehensive metabolic profile shows a BUN of 36 and creatinine 2.12. These are consistent with prior results. Lactate was normal at 0.6. X-rays of the left foot were obtained. There are 3 views. On my interpretation, there is no acute fracture. There is no dislocation. There is no evidence of osteomyelitis. There is some mild soft tissue swelling. Radiologist also interpreted the x-rays and agrees. Bacitracin dressing was applied. Patient was advised of his findings. Patient states he follows with the [facility]. Patient thinks he will be able to be seen by podiatry at the [facility] this week. Patient was instructed to follow-up there in 2 to 3 days. Patient was given prescription for Levaquin and doxycycline. Patient was instructed to return if the discoloration gets worse or if he feels it is getting worse in any way. Patient understood and was agreeable with the plan. All questions were answered. Lab Data Attestation: I reviewed the patient's lab results. Labs: Laboratory Results - last 24 hr 09/28/21 09/28/21 09/28/21 09:07 09:07 09:07 WBC 14.2 H RBC 3.93 L Hgb 11.2 L Hct 34.7 L MCV 88.3 MCH 28.5 MCHC 32.3 RDW Std Deviation 40.9 RDW Coeff of Zaina 12.5 Plt Count 460 H MPV 9.6 Immature Gran % (Auto) 0.400 Neut % (Auto) 67.6 Lymph % (Auto) 16.2 L Christian % (Auto) 13.4 H Eos % (Auto) 1.8 Baso % (Auto) 0.6 Absolute Neuts (auto) 9.6 H Absolute Lymphs (auto) 2.29 Nucleated RBC % 0 Differential Comment COMMENT Diff Path Review May foll PT 12.1 INR 0.9 APTT 32.8 Sodium 140 Potassium 3.9 Chloride 107 Carbon Dioxide 25.0 Anion Gap 8 BUN 36 H Creatinine 2.12 H Estim Creat Clear Calc 46.26 Est GFR (MDRD) Af Amer 43 L Est GFR (MDRD) Non-Af 35 L BUN/Creatinine Ratio 17.0 Glucose 98 Lactic Acid Calcium 9.7 Total Bilirubin 0.30 AST 14 L ALT 21 Alkaline Phosphatase 105 Total Protein 8.3 H Albumin 2.7 L Globulin 5.6 H Albumin/Globulin Ratio 0.5 L 09/28/21 09:07 WBC RBC Hgb Hct MCV MCH MCHC RDW Std Deviation RDW Coeff of Zaina Plt Count MPV Immature Gran % (Auto) Neut % (Auto) Lymph % (Auto) Christian % (Auto) Eos % (Auto) Baso % (Auto) Absolute Neuts (auto) Absolute Lymphs (auto) Nucleated RBC % Differential Comment Diff Path Review PT INR APTT Sodium Potassium Chloride Carbon Dioxide Anion Gap BUN Creatinine Estim Creat Clear Calc Est GFR (MDRD) Af Amer Est GFR (MDRD) Non-Af BUN/Creatinine Ratio Glucose Lactic Acid 0.6 Calcium Total Bilirubin AST ALT Alkaline Phosphatase Total Protein Albumin Globulin Albumin/Globulin Ratio Radiography Diagnostic Testing: Clinical Impression(s) from Imaging Studies Foot X-Ray 09/28/21 08:59 IMPRESSION: 1. There is no x-ray evidence of cortical erosion or osteolysis or osteomyelitis Electronically Signed: Dani Torres MD at 10:19 EDT Reading Location ID and State: [address] [place] [address] , Service support , Discharge Plan Triage Chief Complaint: Lower Extremity Injury ED Provider: Zach Camacho Dx/Rx/DC Orders Clinical Impression: Diabetic foot infection, Diabetes mellitus type 2 with complications Instructions: ED Wound Check (Infection) Prescriptions: New doxycycline monohydrate 100 MG capsule 100 mg PO BID Qty: 20 0RF levofloxacin [levofloxacin] 500 MG tablet 500 mg PO DAILY Qty: 10 0RF No Action insulin aspart U-100 [Novolog Flexpen U-100 Insulin] 100 unit/mL (3 mL) Insulin Pen 6 unit SUBCUT TIDCM insulin glargine [Lantus Solostar U-100 Insulin] 100 unit/mL (3 mL) Insulin Pen 30 unit SUBCUT DAILY [facility] [Primary Care Provider] - 2 Days Disposition Disposition: Home, Self Care
--- NOTE | 2021-09-28 08:59 | RAD_ITS ---
STUDY: X-RAY - LEFT FOOT CLINICAL: Male, 51 years old. STS, WOUND/INFECTION TO MIDDLE TOE. PT IS DIABETIC. NKI TECHNIQUE: 3 view(s) of the foot. COMPARISON: None. FINDINGS: Normal talus, calcaneus, and tarsal bones. Normal visualized subtalar, talonavicular, calcaneocuboid, tarsal and tarsometatarsal articulations. Mild hypertrophic cortical thickening at the base and lateral aspect of the fifth metatarsal bone is most likely related to old trauma to this region. Normal remaining metatarsal bones. There is no x-ray evidence of cortical erosion or osteolysis or osteomyelitis. Atherosclerotic calcifications noted. No visualized soft tissue gas. Normal metatarsophalangeal joint of the great toe. Normal tibial and fibular sesamoid bones. Normal interphalangeal joint of the great toe. Normal phalanges of the great toe. Normal second through fifth metatarsophalangeal joints. Normal interphalangeal joints and phalanges of the lesser toes. The soft tissue structures are unremarkable. There is no demonstrated fracture. RAD/Foot min 3 Views IMPRESSION: 1. There is no x-ray evidence of cortical erosion or osteolysis or osteomyelitis Electronically Signed: Dani Torres MD at 10:19 EDT Reading Location ID and State: [facility] / [place] , Service support ,
[2021-09-28 09:25] LABS: Absolute Lymphocyte Count 2.29 X10^3/uL (0.83-4.51); Absolute Neutrophil Count 9.6 X10^3/uL (2.0-7.7); Basophil# 0.09 X10^3/uL; Basophil% 0.6 % (0-1); Eosinophil# 0.25 X10^3/uL; Eosinophils% 1.8 % (0-5); Hematocrit 34.7 % (40-54); Hemoglobin 11.2 g/dL (13.0-16.5); Lymphocyte # 2.29 X10^3/ul (0.83-4.51); Lymphocyte % 16.2 % (19-41); Mean Corp Hgb Conc 32.3 g/dL (32-36); Mean Corpuscular Hgb 28.5 pg (27.0-32.0); Mean Corpuscular Volume 88.3 fL (80-94); Mean Platelet Vol. 9.6 fl (6.2-12.0); Monocyte% 13.4 % (0-10); NRBC Flagged by Analyzer 0 % (0-5); Neutrophil # 9.57 X10^3/uL (2.7-7.7); Neutrophil % 67.6 % (47-70); POSITIVE DIFFERENTIAL YES; Platelet Count 460 K/mm3 (150-450); RBC Distribution Width CV 12.5 % (11.6-14.6); RBC Distribution Width SD 40.9 fl (35.1-43.9); Red Blood Count 3.93 M/mm3 (4.6-6.2); White Blood Count 14.2 K/mm3 (4.4-11.0)
[2021-09-28 09:26] LABS: Differential Indicated SCAN CRITERIA MET
[2021-09-28 09:36] LABS: ALB/GLOB Ratio 0.5 RATIO (0.9-2.4); AST(SGOT) 14 U/L (15-37); Alanine Aminotransfer ALT/SGPT 21 U/L (16-61); Albumin, Serum 2.7 g/dL (3.2-5.0); Alkaline Phosphatase 105 U/L (45-117); Anion Gap 8 (5-15); BUN 36 mg/dL (7-18); Calcium,Total 9.7 mg/dL (8.5-10.1); Chloride 107 mmol/L (98-107); Creatinine, Serum 2.12 mg/dL (0.70-1.30); EST Glomerular Filtration Rate 35 mL/min (>60); Est Glom Filt Rate - Afr Amer 43 mL/min (>60); Estimated Creatinine Clearance 46.26 ml/min; Globulin 5.6 g/dL (2.2-4.2); Glucose 98 mg/dL (74-106); Potassium 3.9 mmol/L (3.5-5.1); Protein, Total 8.3 g/dL (6.4-8.2); Sodium Level 140 mmol/L (136-145)
[2021-09-28 09:37] LABS: International Normalized Ratio 0.9; Prothrombin Time (Protime)PT. 12.1 SECONDS (11.7-14.9)
[2021-09-28 09:38] LABS: Partial Thromboplast Time 32.8 Seconds (24.1-36.2)
[2021-09-28] MEDS: Doxycycline 100 MG CAPSULE PO (09:45)
[2021-09-28] MEDS: levoFLOXacin IV 500 MG/100 ML BAG 100 MG IV (09:45)
[2021-09-28] MEDS: 0.9% Normal Saline 1,000 ML 1000 ML IV (09:45)
[2021-09-28 10:09] LABS: Lactic Acid 0.6 mmol/L (0.4-1.9)
[2021-09-29 12:09] LABS: Pathologist Review Reviewed
== END 2021-09-28 11:58 | disposition home or self-care (01) ==
PROVIDERS: Emergency Provider Emergency Medicine; Visit Provider Emergency Medicine
DX: E11.628 Type 2 diabetes mellitus with other skin complications (principal); L08.9 Local infection of the skin and subcutaneous tissue, unspecified; M79.89 Other specified soft tissue disorders; I10 Essential (primary) hypertension; Z79.4 Long term (current) use of insulin; Z79.899 Other long term (current) drug therapy; Z87.891 Personal history of nicotine dependence
CPT/HCPCS: 73630; 80053; 83605; 85025; 85610; 85730; 87040; 87070; 87077; 87186; 87205; 96365; 96366; 99284; J7030; A4216